=== PATIENT | female | born 1945 | race Caucasian/White ===

== ENCOUNTER 2016-08-08 11:02 | Inpatient (IN) | payer MEDICARE ==
[~2016-08-08] VITALS: Ht 152.4 cm; Wt 124.8 kg
[2016-08-08] MEDS ORDERED: NORCO, ANEXSIA 5/325MG TABLET (HYDROcodone/ACETAMINOPHEN) As Ordered ONE (12:46)
[2016-08-08] MEDS ORDERED: predniSONE 20 MG TAB As Ordered ONE ×2 (12:46→12:53)
[2016-08-08 12:48] LABS: BASO % 0.4 % (0.0-1.0); EOS # 0.1 K/mm3 (0.0-0.50); EOS % 0.9 % (0.0-3.0); LARGE UNSTAINED CELL # 0.1 K/mm3 (0.0-0.4); LARGE UNSTAINED CELL % 1.2 % (0.0-4.0); LYMPH # 1.4 K/mm3 (1.5-4.5); LYMPH % 12.3 % (24.0-44.0); MEAN CORPUSCULAR HEMOGLOBIN 28.9 pg (27.0-33.0); MEAN CORPUSCULAR HGB CONC 32.1 g/dl (32.0-36.5); MEAN CORPUSCULAR VOLUME 90.1 fl (80.0-96.0); MONO # 0.5 K/mm3 (0.0-0.8); NEUTROPHILS # 9.2 K/mm3 (1.8-7.7); NEUTROPHILS % 81.2 % (36.0-66.0); PLATELET COUNT, AUTOMATED 262 k/mm3 (150-450); RED CELL DISTRIBUTION WIDTH 13.9 % (11.5-14.5); WHITE BLOOD COUNT 11.3 K/mm3 (4.0-10.0)
[2016-08-08 12:59] LABS: CALCIUM LEVEL 9.3 MG/DL (8.8-10.2); CREATININE FOR GFR 1.26 MG/DL (0.55-1.02); GLOMERULAR FILTRATION RATE 44.3 (>39)
[2016-08-08 13:48] LABS: INR 0.95
--- NOTE | 2016-08-08 14:48 | ECGEPIP ---
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
--- NOTE | 2016-08-08 14:53 | REP ---
LUMBOSACRAL SPINE SERIES: Five views of the lumbosacral spine are performed. There is no compression fracture. There is normal lumbar lordosis. There is minimal anterior listhesis of L4 on L5 due to posterior facet arthropathy. There is moderate diffuse spurring. There is mild disc space narrowing and subchondral sclerosis at all levels. With a more moderate degree of disc space narrowing at L3-4. There is diffuse sclerosis and spurring at the posterior facet joints. The posterior elements appear intact. Diffuse vascular calcifications are present. IMPRESSION: Diffuse degenerative changes without evidence of acute fracture or dislocation. Signed by Kenan Lu MD 08/08/2016 04:10 P
--- NOTE | 2016-08-08 15:47 | REP ---
Right lower extremity venous Doppler 08/08/2016 Indication: right leg pain Comparison: None Technique : Color-flow Doppler spectral wave imaging and ferrari-scale imaging were used to evaluate the right lower extremity veins at common femoral, superficial femoral, and popliteal venous levels Findings: Due to large body habitus there is limited visualization and evaluation of the mid and distal superficial femoral veins. They were however seen to be patent with color Doppler and spectral wave Doppler imaging. The right common femoral, visualized portions of the origin of greater saphenous vein, profunda femoris, common femoral vein and proximal superficial femoral veins are patent and compressibility was identified. Also compressibility noted within the right popliteal vein Impression: No visualized deep venous thrombosis in the right lower extremity. Please note that evaluation of mid and distal superficial femoral veins somewhat limited due to large body habitus Signed by Jayshree Pardo MD 08/10/2016 10:48 P
[2016-08-08] MEDS ORDERED: ALEN70TA39 PO (16:25)
[2016-08-08] MEDS ORDERED: SITA50TAB PO (16:30)
[2016-08-08] MEDS ORDERED: PRIM50TA2 PO (16:30)
[2016-08-08] MEDS ORDERED: INDA25TAB PO (16:30)
[2016-08-08] MEDS ORDERED: CALCTAB68 PO (16:30)
[2016-08-08] MEDS ORDERED: VITMTA PO (16:30)
[2016-08-08] MEDS ORDERED: GLIM2TAB PO (16:30)
[2016-08-08] MEDS ORDERED: CINN500C9 PO (16:30)
[2016-08-08] MEDS ORDERED: ZOCO40TA PO (16:30)
[2016-08-08] MEDS ORDERED: LISI-538 PO (16:30)
[2016-08-08] MEDS ORDERED: MORPHINE 2 MG/ML 1ML SYRINGE IV PRN (17:00)
[2016-08-08] MEDS ORDERED: BISACODYL 5 MG TAB PO PRN (17:00)
[2016-08-08] MEDS ORDERED: ONDANSETRON 4MG/2ML VIAL (J2405) IV PRN (17:00)
[2016-08-08] MEDS ORDERED: DEXTROSE 50% 50 ML SYRINGE IV PRN (17:15)
[2016-08-08] MEDS ORDERED: GLUCAGON FOR INJ 1 MG VIAL (J1610) SC PRN (17:15)
[2016-08-08] MEDS ORDERED: GLUCOSE 4 GM CHEW TABLET PO PRN (17:15)
[2016-08-08] MEDS ORDERED: LORazepam 2 MG/ML VIAL (J2060) As Ordered ONE (18:23)
[2016-08-08 20:34] VITALS: BP 162/70
--- NOTE | 2016-08-08 20:35 | EDDOCDS ---
Physician Documentation [facility] Name: Nely Duvall Age: 71 yrs Sex: Female : 1945 Arrival Date: 08/08/2016 Time: 11:02 Bed 5 Private MD: Jacqueline Perla M. Disposition: 08/08 16:20 Critical Care: Critical care not applicable. evelia Disposition: 08/08/16 16:20 Hospitalization ordered by Leonela Rai for Observation. Preliminary diagnosis are Radiculopathy, lumbar region, Difficulty in walking, not elsewhere classified. - Bed requested for 4 [place]. - Status is Observation. kalina - Condition is Stable. - Problem is new. - Symptoms are unchanged. Historical: - Allergies: Bactrim (Hives); - Home Meds: 1. alendronate-vitamin D3 70-5,600 mg-unit oral tab 1 tab once wkly Sundays (Last dose: 08/07/2016) 2. indapamide 2.5 mg Oral tab 1 tab once daily (Last dose: 08/08/2016 07:30) 3. glimepiride 2 mg Oral tab 1 tab twice a day (Last dose: 08/08/2016 07:30) 4. simvastatin 40 mg Oral tab 1 tab nightly (Last dose: 08/07/2016) 5. primidone 50 mg Oral tab 3 tabs twice a day (Last dose: 08/08/2016 07:30) 6. Januvia 50 mg oral tab once daily (Last dose: 08/08/2016 07:30) 7. lisinopril 20 mg Oral tab 1 tab twice a day (Last dose: 08/08/2016 07:30) 8. Cinnamon 500 mg oral cap 2 cap twice a day (Last dose: 08/08/2016 07:30) 9. Calcium + Vitamin D 600 mg calcium- 200 unit Oral tab twice a day (Last dose: 08/08/2016 07:30) 10. senior multivitamin daily (Last dose: 08/08/2016 07:30) 11. multivitamin with minerals oral cap daily (Last dose: 08/08/2016 07:30) - PMHx: Diabetes - NIDDM: controlled; Hypertension; essential tremors; chronic kidney disease stage 3; - PSHx: none; - Social history: Smoking status: Patient states was never smoker of tobacco. No barriers to communication noted, The patient speaks fluent Tajik. - Family history: Not pertinent. - : The pt / caregiver states he / she is not on anticoagulants. Home medication list is obtained from the patient. - Exposure Risk Screening:: None identified. Vital Signs: 11:05 BP 205 / 65; Pulse 75; Resp 18; Temp 98.1(T); Pulse Ox 98% on R/A; Weight 125.65 kg / dem1 277.01 lbs (R); Height 5 ft. 0 in. (152.40 cm) (R); Pain 5/10; 14:40 BP 122 / 75; mem 16:43 BP 182 / 83; Pulse 95; Resp 18; Temp 97.6(T); Pulse Ox 99% on R/A; kr3 19:50 BP 137 / 69; Pulse 81; Resp 18 S; Pulse Ox 96% on R/A; af2 19:53 Temp 98.3; cln 11:05 Body Mass Index 54.10 (125.65 kg, 152.40 cm) dem1 MDM: 11:57 General Handling Supervisor/Pulse Ox/q 30 min VS ordered. kcs 11:57 IV Saline Lock ordered. kcs 11:57 Rhythm Strip to chart ordered. kcs 11:57 Undress patient appropriately for examination ordered. kcs 11:58 Basic Metabolic Profile Ordered. EDMS 11:58 CBC with Diff Ordered. EDMS 11:58 Cardiac Injury Profile Ordered. EDMS 11:58 Partial Thromboplastin Time Ordered. EDMS 11:58 Prothrombin Time Profile\E\INR Ordered. EDMS 11:59 ECG WITH READING ER PHYS+CARDIAG ordered. EDMS 12:41 HYDROcodone-acetaminophen 5 mg-325 mg 1 tabs PO once ordered. le 12:41 predniSONE 60 mg PO once; administer with food or milk ordered. le 12:42 US Lower Extremity R/O DVT Ordered. EDMS 12:42 Spine. Lumbosacral, Complete Ordered. EDMS 13:45 Basic Metabolic Profile Reviewed. le 13:45 CBC with Diff Reviewed. le 13:45 Cardiac Injury Profile Reviewed. le 13:45 Partial Thromboplastin Time Reviewed. le 14:55 PT Consult to assess patient's safe and independent mobility for discharge to home le ordered. 14:55 Partial Thromboplastin Time Reviewed. le 14:55 Prothrombin Time Profile\E\INR Reviewed. le 14:55 EKG-ADULT Reviewed. le 14:55 Spine. Lumbosacral, Complete Reviewed. le 15:12 PT Consult to assess patient's safe and independent mobility for discharge to home jrd complete. 15:13 PHYSICAL THERAPY EVAL ONLY ordered. EDMS 15:41 Financial registration complete. zo 15:42 [facility] Payment Agreement was scanned into [employer] and attached to record. zo 16:11 BED REQUEST+ADM ordered. EDMS 16:59 PHYSICAL THERAPY EVAL & TREAT ordered. EDMS 16:59 CONSISTENT CARBOHYDRATES ordered. EDMS 17:03 MRI Screening Tool - Place on chart, inform RN ordered. ss12 17:52 MRI Spine, L.S. without con Ordered. EDMS 17:52 Chest, 2 view PA, Lat Ordered. EDMS 17:53 Admission / Observation Status ordered. EDMS 17:54 URINALYSIS Ordered. EDMS 18:28 LORazepam 2 mg IVP once ordered. kr3 19:24 MRI Screening Tool - Place on chart, inform RN complete. ml3 19:32 CBC WITH DIFFERENTIAL Ordered. EDMS 19:32 COMPLETE COMPHRENSIVE METABOLI Ordered. EDMS 20:28 MAGNESIUM LEVEL Ordered. EDMS Administered Medications: 12:55 Drug: HYDROcodone-acetaminophen 1 tabs [hydrocodone 5 mg-acetaminophen 325 mg tablet (1 kr3 tabs)] Route: PO; 13:49 Follow up: Response: No significant change. kr3 12:55 Drug: predniSONE 60 mg [prednisone 20 mg tablet (3 tabs)] Route: PO; kr3 13:49 Follow up: Response: No Adverse Reaction kr3 18:25 Drug: LORazepam 2 mg [lorazepam 2 mg/mL injection solution (1 mL)] Route: IVP; Site: kr3 left antecubital; Signatures: Dispatcher [employer] EDMS Marla Bonilla RN Gayla Robledo RN RN kpj Newman, Jill New RN Joseph Kaur, [facility] ml3 Jessica Stauffer RN RN kr3 Modesta Bravo Lisa, ROUGH CARPENTER ROUGH CARPENTER Darrel Mata ss12 [place], LABOR DELIVERY RN LABOR DELIVERY RN jrd The chart was reviewed and I authenticate all verbal orders and agree with the evaluation and treatment provided.Corrections: (The following items were deleted from the chart) 20:28 19:32 MAGNESIUM LEVEL ordered. EDMS EDMS Attachments: 15:42 [facility] Payment Agreement zo MTDD
--- NOTE | 2016-08-08 20:35 | EDDOCDS ---
Nurse's Notes [facility] Name: Ronny Duvall Age: 71 yrs Sex: Female : 1945 Arrival Date: 08/08/2016 Time: 11:02 Bed 5 Private MD: Jacqueline Perla M. Diagnosis: Radiculopathy, lumbar region;Difficulty in walking, not elsewhere classified Presentation: 08/08 11:26 Presenting complaint: Patient states: trouble walking for the last 2 weeks even when kpj using her walker. Lives alone has a caregiver that comes in twice a week.pain rt butt cheek and pain down her right leg. 11:29 The last date and time the patient was known to be well was was at an unknown time. No [facility] acute neurological deficit is noted. Pre-hospital glucose is not applicable to this patient. Adult Sepsis Screening: The patient does not have new or worsening altered mentation. Patient's respiratory rate is less than 22. Systolic blood pressure is greater than 100. Patient has a qSOFA score of 0- Negative Sepsis Screen. Status: Patient is not a answering service telephone operator or dependent. Suicide/Homicide risk assessment- the patient denies having any suicidal and/or homicidal ideations. Transition of care: patient was not received from another setting of care. 11:29 Acuity: BHAVIN Level 3 [facility] 11:29 Method Of Arrival: Ambulance [facility] 19:51 The last date and time the patient was known to be well was on an unknown date. af2 Triage Assessment: 11:37 The onset of the patients symptoms was at an unknown time. General: Appears in no [facility] apparent distress. Pain: Location: right gluteus bridgett Pain currently is 5 out of 10 on a pain scale. Pain radiates to right leg. Neurological: Level of Consciousness is awake, alert, Oriented to person, place, time, Reports Back Pain. Respiratory: Airway is patent Respiratory effort is even, unlabored, Respiratory pattern is regular, symmetrical. Derm: Skin is pink, warm & dry. Musculoskeletal: Reports pain in right gluteus bridgett radiation to right leg Pain is 5 out of 10 on a pain scale. Historical: - Allergies: Bactrim (Hives); - Home Meds: 1. alendronate-vitamin D3 70-5,600 mg-unit oral tab 1 tab once wkly Sundays (Last dose: 08/07/2016) 2. indapamide 2.5 mg Oral tab 1 tab once daily (Last dose: 08/08/2016 07:30) 3. glimepiride 2 mg Oral tab 1 tab twice a day (Last dose: 08/08/2016 07:30) 4. simvastatin 40 mg Oral tab 1 tab nightly (Last dose: 08/07/2016) 5. primidone 50 mg Oral tab 3 tabs twice a day (Last dose: 08/08/2016 07:30) 6. Januvia 50 mg oral tab once daily (Last dose: 08/08/2016 07:30) 7. lisinopril 20 mg Oral tab 1 tab twice a day (Last dose: 08/08/2016 07:30) 8. Cinnamon 500 mg oral cap 2 cap twice a day (Last dose: 08/08/2016 07:30) 9. Calcium + Vitamin D 600 mg calcium- 200 unit Oral tab twice a day (Last dose: 08/08/2016 07:30) 10. senior multivitamin daily (Last dose: 08/08/2016 07:30) 11. multivitamin with minerals oral cap daily (Last dose: 08/08/2016 07:30) - PMHx: Diabetes - NIDDM: controlled; Hypertension; essential tremors; chronic kidney disease stage 3; - PSHx: none; - Social history: Smoking status: Patient states was never smoker of tobacco. No barriers to communication noted, The patient speaks fluent Latvian. - Family history: Not pertinent. - : The pt / caregiver states he / she is not on anticoagulants. Home medication list is obtained from the patient. - Exposure Risk Screening:: None identified. Screenin:28 Screening information is obtained from the patient. Fall risk: At risk due to kr3 immobility. home support is adequate. 18:37 Abuse/DV Screen: The patient / caregiver reports he/she is: not in a situation that kr3 causes fear, pain or injury. Nutritional screening: No deficits noted. 19:31 Assistance ADL's: unable to assess. Advance Directives: Further advance directive af2 information is declined. Assessment: 12:28 Reassessment: Patient appears in no apparent distress at this time. General: Reports kr3 unable to weight bear right leg. Pain: Location: right leg and buttocks and right gluteus bridgett Pain currently is 5 out of 10 on a pain scale. Neurological: No deficits noted. Cardiovascular: Chest pain is denied. Respiratory: Respiratory effort is even, unlabored. Derm: Skin is pink, warm & dry. 13:49 Reassessment: Patient appears in no apparent distress at this time. Pain: Location: kr3 right leg and buttocks and right gluteus bridgett Pain currently is 5 out of 10 on a pain scale. 14:40 Reassessment: Patient appears in no apparent distress at this time. General: Behavior kr3 is cooperative. Neurological: No deficits noted. 15:55 Reassessment: PT in with patient to evaluate. kr3 16:30 Reassessment: Patient appears in no apparent distress at this time. Neurological: Level kr3 of Consciousness is awake, alert. Respiratory: Respiratory effort is even, unlabored. 17:05 Reassessment: Patient appears in no apparent distress at this time. talking with kr3 hospitallist. 18:10 General: Appears in no apparent distress, comfortable, reports willing to try MRI but kr3 will need medication, hospitalist notified and med ordered. 18:35 Reassessment: Patient appears in no apparent distress at this time. Pain: Location: kr3 right knee Pain currently is 6 out of 10 on a pain scale. Quality of pain is described as aching. 19:21 General: pt off unit at this time. . af2 19:51 Reassessment: Patient appears in no apparent distress at this time. pt returned from af2 MRI at this time, tolerated procedure well. states that she feels a dull ache returning to right leg. . 20:04 General: Appears in no apparent distress, comfortable, Behavior is appropriate for age, af2 cooperative. Neurological: Level of Consciousness is awake, alert. Respiratory: Airway is patent Respiratory effort is even, unlabored. Derm: Skin is pink, warm & dry. Vital Signs: 11:05 BP 205 / 65; Pulse 75; Resp 18; Temp 98.1(T); Pulse Ox 98% on R/A; Weight 125.65 kg dem1 (R); Height 5 ft. 0 in. (152.40 cm) (R); Pain 5/10; 14:40 BP 122 / 75; mem 16:43 BP 182 / 83; Pulse 95; Resp 18; Temp 97.6(T); Pulse Ox 99% on R/A; kr3 19:50 BP 137 / 69; Pulse 81; Resp 18 S; Pulse Ox 96% on R/A; af2 19:53 Temp 98.3; cln 11:05 Body Mass Index 54.10 (125.65 kg, 152.40 cm) dem1 Vitals: 11:05 Log In Time N/A - ambulance arrival. RN notified that patient meets Red Flag criteria. dem1 11:37 Glucose Measurement N/A. [facility] ED Course: 11:04 Patient visited by Daxa Helms. dem1 11:04 Patient moved to Waiting dem1 11:05 Jacqueline Perla is Private Physician. dem1 11:08 Patient visited by Daxa Helms. dem1 11:08 Patient moved to Pre RCE dem1 11:29 Triage Initiated [facility] 11:42 Jessica Stauffer,RN is Primary Nurse. ar3 11:42 Patient moved to 5 ar3 12:10 EKG done. (by ED staff). Reviewed by Kumar Agee MD. ct3 12:11 Patient visited by Kalpana Flores PCA. ct3 12:28 [facility]. le 12:28 Basic Metabolic Profile Sent. kr3 12:28 CBC with Diff Sent. kr3 12:28 Cardiac Injury Profile Sent. kr3 12:28 Partial Thromboplastin Time Sent. kr3 12:28 Prothrombin Time Profile\E\INR Sent. kr3 12:29 The patient / caregiver is instructed regarding the plan of care and ED course. Patient kristina has correct armband on for positive identification. Placed in gown. Bed in low position. Call light in reach. Side rails up X2. hospital monitor on. Pulse ox on. NIBP on. 12:29 Inserted saline lock: 20 gauge in left antecubital area and blood collected. The frieda3 patient tolerated the procedure well. 12:35 Patient visited by Thea Gregorio FNP. le 12:35 Patient visited by Thea Gregorio FNP. le 12:55 Cleaned of incontinence. Linen changed. kr3 13:13 Patient visited by Kalpana Flores PCA. ct3 13:49 Patient visited by Jessica Stauffer RN. kr3 14:33 Patient moved to Ultrasound sm5 14:51 EKG-ADULT Returned. EDMS 14:55 Spine. Lumbosacral, Complete Returned. EDMS 14:57 Patient moved to 5 br3 15:19 Cleaned of incontinence. Linen changed. kr3 15:20 Patient visited by Jessica Stauffer RN. kr3 15:42 [facility] Payment Agreement was scanned into [employer] and attached to record. zo 15:59 Patient visited by Kalpana Flores PCA. ct3 16:02 US Lower Extremity R/O DVT Returned. EDMS 16:20 Fredi Leonela is Hospitalizing Provider. le 16:36 Spine. Lumbosacral, Complete Returned. EDMS 18:44 Patient moved to MRI kr3 18:59 Sinan Salas adult ministries director. nq 19:00 Primary Nurse role handed off by Jessica Stauffer RN kr3 19:20 Griselda Collins RN is Primary Nurse. af2 19:21 Patient visited by Griselda Collins RN. af2 19:45 Patient moved to 5 ml3 19:50 No procedures done that require assistance. af2 19:52 Patient visited by Griselda Collins RN. af2 19:53 Patient visited by Palmira Razo PCA. cln Administered Medications: 12:55 Drug: HYDROcodone-acetaminophen 1 tabs [hydrocodone 5 mg-acetaminophen 325 mg tablet (1 kr3 tabs)] Route: PO; 13:49 Follow up: Response: No significant change. kr3 12:55 Drug: predniSONE 60 mg [prednisone 20 mg tablet (3 tabs)] Route: PO; kr3 13:49 Follow up: Response: No Adverse Reaction kr3 18:25 Drug: LORazepam 2 mg [lorazepam 2 mg/mL injection solution (1 mL)] Route: IVP; Site: kr3 left antecubital; Order Results: Lab Order: Basic Metabolic Profile; SPEC'M 08/08/16 12:24 Test: GLUCOSE, FASTING; Value: 131; Range: 83-110; Abnormal: Above high normal; Units: MG/DL; Status: F Test: BLOOD UREA NITROGEN; Value: 28; Range: 7-18; Abnormal: Above high normal; Units: MG/DL; Status: F Test: CREATININE FOR GFR; Value: 1.26; Range: 0.55-1.02; Abnormal: Above high normal; Units: MG/DL; Status: F Test: GLOMERULAR FILTRATION RATE; Value: 44.3; Range: >39; Status: F Test: SODIUM LEVEL; Value: 145; Range: 136-145; Units: MEQ/L; Status: F Test: POTASSIUM SERUM; Value: 4.0; Range: 3.5-5.1; Units: MEQ/L; Status: F Test: CHLORIDE LEVEL; Value: 106; Range: 98-107; Units: MEQ/L; Status: F Test: CARBON DIOXIDE LEVEL; Value: 30; Range: 21-32; Units: MEQ/L; Status: F Test: ANION GAP; Value: 9; Range: 8-16; Units: MEQ/L; Status: F Test: CALCIUM LEVEL; Value: 9.3; Range: 8.8-10.2; Units: MG/DL; Status: F Test Note: ; Units are mL/min/1.73 m2 Chronic Kidney Disease Staging per NKF: Stage I & II GFR >=60 Normal to Mildly Decreased Stage III GFR 30-59 Moderately Decreased Stage IV GFR 15-29 Severely Decreased Stage V GFR <15 Very Little GFR Left ESRD GFR <15 on INDUSTRIAL GAS PRODUCTION OPERATOR Lab Order: CBC with Diff; SPEC'M 08/08/16 12:24 Test: WHITE BLOOD COUNT; Value: 11.3; Range: 4.0-10.0; Abnormal: Above high normal; Units: K/mm3; Status: F Test: RED BLOOD COUNT; Value: 4.38; Range: 4.00-5.40; Units: M/mm3; Status: F Test: HEMOGLOBIN; Value: 12.7; Range: 12.0-16.0; Units: g/dl; Status: F Test: HEMATOCRIT; Value: 39.4; Range: 36.0-47.0; Units: %; Status: F Test: MEAN CORPUSCULAR VOLUME; Value: 90.1; Range: 80.0-96.0; Units: fl; Status: F Test: MEAN CORPUSCULAR HEMOGLOBIN; Value: 28.9; Range: 27.0-33.0; Units: pg; Status: F Test: MEAN CORPUSCULAR HGB CONC; Value: 32.1; Range: 32.0-36.5; Units: g/dl; Status: F Test: RED CELL DISTRIBUTION WIDTH; Value: 13.9; Range: 11.5-14.5; Units: %; Status: F Test: PLATELET COUNT, AUTOMATED; Value: 262; Range: 150-450; Units: k/mm3; Status: F Test: NEUTROPHILS %; Value: 81.2; Range: 36.0-66.0; Abnormal: Above high normal; Units: %; Status: F Test: LYMPH %; Value: 12.3; Range: 24.0-44.0; Abnormal: Below low normal; Units: %; Status: F Test: MONO %; Value: 4.0; Range: 0.0-5.0; Units: %; Status: F Test: EOS %; Value: 0.9; Range: 0.0-3.0; Units: %; Status: F Test: BASO %; Value: 0.4; Range: 0.0-1.0; Units: %; Status: F Test: LARGE UNSTAINED CELL %; Value: 1.2; Range: 0.0-4.0; Units: %; Status: F Test: NEUTROPHILS #; Value: 9.2; Range: 1.8-7.7; Abnormal: Above high normal; Units: K/mm3; Status: F Test: LYMPH #; Value: 1.4; Range: 1.5-4.5; Abnormal: Below low normal; Units: K/mm3; Status: F Test: MONO #; Value: 0.5; Range: 0.0-0.8; Units: K/mm3; Status: F Test: EOS #; Value: 0.1; Range: 0.0-0.50; Units: K/mm3; Status: F Test: BASO #; Value: 0.0; Range: 0.0-0.2; Units: K/mm3; Status: F Test: LARGE UNSTAINED CELL #; Value: 0.1; Range: 0.0-0.4; Units: K/mm3; Status: F Lab Order: Cardiac Injury Profile; SPEC'M 08/08/16 12:24 Test: CPK CREATINE PHOSPHOKINASE; Value: 85; Range: 26-192; Units: U/L; Status: F Test: CK-MB VALUE MASS; Value: 1.6; Range: 0.0-3.6; Units: NG/ML; Status: F Test: MB/CK RELATIVE INDEX; Value: 1.88; Range: < OR =4; Status: F Test Note: ; DIAGNOSIS CRITERIA MMB ng/ml Relative Index (RI) NON-AMI < or = 5 N/A LU ZONE > 5 < or = 4 AMI > 5 > 4 Lab Order: Partial Thromboplastin Time; SPEC'M 08/08/16 12:24 Test: PARTIAL THROMBOPLASTIN TIME; Value: 29.7; Range: 26.6-37.1; Units: SECONDS; Status: F Lab Order: Prothrombin Time Profile\E\INR; SPEC'M 08/08/16 12:24 Test: PROTHROMBIN TIME; Value: 12.8; Range: 12.3-14.5; Units: SECONDS; Status: F Test: INR; Value: 0.95; Status: F Test Note: ; THERAPUTIC HUMAN INR VALUES INDICATIONS NORMAL RANGES PROPHYLAXIS/TREATMENT OF: VENOUS THROMBOSIS 2.0-3.0 PULMONARY EMBOLISM 2.0-3.0 PREVENTION OF SYSTEMIC EMBOLISM FROM: TISSUE HEART VALVES 2.0-3.0 ACUTE MYOCARDIAL INFARCTION 2.0-3.0 VALVULAR HEART DISEASE 2.0-3.0 ATRIAL FIBRILLATION 2.0-3.0 MECHANICAL VALVES(HIGH RISK) 2.5-3.5 RECURRENT MYOCARDIAL INFARCTION 2.5-3.5 Radiology Order: EKG-ADULT Test: EKG-ADULT REASON FOR EXAMINATION: weakness; Stationary ECG Study; [facility] - ED; ; Test Date: 2016-08-08; Pat Name: RONNY DUVALL Department:; Room: -; Gender: F 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: ct; : 1945 Requested By: Kumar Agee; Order Number: [id number] Reading MD: Alex Bonilla; Measurements; Intervals [place]; Rate: 67 P:; UT: 0 QRS: -44; QRSD: 105 T: 56; QT: 369; QTc: 392; Interpretive Statements; SINUS RHYTHM WITH 1ST DEGREE AV BLOCK; LEFT AXIS DEVIATION; LAE; NO PRIORS; Electronically Signed On 08-08-2016 14:48:15 EST by Alex Bonilla; Radiology Order: US Lower Extremity R/O DVT Test: US Lower Extremity R/O DVT REASON FOR EXAMINATION: pain; Right lower extremity venous Doppler 08/08/2016; ; Indication: right leg pain; ; Comparison: None; ; Technique : Color-flow Doppler spectral wave imaging and lu-scale imaging were; used to evaluate the right lower extremity veins at common femoral, superficial; femoral, and popliteal venous levels; ; Findings: Due to large body habitus there is limited visualization and; evaluation of the mid and distal superficial femoral veins. They were however; seen to be patent with color Doppler and spectral wave Doppler imaging.; ; The right common femoral, visualized portions of the origin of greater saphenous; vein, profunda femoris, common femoral vein and proximal superficial femoral; veins are patent and compressibility was identified. Also compressibility noted; within the right popliteal vein; ; Impression:; No visualized deep venous thrombosis in the right lower extremity. Please note; that evaluation of mid and distal superficial femoral veins somewhat limited due; to large body habitus; ; ; ; ; Unreviewed; Radiology Order: Spine. Lumbosacral, Complete Test: Spine. Lumbosacral, Complete REASON FOR EXAMINATION: likely right radicular pain; LUMBOSACRAL SPINE SERIES:; ; Five views of the lumbosacral spine are performed.; ; There is no compression fracture. There is normal lumbar lordosis. There is; minimal anterior listhesis of L4 on L5 due to posterior facet arthropathy. There; is moderate diffuse spurring. There is mild disc space narrowing and subchondral; sclerosis at all levels. With a more moderate degree of disc space narrowing at; L3-4. There is diffuse sclerosis and spurring at the posterior facet joints. The; posterior elements appear intact. Diffuse vascular calcifications are present.; ; IMPRESSION:; ; Diffuse degenerative changes without evidence of acute fracture or dislocation.; ; ; Signed by; Kenan Lu MD 08/08/2016 04:10 P; Outcome: 13:50 Ultrasound Study completed. kr3 16:20 Decision to Hospitalize by Provider. le 19:50 Discharge Assessment: Patient awake, alert and oriented x 3. No cognitive and/or af2 functional deficits noted. Patient verbalized understanding of disposition instructions. patient administered narcotics - no. The following High Risk Discharge criteria are identified: None. Admitted to Med/Surg accompanied by tech, via stretcher, with chart. Condition: stable. Property :Personal belongings accompany Pt. 20:35 Patient left the ED. kalina Signatures: Dispatcher [employer] EDGayla Le, RN RN karely Woodward, Verna More, RN RN kalina Spring, Dang 5 Ari, HaylieMorena, Actuarial Clerk Unit ml3 Jessica Stauffer,RN RN kr3 Modesta Bravo Lisa, PRIMER CHARGING TOOL SETTER PRIMER CHARGING TOOL SETTER Citlalli Magana br3 Zhou, Funmilayo, BODY BUILDER APPRENTICE BODY BUILDER APPRENTICE ar3 Flores, Kalpana, BODY BUILDER APPRENTICE BODY BUILDER APPRENTICE ct3 Scooter, Demeishia dem1 Sinan Salas Amber,RN RN af2 Marilyn So, RN RN geovani Razo, Palmira, BODY BUILDER APPRENTICE BODY BUILDER APPRENTICE cln MTDD
[2016-08-08] MEDS: SIMVASTATIN 40 MG TAB PO SCH (20:48)
[2016-08-08] MEDS: LISINOPRIL 20 MG TAB PO SCH (20:48)
--- NOTE | 2016-08-08 20:50 | REPUSA ---
MRI of the lumbar spine without contrast Clinical statement: Pain. Trouble walking. Technique: Multiecho multiplanar MRI images of the lumbar spine were obtained without administration of contrast. No comparison is available. Findings: The lumbar vertebral bodies are in satisfactory position and alignment. No fractures or dis locations are demonstrated. Normal heterogeneous bone marrow signal is noted. No osseous tumors are s een. There is severe degenerative disc disease at L3/L4 with the loss of disc height. The interverteb ral disc heights are otherwise well maintained and demonstrate normal signal. The filum terminale and conus medullaris appear unremarkable. The spinal cord demonstrates normal signal and contour. The espinosa rrounding soft tissues are within normal limits. At L1/L2, there is a central disc protrusion measuring 0.6 x 1.1 cm causing moderate mass effect on t he anterior thecal sac. There is no evidence of central canal stenosis. There is mild bilateral neura l foraminal narrowing. At L2/L3, there is a right paracentral/foraminal disc protrusion causing moderately severe narrowing of the right neural foramen. The left neural foramen is patent. There is no evidence of central canal stenosis. At L3/L4, there is a moderate disc osteophyte complex and disc bulge. There is no evidence of disc he rniation or central canal stenosis. There is moderate narrowing of the right neural foramen. At L4/L5, there is a moderate disc osteophyte complex and disc bulge. There is no evidence of disc he rniation or central canal stenosis. There is moderate narrowing of the right neural foramen. At L5/S1, there is a mild disc osteophyte complex and disc bulge with very small left paracentral dis c protrusion. There is no evidence of central canal stenosis or neural foraminal narrowing. Impression: 1. Central disc protrusion at L1/L2 without evidence of central canal stenosis. 2. Right paracentral/foraminal disc protrusion at L2/L3 causing moderately severe narrowing of the ri ght neural foramen. No evidence of central canal stenosis. 3. Degenerative disc disease with disc osteophyte complexes at L3/L4, L4/L5, and L5/S1 with varying d egrees of neural foraminal narrowing. No evidence of central canal stenosis.
[2016-08-08] MEDS ORDERED: CALCIUM/VITAMIN D 500 MG TAB PO SCH ×2 (21:00→21:31)
[2016-08-08] MEDS: HumaLOG INSULIN (NovoLOG) PER UNIT SC SCH (21:25)
[2016-08-08] MEDS: CALCIUM/VITAMIN D 500 MG TAB PO SCH (21:37)
[2016-08-08] MEDS: PRIMIDONE 50 MG TAB PO SCH (21:37)
[2016-08-08] MEDS: HEPARIN SOD (PORCINE) 5000 UNITS/ML VIAL SC SCH (21:37)
[2016-08-08] MEDS: PERCOCET 5MG/325MG TAB PO PRN (21:42)
--- NOTE | 2016-08-08 21:54 | HPE ---
DATE OF ADMISSION: 08/08/2016 PRIMARY CARE PROVIDER: NANCY Barriga CHIEF COMPLAINT: Lower back pain with radiculopathy, right more than left. Patient expressed that she has been having back pain and it is a chronic issue, however for the past 2-3 weeks it became worse. Patient expressed that she has home health who come and help her three times a week, helping her with daily activities, including shower. Patient expressed that Monday when she was in the shower, when she wanted to stand up, she could not do that due to having severe knee pain and back pain, right knee pain more than left knee pain, and severe lower back pain. Patient has life support and she pressed the button. When the emergency medical practice manager (program support clerk) arrived, they helped her to stand and helped her go to her bed. However, patient did not want to come to the hospital. This morning, patient noticed that the pain is excruciating to the point that patient could not tolerate it. Patient expressed the pain is about 4-5 over 10, however if she walks the pain is excruciating and she cannot tolerate it. Patient alerted the EMT. In the emergency room, patient was evaluated by physical therapy who expressed that patient can only walk for two feet and cannot tolerate walking more than that. ALLERGIES: BACTRIM causes hives. PAST MEDICAL HISTORY: 1. Hypertension. 2. Hypercholesterolemia. 3. Diabetes mellitus. 4. Osteopenia. DEXA was done on 02/03/2016. Since patient has history of osteoporosis is on Fosamax. 5. Pneumovax 23 in 2010 per patient. 6. Flu vaccine 05/05/2016. 7. Essential hypertension. PAST SURGICAL HISTORY: 1. Dilatation and curettage (D and C). 2. EGD and colonoscopy by Dr. Florentino. Adenomas and polyps. One year followup was recommended by Dr. Florentino. Patient has not followed through with this since 2014. FAMILY HISTORY: Patient's father to carcinoma. Patient's mother due to multiple myeloma. Patient has one sister who has multiple issues, including hypertension, high cholesterol, cervical cancer, rectal cancer. SOCIAL HISTORY: Patient lives alone. Patient has home health visiting her three times a week. Patient denies illicit drug use. Patient denies history of smoking or alcohol. HOME MEDICATIONS: - alendronate sodium 70 mg by mouth weekly on Sundays - calcium 600 plus D 600-400 mg one tablet by mouth twice a day - cinnamon 1000 mg by mouth twice a day - glimepiride 2 mg by mouth twice a day - indapamide 2.5 mg by mouth daily - lisinopril 20 mg by mouth twice a day - multivitamin one tablet by mouth daily - primidone 150 mg by mouth twice a day - Zocor 40 mg by mouth every evening - Januvia 50 mg by mouth daily REVIEW OF SYSTEMS: GENERAL: Patient denies fever, chills, night sweats, weight loss, weight gain. HEENT: Patient denies headache, lightheadedness, or dizziness. Patient denies problem with chewing food or sinusitis. NECK: Patient denies lumps, bumps, or decreased range of motion of her neck. CHEST: Patient denies chest pain, palpitations, racing or skipping heart beat. ABDOMEN: Patient denies abdominal pain, nausea, vomiting, diarrhea, constipation, melena, hematochezia, or hemoptysis. LUNGS: Patient denies shortness of breath, wheezing, or coughing. NEUROLOGIC: Patient denies history of transient ischemic attack (TIA), seizure, or seizure-type activity. PHYSICAL EXAMINATION: VITAL SIGNS: Blood pressure 205/65, pulse 75, respiratory rate 18, temperature 98.1, pulse oximetry 98% on room air. Weight 125.65 kg, height 152.40 cm, body mass index (BMI) 54.10. GENERAL APPEARANCE: Patient was lying in bed, in no acute distress. Patient was awake, alert, and oriented to time, place, and person. HEENT: Normocephalic, atraumatic. Pupils are equal. Oral mucosa is moist. NECK: Soft, supple. No lymphadenopathy or thyromegaly. HEART: Regular rate and rhythm. Normal S1, S2. ABDOMEN: Soft, obese. Positive bowel sounds in all quadrants. No tenderness with palpitation. EXTREMITIES: No lower extremity edema. +2 pulses in both lower extremities. NEUROLOGIC: Cranial nerves II-XII was intact. No focal deficiencies. LABORATORY DATA: White blood cells 11.3, red blood cells 4.38, hemoglobin 12.7, hematocrit 39.4, MCV 90.1, MCH 28.9, MCHC 32.1, RDW 13.9, platelet count 262, neutrophil percentage 81.2, lymphocyte percentage 12.3, monocyte percentage 4, eosinophil percentage 0.9, basophil percentage 0.4, leukocyte percentage 1.2. PT 12.8, INR 0.95, APTT 29.7. Sodium 145, potassium 4, chloride 106, carbon dioxide 30, anion gap 9, BUN 28, creatinine 1.26, glomerular filtration rate 44.3, fasting glucose 131, calcium 9.3, total creatine kinase 95, CK-MB 1.6, CK-MB relative index 1.88. IMAGING STUDIES: Ultrasound of the lower veins was negative for deep venous thrombosis (DVT) in the right lower extremity. Lumbar spine shows diffuse degenerative changes without evidence of acute fracture or dislocation. Lumbar spine MRI result is pending at this time. ASSESSMENT AND PLAN: 1. Back pain. We have ordered an MRI of the lumbar spine. Result is pending at this time. However, lumbar spine xray shows degenerative changes and no fracture or dislocation was noticed. It is possible that patient has been experiencing some degree of stenosis. MRI is pending at this time. Will continue managing patient's pain. Patient was admitted due to patient not felt safe to be at home as well as failed physical therapy eval. 2. Hypertension. At time of admission, patient had hypertension. At this time , patient's blood pressure is stable. Will continue patient on home dosage of indapamide 2.5 mg by mouth daily, lisinopril 25 mg by mouth twice a day, primidone 150 mg by mouth twice a day. 3. Hypercholesterolemia. We will continue patient on Zocor 40 mg by mouth every evening. 4. Diabetes. At home, patient is on Januvia 50 mg by mouth daily as well as glimepiride 2 mg by mouth twice a day. However, we have stopped these two medications and we have started patient on sliding scale and consistent carbohydrate diet. 5. Osteopenia. At home, patient is on alendronate sodium 70 mg by mouth weekly on Monday. However, at this time we will continue patient on Os-Niranjan D 1 gram by mouth twice a day. 6. Deep venous thrombosis (DVT) prophylaxis. We will continue patient on heparin 5000 units every 8 hours before food. My preceptor for this patient encounter was Dr. Leonela Rai. The preceptor was physically present in the building during the encounter and was fully available. As needed, all aspects of the patient interview, examination, medical decision making process, and medical care plan development were reviewed and approved by the preceptor. The preceptor is aware and concurs with the plan as stated in the body of this note and will attest to such by his cosignature. I have both independently examined this patient as well as reviewed the note. I have discussed in detail with the resident the findings and plan of treatment as documented in the residents note. I will continue to follow the patient and offer further guidance to the patients care as necessary during this hospital stay. Leonela VÁSQUEZ
[2016-08-08 22:00] VITALS: BP 162/70
[2016-08-09] MEDS: ACETAMINOPHEN TAB 650MG DOSE (2X325MG) PO PRN (05:07)
[2016-08-09] MEDS: HEPARIN SOD (PORCINE) 5000 UNITS/ML VIAL SC SCH ×3 (05:07→21:41)
[2016-08-09 06:00] VITALS: BP 162/72
[2016-08-09 06:57] LABS: BASO # 0.1 K/mm3 (0.0-0.2); BASO % 0.8 % (0.0-1.0); EOS # 0.1 K/mm3 (0.0-0.50); EOS % 1.1 % (0.0-3.0); LARGE UNSTAINED CELL # 0.2 K/mm3 (0.0-0.4); LARGE UNSTAINED CELL % 1.2 % (0.0-4.0); LYMPH # 2.2 K/mm3 (1.5-4.5); LYMPH % 15.2 % (24.0-44.0); MEAN CORPUSCULAR HEMOGLOBIN 29.2 pg (27.0-33.0); MEAN CORPUSCULAR HGB CONC 32.4 g/dl (32.0-36.5); MONO # 0.7 K/mm3 (0.0-0.8); MONO % 5.6 % (0.0-5.0); NEUTROPHILS % 76.2 % (36.0-66.0); PLATELET COUNT, AUTOMATED 263 k/mm3 (150-450); RED CELL DISTRIBUTION WIDTH 14.7 % (11.5-14.5); WHITE BLOOD COUNT 13.1 K/mm3 (4.0-10.0)
[2016-08-09] MEDS: HumaLOG INSULIN (NovoLOG) PER UNIT SC SCH ×4 (07:30→21:05)
[2016-08-09 07:32] LABS: ALBUMIN/GLOBULIN RATIO 1.03 (1.00-1.93); BILIRUBIN,TOTAL 0.3 MG/DL (0.2-1.0); CALCIUM LEVEL 9.6 MG/DL (8.8-10.2); CREATININE FOR GFR 1.22 MG/DL (0.55-1.02); MAGNESIUM LEVEL 1.7 MG/DL (1.8-2.4); TOTAL PROTEIN 5.9 GM/DL (6.4-8.2)
[2016-08-09] MEDS: PRIMIDONE 50 MG TAB PO SCH ×2 (08:51→20:45)
--- NOTE | 2016-08-09 08:51 | REP ---
Chest x-ray: Two views. History: Question pneumonia. Comparison chest x-ray September 29, 2011. Findings: The right hemidiaphragm remains somewhat elevated. Heart size is borderline unchanged. Pulmonary vasculature is not increased. The aorta is tortuous as before. No infiltrate is seen. No pleural effusion noted. Impression: No evidence of infiltrate or pleural effusion. Borderline heart size. Signed by Robert Mathew MD 08/09/2016 09:11 A
[2016-08-09] MEDS: LISINOPRIL 20 MG TAB PO SCH ×2 (08:52→20:45)
[2016-08-09] MEDS: MULTIVITAMINS/MINERALS THERAP 1 TAB PO SCH (08:52)
[2016-08-09] MEDS: CALCIUM/VITAMIN D 500 MG TAB PO SCH ×2 (08:52→20:45)
[2016-08-09] MEDS: INDAPAMIDE 1.25MG TABLET PO SCH (08:52)
[2016-08-09 14:00] VITALS: BP 173/81
--- NOTE | 2016-08-09 15:03 | REP ---
PELVIS AND RIGHT HIP: AP view of the pelvis and AP and frogleg views of the right hip are performed. Comparison made with a prior lumbosacral spine series 09/29/2011. There is no evidence of acute fracture. There is severe degenerative change at each hip joint. Bilaterally there is severe joint space narrowing, subchondral sclerosis and large acetabular spurs superolaterally. There is spurring of the femoral heads bilaterally. Heterogeneous sclerotic changes in the femoral heads are present with tiny cystic changes. I cannot exclude avascular necrosis of the femoral heads. Smooth linear lucency vertically in the right superolateral acetabulum may represent an old nondisplaced fracture. Erosive changes and deepening of the acetabular fossa is noted bilaterally. IMPRESSION: Severe degenerative joint disease as discussed in detail above. No acute fracture or dislocation. Possible old vertical nondisplaced fracture at the superolateral right acetabulum above the femoral head. I cannot exclude avascular necrosis of the femoral heads. Signed by Kenan Lu MD 08/09/2016 04:16 P
[2016-08-09] MEDS: MAGNESIUM OXIDE 400 MG TAB (MAG-OX) PO SCH ×2 (15:43→20:45)
[2016-08-09] MEDS: PERCOCET 5MG/325MG TAB PO PRN (17:45)
[2016-08-09] MEDS: SIMVASTATIN 40 MG TAB PO SCH (20:45)
[2016-08-09 22:00] VITALS: BP 176/76
[2016-08-09] MEDS: BISOPROLOL FUMARATE 5 MG TAB PO SCH (22:25)
[2016-08-10 02:00] VITALS: BP 164/72
[2016-08-10] MEDS: ACETAMINOPHEN TAB 650MG DOSE (2X325MG) PO PRN (05:09)
[2016-08-10] MEDS: HEPARIN SOD (PORCINE) 5000 UNITS/ML VIAL SC SCH ×3 (05:09→22:07)
[2016-08-10 06:00] VITALS: BP 170/74
[2016-08-10 07:05] LABS: BASO # 0.1 K/mm3 (0.0-0.2); BASO % 0.8 % (0.0-1.0); EOS # 0.1 K/mm3 (0.0-0.50); EOS % 1.4 % (0.0-3.0); LARGE UNSTAINED CELL # 0.1 K/mm3 (0.0-0.4); LYMPH # 1.5 K/mm3 (1.5-4.5); LYMPH % 13.3 % (24.0-44.0); MEAN CORPUSCULAR HEMOGLOBIN 28.7 pg (27.0-33.0); MEAN CORPUSCULAR VOLUME 92.4 fl (80.0-96.0); MONO # 0.6 K/mm3 (0.0-0.8); MONO % 5.4 % (0.0-5.0); NEUTROPHILS # 7.9 K/mm3 (1.8-7.7); PLATELET COUNT, AUTOMATED 263 k/mm3 (150-450); RED CELL DISTRIBUTION WIDTH 14.3 % (11.5-14.5); WHITE BLOOD COUNT 10.2 K/mm3 (4.0-10.0)
[2016-08-10 07:36] LABS: ALBUMIN 2.7 GM/DL (3.2-5.2); ALBUMIN/GLOBULIN RATIO 0.77 (1.00-1.93); BILIRUBIN,TOTAL 0.6 MG/DL (0.2-1.0); CALCIUM LEVEL 9.1 MG/DL (8.8-10.2); CREATININE FOR GFR 1.25 MG/DL (0.55-1.02); GLOMERULAR FILTRATION RATE 44.7 (>39); MAGNESIUM LEVEL 1.6 MG/DL (1.8-2.4); POTASSIUM SERUM 3.8 MEQ/L (3.5-5.1); TOTAL PROTEIN 6.2 GM/DL (6.4-8.2)
[2016-08-10] MEDS: INDAPAMIDE 1.25MG TABLET PO SCH (08:20)
[2016-08-10] MEDS: LISINOPRIL 20 MG TAB PO SCH ×2 (08:20→22:06)
[2016-08-10] MEDS: HumaLOG INSULIN (NovoLOG) PER UNIT SC SCH ×5 (08:21→21:00)
[2016-08-10] MEDS: PRIMIDONE 50 MG TAB PO SCH ×2 (08:21→22:03)
[2016-08-10] MEDS: CALCIUM/VITAMIN D 500 MG TAB PO SCH ×2 (08:21→22:03)
[2016-08-10] MEDS: MULTIVITAMINS/MINERALS THERAP 1 TAB PO SCH (08:21)
[2016-08-10] MEDS: MAGNESIUM OXIDE 400 MG TAB (MAG-OX) PO SCH ×2 (08:21→22:03)
[2016-08-10] MEDS: PERCOCET 5MG/325MG TAB PO PRN ×3 (10:45→22:07)
--- NOTE | 2016-08-10 12:20 | IPNPDOC ---
Assessment/Plan Date Seen The patient was seen on 08/10/16. Problems Problems: (1) Elevated liver enzymes Status: Acute Problem Text: No clear etiology for AST/ALT elevation. T.Bili and Alk phos normal. no n/v, abd pain, tenderness RUQ. Suspect med related - possibly from Tylenol. D/C Tylenol. Use Percocet alone. (2) DDD (degenerative disc disease), lumbar Status: Chronic Response to Treatment: Worse Problem Text: Pain clinic saw patient in consultation - Recommend Percocet PRN. Unable to perform any injections due to leukocytosis at this time ( However there does not appear to be any clear infection present clinically) She refused PT today due to pain PFS consulted to help with disposition planning. She is not safe to go home to her current living situation at this time however. Consider Orthopedic referral to address severe arthritic pain in her hips. Get x-ray of right knee as well since pain seems localized there today. continue Percocet for now. Avoid NSAIDs due to CKD3 in Diabetic patient. Add Cymbalta for radicular pain control (3) Bilateral hip joint arthritis Status: Chronic Response to Treatment: Worse Problem Text: see above (4) Inability to ambulate due to multiple joints Status: Acute Discussed With: Pt and Family Services Problem Text: see above (5) Leg pain, bilateral Status: Acute (6) Morbid obesity Status: Acute (7) Type 2 diabetes mellitus Status: Chronic Response to Treatment: Stable (8) HTN (hypertension) Status: Chronic Response to Treatment: Stable (9) Hypomagnesemia Status: Acute Problem Text: getting oral mag. Had a loose BM today so may not tolerate the oral mag Give Mag run Plan / VTE VTE Prophylaxis Ordered?: Yes (SQ heparin) Plan Plan Text Patient seen. Agree with findings and plan as outlined by Ms Carlos; will request US of liver. Subjective Review of Systems CC/HPI The patient is a 71-year-old female admitted with a reason for visit of Leg Pain , Bilateral. Events since last encounter Patient now reports the pain is in her right knee. She did not participate with PT today due to pain. No other complaints Constitutional: Denies: Chills, Fever Pulmonary: Denies: Cough, Dyspnea Cardiovascular: Denies: Chest Pain, Palpitations Gastrointestinal: Denies: Abdominal Pain, Constipation, Diarrhea, Nausea, Vomiting Objective Physical Examination General Exam: Positive: Alert, No Acute Distress Chest Exam: Positive: Clear to auscultation, Normal air movement Heart Exam: Positive: Rate Normal, Regular Rhythm, Negative: Murmurs Abdomen Exam: Positive: Normal bowel sounds, Soft, Negative: Tenderness Extremity Exam: Negative: Edema Vital Signs/I&O Vital Signs Date Time Temp Pulse Resp B/P Pulse Ox O2 Delivery O2 Flow Rate FiO2 08/10/16 11:22 18 08/10/16 06:00 97.1 60 170/74 97 Room Air I&O- Last 24 Hours up to 6 AM 08/10/16 06:00 Intake Total 960 ml Output Total 1450 ml Balance -490 ml Laboratory Data Labs 24H Laboratory Tests 2 08/09/16 16:57: Bedside Glucose (Misc Panel) 123H 08/09/16 20:55: Bedside Glucose (Misc Panel) 229H 08/10/16 05:56: Blood Urea Nitrogen 27H, Creatinine 1.25H, Sodium Level 144, Potassium Level 3.8 , Chloride Level 105, Carbon Dioxide Level 30, Calcium Level 9.1, Aspartate Amino Transf (AST/SGOT) 293H, Alanine Aminotransferase (ALT/SGPT) 237H, Alkaline Phosphatase 117, Total Bilirubin 0.6#, Total Protein 6.2L, Albumin 2.7L , Albumin/Globulin Ratio 0.77L, Anion Gap 9, White Blood Count 10.2H, Red Blood Count 4.21, Hemoglobin 12.1, Hematocrit 38.9, Mean Corpuscular Volume 92.4, Mean Corpuscular Hemoglobin 28.7, Mean Corpuscular Hemoglobin Concent 31.0L, Red Cell Distribution Width 14.3, Platelet Count 263, Neutrophils (%) (Auto) 78.0H, Lymphocytes (%) (Auto) 13.3L, Monocytes (%) (Auto) 5.4H, Eosinophils (%) (Auto) 1.4, Basophils (%) (Auto) 0.8, Neutrophils # (Auto) 7.9H, Lymphocytes # ( Auto) 1.5, Monocytes # (Auto) 0.6, Eosinophils # (Auto) 0.1, Basophils # (Auto) 0.1, Glomerular Filtration Rate 44.7, Large Unclassified Cells # 0.1, Large Unclassified Cells % 1.0, Magnesium Level 1.6L 08/10/16 11:34: Bedside Glucose (Misc Panel) 193H CBC/BMP Laboratory Tests 08/10/16 05:56 Calcium Level 9.1, Aspartate Amino Transf (AST/SGOT) 293 H, Alanine Aminotransferase (ALT/SGPT) 237 H, Alkaline Phosphatase 117, Total Bilirubin 0.6 #, Total Protein 6.2 L, Albumin 2.7 L, Red Blood Count 4.21, Mean Corpuscular Volume 92.4, Mean Corpuscular Hemoglobin 28.7, Mean Corpuscular Hemoglobin Concent 31.0 L, Red Cell Distribution Width 14.3, Neutrophils (%) ( Auto) 78.0 H, Lymphocytes (%) (Auto) 13.3 L, Monocytes (%) (Auto) 5.4 H, Eosinophils (%) (Auto) 1.4, Basophils (%) (Auto) 0.8, Neutrophils # (Auto) 7.9 H , Lymphocytes # (Auto) 1.5, Monocytes # (Auto) 0.6, Eosinophils # (Auto) 0.1, Basophils # (Auto) 0.1 KATHERINE CARLOS PA-C Aug 10, 2016 12:19 Brijesh Baeza MD Aug 10, 2016 16:01
[2016-08-10] MEDS ORDERED: MAG SULF 1GM/100ML (MAG RUN) 1 GM in APPROPRIATE DILUENT 1 EA IV ONE (12:30)
--- NOTE | 2016-08-10 13:16 | REP ---
RIGHT KNEE SERIES: Four views of the right knee are performed. I see no acute fracture or dislocation. There is mild diffuse joint space narrowing with subchondral sclerosis and spurring. There may be a small joint effusion. IMPRESSION: Mild degenerative changes. Possible small joint effusion. No evidence of acute fracture or dislocation. Signed by Kenan Lu MD 08/10/2016 02:07 P
[2016-08-10] MEDS: DULoxetine 20 MG CAP (CYMBALTA) PO SCH (13:45)
[2016-08-10 14:00] VITALS: BP 124/82
--- NOTE | 2016-08-10 15:34 | IPN ---
DATE: 08/09/2016 SUBJECTIVE: The patient complains of right leg pain and subjective weakness. No sensory changes are noted, however. No numbness, tingling are detected or noted by the patient, and she denies any recent injuries. She has had a history of lumbago, she says, offered to her by her neurology moving consultant, Thea Brito, whom she sees at Dr. Vega's office. She was in a shower and developed some leg discomfort, sense of weakness that made it impossible for her to rise from her shower bench and called for assistance and was transported here, subsequently. She has had no trouble with bladder or bowel difficulty. No recent falls or injuries. PHYSICAL EXAMINATION: She is alert, pleasant, cooperative. HEART: Regular rhythm with a 1-2/6 systolic murmur noted at the left base. LUNGS: Clear to auscultation and percussion. ABDOMEN: Obese. No mass, guarding, rebound or tenderness. Examination shows pulses are equal. There is no pedal edema. She has normal plantar and dorsiflexion at the ankles with normal strength. No sensory deficits on light touch testing. She is able to lift the straight leg on the left off the exam bed, but the right she cannot get the muscle to react, a little bit of decrease in pressure on the bed but no actual elevation, complaining of a sense of weakness and discomfort with movement. On manipulation of the right leg, we note that she has pain with hip rotation, external or internal rotation. She has pain with hip flexion and pain with abduction. Examination of the x-rays of her back shows significant osteophyte formation, some disc space diseases is suggested. MRI shows disc protrusion at multiple levels, at L1-2, L2-3. Disc bulging at all other levels. There is moderate narrowing of the right neural foramen at L4-5 and L2-3. There is neural foraminal narrowing at L5-S1 associated with disc osteophyte complexes at L3-4, L4-5 and L5-S1. No central canal stenosis. ASSESSMENT: Patient with evidence of osteoarthritic change on pelvic x-ray, we can also see some arthritic change, although her right hip x-ray was not done. Suspect osteoarthritis causing at least part of the pain she is experiencing in her right leg. She has lumbar disc disease with multiple levels of nerve compression of the neural foramen, which may also be contributing to her dysfunction and discomfort, although there is no objective evidence of neurologic impairment. Morbid obesity, hypertension, diabetes mellitus. PLAN: We will obtain x-ray of her right hip. We will continue her current medication regimen consisting of: - insulin sliding scale - Lozol 2.5. - Fosamax 70 - lisinopril 20 mg daily - Mysoline 150 by mouth twice a day - simvastatin - ondansetron for nausea - Dulcolax as needed for constipation - IV morphine for severe pain - oral oxycodone for less intense pain Physical therapy has seen her and will continue treatment. Hopefully, we can get her ambulating and able to discharge by tomorrow. If not, then she will need to remain in the hospital as acute, and we may need to consider orthopedic consultation. X-ray of her right hip will be done since at least on the AP projection as viewed on the lumbosacral x-ray, it looks like there is significant osteoarthritis involving both hips. We will x-ray her right hip today to see what this image reveals. I think her prognosis for getting her ambulatory within another day is not very likely. She has fairly strong contraindications for use of nonsteroidal antiinflammatory drugs, specifically creatinine elevation at 1.22 today and the presence of a history of diabetes. Consider steroids, but again her diabetes limits the ability to use this agent safely. It looks like her blood sugar is in reasonable control with two blood sugars of 131 and 106, measured last night at 205 and this morning before lunch 170. She does appear to have overall reasonably good control and might be able to tolerate low-dose prednisone to facilitate pain improvement, but even this agent would be troublesome considering her diabetes. She is on deep vein thrombosis (DVT) prophylaxis with subcutaneous heparin.
[2016-08-10] MEDS ORDERED: BISOPROLOL FUMARATE 5 MG TAB PO SCH (21:00)
--- NOTE | 2016-08-10 21:16 | CR ---
DATE OF CONSULTATION: 08/09/2016 CONSULTATION FOR: Dr. Rai CHIEF COMPLAINT: Low back pain, right leg pain, right knee pain. HISTORY OF PRESENT ILLNESS: Nely Duvall is a 71-year-old female who has been dealing with chronic back pain for some time. She does follow with [facility] for this, and has been told that she has "lumbago". Nely reports that she uses a wheelchair and a walker to get around at home but over the last several days has been having increasing problems with ability to stand and walk, has noted particularly things such as getting up and down from the toilet as being very painful with pain starting in the low back radiating down the right leg particularly along the lateral aspect and occasionally shooting as far as the foot. She is also noting significant pain in the right knee noting that her leg does not seem to want to hold her up. She was brought to the emergency room on 08/08/2016 when she was having increased difficulty with going about activities of daily living. She does have a home health aide who comes to her home daily. She was brought to the emergency room by ambulance after her [employer] button was pushed. She reports that she has only used her Percocet pain medication once since being in the hospital and states that as long as she is lying still, pain is fairly manageable. Notes that if she tries to sit, to stand or walk, the pain becomes excruciating. She did go for testing today which did cause an increase in pain, and she was unable to participate with physical therapy following that event. Rates her pain level at this time as a 3-4 over 10, resting quietly in the bed. ALLERGIES: BACTRIM. PAST MEDICAL HISTORY: Diabetes mellitus. Hypercholesterolemia. Hypertension. Obesity. Essential tremor. FAMILY HISTORY: Noncontributory. SOCIAL HISTORY: The patient does live alone but does have home health services three times per week. She does not use alcohol, illicit substances and she does not smoke. CURRENT MEDICATIONS: - Fosamax 70 mg daily - Lozol 2.5 mg daily - Theragran-M vitamins - magnesium oxide 400 mg twice a day - insulin on a sliding scale - heparin 5000 units every 8 hours for deep vein thrombosis (DVT) prevention - lisinopril 20 mg twice a day - primidone 150 mg for essential tremor - Zocor 40 mg daily - Os-Niranjan with vitamin D 500 mg twice a day - Tylenol 650 mg as needed which she has been using with fairly good pain control as long as she is not moving - Percocet 5/325 one every 4 hours as needed for more severe pain and one dose has been taken since admission - morphine 2 mg IV every 2 hours as needed severe pain has not been utilized at this time - Dulcolax as needed - Zofran as needed for nausea REVIEW OF SYSTEMS: Denies cough, fever, chills, sore throat or swollen glands. Denies chest pain. Denies history of cardiac issues including heart murmur or irregular heartbeat. Denies loss of bowel or bladder control. Denies abdominal pain. The patient reports she does not notice any tremor and has had no difficulty with holding onto objects or with coordination. She does note pain and history of arthritis in her knees with the right being worse than the left. Denies significant anxiety or depression. PHYSICAL EXAMINATION: Alert, attentive, talkative. Vital signs: Temperature 98.8, pulse 73, respirations 20, blood pressure 173/81, O2 saturation 98% on room air. Skin: Warm, dry, no rashes. No visible lesions. Heart rate is irregular. No murmurs, clicks or rubs. Respiratory: Decreased at the bases. No wheezes, rales or rhonchi. Abdomen is protuberant. Bowel sounds active in all quadrants. No masses, no tenderness. Musculoskeletal: Tenderness is noted at the right hip and at the right low back with pelvic compression on the right, none with compression on the left. Straight leg raise positive on the right at 30 degrees, negative on the left. She is able to flex and extend at the ankles, although right is somewhat weaker than left. Point tenderness with palpation over the lumbar spinous processes and particularly at the right sacroiliac joint. Tenderness with palpation over the right patella with some edema over the patella as well as the area is warm to touch compared to the left. Neurologic: Facial tremor is noted. No dysarthria. High-frequency rest tremor is noted in the upper extremities. Deep tendon reflexes (DTRs) are trace bilaterally at the knee and ankle. Plantar response is flexor bilaterally. No clonus. No specific sensory deficit is elicited with light touch over the bilateral lower extremities. Vascular: Multiple distended varicose veins are noted in the lower extremities. DIAGNOSTIC IMAGING: MRI of the lumbar spine was completed on 08/08/2016. This did demonstrate central disc protrusion at L1-2 without evidence of central canal stenosis. There is a right paracentral and foraminal disc protrusion at L2-3 causing moderately severe narrowing of the right neural foramen. No evidence of central canal stenosis. There is degenerative disc disease with disc osteophyte complexes noted at L3-4, L4-5 and L5-S1 with varying degrees of neural foraminal narrowing. No other evidence of central canal stenosis is noted. X-ray of the hip and pelvis was completed on the 08/09/2016. This did note severe degenerative joint disease. No evidence of acute fracture or dislocation. There is possible old vertical nondisplaced fracture at the superolateral right acetabulum above the femoral head . Dr. Lu reports that he cannot exclude avascular necrosis of the femoral heads. LABORATORY: The patient has a consistently elevated white count as documented in [facility] with white count on admission at 13.1, hemoglobin 12.2, hematocrit 37.7, platelets are 263, RDW elevated at 14.7, neutrophils elevated at 76.2, lymphocytes low at 15.2, monocytes elevated at 5.6. Sodium 146, potassium 4.0, chloride 104, carbon dioxide 31, BUN 27.1, creatinine 1.22, GFR 46.0, magnesium was low at 1.7. Urinalysis was done on admission. This demonstrated no evidence of leukocyte esterase. ASSESSMENT: 1. Acute on chronic low back pain. 2. Right sacroiliitis. 3. Lumbar disc displacement without myelopathy. 4. Degenerative joint disease particularly affecting the hips and by history the right knee. 5. Multiple health problems including diabetes mellitus, renal insufficiency, leukocytosis of uncertain etiology, hypertension, irregular heartbeat which I do not find documented previously in the notes, osteoporosis. RECOMMENDATION AND PLAN: At this time, due to the elevation in white count, would be very hesitant to move forward with any type of interventional treatment. She has seen Dr. Morel in the past for this issue, and they were unable to determine a cause. She also had difficulty with getting out of her wheelchair even as far back as 2011. At this time, would hold any interventional treatment due to the elevation in white count. May be helpful to have her seen by orthopedics in regards to the significant degeneration of the hips, and I did discuss with the patient that she should ask for her pain medication and use it when she needs it. If she can tolerate physical therapy, this may be helpful. Certainly for the radicular-type pain, could try some low-dose gabapentin at 100 mg three times per day. Thank you, Dr. Rai, for allowing us to participate in the care of your patient Nely Duvall. Should you have any questions, will be glad to discuss this with you at any time. Carbon Copy To: NANCY Barriga
--- NOTE | 2016-08-10 21:36 | EDDOCDS ---
Nurse's Notes [facility] Name: Ronny Duvall Age: 71 yrs Sex: Female : 1945 Arrival Date: 08/08/2016 Time: 11:02 Bed 5 Private MD: Jacqueline Perla M. Diagnosis: Radiculopathy, lumbar region;Difficulty in walking, not elsewhere classified Presentation: 08/08 11:26 Presenting complaint: Patient states: trouble walking for the last 2 weeks even when kpj using her walker. Lives alone has a caregiver that comes in twice a week.pain rt butt cheek and pain down her right leg. 11:29 The last date and time the patient was known to be well was was at an unknown time. No [facility] acute neurological deficit is noted. Pre-hospital glucose is not applicable to this patient. Adult Sepsis Screening: The patient does not have new or worsening altered mentation. Patient's respiratory rate is less than 22. Systolic blood pressure is greater than 100. Patient has a qSOFA score of 0- Negative Sepsis Screen. Status: Patient is not a enterprise services manager or dependent. Suicide/Homicide risk assessment- the patient denies having any suicidal and/or homicidal ideations. Transition of care: patient was not received from another setting of care. 11:29 Acuity: BHAVIN Level 3 [facility] 11:29 Method Of Arrival: Ambulance [facility] 19:51 The last date and time the patient was known to be well was on an unknown date. af2 Triage Assessment: 11:37 The onset of the patients symptoms was at an unknown time. General: Appears in no [facility] apparent distress. Pain: Location: right gluteus bridgett Pain currently is 5 out of 10 on a pain scale. Pain radiates to right leg. Neurological: Level of Consciousness is awake, alert, Oriented to person, place, time, Reports Back Pain. Respiratory: Airway is patent Respiratory effort is even, unlabored, Respiratory pattern is regular, symmetrical. Derm: Skin is pink, warm & dry. Musculoskeletal: Reports pain in right gluteus bridgett radiation to right leg Pain is 5 out of 10 on a pain scale. Historical: - Allergies: Bactrim (Hives); - Home Meds: 1. alendronate-vitamin D3 70-5,600 mg-unit oral tab 1 tab once wkly Sundays (Last dose: 08/07/2016) 2. indapamide 2.5 mg Oral tab 1 tab once daily (Last dose: 08/08/2016 07:30) 3. glimepiride 2 mg Oral tab 1 tab twice a day (Last dose: 08/08/2016 07:30) 4. simvastatin 40 mg Oral tab 1 tab nightly (Last dose: 08/07/2016) 5. primidone 50 mg Oral tab 3 tabs twice a day (Last dose: 08/08/2016 07:30) 6. Januvia 50 mg oral tab once daily (Last dose: 08/08/2016 07:30) 7. lisinopril 20 mg Oral tab 1 tab twice a day (Last dose: 08/08/2016 07:30) 8. Cinnamon 500 mg oral cap 2 cap twice a day (Last dose: 08/08/2016 07:30) 9. Calcium + Vitamin D 600 mg calcium- 200 unit Oral tab twice a day (Last dose: 08/08/2016 07:30) 10. senior multivitamin daily (Last dose: 08/08/2016 07:30) 11. multivitamin with minerals oral cap daily (Last dose: 08/08/2016 07:30) - PMHx: Diabetes - NIDDM: controlled; Hypertension; essential tremors; chronic kidney disease stage 3; - PSHx: none; - Social history: Smoking status: Patient states was never smoker of tobacco. No barriers to communication noted, The patient speaks fluent Belizean. - Family history: Not pertinent. - : The pt / caregiver states he / she is not on anticoagulants. Home medication list is obtained from the patient. - Exposure Risk Screening:: None identified. Screenin:28 Screening information is obtained from the patient. Fall risk: At risk due to kr3 immobility. home support is adequate. 18:37 Abuse/DV Screen: The patient / caregiver reports he/she is: not in a situation that kr3 causes fear, pain or injury. Nutritional screening: No deficits noted. 19:31 Assistance ADL's: unable to assess. Advance Directives: Further advance directive af2 information is declined. Assessment: 12:28 Reassessment: Patient appears in no apparent distress at this time. General: Reports kr3 unable to weight bear right leg. Pain: Location: right leg and buttocks and right gluteus bridgett Pain currently is 5 out of 10 on a pain scale. Neurological: No deficits noted. Cardiovascular: Chest pain is denied. Respiratory: Respiratory effort is even, unlabored. Derm: Skin is pink, warm & dry. 13:49 Reassessment: Patient appears in no apparent distress at this time. Pain: Location: kr3 right leg and buttocks and right gluteus bridgett Pain currently is 5 out of 10 on a pain scale. 14:40 Reassessment: Patient appears in no apparent distress at this time. General: Behavior kr3 is cooperative. Neurological: No deficits noted. 15:55 Reassessment: PT in with patient to evaluate. kr3 16:30 Reassessment: Patient appears in no apparent distress at this time. Neurological: Level kr3 of Consciousness is awake, alert. Respiratory: Respiratory effort is even, unlabored. 17:05 Reassessment: Patient appears in no apparent distress at this time. talking with kr3 hospitallist. 18:10 General: Appears in no apparent distress, comfortable, reports willing to try MRI but kr3 will need medication, hospitalist notified and med ordered. 18:35 Reassessment: Patient appears in no apparent distress at this time. Pain: Location: kr3 right knee Pain currently is 6 out of 10 on a pain scale. Quality of pain is described as aching. 19:21 General: pt off unit at this time. . af2 19:51 Reassessment: Patient appears in no apparent distress at this time. pt returned from af2 MRI at this time, tolerated procedure well. states that she feels a dull ache returning to right leg. . 20:04 General: Appears in no apparent distress, comfortable, Behavior is appropriate for age, af2 cooperative. Neurological: Level of Consciousness is awake, alert. Respiratory: Airway is patent Respiratory effort is even, unlabored. Derm: Skin is pink, warm & dry. Vital Signs: 11:05 BP 205 / 65; Pulse 75; Resp 18; Temp 98.1(T); Pulse Ox 98% on R/A; Weight 125.65 kg dem1 (R); Height 5 ft. 0 in. (152.40 cm) (R); Pain 5/10; 14:40 BP 122 / 75; mem 16:43 BP 182 / 83; Pulse 95; Resp 18; Temp 97.6(T); Pulse Ox 99% on R/A; kr3 19:50 BP 137 / 69; Pulse 81; Resp 18 S; Pulse Ox 96% on R/A; af2 19:53 Temp 98.3; cln 11:05 Body Mass Index 54.10 (125.65 kg, 152.40 cm) dem1 Vitals: 11:05 Log In Time N/A - ambulance arrival. RN notified that patient meets Red Flag criteria. dem1 11:37 Glucose Measurement N/A. [facility] ED Course: 11:04 Patient visited by Daxa Helms. dem1 11:04 Patient moved to Waiting dem1 11:05 Jacqueline Perla is Private Physician. dem1 11:08 Patient visited by Daxa Helms. dem1 11:08 Patient moved to Pre RCE dem1 11:29 Triage Initiated [facility] 11:42 Jessica Stauffer,RN is Primary Nurse. ar3 11:42 Patient moved to 5 ar3 12:10 EKG done. (by ED staff). Reviewed by Kumar Agee MD. ct3 12:11 Patient visited by Kalpana Flores PCA. ct3 12:28 [facility] le 12:28 Basic Metabolic Profile Sent. kr3 12:28 CBC with Diff Sent. kr3 12:28 Cardiac Injury Profile Sent. kr3 12:28 Partial Thromboplastin Time Sent. kr3 12:28 Prothrombin Time Profile\E\INR Sent. kr3 12:29 The patient / caregiver is instructed regarding the plan of care and ED course. Patient kristina has correct armband on for positive identification. Placed in gown. Bed in low position. Call light in reach. Side rails up X2. tile burner on. Pulse ox on. NIBP on. 12:29 Inserted saline lock: 20 gauge in left antecubital area and blood collected. The frieda3 patient tolerated the procedure well. 12:35 Patient visited by Thea Gregorio FNP. le 12:35 Patient visited by Thea Gregorio FNP. le 12:55 Cleaned of incontinence. Linen changed. kr3 13:13 Patient visited by Kalpana Flores PCA. ct3 13:49 Patient visited by Jessica Stauffer RN. kr3 14:33 Patient moved to Ultrasound sm5 14:51 EKG-ADULT Returned. EDMS 14:55 Spine. Lumbosacral, Complete Returned. EDMS 14:57 Patient moved to 5 br3 15:19 Cleaned of incontinence. Linen changed. kr3 15:20 Patient visited by Jessica Stauffer RN. kr3 15:42 [facility] Payment Agreement was scanned into ascentify and attached to record. zo 15:59 Patient visited by Kalpana Flores PCA. ct3 16:02 US Lower Extremity R/O DVT Returned. EDMS 16:20 Fredi Leonela is Hospitalizing Provider. le 16:36 Spine. Lumbosacral, Complete Returned. EDMS 18:44 Patient moved to MRI kr3 18:59 Sinan Salas direct support specialist. nq 19:00 Primary Nurse role handed off by Jessica Stauffer RN kr3 19:20 Griselda Collins RN is Primary Nurse. af2 19:21 Patient visited by Griselda Collins RN. af2 19:45 Patient moved to 5 ml3 19:50 No procedures done that require assistance. af2 19:52 Patient visited by Griselda Collins RN. af2 19:53 Patient visited by Palmira Razo PCA. cln 12 06:17 T-Sheet-- Draft Copy was scanned into ascentify and attached to record. lja 10:30 Radiology Report was scanned into ascentify and attached to record. gb Administered Medications: 08/08 12:55 Drug: HYDROcodone-acetaminophen 1 tabs [hydrocodone 5 mg-acetaminophen 325 mg tablet (1 kr3 tabs)] Route: PO; 13:49 Follow up: Response: No significant change. kr3 12:55 Drug: predniSONE 60 mg [prednisone 20 mg tablet (3 tabs)] Route: PO; kr3 13:49 Follow up: Response: No Adverse Reaction kr3 18:25 Drug: LORazepam 2 mg [lorazepam 2 mg/mL injection solution (1 mL)] Route: IVP; Site: kr3 left antecubital; Order Results: Lab Order: Basic Metabolic Profile; SPEC'M 08/08/16 12:24 Test: GLUCOSE, FASTING; Value: 131; Range: 83-110; Abnormal: Above high normal; Units: MG/DL; Status: F Test: BLOOD UREA NITROGEN; Value: 28; Range: 7-18; Abnormal: Above high normal; Units: MG/DL; Status: F Test: CREATININE FOR GFR; Value: 1.26; Range: 0.55-1.02; Abnormal: Above high normal; Units: MG/DL; Status: F Test: GLOMERULAR FILTRATION RATE; Value: 44.3; Range: >39; Status: F Test: SODIUM LEVEL; Value: 145; Range: 136-145; Units: MEQ/L; Status: F Test: POTASSIUM SERUM; Value: 4.0; Range: 3.5-5.1; Units: MEQ/L; Status: F Test: CHLORIDE LEVEL; Value: 106; Range: 98-107; Units: MEQ/L; Status: F Test: CARBON DIOXIDE LEVEL; Value: 30; Range: 21-32; Units: MEQ/L; Status: F Test: ANION GAP; Value: 9; Range: 8-16; Units: MEQ/L; Status: F Test: CALCIUM LEVEL; Value: 9.3; Range: 8.8-10.2; Units: MG/DL; Status: F Test Note: ; Units are mL/min/1.73 m2 Chronic Kidney Disease Staging per NKF: Stage I & II GFR >=60 Normal to Mildly Decreased Stage III GFR 30-59 Moderately Decreased Stage IV GFR 15-29 Severely Decreased Stage V GFR <15 Very Little GFR Left ESRD GFR <15 on PANTOGRAPH OPERATOR Lab Order: CBC with Diff; SPEC'M 08/08/16 12:24 Test: WHITE BLOOD COUNT; Value: 11.3; Range: 4.0-10.0; Abnormal: Above high normal; Units: K/mm3; Status: F Test: RED BLOOD COUNT; Value: 4.38; Range: 4.00-5.40; Units: M/mm3; Status: F Test: HEMOGLOBIN; Value: 12.7; Range: 12.0-16.0; Units: g/dl; Status: F Test: HEMATOCRIT; Value: 39.4; Range: 36.0-47.0; Units: %; Status: F Test: MEAN CORPUSCULAR VOLUME; Value: 90.1; Range: 80.0-96.0; Units: fl; Status: F Test: MEAN CORPUSCULAR HEMOGLOBIN; Value: 28.9; Range: 27.0-33.0; Units: pg; Status: F Test: MEAN CORPUSCULAR HGB CONC; Value: 32.1; Range: 32.0-36.5; Units: g/dl; Status: F Test: RED CELL DISTRIBUTION WIDTH; Value: 13.9; Range: 11.5-14.5; Units: %; Status: F Test: PLATELET COUNT, AUTOMATED; Value: 262; Range: 150-450; Units: k/mm3; Status: F Test: NEUTROPHILS %; Value: 81.2; Range: 36.0-66.0; Abnormal: Above high normal; Units: %; Status: F Test: LYMPH %; Value: 12.3; Range: 24.0-44.0; Abnormal: Below low normal; Units: %; Status: F Test: MONO %; Value: 4.0; Range: 0.0-5.0; Units: %; Status: F Test: EOS %; Value: 0.9; Range: 0.0-3.0; Units: %; Status: F Test: BASO %; Value: 0.4; Range: 0.0-1.0; Units: %; Status: F Test: LARGE UNSTAINED CELL %; Value: 1.2; Range: 0.0-4.0; Units: %; Status: F Test: NEUTROPHILS #; Value: 9.2; Range: 1.8-7.7; Abnormal: Above high normal; Units: K/mm3; Status: F Test: LYMPH #; Value: 1.4; Range: 1.5-4.5; Abnormal: Below low normal; Units: K/mm3; Status: F Test: MONO #; Value: 0.5; Range: 0.0-0.8; Units: K/mm3; Status: F Test: EOS #; Value: 0.1; Range: 0.0-0.50; Units: K/mm3; Status: F Test: BASO #; Value: 0.0; Range: 0.0-0.2; Units: K/mm3; Status: F Test: LARGE UNSTAINED CELL #; Value: 0.1; Range: 0.0-0.4; Units: K/mm3; Status: F Lab Order: Cardiac Injury Profile; SPEC'M 12/19/16 12:24 Test: CPK CREATINE PHOSPHOKINASE; Value: 85; Range: 26-192; Units: U/L; Status: F Test: CK-MB VALUE MASS; Value: 1.6; Range: 0.0-3.6; Units: NG/ML; Status: F Test: MB/CK RELATIVE INDEX; Value: 1.88; Range: < OR =4; Status: F Test Note: ; DIAGNOSIS CRITERIA MMB ng/ml Relative Index (RI) NON-AMI < or = 5 N/A LU ZONE > 5 < or = 4 AMI > 5 > 4 Lab Order: Partial Thromboplastin Time; [facility] 08/08/16 12:24 Test: PARTIAL THROMBOPLASTIN TIME; Value: 29.7; Range: 26.6-37.1; Units: SECONDS; Status: F Lab Order: Prothrombin Time Profile\E\INR; [facility] 08/08/16 12:24 Test: PROTHROMBIN TIME; Value: 12.8; Range: 12.3-14.5; Units: SECONDS; Status: F Test: INR; Value: 0.95; Status: F Test Note: ; THERAPUTIC HUMAN INR VALUES INDICATIONS NORMAL RANGES PROPHYLAXIS/TREATMENT OF: VENOUS THROMBOSIS 2.0-3.0 PULMONARY EMBOLISM 2.0-3.0 PREVENTION OF SYSTEMIC EMBOLISM FROM: TISSUE HEART VALVES 2.0-3.0 ACUTE MYOCARDIAL INFARCTION 2.0-3.0 VALVULAR HEART DISEASE 2.0-3.0 ATRIAL FIBRILLATION 2.0-3.0 MECHANICAL VALVES(HIGH RISK) 2.5-3.5 RECURRENT MYOCARDIAL INFARCTION 2.5-3.5 Radiology Order: EKG-ADULT Test: EKG-ADULT REASON FOR EXAMINATION: weakness; Stationary ECG Study; [facility] - ED; ; Test Date: 2016-08-08; Pat Name: RONNY DUVALL Department:; Room: -; 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; : 1945 Requested By: Kumar Agee; Order Number: [id number] Reading MD: Alex Bonilla; Measurements; Intervals [place]; Rate: 67 P:; CO: 0 QRS: -44; QRSD: 105 T: 56; QT: 369; QTc: 392; Interpretive Statements; SINUS RHYTHM WITH 1ST DEGREE AV BLOCK; LEFT AXIS DEVIATION; LAE; NO PRIORS; Electronically Signed On 08-08-2016 14:48:15 EST by Alex Bonilla; Radiology Order: US Lower Extremity R/O DVT Test: US Lower Extremity R/O DVT REASON FOR EXAMINATION: pain; Right lower extremity venous Doppler 08/08/2016; ; Indication: right leg pain; ; Comparison: None; ; Technique : Color-flow Doppler spectral wave imaging and lu-scale imaging were; used to evaluate the right lower extremity veins at common femoral, superficial; femoral, and popliteal venous levels; ; Findings: Due to large body habitus there is limited visualization and; evaluation of the mid and distal superficial femoral veins. They were however; seen to be patent with color Doppler and spectral wave Doppler imaging.; ; The right common femoral, visualized portions of the origin of greater saphenous; vein, profunda femoris, common femoral vein and proximal superficial femoral; veins are patent and compressibility was identified. Also compressibility noted; within the right popliteal vein; ; Impression:; No visualized deep venous thrombosis in the right lower extremity. Please note; that evaluation of mid and distal superficial femoral veins somewhat limited due; to large body habitus; ; ; ; ; Unreviewed; Radiology Order: Spine. Lumbosacral, Complete Test: Spine. Lumbosacral, Complete REASON FOR EXAMINATION: likely right radicular pain; LUMBOSACRAL SPINE SERIES:; ; Five views of the lumbosacral spine are performed.; ; There is no compression fracture. There is normal lumbar lordosis. There is; minimal anterior listhesis of L4 on L5 due to posterior facet arthropathy. There; is moderate diffuse spurring. There is mild disc space narrowing and subchondral; sclerosis at all levels. With a more moderate degree of disc space narrowing at; L3-4. There is diffuse sclerosis and spurring at the posterior facet joints. The; posterior elements appear intact. Diffuse vascular calcifications are present.; ; IMPRESSION:; ; Diffuse degenerative changes without evidence of acute fracture or dislocation.; ; ; Signed by; Kenan Lu MD 08/08/2016 04:10 P; Outcome: 13:50 Ultrasound Study completed. kr3 16:20 Decision to Hospitalize by Provider. le 19:50 Discharge Assessment: Patient awake, alert and oriented x 3. No cognitive and/or af2 functional deficits noted. Patient verbalized understanding of disposition instructions. patient administered narcotics - no. The following High Risk Discharge criteria are identified: None. Admitted to Med/Surg accompanied by tech, via stretcher, with chart. Condition: stable. Property :Personal belongings accompany Pt. 20:35 Patient left the ED. kalina Signatures: Dispatcher [employer] EDMO Gayla Clark RN RN kpj Newman, Verna More, RN SIMRAN Resendiz, Yari, Reg Reg gb Clementine, Dang sm5 Ari, Joseph, [employer] Unit ml3 Jessica Stauffer,RN RN kr3 Modesta Bravo Lisa, LICENSED LIFE AND HEALTH AGENT LICENSED LIFE AND HEALTH AGENT Citlalli Magana br3 Funmilayo Epperson, POWER STATION OPERATOR POWER STATION OPERATOR ar3 Flores, Kalpana, POWER STATION OPERATOR POWER STATION OPERATOR ct3 Scooter, Demlizshia dem1 Sinan Salas AmberRN SIMRAN af2 Marilyn So RN RN mem Arel, Thea Razo, Palmira, POWER STATION OPERATOR POWER STATION OPERATOR cln Chart Complete MTDD
--- NOTE | 2016-08-10 21:36 | EDDOCDS ---
Physician Documentation [facility] Name: Nely Duvall Age: 71 yrs Sex: Female : 1945 Arrival Date: 08/08/2016 Time: 11:02 Bed 5 Private MD: Jacqueline Perla M. Disposition: 08/08 16:20 Critical Care: Critical care not applicable. evelia Disposition: 08/08/16 16:20 Hospitalization ordered by Leonela Rai for Observation. Preliminary diagnosis are Radiculopathy, lumbar region, Difficulty in walking, not elsewhere classified. - Bed requested for 4 [place]. - Status is Observation. kalina - Condition is Stable. - Problem is new. - Symptoms are unchanged. Historical: - Allergies: Bactrim (Hives); - Home Meds: 1. alendronate-vitamin D3 70-5,600 mg-unit oral tab 1 tab once wkly Sundays (Last dose: 08/07/2016) 2. indapamide 2.5 mg Oral tab 1 tab once daily (Last dose: 08/08/2016 07:30) 3. glimepiride 2 mg Oral tab 1 tab twice a day (Last dose: 08/08/2016 07:30) 4. simvastatin 40 mg Oral tab 1 tab nightly (Last dose: 08/07/2016) 5. primidone 50 mg Oral tab 3 tabs twice a day (Last dose: 08/08/2016 07:30) 6. Januvia 50 mg oral tab once daily (Last dose: 08/08/2016 07:30) 7. lisinopril 20 mg Oral tab 1 tab twice a day (Last dose: 08/08/2016 07:30) 8. Cinnamon 500 mg oral cap 2 cap twice a day (Last dose: 08/08/2016 07:30) 9. Calcium + Vitamin D 600 mg calcium- 200 unit Oral tab twice a day (Last dose: 08/08/2016 07:30) 10. senior multivitamin daily (Last dose: 08/08/2016 07:30) 11. multivitamin with minerals oral cap daily (Last dose: 08/08/2016 07:30) - PMHx: Diabetes - NIDDM: controlled; Hypertension; essential tremors; chronic kidney disease stage 3; - PSHx: none; - Social history: Smoking status: Patient states was never smoker of tobacco. No barriers to communication noted, The patient speaks fluent Georgian. - Family history: Not pertinent. - : The pt / caregiver states he / she is not on anticoagulants. Home medication list is obtained from the patient. - Exposure Risk Screening:: None identified. Vital Signs: 11:05 BP 205 / 65; Pulse 75; Resp 18; Temp 98.1(T); Pulse Ox 98% on R/A; Weight 125.65 kg / dem1 277.01 lbs (R); Height 5 ft. 0 in. (152.40 cm) (R); Pain 5/10; 14:40 BP 122 / 75; mem 16:43 BP 182 / 83; Pulse 95; Resp 18; Temp 97.6(T); Pulse Ox 99% on R/A; kr3 19:50 BP 137 / 69; Pulse 81; Resp 18 S; Pulse Ox 96% on R/A; af2 19:53 Temp 98.3; cln 11:05 Body Mass Index 54.10 (125.65 kg, 152.40 cm) dem1 MDM: 11:57 Forepart Reducer/Pulse Ox/q 30 min VS ordered. kcs 11:57 IV Saline Lock ordered. kcs 11:57 Rhythm Strip to chart ordered. kcs 11:57 Undress patient appropriately for examination ordered. kcs 11:58 Basic Metabolic Profile Ordered. EDMS 11:58 CBC with Diff Ordered. EDMS 11:58 Cardiac Injury Profile Ordered. EDMS 11:58 Partial Thromboplastin Time Ordered. EDMS 11:58 Prothrombin Time Profile\E\INR Ordered. EDMS 11:59 ECG WITH READING ER PHYS+CARDIAG ordered. EDMS 12:41 HYDROcodone-acetaminophen 5 mg-325 mg 1 tabs PO once ordered. le 12:41 predniSONE 60 mg PO once; administer with food or milk ordered. le 12:42 US Lower Extremity R/O DVT Ordered. EDMS 12:42 Spine. Lumbosacral, Complete Ordered. EDMS 13:45 Basic Metabolic Profile Reviewed. le 13:45 CBC with Diff Reviewed. le 13:45 Cardiac Injury Profile Reviewed. le 13:45 Partial Thromboplastin Time Reviewed. le 14:55 PT Consult to assess patient's safe and independent mobility for discharge to home le ordered. 14:55 Partial Thromboplastin Time Reviewed. le 14:55 Prothrombin Time Profile\E\INR Reviewed. le 14:55 EKG-ADULT Reviewed. le 14:55 Spine. Lumbosacral, Complete Reviewed. le 15:12 PT Consult to assess patient's safe and independent mobility for discharge to home jrd complete. 15:13 PHYSICAL THERAPY EVAL ONLY ordered. EDMS 15:41 Financial registration complete. zo 15:42 [facility] Payment Agreement was scanned into Upstream and attached to record. zo 16:11 BED REQUEST+ADM ordered. EDMS 16:59 PHYSICAL THERAPY EVAL & TREAT ordered. EDMS 16:59 CONSISTENT CARBOHYDRATES ordered. EDMS 17:03 MRI Screening Tool - Place on chart, inform RN ordered. ss12 17:52 MRI Spine, L.S. without con Ordered. EDMS 17:52 Chest, 2 view PA, Lat Ordered. EDMS 17:53 Admission / Observation Status ordered. EDMS 17:54 URINALYSIS Ordered. EDMS 18:28 LORazepam 2 mg IVP once ordered. kr3 19:24 MRI Screening Tool - Place on chart, inform RN complete. ml3 19:32 CBC WITH DIFFERENTIAL Ordered. EDMS 19:32 COMPLETE COMPHRENSIVE METABOLI Ordered. EDMS 20:28 MAGNESIUM LEVEL Ordered. EDMS 12 06:17 T-Sheet-- Draft Copy was scanned into Upstream and attached to record. lja 10:30 Radiology Report was scanned into Upstream and attached to record. gb Administered Medications: 08/08 12:55 Drug: HYDROcodone-acetaminophen 1 tabs [hydrocodone 5 mg-acetaminophen 325 mg tablet (1 kr3 tabs)] Route: PO; 13:49 Follow up: Response: No significant change. kr3 12:55 Drug: predniSONE 60 mg [prednisone 20 mg tablet (3 tabs)] Route: PO; kr3 13:49 Follow up: Response: No Adverse Reaction kr3 18:25 Drug: LORazepam 2 mg [lorazepam 2 mg/mL injection solution (1 mL)] Route: IVP; Site: kr3 left antecubital; Signatures: Dispatcher [employer] EDMS Marla Bonilla, RN Gayla Robledo RN RN kpj Newman, Jill New, RN RN jan Barnhardt, Gloria, Reg Reg Joseph Foreman, Zinc Plating Machine Operator Unit ml3 Jessica Stauffer RN RN kr3 Modesta Bravo Lisa, KETTLE ROOM HELPER KETTLE ROOM HELPER Darrel Mata ss12 [place], JAME TRANSFILL TECHNICIAN jrd ArelThea The chart was reviewed and I authenticate all verbal orders and agree with the evaluation and treatment provided.Corrections: (The following items were deleted from the chart) 20:28 19:32 MAGNESIUM LEVEL ordered. EDMS EDMS Attachments: 15:42 [place] Payment Agreement 08/09 06:17 T-Sheet-- Draft Copy diya Chart Complete MTDD
--- NOTE | 2016-08-10 21:36 | EDDOCDS ---
Physician Documentation [facility] Name: Nely Duvall Age: 71 yrs Sex: Female : 1945 Arrival Date: 08/08/2016 Time: 11:02 Bed 5 Private MD: Jacqueline Perla M. Disposition: 08/08 16:20 Critical Care: Critical care not applicable. evelia Disposition: 08/08/16 16:20 Hospitalization ordered by Leonela Rai for Observation. Preliminary diagnosis are Radiculopathy, lumbar region, Difficulty in walking, not elsewhere classified. - Bed requested for 4 [place]. - Status is Observation. kalina - Condition is Stable. - Problem is new. - Symptoms are unchanged. Historical: - Allergies: Bactrim (Hives); - Home Meds: 1. alendronate-vitamin D3 70-5,600 mg-unit oral tab 1 tab once wkly Sundays (Last dose: 08/07/2016) 2. indapamide 2.5 mg Oral tab 1 tab once daily (Last dose: 08/08/2016 07:30) 3. glimepiride 2 mg Oral tab 1 tab twice a day (Last dose: 08/08/2016 07:30) 4. simvastatin 40 mg Oral tab 1 tab nightly (Last dose: 08/07/2016) 5. primidone 50 mg Oral tab 3 tabs twice a day (Last dose: 08/08/2016 07:30) 6. Januvia 50 mg oral tab once daily (Last dose: 08/08/2016 07:30) 7. lisinopril 20 mg Oral tab 1 tab twice a day (Last dose: 08/08/2016 07:30) 8. Cinnamon 500 mg oral cap 2 cap twice a day (Last dose: 08/08/2016 07:30) 9. Calcium + Vitamin D 600 mg calcium- 200 unit Oral tab twice a day (Last dose: 08/08/2016 07:30) 10. senior multivitamin daily (Last dose: 08/08/2016 07:30) 11. multivitamin with minerals oral cap daily (Last dose: 08/08/2016 07:30) - PMHx: Diabetes - NIDDM: controlled; Hypertension; essential tremors; chronic kidney disease stage 3; - PSHx: none; - Social history: Smoking status: Patient states was never smoker of tobacco. No barriers to communication noted, The patient speaks fluent Swedish. - Family history: Not pertinent. - : The pt / caregiver states he / she is not on anticoagulants. Home medication list is obtained from the patient. - Exposure Risk Screening:: None identified. Vital Signs: 11:05 BP 205 / 65; Pulse 75; Resp 18; Temp 98.1(T); Pulse Ox 98% on R/A; Weight 125.65 kg / dem1 277.01 lbs (R); Height 5 ft. 0 in. (152.40 cm) (R); Pain 5/10; 14:40 BP 122 / 75; mem 16:43 BP 182 / 83; Pulse 95; Resp 18; Temp 97.6(T); Pulse Ox 99% on R/A; kr3 19:50 BP 137 / 69; Pulse 81; Resp 18 S; Pulse Ox 96% on R/A; af2 19:53 Temp 98.3; cln 11:05 Body Mass Index 54.10 (125.65 kg, 152.40 cm) dem1 MDM: 11:57 Supply Coordinator/Pulse Ox/q 30 min VS ordered. kcs 11:57 IV Saline Lock ordered. kcs 11:57 Rhythm Strip to chart ordered. kcs 11:57 Undress patient appropriately for examination ordered. kcs 11:58 Basic Metabolic Profile Ordered. EDMS 11:58 CBC with Diff Ordered. EDMS 11:58 Cardiac Injury Profile Ordered. EDMS 11:58 Partial Thromboplastin Time Ordered. EDMS 11:58 Prothrombin Time Profile\E\INR Ordered. EDMS 11:59 ECG WITH READING ER PHYS+CARDIAG ordered. EDMS 12:41 HYDROcodone-acetaminophen 5 mg-325 mg 1 tabs PO once ordered. le 12:41 predniSONE 60 mg PO once; administer with food or milk ordered. le 12:42 US Lower Extremity R/O DVT Ordered. EDMS 12:42 Spine. Lumbosacral, Complete Ordered. EDMS 13:45 Basic Metabolic Profile Reviewed. le 13:45 CBC with Diff Reviewed. le 13:45 Cardiac Injury Profile Reviewed. le 13:45 Partial Thromboplastin Time Reviewed. le 14:55 PT Consult to assess patient's safe and independent mobility for discharge to home le ordered. 14:55 Partial Thromboplastin Time Reviewed. le 14:55 Prothrombin Time Profile\E\INR Reviewed. le 14:55 EKG-ADULT Reviewed. le 14:55 Spine. Lumbosacral, Complete Reviewed. le 15:12 PT Consult to assess patient's safe and independent mobility for discharge to home jrd complete. 15:13 PHYSICAL THERAPY EVAL ONLY ordered. EDMS 15:41 Financial registration complete. zo 15:42 [facility] Payment Agreement was scanned into Triangulate and attached to record. zo 16:11 BED REQUEST+ADM ordered. EDMS 16:59 PHYSICAL THERAPY EVAL & TREAT ordered. EDMS 16:59 CONSISTENT CARBOHYDRATES ordered. EDMS 17:03 MRI Screening Tool - Place on chart, inform RN ordered. ss12 17:52 MRI Spine, L.S. without con Ordered. EDMS 17:52 Chest, 2 view PA, Lat Ordered. EDMS 17:53 Admission / Observation Status ordered. EDMS 17:54 URINALYSIS Ordered. EDMS 18:28 LORazepam 2 mg IVP once ordered. kr3 19:24 MRI Screening Tool - Place on chart, inform RN complete. ml3 19:32 CBC WITH DIFFERENTIAL Ordered. EDMS 19:32 COMPLETE COMPHRENSIVE METABOLI Ordered. EDMS 20:28 MAGNESIUM LEVEL Ordered. EDMS 12 06:17 T-Sheet-- Draft Copy was scanned into Triangulate and attached to record. lja 10:30 Radiology Report was scanned into Triangulate and attached to record. gb Administered Medications: 08/08 12:55 Drug: HYDROcodone-acetaminophen 1 tabs [hydrocodone 5 mg-acetaminophen 325 mg tablet (1 kr3 tabs)] Route: PO; 13:49 Follow up: Response: No significant change. kr3 12:55 Drug: predniSONE 60 mg [prednisone 20 mg tablet (3 tabs)] Route: PO; kr3 13:49 Follow up: Response: No Adverse Reaction kr3 18:25 Drug: LORazepam 2 mg [lorazepam 2 mg/mL injection solution (1 mL)] Route: IVP; Site: kr3 left antecubital; Signatures: Dispatcher MedHost EDMS Marla Bonilla, RN Gayla Robledo RN RN kpj Newman, Jill New, RN RN jan Barnhardt, Gloria, Reg Reg Joseph Foreman, Dependency Case Manager Unit ml3 Jessica Stauffer RN RN kr3 Modesta Bravo Lisa, SOLID PLASTERER SOLID PLASTERER Darrel Mata ss12 [place], JAME RHEUMATOLOGIST jrd ArelThea The chart was reviewed and I authenticate all verbal orders and agree with the evaluation and treatment provided.Corrections: (The following items were deleted from the chart) 20:28 19:32 MAGNESIUM LEVEL ordered. EDMS EDMS Attachments: 15:42 [facility] Payment Agreement 08/09 06:17 T-Sheet-- Draft Copy diya Chart Complete MTDD
[2016-08-10 22:00] VITALS: BP 174/76
[2016-08-10] MEDS: SIMVASTATIN 40 MG TAB PO SCH (22:02)
[2016-08-10] MEDS: BISOPROLOL FUMARATE 5 MG TAB PO SCH (22:06)
[2016-08-10] MEDS: NYSTATIN 100,000 UNITS/GM TOPICAL PWD 15 GM TOP SCH (23:40)
[2016-08-11] MEDS: HEPARIN SOD (PORCINE) 5000 UNITS/ML VIAL SC SCH ×3 (05:36→21:43)
[2016-08-11 06:00] VITALS: BP 183/79
[2016-08-11 06:38] LABS: BASO % 0.4 % (0.0-1.0); EOS # 0.3 K/mm3 (0.0-0.50); EOS % 2.1 % (0.0-3.0); LARGE UNSTAINED CELL # 0.1 K/mm3 (0.0-0.4); LYMPH % 8.3 % (24.0-44.0); MEAN CORPUSCULAR HEMOGLOBIN 29.2 pg (27.0-33.0); MEAN CORPUSCULAR HGB CONC 32.1 g/dl (32.0-36.5); MEAN CORPUSCULAR VOLUME 90.8 fl (80.0-96.0); MONO # 0.5 K/mm3 (0.0-0.8); MONO % 4.2 % (0.0-5.0); NEUTROPHILS # 10.5 K/mm3 (1.8-7.7); NEUTROPHILS % 83.9 % (36.0-66.0); PLATELET COUNT, AUTOMATED 258 k/mm3 (150-450); RED CELL DISTRIBUTION WIDTH 13.7 % (11.5-14.5); WHITE BLOOD COUNT 12.5 K/mm3 (4.0-10.0)
[2016-08-11 07:02] LABS: ALBUMIN 2.9 GM/DL (3.2-5.2); ALBUMIN/GLOBULIN RATIO 0.83 (1.00-1.93); BILIRUBIN,TOTAL 0.4 MG/DL (0.2-1.0); CALCIUM LEVEL 9.4 MG/DL (8.8-10.2); CREATININE FOR GFR 1.21 MG/DL (0.55-1.02); GLOMERULAR FILTRATION RATE 46.4 (>39); POTASSIUM SERUM 3.9 MEQ/L (3.5-5.1); TOTAL PROTEIN 6.4 GM/DL (6.4-8.2)
[2016-08-11] MEDS: PRIMIDONE 50 MG TAB PO SCH ×2 (08:15→21:43)
[2016-08-11] MEDS: LISINOPRIL 20 MG TAB PO SCH ×2 (08:16→21:42)
[2016-08-11] MEDS: DULoxetine 20 MG CAP (CYMBALTA) PO SCH (08:16)
[2016-08-11] MEDS: MULTIVITAMINS/MINERALS THERAP 1 TAB PO SCH (08:16)
[2016-08-11] MEDS: INDAPAMIDE 1.25MG TABLET PO SCH (08:16)
[2016-08-11] MEDS: MAGNESIUM OXIDE 400 MG TAB (MAG-OX) PO SCH ×2 (08:16→21:42)
[2016-08-11] MEDS: CALCIUM/VITAMIN D 500 MG TAB PO SCH ×2 (08:16→21:43)
[2016-08-11] MEDS: HumaLOG INSULIN (NovoLOG) PER UNIT SC SCH ×5 (08:17→21:57)
[2016-08-11] MEDS: NYSTATIN 100,000 UNITS/GM TOPICAL PWD 15 GM TOP SCH ×2 (08:17→21:43)
[2016-08-11] MEDS: PERCOCET 5MG/325MG TAB PO PRN ×2 (08:29→21:48)
--- NOTE | 2016-08-11 10:21 | REP ---
RIGHT UPPER QUADRANT SONOGRAPHY: History: Elevated transaminases. Comparison CT abdomen and pelvis is from February 08, 2012. Sonographic findings: Exam quality was inhibited to some degree by bowel gas and patient body habitus. The gallbladder is enlarged measuring 11.2 cm in length. There are shadowing calculi near the neck of the gallbladder. Gallbladder wall is not visibly thickened. No pericholecystic fluid is seen. Common bile duct is at the upper range of normal measuring 0.66 cm. No focal hepatic lesion is seen. There is no evidence of ascites or right renal abnormality. The right kidney measures 9.3 x 4.8 x 5.1 cm. Pancreas is largely obscured by abdominal gas. Impression: Distended gallbladder containing stones near its neck. No other abnormality. Signed by Robert Mathew MD 08/11/2016 01:23 P
--- NOTE | 2016-08-11 12:09 | IPNPDOC ---
Assessment/Plan Date Seen The patient was seen on 08/11/16. Problems Problems: (1) Elevated liver enzymes Status: Acute Problem Text: No clear etiology for AST/ALT elevation. T.Bili and Alk phos normal. no n/v, abd pain, tenderness RUQ. Suspect med related - possibly from Tylenol. D/C Tylenol. Use Percocet alone. US showed Gallbladder distension and stones. No GB wall thickening or symptoms but has leukocytosis. May want to strart antibiotics for acute cholecystitis (2) DDD (degenerative disc disease), lumbar Status: Chronic Response to Treatment: Worse Problem Text: Pain clinic saw patient in consultation - Recommend Percocet PRN. Unable to perform any injections due to leukocytosis at this time ( However there does not appear to be any clear infection present clinically) She refused PT today due to pain PFS consulted to help with disposition planning. She is not safe to go home to her current living situation at this time however. Consider Orthopedic referral to address severe arthritic pain in her hips. Get x-ray of right knee as well since pain seems localized there today. continue Percocet for now. Avoid NSAIDs due to CKD3 in Diabetic patient. Add Cymbalta for radicular pain control 08/11 - Pain clinic consult note read and appreciated. Start low dose gabapentin for radicular symptoms. Consider orthopaedic consult for her severe OA hips. (3) Bilateral hip joint arthritis Status: Chronic Response to Treatment: Worse Problem Text: see above (4) Inability to ambulate due to multiple joints Status: Acute Discussed With: Pt and Family Services Problem Text: see above (5) Leg pain, bilateral Status: Acute (6) Morbid obesity Status: Acute (7) Type 2 diabetes mellitus Status: Chronic Response to Treatment: Stable (8) HTN (hypertension) Status: Chronic Response to Treatment: Stable (9) Hypomagnesemia Status: Acute Problem Text: getting oral mag. Had a loose BM today so may not tolerate the oral mag Give Mag run Plan / VTE VTE Prophylaxis Ordered?: Yes Disposition SNF on 08/13 if stable Subjective Review of Systems CC/HPI The patient is a 71-year-old female admitted with a reason for visit of Leg Pain , Bilateral. Events since last encounter She is up in a chair today. Feels well. Pain still present with walking, but did participate with PT to some extent. Denies abd pain, n/v. Constitutional: Denies: Chills, Fever Pulmonary: Denies: Cough, Dyspnea Cardiovascular: Denies: Chest Pain, Orthopnea, Palpitations Gastrointestinal: Denies: Abdominal Pain, Diarrhea, Nausea, Vomiting Objective Physical Examination General Exam: Positive: Alert, No Acute Distress Chest Exam: Positive: Clear to auscultation, Normal air movement Heart Exam: Positive: Rate Normal, Regular Rhythm, Negative: Murmurs Abdomen Exam: Positive: Normal bowel sounds, Soft, Negative: Tenderness Extremity Exam: Negative: Edema Vital Signs/I&O Vital Signs Date Time Temp Pulse Resp B/P Pulse Ox O2 Delivery O2 Flow Rate FiO2 08/11/16 09:10 18 08/11/16 09:00 Room Air 08/11/16 08:16 166/79 08/11/16 06:00 98.1 58 92 I&O- Last 24 Hours up to 6 AM 08/11/16 05:59 Intake Total 1000 ml Output Total 1250 ml Balance -250 ml Laboratory Data Labs 24H Laboratory Tests 2 08/10/16 16:24: Bedside Glucose (Misc Panel) 271H 08/10/16 20:55: Bedside Glucose (Misc Panel) 163H 08/11/16 05:57: Blood Urea Nitrogen 28H, Creatinine 1.21H, Sodium Level 142, Potassium Level 3.9 , Chloride Level 104, Carbon Dioxide Level 29, Calcium Level 9.4, Aspartate Amino Transf (AST/SGOT) 212H, Alanine Aminotransferase (ALT/SGPT) 369H, Alkaline Phosphatase 134H, Total Bilirubin 0.4, Total Protein 6.4, Albumin 2.9L , Albumin/Globulin Ratio 0.83L, Anion Gap 9, White Blood Count 12.5H, Red Blood Count 4.13, Hemoglobin 12.1, Hematocrit 37.5, Mean Corpuscular Volume 90.8, Mean Corpuscular Hemoglobin 29.2, Mean Corpuscular Hemoglobin Concent 32.1, Red Cell Distribution Width 13.7, Platelet Count 258, Neutrophils (%) (Auto) 83.9H, Lymphocytes (%) (Auto) 8.3L, Monocytes (%) (Auto) 4.2, Eosinophils (%) (Auto) 2.1, Basophils (%) (Auto) 0.4, Neutrophils # (Auto) 10.5H, Lymphocytes # (Auto) 1.0L, Monocytes # (Auto) 0.5, Eosinophils # (Auto) 0.3, Basophils # (Auto) 0.0, Glomerular Filtration Rate 46.4, Large Unclassified Cells # 0.1, Large Unclassified Cells % 1.0, Magnesium Level 2.0 CBC/BMP Laboratory Tests 08/11/16 05:57 Calcium Level 9.4, Aspartate Amino Transf (AST/SGOT) 212 H, Alanine Aminotransferase (ALT/SGPT) 369 H, Alkaline Phosphatase 134 H, Total Bilirubin 0.4, Total Protein 6.4, Albumin 2.9 L, Red Blood Count 4.13, Mean Corpuscular Volume 90.8, Mean Corpuscular Hemoglobin 29.2, Mean Corpuscular Hemoglobin Concent 32.1, Red Cell Distribution Width 13.7, Neutrophils (%) (Auto) 83.9 H, Lymphocytes (%) (Auto) 8.3 L, Monocytes (%) (Auto) 4.2, Eosinophils (%) (Auto) 2.1, Basophils (%) (Auto) 0.4, Neutrophils # (Auto) 10.5 H, Lymphocytes # (Auto ) 1.0 L, Monocytes # (Auto) 0.5, Eosinophils # (Auto) 0.3, Basophils # (Auto) 0.0 KATHERINE CARLOS PA-C Aug 11, 2016 12:08
[2016-08-11 14:00] VITALS: BP 148/70
--- NOTE | 2016-08-11 14:12 | ECGEPIP ---
Stationary ECG Study [facility] Test Date: 2016-08-11 Pat Name: RONNY CORMIER Department: Room: [place] [address] Gender: F Business Continuity Manager: VASHTI : 1945 Requested By: [place] Swain Order Number: [id number] Reading MD: Ana Jones Measurements Intervals Arnold Rate: 52 P: -43 MI: 171 QRS: -46 QRSD: 102 T: 32 QT: 416 QTc: 387 Interpretive Statements SINUS BRADYCARDIA 1ST DEGREE BLOCK WITH OCCASIONAL SUPRAVENTRICULAR PREMATURE COMPLEXES LEFT ANTERIOR FASCICULAR BLOCK SEPTAL MYOCARDIAL INFARCTION, PROBABLY OLD RATE SLOWER ECTOPY NEW SLOWER R WAVE PROGRESSION C/W 08/08/16 Electronically Signed On 08-11-2016 14:12:32 EST by Ana Jones
[2016-08-11] MEDS ORDERED: TRIAMCINOLONE ACETONIDE SUSP 40 MG/ML VIAL (J3301) As Ordered ONE (14:29)
[2016-08-11] MEDS ORDERED: CONRAY-43 43% 50ML VIAL (Q9960) As Ordered ONE (14:29)
[2016-08-11] MEDS ORDERED: LIDOCAINE 1% MDV 20ML VIAL As Ordered ONE (14:29)
--- NOTE | 2016-08-11 17:35 | REP ---
RIGHT HIP ARTHROCENTESIS WITH MEDICATION INJECTION: The patient is referred for right hip arthrocentesis with medication injection. Informed consent was obtained. Under sterile conditions and after satisfactory administration of local anesthesia, using fluoroscopic guidance, a 22-gauge spinal needle was placed into the right hip joint. Confirmation of correct needle tip placement within the joint is made with injection of a tiny amount of radiographic contrast which flowed freely away from the tip of the needle. Then, a mixture of 1 mL Kenalog 40 mg and 5 mL 1% lidocaine is injected. The needle was removed and hemostasis was obtained with no immediate complication. 30 seconds fluoroscopy time was utilized for this procedure. Signed by Kenan Lu MD 08/12/2016 04:12 P
[2016-08-11] MEDS: SIMVASTATIN 40 MG TAB PO SCH (21:42)
[2016-08-11] MEDS: BISOPROLOL FUMARATE 5 MG TAB PO SCH (21:47)
[2016-08-11 22:00] VITALS: BP 150/65
--- NOTE | 2016-08-11 22:06 | CR ---
DATE OF CONSULTATION: 08/11/2016 CHIEF COMPLAINT: Bilateral hip pain, right knee pain, right hip worse than left. This is a 71-year-old woman who has a several-month history, roughly 6-month history, of worsening bilateral hip pain and right knee pain. She has had progressive difficulty getting around. She has also had severe low back pain and has been seen by the pain service for this. She denies any other injury. She is comfortable as long as she is in bed. ALLERGIES: Include BACTRIM. PAST MEDICAL HISTORY: Includes: 1. Hypertension. 2. Hypercholesterolemia. 3. Diabetes. 4. Osteopenia. 5. Pneumovax. 6. Flu vaccine. 7. Central hypertension. PAST SURGICAL HISTORY: 1. Dilatation and curettage (DAC). 2. Esophagogastroduodenoscopy (EGD) with colonoscopy. FAMILY HISTORY. The patient's father with carcinoma. The patient mother had multiple myeloma. Sister has multiple medical issues. SOCIAL HISTORY: She lives alone. Denies any alcohol or smoking. MEDICATIONS: On admission include alendronate, calcium, cinnamon, glimepiride, indapamide, lisinopril, multivitamin, primidone, Zocor, Januvia REVIEW OF SYSTEMS: She denies any chest pain or shortness of breath, abdominal pain. Denies any palpitations. Denies any nausea or vomiting. Lungs: Denies any shortness of breath. She is being worked up for some liver and gallbladder issues as well. PHYSICAL EXAMINATION: She is an alert, oriented, morbidly obese woman. HEENT: Extraocular muscles intact. Pharynx is benign. She has a regular rate and rhythm to her pulse. Abdomen is soft but obese. Her extremities demonstrate significant irritability with range of motion of both her hips, right worse than left, and it is mostly experienced in her knee. Her right knee is not particularly swollen or significantly tender. Her lab work was reviewed. She has a mildly elevated white count of around 12. She has coagulation studies that are essentially normal, chemistries that show some renal compromise. X-rays are reviewed, and she has some arthritis of her right knee. An AP pelvis and right hip x-ray demonstrates severe arthritis of both hips, right being worse than left. She has severe acetabular dysplasia with very shallow acetabulum, as evidence of very longstanding hip abnormalities, and she does relate that when she was a child she had some sort of hip injury, playground, and wondered if that could be related. IMPRESSION: A 71-year-old woman with morbid obesity with a body mass index (BMI) of 53 who has bilateral severe osteoarthritis of her hips with severe acetabular dysplasia. This is a very complicated situation. She also has some underlying current medical issues being evaluated. My recommendation is that we consider an intra-articular injection of her right hip under fluoroscopic guidance to see if we can get her hip and knee pain settled down. My guess is this may help some. She is likely at some point to need a hip replacement; however, I think this is out of her capabilities given her severe dysplasia and her significant morbid obesity, which would make the hip replacement a very complicated undertaking. I think physical therapy as ordered is appropriate. Will follow along for now. Thank you for the consult.
[2016-08-12] MEDS: HEPARIN SOD (PORCINE) 5000 UNITS/ML VIAL SC SCH ×3 (05:50→21:43)
[2016-08-12 06:00] VITALS: BP 170/68
[2016-08-12 06:20] LABS: BASO % 0.1 % (0.0-1.0); EOS % 0.2 % (0.0-3.0); LARGE UNSTAINED CELL # 0.1 K/mm3 (0.0-0.4); LARGE UNSTAINED CELL % 0.4 % (0.0-4.0); LYMPH # 0.7 K/mm3 (1.5-4.5); LYMPH % 5.6 % (24.0-44.0); MEAN CORPUSCULAR HEMOGLOBIN 28.8 pg (27.0-33.0); MEAN CORPUSCULAR VOLUME 89.9 fl (80.0-96.0); MONO # 0.3 K/mm3 (0.0-0.8); MONO % 2.1 % (0.0-5.0); NEUTROPHILS # 11.5 K/mm3 (1.8-7.7); NEUTROPHILS % 91.5 % (36.0-66.0); PLATELET COUNT, AUTOMATED 232 k/mm3 (150-450); RED CELL DISTRIBUTION WIDTH 13.6 % (11.5-14.5); WHITE BLOOD COUNT 12.6 K/mm3 (4.0-10.0)
[2016-08-12 06:38] LABS: ALBUMIN 2.7 GM/DL (3.2-5.2); ALBUMIN/GLOBULIN RATIO 0.71 (1.00-1.93); BILIRUBIN,TOTAL 0.3 MG/DL (0.2-1.0); CALCIUM LEVEL 9.3 MG/DL (8.8-10.2); CREATININE FOR GFR 1.24 MG/DL (0.55-1.02); GLOMERULAR FILTRATION RATE 45.1 (>39); POTASSIUM SERUM 4.2 MEQ/L (3.5-5.1); TOTAL PROTEIN 6.5 GM/DL (6.4-8.2)
[2016-08-12] MEDS: PRIMIDONE 50 MG TAB PO SCH ×2 (08:02→20:41)
[2016-08-12] MEDS: HumaLOG INSULIN (NovoLOG) PER UNIT SC SCH ×4 (08:02→21:39)
[2016-08-12] MEDS: CALCIUM/VITAMIN D 500 MG TAB PO SCH ×2 (08:03→20:41)
[2016-08-12] MEDS: INDAPAMIDE 1.25MG TABLET PO SCH (08:03)
[2016-08-12] MEDS: MULTIVITAMINS/MINERALS THERAP 1 TAB PO SCH (08:03)
[2016-08-12] MEDS: MAGNESIUM OXIDE 400 MG TAB (MAG-OX) PO SCH ×2 (08:03→20:44)
[2016-08-12] MEDS: DULoxetine 20 MG CAP (CYMBALTA) PO SCH (08:03)
[2016-08-12] MEDS: LISINOPRIL 20 MG TAB PO SCH ×2 (08:03→20:43)
[2016-08-12] MEDS: NYSTATIN 100,000 UNITS/GM TOPICAL PWD 15 GM TOP SCH ×2 (08:04→20:45)
[2016-08-12] MEDS: PERCOCET 5MG/325MG TAB PO PRN ×2 (08:10→20:45)
[2016-08-12] MEDS: SIMVASTATIN 40 MG TAB PO SCH (20:41)
[2016-08-12] MEDS: BISOPROLOL FUMARATE 5 MG TAB PO SCH (21:00)
[2016-08-12] MEDS: amLODIPine 5 MG TAB PO SCH (21:43)
[2016-08-13] MEDS: HEPARIN SOD (PORCINE) 5000 UNITS/ML VIAL SC SCH ×3 (05:37→22:43)
[2016-08-13 06:00] VITALS: BP 170/72
[2016-08-13] MEDS: HumaLOG INSULIN (NovoLOG) PER UNIT SC SCH ×4 (08:09→20:43)
[2016-08-13] MEDS: CALCIUM/VITAMIN D 500 MG TAB PO SCH ×2 (08:09→20:44)
[2016-08-13] MEDS: DULoxetine 20 MG CAP (CYMBALTA) PO SCH (08:09)
[2016-08-13] MEDS: MULTIVITAMINS/MINERALS THERAP 1 TAB PO SCH (08:09)
[2016-08-13] MEDS: MAGNESIUM OXIDE 400 MG TAB (MAG-OX) PO SCH ×2 (08:10→20:45)
[2016-08-13] MEDS: LISINOPRIL 20 MG TAB PO SCH ×2 (08:11→20:44)
[2016-08-13] MEDS: INDAPAMIDE 1.25MG TABLET PO SCH (08:11)
[2016-08-13] MEDS: PRIMIDONE 50 MG TAB PO SCH ×2 (08:11→20:43)
[2016-08-13] MEDS: NYSTATIN 100,000 UNITS/GM TOPICAL PWD 15 GM TOP SCH ×2 (08:11→20:46)
[2016-08-13] MEDS: PERCOCET 5MG/325MG TAB PO PRN ×2 (14:26→20:44)
[2016-08-13] MEDS: BISOPROLOL FUMARATE 5 MG TAB PO SCH (20:45)
[2016-08-13] MEDS: amLODIPine 5 MG TAB PO SCH (20:45)
[2016-08-13] MEDS: SIMVASTATIN 40 MG TAB PO SCH (20:45)
[2016-08-14] MEDS: ALENDRONATE 70 MG TABLET (FOSAMAX) PO SCH (05:58)
[2016-08-14] MEDS: HEPARIN SOD (PORCINE) 5000 UNITS/ML VIAL SC SCH ×3 (05:59→21:09)
[2016-08-14] MEDS: PERCOCET 5MG/325MG TAB PO PRN ×3 (05:59→23:26)
[2016-08-14 06:00] VITALS: BP 139/64
[2016-08-14] MEDS: INDAPAMIDE 1.25MG TABLET PO SCH (07:41)
[2016-08-14] MEDS: DULoxetine 20 MG CAP (CYMBALTA) PO SCH (07:41)
[2016-08-14] MEDS: HumaLOG INSULIN (NovoLOG) PER UNIT SC SCH ×4 (07:41→20:29)
[2016-08-14] MEDS: PRIMIDONE 50 MG TAB PO SCH ×2 (07:41→21:06)
[2016-08-14] MEDS: MAGNESIUM OXIDE 400 MG TAB (MAG-OX) PO SCH ×2 (07:42→21:07)
[2016-08-14] MEDS: LISINOPRIL 20 MG TAB PO SCH ×2 (07:42→21:08)
[2016-08-14] MEDS: MULTIVITAMINS/MINERALS THERAP 1 TAB PO SCH (07:42)
[2016-08-14] MEDS: CALCIUM/VITAMIN D 500 MG TAB PO SCH ×2 (07:42→21:07)
[2016-08-14] MEDS: NYSTATIN 100,000 UNITS/GM TOPICAL PWD 15 GM TOP SCH ×2 (07:43→21:09)
[2016-08-14] MEDS: GLIMEPIRIDE 2 MG TAB PO SCH (12:19)
[2016-08-14 14:00] VITALS: BP 140/62
[2016-08-14] MEDS: SIMVASTATIN 40 MG TAB PO SCH (21:07)
[2016-08-14] MEDS: amLODIPine 5 MG TAB PO SCH (21:08)
[2016-08-14] MEDS: BISOPROLOL FUMARATE 5 MG TAB PO SCH (21:09)
[2016-08-14 22:00] VITALS: BP 160/78
[2016-08-15] VITALS (7 sets, daily range): BP systolic 164–218; BP diastolic 70–97
[2016-08-15] MEDS: HEPARIN SOD (PORCINE) 5000 UNITS/ML VIAL SC SCH ×3 (05:49→21:00)
[2016-08-15] MEDS: LISINOPRIL 20 MG TAB PO SCH ×2 (07:06→19:15)
[2016-08-15] MEDS: INDAPAMIDE 1.25MG TABLET PO SCH (07:06)
[2016-08-15] MEDS: MULTIVITAMINS/MINERALS THERAP 1 TAB PO SCH (08:53)
[2016-08-15] MEDS: PRIMIDONE 50 MG TAB PO SCH ×2 (08:53→20:59)
[2016-08-15] MEDS: DULoxetine 20 MG CAP (CYMBALTA) PO SCH (08:53)
[2016-08-15] MEDS: GLIMEPIRIDE 2 MG TAB PO SCH (08:54)
[2016-08-15] MEDS: CALCIUM/VITAMIN D 500 MG TAB PO SCH ×2 (08:54→21:00)
[2016-08-15] MEDS: MAGNESIUM OXIDE 400 MG TAB (MAG-OX) PO SCH ×2 (08:54→21:00)
[2016-08-15] MEDS: HumaLOG INSULIN (NovoLOG) PER UNIT SC SCH ×4 (08:55→21:02)
[2016-08-15] MEDS: NYSTATIN 100,000 UNITS/GM TOPICAL PWD 15 GM TOP SCH ×2 (08:55→21:00)
[2016-08-15] MEDS: BISOPROLOL FUMARATE 5 MG TAB PO SCH (21:00)
[2016-08-15] MEDS: SIMVASTATIN 40 MG TAB PO SCH (21:00)
[2016-08-15] MEDS: PERCOCET 5MG/325MG TAB PO PRN (21:06)
[2016-08-16] MEDS: HEPARIN SOD (PORCINE) 5000 UNITS/ML VIAL SC SCH ×3 (05:23→21:30)
[2016-08-16 06:00] VITALS: BP 183/83
[2016-08-16] MEDS: MAGNESIUM OXIDE 400 MG TAB (MAG-OX) PO SCH ×2 (08:08→21:30)
[2016-08-16] MEDS: INDAPAMIDE 1.25MG TABLET PO SCH (08:08)
[2016-08-16] MEDS: DULoxetine 20 MG CAP (CYMBALTA) PO SCH (08:08)
[2016-08-16] MEDS: PRIMIDONE 50 MG TAB PO SCH ×2 (08:09→21:31)
[2016-08-16] MEDS: CALCIUM/VITAMIN D 500 MG TAB PO SCH ×2 (08:09→21:31)
[2016-08-16] MEDS: LISINOPRIL 20 MG TAB PO SCH ×2 (08:09→21:29)
[2016-08-16] MEDS: GLIMEPIRIDE 2 MG TAB PO SCH (08:10)
[2016-08-16] MEDS: HumaLOG INSULIN (NovoLOG) PER UNIT SC SCH ×4 (08:10→21:30)
[2016-08-16] MEDS: MULTIVITAMINS/MINERALS THERAP 1 TAB PO SCH (08:10)
[2016-08-16] MEDS: NYSTATIN 100,000 UNITS/GM TOPICAL PWD 15 GM TOP SCH ×2 (08:13→21:30)
[2016-08-16] MEDS: SPIRONOLACTONE 25 MG TAB PO SCH (10:15)
--- NOTE | 2016-08-16 15:47 | EDDOCDS ---
Physician Documentation [facility] Name: Nely Duvall Age: 71 yrs Sex: Female : 1945 Arrival Date: 08/08/2016 Time: 11:02 Bed 5 Private MD: Jacqueline Perla M. Disposition: 08/08 16:20 Critical Care: Critical care not applicable. evelia Disposition: 08/08/16 16:20 Hospitalization ordered by Leonela Rai for Observation. Preliminary diagnosis are Radiculopathy, lumbar region, Difficulty in walking, not elsewhere classified. - Bed requested for 4 [place]. - Status is Observation. kalina - Condition is Stable. - Problem is new. - Symptoms are unchanged. Historical: - Allergies: Bactrim (Hives); - Home Meds: 1. alendronate-vitamin D3 70-5,600 mg-unit oral tab 1 tab once wkly Sundays (Last dose: 08/07/2016) 2. indapamide 2.5 mg Oral tab 1 tab once daily (Last dose: 08/08/2016 07:30) 3. glimepiride 2 mg Oral tab 1 tab twice a day (Last dose: 08/08/2016 07:30) 4. simvastatin 40 mg Oral tab 1 tab nightly (Last dose: 08/07/2016) 5. primidone 50 mg Oral tab 3 tabs twice a day (Last dose: 08/08/2016 07:30) 6. Januvia 50 mg oral tab once daily (Last dose: 08/08/2016 07:30) 7. lisinopril 20 mg Oral tab 1 tab twice a day (Last dose: 08/08/2016 07:30) 8. Cinnamon 500 mg oral cap 2 cap twice a day (Last dose: 08/08/2016 07:30) 9. Calcium + Vitamin D 600 mg calcium- 200 unit Oral tab twice a day (Last dose: 08/08/2016 07:30) 10. senior multivitamin daily (Last dose: 08/08/2016 07:30) 11. multivitamin with minerals oral cap daily (Last dose: 08/08/2016 07:30) - PMHx: Diabetes - NIDDM: controlled; Hypertension; essential tremors; chronic kidney disease stage 3; - PSHx: none; - Social history: Smoking status: Patient states was never smoker of tobacco. No barriers to communication noted, The patient speaks fluent Turkmen. - Family history: Not pertinent. - : The pt / caregiver states he / she is not on anticoagulants. Home medication list is obtained from the patient. - Exposure Risk Screening:: None identified. Vital Signs: 11:05 BP 205 / 65; Pulse 75; Resp 18; Temp 98.1(T); Pulse Ox 98% on R/A; Weight 125.65 kg / dem1 277.01 lbs (R); Height 5 ft. 0 in. (152.40 cm) (R); Pain 5/10; 14:40 BP 122 / 75; mem 16:43 BP 182 / 83; Pulse 95; Resp 18; Temp 97.6(T); Pulse Ox 99% on R/A; kr3 19:50 BP 137 / 69; Pulse 81; Resp 18 S; Pulse Ox 96% on R/A; af2 19:53 Temp 98.3; cln 11:05 Body Mass Index 54.10 (125.65 kg, 152.40 cm) dem1 MDM: 11:57 Data Processing Systems Project Planner/Pulse Ox/q 30 min VS ordered. kcs 11:57 IV Saline Lock ordered. kcs 11:57 Rhythm Strip to chart ordered. kcs 11:57 Undress patient appropriately for examination ordered. kcs 11:58 Basic Metabolic Profile Ordered. EDMS 11:58 CBC with Diff Ordered. EDMS 11:58 Cardiac Injury Profile Ordered. EDMS 11:58 Partial Thromboplastin Time Ordered. EDMS 11:58 Prothrombin Time Profile\E\INR Ordered. EDMS 11:59 ECG WITH READING ER PHYS+CARDIAG ordered. EDMS 12:41 HYDROcodone-acetaminophen 5 mg-325 mg 1 tabs PO once ordered. le 12:41 predniSONE 60 mg PO once; administer with food or milk ordered. le 12:42 US Lower Extremity R/O DVT Ordered. EDMS 12:42 Spine. Lumbosacral, Complete Ordered. EDMS 13:45 Basic Metabolic Profile Reviewed. le 13:45 CBC with Diff Reviewed. le 13:45 Cardiac Injury Profile Reviewed. le 13:45 Partial Thromboplastin Time Reviewed. le 14:55 PT Consult to assess patient's safe and independent mobility for discharge to home le ordered. 14:55 Partial Thromboplastin Time Reviewed. le 14:55 Prothrombin Time Profile\E\INR Reviewed. le 14:55 EKG-ADULT Reviewed. le 14:55 Spine. Lumbosacral, Complete Reviewed. le 15:12 PT Consult to assess patient's safe and independent mobility for discharge to home jrd complete. 15:13 PHYSICAL THERAPY EVAL ONLY ordered. EDMS 15:41 Financial registration complete. zo 15:42 [facility] Payment Agreement was scanned into Symbolic IO and attached to record. zo 16:11 BED REQUEST+ADM ordered. EDMS 16:59 PHYSICAL THERAPY EVAL & TREAT ordered. EDMS 16:59 CONSISTENT CARBOHYDRATES ordered. EDMS 17:03 MRI Screening Tool - Place on chart, inform RN ordered. ss12 17:52 MRI Spine, L.S. without con Ordered. EDMS 17:52 Chest, 2 view PA, Lat Ordered. EDMS 17:53 Admission / Observation Status ordered. EDMS 17:54 URINALYSIS Ordered. EDMS 18:28 LORazepam 2 mg IVP once ordered. kr3 19:24 MRI Screening Tool - Place on chart, inform RN complete. ml3 19:32 CBC WITH DIFFERENTIAL Ordered. EDMS 19:32 COMPLETE COMPHRENSIVE METABOLI Ordered. EDMS 20:28 MAGNESIUM LEVEL Ordered. EDMS 12 06:17 T-Sheet-- Draft Copy was scanned into Symbolic IO and attached to record. lja 10:30 Radiology Report was scanned into S[employer] IO and attached to record. gb Administered Medications: 08/08 12:55 Drug: HYDROcodone-acetaminophen 1 tabs [hydrocodone 5 mg-acetaminophen 325 mg tablet (1 kr3 tabs)] Route: PO; 13:49 Follow up: Response: No significant change. kr3 12:55 Drug: predniSONE 60 mg [prednisone 20 mg tablet (3 tabs)] Route: PO; kr3 13:49 Follow up: Response: No Adverse Reaction kr3 18:25 Drug: LORazepam 2 mg [lorazepam 2 mg/mL injection solution (1 mL)] Route: IVP; Site: kr3 left antecubital; Signatures: Dispatcher MedHost EDMS Marla Bonilla, RN Gayla Robledo RN RN kpj Newman, Jill New, RN RN jan Barnhardt, Gloria, Reg Reg Joseph Foreman, Metal Finish Inspector Unit ml3 Jessica Stauffer RN RN kr3 Modesta Bravo Lisa, PREFITTER DOORS PREFITTER DOORS Darrel Mata ss12 [place], JAME CORRECTIONS NURSE jrd ArelThea The chart was reviewed and I authenticate all verbal orders and agree with the evaluation and treatment provided.Corrections: (The following items were deleted from the chart) 20:28 19:32 MAGNESIUM LEVEL ordered. EDMS EDMS Attachments: 15:42 [facility] Payment Agreement 08/09 06:17 T-Sheet-- Draft Copy diya Chart Complete MTDD
--- NOTE | 2016-08-16 15:47 | EDDOCDS ---
Physician Documentation [facility] Name: Nely Duvall Age: 71 yrs Sex: Female : 1945 Arrival Date: 08/08/2016 Time: 11:02 Bed 5 Private MD: Jacqueline Perla M. Disposition: 08/08 16:20 Critical Care: Critical care not applicable. evelia Disposition: 08/08/16 16:20 Hospitalization ordered by Leonela Rai for Observation. Preliminary diagnosis are Radiculopathy, lumbar region, Difficulty in walking, not elsewhere classified. - Bed requested for 4 [place]. - Status is Observation. kalina - Condition is Stable. - Problem is new. - Symptoms are unchanged. Historical: - Allergies: Bactrim (Hives); - Home Meds: 1. alendronate-vitamin D3 70-5,600 mg-unit oral tab 1 tab once wkly Sundays (Last dose: 08/07/2016) 2. indapamide 2.5 mg Oral tab 1 tab once daily (Last dose: 08/08/2016 07:30) 3. glimepiride 2 mg Oral tab 1 tab twice a day (Last dose: 08/08/2016 07:30) 4. simvastatin 40 mg Oral tab 1 tab nightly (Last dose: 08/07/2016) 5. primidone 50 mg Oral tab 3 tabs twice a day (Last dose: 08/08/2016 07:30) 6. Januvia 50 mg oral tab once daily (Last dose: 08/08/2016 07:30) 7. lisinopril 20 mg Oral tab 1 tab twice a day (Last dose: 08/08/2016 07:30) 8. Cinnamon 500 mg oral cap 2 cap twice a day (Last dose: 08/08/2016 07:30) 9. Calcium + Vitamin D 600 mg calcium- 200 unit Oral tab twice a day (Last dose: 08/08/2016 07:30) 10. senior multivitamin daily (Last dose: 08/08/2016 07:30) 11. multivitamin with minerals oral cap daily (Last dose: 08/08/2016 07:30) - PMHx: Diabetes - NIDDM: controlled; Hypertension; essential tremors; chronic kidney disease stage 3; - PSHx: none; - Social history: Smoking status: Patient states was never smoker of tobacco. No barriers to communication noted, The patient speaks fluent Czech. - Family history: Not pertinent. - : The pt / caregiver states he / she is not on anticoagulants. Home medication list is obtained from the patient. - Exposure Risk Screening:: None identified. Vital Signs: 11:05 BP 205 / 65; Pulse 75; Resp 18; Temp 98.1(T); Pulse Ox 98% on R/A; Weight 125.65 kg / dem1 277.01 lbs (R); Height 5 ft. 0 in. (152.40 cm) (R); Pain 5/10; 14:40 BP 122 / 75; mem 16:43 BP 182 / 83; Pulse 95; Resp 18; Temp 97.6(T); Pulse Ox 99% on R/A; kr3 19:50 BP 137 / 69; Pulse 81; Resp 18 S; Pulse Ox 96% on R/A; af2 19:53 Temp 98.3; cln 11:05 Body Mass Index 54.10 (125.65 kg, 152.40 cm) dem1 MDM: 11:57 Laborer General/Pulse Ox/q 30 min VS ordered. kcs 11:57 IV Saline Lock ordered. kcs 11:57 Rhythm Strip to chart ordered. kcs 11:57 Undress patient appropriately for examination ordered. kcs 11:58 Basic Metabolic Profile Ordered. EDMS 11:58 CBC with Diff Ordered. EDMS 11:58 Cardiac Injury Profile Ordered. EDMS 11:58 Partial Thromboplastin Time Ordered. EDMS 11:58 Prothrombin Time Profile\E\INR Ordered. EDMS 11:59 ECG WITH READING ER PHYS+CARDIAG ordered. EDMS 12:41 HYDROcodone-acetaminophen 5 mg-325 mg 1 tabs PO once ordered. le 12:41 predniSONE 60 mg PO once; administer with food or milk ordered. le 12:42 US Lower Extremity R/O DVT Ordered. EDMS 12:42 Spine. Lumbosacral, Complete Ordered. EDMS 13:45 Basic Metabolic Profile Reviewed. le 13:45 CBC with Diff Reviewed. le 13:45 Cardiac Injury Profile Reviewed. le 13:45 Partial Thromboplastin Time Reviewed. le 14:55 PT Consult to assess patient's safe and independent mobility for discharge to home le ordered. 14:55 Partial Thromboplastin Time Reviewed. le 14:55 Prothrombin Time Profile\E\INR Reviewed. le 14:55 EKG-ADULT Reviewed. le 14:55 Spine. Lumbosacral, Complete Reviewed. le 15:12 PT Consult to assess patient's safe and independent mobility for discharge to home jrd complete. 15:13 PHYSICAL THERAPY EVAL ONLY ordered. EDMS 15:41 Financial registration complete. zo 15:42 [facility] Payment Agreement was scanned into [employer] and attached to record. zo 16:11 BED REQUEST+ADM ordered. EDMS 16:59 PHYSICAL THERAPY EVAL & TREAT ordered. EDMS 16:59 CONSISTENT CARBOHYDRATES ordered. EDMS 17:03 MRI Screening Tool - Place on chart, inform RN ordered. ss12 17:52 MRI Spine, L.S. without con Ordered. EDMS 17:52 Chest, 2 view PA, Lat Ordered. EDMS 17:53 Admission / Observation Status ordered. EDMS 17:54 URINALYSIS Ordered. EDMS 18:28 LORazepam 2 mg IVP once ordered. kr3 19:24 MRI Screening Tool - Place on chart, inform RN complete. ml3 19:32 CBC WITH DIFFERENTIAL Ordered. EDMS 19:32 COMPLETE COMPHRENSIVE METABOLI Ordered. EDMS 20:28 MAGNESIUM LEVEL Ordered. EDMS 12 06:17 T-Sheet-- Draft Copy was scanned into [employer] and attached to record. lja 10:30 Radiology Report was scanned into [employer] and attached to record. gb Administered Medications: 08/08 12:55 Drug: HYDROcodone-acetaminophen 1 tabs [hydrocodone 5 mg-acetaminophen 325 mg tablet (1 kr3 tabs)] Route: PO; 13:49 Follow up: Response: No significant change. kr3 12:55 Drug: predniSONE 60 mg [prednisone 20 mg tablet (3 tabs)] Route: PO; kr3 13:49 Follow up: Response: No Adverse Reaction kr3 18:25 Drug: LORazepam 2 mg [lorazepam 2 mg/mL injection solution (1 mL)] Route: IVP; Site: kr3 left antecubital; Signatures: Dispatcher [employer] EDMS Marla Bonilla, RN Gayla Robledo RN RN kpj Newman, Jill New, RN RN jan Barnhardt, Gloria, Reg Reg Joseph Foreman, Cardiac Surgeon Unit ml3 Jessica Stauffer RN RN kr3 Modesta Bravo Lisa, MATE FISHING VESSEL MATE FISHING VESSEL Darrel Mata ss12 [place], JAME TUG CAPTAIN jrd ArelThea The chart was reviewed and I authenticate all verbal orders and agree with the evaluation and treatment provided.Corrections: (The following items were deleted from the chart) 20:28 19:32 MAGNESIUM LEVEL ordered. EDMS EDMS Attachments: 15:42 [facility] [place] Agreement 08/09 06:17 T-Sheet-- Draft Copy diya Chart Complete MTDD
--- NOTE | 2016-08-16 15:47 | EDDOCDS ---
Nurse's Notes [facility] Name: Ronny Duvall Age: 71 yrs Sex: Female : 1945 Arrival Date: 08/08/2016 Time: 11:02 Bed 5 Private MD: Jacqueline Perla M. Diagnosis: Radiculopathy, lumbar region;Difficulty in walking, not elsewhere classified Presentation: 08/08 11:26 Presenting complaint: Patient states: trouble walking for the last 2 weeks even when kpj using her walker. Lives alone has a caregiver that comes in twice a week.pain rt butt cheek and pain down her right leg. 11:29 The last date and time the patient was known to be well was was at an unknown time. No [facility] acute neurological deficit is noted. Pre-hospital glucose is not applicable to this patient. Adult Sepsis Screening: The patient does not have new or worsening altered mentation. Patient's respiratory rate is less than 22. Systolic blood pressure is greater than 100. Patient has a qSOFA score of 0- Negative Sepsis Screen. Status: Patient is not a media services specialist or dependent. Suicide/Homicide risk assessment- the patient denies having any suicidal and/or homicidal ideations. Transition of care: patient was not received from another setting of care. 11:29 Acuity: BHAVIN Level 3 [facility] 11:29 Method Of Arrival: Ambulance [facility] 19:51 The last date and time the patient was known to be well was on an unknown date. af2 Triage Assessment: 11:37 The onset of the patients symptoms was at an unknown time. General: Appears in no [facility] apparent distress. Pain: Location: right gluteus bridgett Pain currently is 5 out of 10 on a pain scale. Pain radiates to right leg. Neurological: Level of Consciousness is awake, alert, Oriented to person, place, time, Reports Back Pain. Respiratory: Airway is patent Respiratory effort is even, unlabored, Respiratory pattern is regular, symmetrical. Derm: Skin is pink, warm & dry. Musculoskeletal: Reports pain in right gluteus bridgett radiation to right leg Pain is 5 out of 10 on a pain scale. Historical: - Allergies: Bactrim (Hives); - Home Meds: 1. alendronate-vitamin D3 70-5,600 mg-unit oral tab 1 tab once wkly Sundays (Last dose: 08/07/2016) 2. indapamide 2.5 mg Oral tab 1 tab once daily (Last dose: 08/08/2016 07:30) 3. glimepiride 2 mg Oral tab 1 tab twice a day (Last dose: 08/08/2016 07:30) 4. simvastatin 40 mg Oral tab 1 tab nightly (Last dose: 08/07/2016) 5. primidone 50 mg Oral tab 3 tabs twice a day (Last dose: 08/08/2016 07:30) 6. Januvia 50 mg oral tab once daily (Last dose: 08/08/2016 07:30) 7. lisinopril 20 mg Oral tab 1 tab twice a day (Last dose: 08/08/2016 07:30) 8. Cinnamon 500 mg oral cap 2 cap twice a day (Last dose: 08/08/2016 07:30) 9. Calcium + Vitamin D 600 mg calcium- 200 unit Oral tab twice a day (Last dose: 08/08/2016 07:30) 10. senior multivitamin daily (Last dose: 08/08/2016 07:30) 11. multivitamin with minerals oral cap daily (Last dose: 08/08/2016 07:30) - PMHx: Diabetes - NIDDM: controlled; Hypertension; essential tremors; chronic kidney disease stage 3; - PSHx: none; - Social history: Smoking status: Patient states was never smoker of tobacco. No barriers to communication noted, The patient speaks fluent Ivorian. - Family history: Not pertinent. - : The pt / caregiver states he / she is not on anticoagulants. Home medication list is obtained from the patient. - Exposure Risk Screening:: None identified. Screenin:28 Screening information is obtained from the patient. Fall risk: At risk due to kr3 immobility. home support is adequate. 18:37 Abuse/DV Screen: The patient / caregiver reports he/she is: not in a situation that kr3 causes fear, pain or injury. Nutritional screening: No deficits noted. 19:31 Assistance ADL's: unable to assess. Advance Directives: Further advance directive af2 information is declined. Assessment: 12:28 Reassessment: Patient appears in no apparent distress at this time. General: Reports kr3 unable to weight bear right leg. Pain: Location: right leg and buttocks and right gluteus bridgett Pain currently is 5 out of 10 on a pain scale. Neurological: No deficits noted. Cardiovascular: Chest pain is denied. Respiratory: Respiratory effort is even, unlabored. Derm: Skin is pink, warm & dry. 13:49 Reassessment: Patient appears in no apparent distress at this time. Pain: Location: kr3 right leg and buttocks and right gluteus bridgett Pain currently is 5 out of 10 on a pain scale. 14:40 Reassessment: Patient appears in no apparent distress at this time. General: Behavior kr3 is cooperative. Neurological: No deficits noted. 15:55 Reassessment: PT in with patient to evaluate. kr3 16:30 Reassessment: Patient appears in no apparent distress at this time. Neurological: Level kr3 of Consciousness is awake, alert. Respiratory: Respiratory effort is even, unlabored. 17:05 Reassessment: Patient appears in no apparent distress at this time. talking with kr3 hospitallist. 18:10 General: Appears in no apparent distress, comfortable, reports willing to try MRI but kr3 will need medication, hospitalist notified and med ordered. 18:35 Reassessment: Patient appears in no apparent distress at this time. Pain: Location: kr3 right knee Pain currently is 6 out of 10 on a pain scale. Quality of pain is described as aching. 19:21 General: pt off unit at this time. . af2 19:51 Reassessment: Patient appears in no apparent distress at this time. pt returned from af2 MRI at this time, tolerated procedure well. states that she feels a dull ache returning to right leg. . 20:04 General: Appears in no apparent distress, comfortable, Behavior is appropriate for age, af2 cooperative. Neurological: Level of Consciousness is awake, alert. Respiratory: Airway is patent Respiratory effort is even, unlabored. Derm: Skin is pink, warm & dry. Vital Signs: 11:05 BP 205 / 65; Pulse 75; Resp 18; Temp 98.1(T); Pulse Ox 98% on R/A; Weight 125.65 kg dem1 (R); Height 5 ft. 0 in. (152.40 cm) (R); Pain 5/10; 14:40 BP 122 / 75; mem 16:43 BP 182 / 83; Pulse 95; Resp 18; Temp 97.6(T); Pulse Ox 99% on R/A; kr3 19:50 BP 137 / 69; Pulse 81; Resp 18 S; Pulse Ox 96% on R/A; af2 19:53 Temp 98.3; cln 11:05 Body Mass Index 54.10 (125.65 kg, 152.40 cm) dem1 Vitals: 11:05 Log In Time N/A - ambulance arrival. RN notified that patient meets Red Flag criteria. dem1 11:37 Glucose Measurement N/A. [facility] ED Course: 11:04 Patient visited by Daxa Helms. dem1 11:04 Patient moved to Waiting dem1 11:05 Jacqueline Perla is Private Physician. dem1 11:08 Patient visited by Daxa Helms. dem1 11:08 Patient moved to Pre RCE dem1 11:29 Triage Initiated [facility] 11:42 Jessica Stauffer,RN is Primary Nurse. ar3 11:42 Patient moved to 5 ar3 12:10 EKG done. (by ED staff). Reviewed by Kumar Agee MD. ct3 12:11 Patient visited by Kalpana Flores PCA. ct3 12:28 [facility] Gregorio FNP [facility]. le 12:28 Basic Metabolic Profile Sent. kr3 12:28 CBC with Diff Sent. kr3 12:28 Cardiac Injury Profile Sent. kr3 12:28 Partial Thromboplastin Time Sent. kr3 12:28 Prothrombin Time Profile\E\INR Sent. kr3 12:29 The patient / caregiver is instructed regarding the plan of care and ED course. Patient kristina has correct armband on for positive identification. Placed in gown. Bed in low position. Call light in reach. Side rails up X2. laboratory monitor on. Pulse ox on. NIBP on. 12:29 Inserted saline lock: 20 gauge in left antecubital area and blood collected. The frieda3 patient tolerated the procedure well. 12:35 Patient visited by Thea Gregorio FNP. le 12:35 Patient visited by Thea Gregorio FNP. le 12:55 Cleaned of incontinence. Linen changed. kr3 13:13 Patient visited by Kalpana Flores PCA. ct3 13:49 Patient visited by Jessica Stauffer RN. kr3 14:33 Patient moved to Ultrasound sm5 14:51 EKG-ADULT Returned. EDMS 14:55 Spine. Lumbosacral, Complete Returned. EDMS 14:57 Patient moved to 5 br3 15:19 Cleaned of incontinence. Linen changed. kr3 15:20 Patient visited by Jessica Stauffer RN. kr3 15:42 [facility] [place] Agreement was scanned into [employer] and attached to record. zo 15:59 Patient visited by Kalpana Flores PCA. ct3 16:02 US Lower Extremity R/O DVT Returned. EDMS 16:20 Fredi Leonela is Hospitalizing Provider. le 16:36 Spine. Lumbosacral, Complete Returned. EDMS 18:44 Patient moved to MRI kr3 18:59 Sinan Salas cardiopulmonary supervisor. nq 19:00 Primary Nurse role handed off by Jessica Stauffer RN kr3 19:20 Griselda Collins RN is Primary Nurse. af2 19:21 Patient visited by Griselda Collins RN. af2 19:45 Patient moved to 5 ml3 19:50 No procedures done that require assistance. af2 19:52 Patient visited by Griselda Collins RN. af2 19:53 Patient visited by Palmira Razo PCA. cln 12 06:17 T-Sheet-- Draft Copy was scanned into [employer] and attached to record. lja 10:30 Radiology Report was scanned into [employer] and attached to record. gb Administered Medications: 08/08 12:55 Drug: HYDROcodone-acetaminophen 1 tabs [hydrocodone 5 mg-acetaminophen 325 mg tablet (1 kr3 tabs)] Route: PO; 13:49 Follow up: Response: No significant change. kr3 12:55 Drug: predniSONE 60 mg [prednisone 20 mg tablet (3 tabs)] Route: PO; kr3 13:49 Follow up: Response: No Adverse Reaction kr3 18:25 Drug: LORazepam 2 mg [lorazepam 2 mg/mL injection solution (1 mL)] Route: IVP; Site: kr3 left antecubital; Order Results: Lab Order: Basic Metabolic Profile; SPEC'M 08/08/16 12:24 Test: GLUCOSE, FASTING; Value: 131; Range: 83-110; Abnormal: Above high normal; Units: MG/DL; Status: F Test: BLOOD UREA NITROGEN; Value: 28; Range: 7-18; Abnormal: Above high normal; Units: MG/DL; Status: F Test: CREATININE FOR GFR; Value: 1.26; Range: 0.55-1.02; Abnormal: Above high normal; Units: MG/DL; Status: F Test: GLOMERULAR FILTRATION RATE; Value: 44.3; Range: >39; Status: F Test: SODIUM LEVEL; Value: 145; Range: 136-145; Units: MEQ/L; Status: F Test: POTASSIUM SERUM; Value: 4.0; Range: 3.5-5.1; Units: MEQ/L; Status: F Test: CHLORIDE LEVEL; Value: 106; Range: 98-107; Units: MEQ/L; Status: F Test: CARBON DIOXIDE LEVEL; Value: 30; Range: 21-32; Units: MEQ/L; Status: F Test: ANION GAP; Value: 9; Range: 8-16; Units: MEQ/L; Status: F Test: CALCIUM LEVEL; Value: 9.3; Range: 8.8-10.2; Units: MG/DL; Status: F Test Note: ; Units are mL/min/1.73 m2 Chronic Kidney Disease Staging per NKF: Stage I & II GFR >=60 Normal to Mildly Decreased Stage III GFR 30-59 Moderately Decreased Stage IV GFR 15-29 Severely Decreased Stage V GFR <15 Very Little GFR Left ESRD GFR <15 on KITCHEN OPERATOR Lab Order: CBC with Diff; SPEC'M 08/08/16 12:24 Test: WHITE BLOOD COUNT; Value: 11.3; Range: 4.0-10.0; Abnormal: Above high normal; Units: K/mm3; Status: F Test: RED BLOOD COUNT; Value: 4.38; Range: 4.00-5.40; Units: M/mm3; Status: F Test: HEMOGLOBIN; Value: 12.7; Range: 12.0-16.0; Units: g/dl; Status: F Test: HEMATOCRIT; Value: 39.4; Range: 36.0-47.0; Units: %; Status: F Test: MEAN CORPUSCULAR VOLUME; Value: 90.1; Range: 80.0-96.0; Units: fl; Status: F Test: MEAN CORPUSCULAR HEMOGLOBIN; Value: 28.9; Range: 27.0-33.0; Units: pg; Status: F Test: MEAN CORPUSCULAR HGB CONC; Value: 32.1; Range: 32.0-36.5; Units: g/dl; Status: F Test: RED CELL DISTRIBUTION WIDTH; Value: 13.9; Range: 11.5-14.5; Units: %; Status: F Test: PLATELET COUNT, AUTOMATED; Value: 262; Range: 150-450; Units: k/mm3; Status: F Test: NEUTROPHILS %; Value: 81.2; Range: 36.0-66.0; Abnormal: Above high normal; Units: %; Status: F Test: LYMPH %; Value: 12.3; Range: 24.0-44.0; Abnormal: Below low normal; Units: %; Status: F Test: MONO %; Value: 4.0; Range: 0.0-5.0; Units: %; Status: F Test: EOS %; Value: 0.9; Range: 0.0-3.0; Units: %; Status: F Test: BASO %; Value: 0.4; Range: 0.0-1.0; Units: %; Status: F Test: LARGE UNSTAINED CELL %; Value: 1.2; Range: 0.0-4.0; Units: %; Status: F Test: NEUTROPHILS #; Value: 9.2; Range: 1.8-7.7; Abnormal: Above high normal; Units: K/mm3; Status: F Test: LYMPH #; Value: 1.4; Range: 1.5-4.5; Abnormal: Below low normal; Units: K/mm3; Status: F Test: MONO #; Value: 0.5; Range: 0.0-0.8; Units: K/mm3; Status: F Test: EOS #; Value: 0.1; Range: 0.0-0.50; Units: K/mm3; Status: F Test: BASO #; Value: 0.0; Range: 0.0-0.2; Units: K/mm3; Status: F Test: LARGE UNSTAINED CELL #; Value: 0.1; Range: 0.0-0.4; Units: K/mm3; Status: F Lab Order: Cardiac Injury Profile; SPEC'M 12/19/16 12:24 Test: CPK CREATINE PHOSPHOKINASE; Value: 85; Range: 26-192; Units: U/L; Status: F Test: CK-MB VALUE MASS; Value: 1.6; Range: 0.0-3.6; Units: NG/ML; Status: F Test: MB/CK RELATIVE INDEX; Value: 1.88; Range: < OR =4; Status: F Test Note: ; DIAGNOSIS CRITERIA MMB ng/ml Relative Index (RI) NON-AMI < or = 5 N/A LU ZONE > 5 < or = 4 AMI > 5 > 4 Lab Order: Partial Thromboplastin Time; [facility] 08/08/16 12:24 Test: PARTIAL THROMBOPLASTIN TIME; Value: 29.7; Range: 26.6-37.1; Units: SECONDS; Status: F Lab Order: Prothrombin Time Profile\E\INR; [facility] 08/08/16 12:24 Test: PROTHROMBIN TIME; Value: 12.8; Range: 12.3-14.5; Units: SECONDS; Status: F Test: INR; Value: 0.95; Status: F Test Note: ; THERAPUTIC HUMAN INR VALUES INDICATIONS NORMAL RANGES PROPHYLAXIS/TREATMENT OF: VENOUS THROMBOSIS 2.0-3.0 PULMONARY EMBOLISM 2.0-3.0 PREVENTION OF SYSTEMIC EMBOLISM FROM: TISSUE HEART VALVES 2.0-3.0 ACUTE MYOCARDIAL INFARCTION 2.0-3.0 VALVULAR HEART DISEASE 2.0-3.0 ATRIAL FIBRILLATION 2.0-3.0 MECHANICAL VALVES(HIGH RISK) 2.5-3.5 RECURRENT MYOCARDIAL INFARCTION 2.5-3.5 Radiology Order: EKG-ADULT Test: EKG-ADULT REASON FOR EXAMINATION: weakness; Stationary ECG Study; [facility] - ED; ; Test Date: 2016-08-08; Pat Name: RONNY DUVALL Department:; Room: -; Gender: F Clay Thrower: ct; : 1945 Requested By: Kumar Agee; Order Number: [id number] Reading MD: Alex Bonilla; Measurements; Intervals [place]; Rate: 67 P:; AK: 0 QRS: -44; QRSD: 105 T: 56; QT: 369; QTc: 392; Interpretive Statements; SINUS RHYTHM WITH 1ST DEGREE AV BLOCK; LEFT AXIS DEVIATION; LAE; NO PRIORS; Electronically Signed On 08-08-2016 14:48:15 EST by Alex Bonilla; Radiology Order: US Lower Extremity R/O DVT Test: US Lower Extremity R/O DVT REASON FOR EXAMINATION: pain; Right lower extremity venous Doppler 08/08/2016; ; Indication: right leg pain; ; Comparison: None; ; Technique : Color-flow Doppler spectral wave imaging and lu-scale imaging were; used to evaluate the right lower extremity veins at common femoral, superficial; femoral, and popliteal venous levels; ; Findings: Due to large body habitus there is limited visualization and; evaluation of the mid and distal superficial femoral veins. They were however; seen to be patent with color Doppler and spectral wave Doppler imaging.; ; The right common femoral, visualized portions of the origin of greater saphenous; vein, profunda femoris, common femoral vein and proximal superficial femoral; veins are patent and compressibility was identified. Also compressibility noted; within the right popliteal vein; ; Impression:; No visualized deep venous thrombosis in the right lower extremity. Please note; that evaluation of mid and distal superficial femoral veins somewhat limited due; to large body habitus; ; ; ; ; Unreviewed; Radiology Order: Spine. Lumbosacral, Complete Test: Spine. Lumbosacral, Complete REASON FOR EXAMINATION: likely right radicular pain; LUMBOSACRAL SPINE SERIES:; ; Five views of the lumbosacral spine are performed.; ; There is no compression fracture. There is normal lumbar lordosis. There is; minimal anterior listhesis of L4 on L5 due to posterior facet arthropathy. There; is moderate diffuse spurring. There is mild disc space narrowing and subchondral; sclerosis at all levels. With a more moderate degree of disc space narrowing at; L3-4. There is diffuse sclerosis and spurring at the posterior facet joints. The; posterior elements appear intact. Diffuse vascular calcifications are present.; ; IMPRESSION:; ; Diffuse degenerative changes without evidence of acute fracture or dislocation.; ; ; Signed by; Kenan Lu MD 08/08/2016 04:10 P; Outcome: 13:50 Ultrasound Study completed. kr3 16:20 Decision to Hospitalize by Provider. le 19:50 Discharge Assessment: Patient awake, alert and oriented x 3. No cognitive and/or af2 functional deficits noted. Patient verbalized understanding of disposition instructions. patient administered narcotics - no. The following High Risk Discharge criteria are identified: None. Admitted to Med/Surg accompanied by tech, via stretcher, with chart. Condition: stable. Property :Personal belongings accompany Pt. 20:35 Patient left the ED. kalina Signatures: Dispatcher [employer] EDKS Gayla Clark RN RN kpj Newman, Verna More, RN SIMRAN Resendiz, Yari, Reg Reg gb Clementine, Dang sm5 Ari, Joseph, [place] Truck Driver Unit ml3 Jessica Stauffer,RN RN kr3 Modesta Bravo Lisa, HOME OFFICE CLAIMS EXAMINER HOME OFFICE CLAIMS EXAMINER Citlalli Magana br3 Funmilayo Epperson, LAUNDRY ROOM ATTENDANT LAUNDRY ROOM ATTENDANT ar3 Flores, Kalpana, LAUNDRY ROOM ATTENDANT LAUNDRY ROOM ATTENDANT ct3 Scooter, Demlizshia dem1 Sinan Salas AmberRN SIMRAN af2 Marilyn So RN RN mem Arel, Thea Razo, Palmira, LAUNDRY ROOM ATTENDANT LAUNDRY ROOM ATTENDANT cln Chart Complete MTDD
[2016-08-16] MEDS: SIMVASTATIN 40 MG TAB PO SCH (21:30)
[2016-08-16] MEDS: BISOPROLOL FUMARATE 5 MG TAB PO SCH (21:31)
[2016-08-16] MEDS: PERCOCET 5MG/325MG TAB PO PRN (21:32)
[2016-08-16 22:00] VITALS: BP 170/82
[2016-08-17] MEDS: HEPARIN SOD (PORCINE) 5000 UNITS/ML VIAL SC SCH ×3 (05:07→21:58)
[2016-08-17 06:00] VITALS: BP 178/82
--- NOTE | 2016-08-17 07:19 | DSES ---
DATE OF ADMISSION: 08/10/2016 DATE OF DISCHARGE TO SNF: 08/12/2016 PRIMARY CARE PROVIDER: NANCY Barriga ATTENDING: Dr. Brijesh Baeza HISTORY: This is a 71-year-old female patient who presented to [facility] with low back pain with radiculopathy of the right more than the left. She has had chronic low back pain although in the last 2-3 weeks has become progressively worse. She had a home health aide who had been helping her approximately three times a week noting that it was becoming more and more difficult for her to stand up on her own. As a result, the patient pressed her lifeline and was transferred to the hospital by EMS. Upon evaluation, the patient was found to have severe osteoarthritis with acetabular dysplasia bilaterally. She was seen by the orthopedic group who recommended an intraarticular injection of the right hip under fluoroscopy. This was performed by Dr. Mendoza. At this point, the patient has not seen any significant improvement. She has also been seen by the pain clinic to help with pain management with oral pain medication. During her hospitalization, she was also found to have elevated liver enzymes. There has been on clear etiology, although she does have a gallbladder that is distended and has stones. She has no right upper quadrant tenderness. Her transaminases have been trending downward. She has remained afebrile during her hospitalization as well. She did undergo MRI of the lumbar spine which was without any acute changes, although significant diffuse arthritic changes with disc protrusion. She is currently being followed by physical therapy who has recommended that the patient be admitted to a rehabilitation facility for additional rehabilitation prior to her discharge home. The patient is aware of this and expresses understanding. Patient and family services has been involved in her care at this point. DISCHARGE DIAGNOSES: Degenerative disc disease of the lumbar spine. Bilateral hip arthritis. Elevated liver enzymes. Inability to ambulate due to pain. Morbid obesity. Type 2 diabetes. Hypertension. Hypomagnesemia. Gallstones. Discharge medications and plan will be dictated at the time of discharge from the hospital.
[2016-08-17] MEDS: DULoxetine 20 MG CAP (CYMBALTA) PO SCH (07:55)
[2016-08-17] MEDS: INDAPAMIDE 1.25MG TABLET PO SCH (07:55)
[2016-08-17] MEDS: HumaLOG INSULIN (NovoLOG) PER UNIT SC SCH ×4 (07:55→21:00)
[2016-08-17] MEDS: PRIMIDONE 50 MG TAB PO SCH ×2 (07:56→21:57)
[2016-08-17] MEDS: MULTIVITAMINS/MINERALS THERAP 1 TAB PO SCH (07:56)
[2016-08-17] MEDS: MAGNESIUM OXIDE 400 MG TAB (MAG-OX) PO SCH ×2 (07:56→21:57)
[2016-08-17] MEDS: LISINOPRIL 20 MG TAB PO SCH ×2 (07:56→21:57)
[2016-08-17] MEDS: SPIRONOLACTONE 25 MG TAB PO SCH (07:56)
[2016-08-17] MEDS: CALCIUM/VITAMIN D 500 MG TAB PO SCH ×2 (07:56→21:57)
[2016-08-17] MEDS: GLIMEPIRIDE 2 MG TAB PO SCH (07:57)
[2016-08-17] MEDS: NYSTATIN 100,000 UNITS/GM TOPICAL PWD 15 GM TOP SCH ×2 (07:57→21:58)
[2016-08-17] MEDS: amLODIPine 10 MG TAB PO SCH (07:57)
--- NOTE | 2016-08-17 09:27 | IPNPDOC ---
Assessment/Plan Date Seen The patient was seen on 08/17/16. Problems Problems: (1) Elevated liver enzymes Status: Acute Problem Text: No clear etiology for AST/ALT elevation. US showed Gallbladder distension and stones. No GB wall thickening or symptoms of acute cholecystitis. T.Bili and Alk phos normal. no n/v, abd pain, tenderness RUQ. Suspect med related - possibly from Tylenol. D/C Tylenol and percocet and switch to oxy IR 5 mg Q4H PRN for pain management. - repeat AM CMP (2) DDD (degenerative disc disease), lumbar Status: Chronic Response to Treatment: Worse Problem Text: Pain clinic saw patient in consultation - Recommend Percocet PRN. Unable to perform any injections due to leukocytosis at this time ( However there does not appear to be any clear infection present clinically) She refused PT today due to pain PFS consulted to help with disposition planning. She is not safe to go home to her current living situation at this time however. Consider Orthopedic referral to address severe arthritic pain in her hips. Get x-ray of right knee as well since pain seems localized there today. continue Percocet for now. Avoid NSAIDs due to CKD3 in Diabetic patient. Add Cymbalta for radicular pain control 08/11 - Pain clinic consult note read and appreciated. Start low dose gabapentin for radicular symptoms. Consider orthopaedic consult for her severe OA hips. (3) Bilateral hip joint arthritis Status: Chronic Response to Treatment: Worse Problem Text: see above (4) Inability to ambulate due to multiple joints Status: Acute Discussed With: Pt and Family Services Problem Text: see above (5) Leg pain, bilateral Status: Acute (6) Morbid obesity Status: Acute (7) Type 2 diabetes mellitus Status: Chronic Response to Treatment: Stable (8) HTN (hypertension) Status: Chronic Response to Treatment: Stable Problem Text: suboptimal BP. Amlodipine dosing increased to 10 mg. Asymptomatic with elevated BP. Will monitor. (9) Hypomagnesemia Status: Acute Problem Text: getting oral mag. Had a loose BM today so may not tolerate the oral mag Give Mag run Plan / VTE VTE Prophylaxis Ordered?: Yes Plan Plan Text Attending attestation: I saw and evaluated the patient, and agree with the plan of care as discussed and documented above. Lv Salguero MD Subjective Review of Systems CC/HPI The patient is a 71-year-old female admitted with a reason for visit of Leg Pain , Bilateral. Events since last encounter Patient has no major concerns today. Hip improved somewhat after injection. Constitutional: Denies: Chills, Fever ENT: Denies: Head Aches Skin: Denies: Rash Pulmonary: Denies: Dyspnea Cardiovascular: Denies: Chest Pain Gastrointestinal: Denies: Nausea, Vomiting Genitourinary: Denies: Dysuria, Frequency Psych: Reports: Mood Normal Objective Physical Examination General Exam: Positive: Alert, No Acute Distress Chest Exam: Positive: Clear to auscultation, Normal air movement Heart Exam: Positive: Rate Normal, Regular Rhythm, Negative: Murmurs Abdomen Exam: Positive: Normal bowel sounds, Soft, Negative: Tenderness Extremity Exam: Negative: Edema Vital Signs/I&O Vital Signs Date Time Temp Pulse Resp B/P Pulse Ox O2 Delivery O2 Flow Rate FiO2 08/17/16 09:22 Room Air 08/17/16 07:57 64 08/17/16 07:56 184/72 08/17/16 06:00 97.5 18 96 I&O- Last 24 Hours up to 6 AM 08/17/16 06:00 Intake Total 1140 ml Output Total 1800 ml Balance -660 ml Laboratory Data Labs 24H Laboratory Tests 2 08/16/16 11:57: Bedside Glucose (Misc Panel) 200H 08/16/16 16:56: Bedside Glucose (Misc Panel) 226H 08/16/16 20:35: Bedside Glucose (Misc Panel) 280H 08/17/16 05:31: Bedside Glucose (Misc Panel) 137H Shannon Cobos Aug 17, 2016 09:27 LV SALGUERO MD Aug 17, 2016 15:53
[2016-08-17] MEDS: SIMVASTATIN 40 MG TAB PO SCH (21:57)
[2016-08-17] MEDS: BISOPROLOL FUMARATE 5 MG TAB PO SCH (21:57)
[2016-08-17] MEDS: oxyCODONE 5MG TAB PO PRN (22:00)
[2016-08-18 06:00] VITALS: BP 168/78
[2016-08-18] MEDS: HEPARIN SOD (PORCINE) 5000 UNITS/ML VIAL SC SCH ×3 (06:11→21:31)
[2016-08-18 06:18] LABS: ALBUMIN 2.6 GM/DL (3.2-5.2); ALBUMIN/GLOBULIN RATIO 0.7 (1.00-1.93); BILIRUBIN,TOTAL 0.2 MG/DL (0.2-1.0); CREATININE FOR GFR 1.23 MG/DL (0.55-1.02); GLOMERULAR FILTRATION RATE 45.6 (>39); POTASSIUM SERUM 4.4 MEQ/L (3.5-5.1); TOTAL PROTEIN 6.3 GM/DL (6.4-8.2)
[2016-08-18] MEDS: HumaLOG INSULIN (NovoLOG) PER UNIT SC SCH ×4 (08:12→20:55)
[2016-08-18] MEDS: PRIMIDONE 50 MG TAB PO SCH ×2 (08:13→21:32)
[2016-08-18] MEDS: NYSTATIN 100,000 UNITS/GM TOPICAL PWD 15 GM TOP SCH ×2 (08:13→21:31)
[2016-08-18] MEDS: MAGNESIUM OXIDE 400 MG TAB (MAG-OX) PO SCH ×2 (08:14→21:32)
[2016-08-18] MEDS: LISINOPRIL 20 MG TAB PO SCH ×2 (08:14→21:32)
[2016-08-18] MEDS: MULTIVITAMINS/MINERALS THERAP 1 TAB PO SCH (08:14)
[2016-08-18] MEDS: INDAPAMIDE 1.25MG TABLET PO SCH (08:14)
[2016-08-18] MEDS: amLODIPine 10 MG TAB PO SCH (08:14)
[2016-08-18] MEDS: SPIRONOLACTONE 25 MG TAB PO SCH (08:15)
[2016-08-18] MEDS: GLIMEPIRIDE 2 MG TAB PO SCH (08:15)
[2016-08-18] MEDS: DULoxetine 20 MG CAP (CYMBALTA) PO SCH (08:15)
[2016-08-18] MEDS: CALCIUM/VITAMIN D 500 MG TAB PO SCH ×2 (08:15→21:32)
[2016-08-18] MEDS: BISOPROLOL FUMARATE 5 MG TAB PO SCH (20:55)
[2016-08-18] MEDS: oxyCODONE 5MG TAB PO PRN (21:31)
[2016-08-18] MEDS: SIMVASTATIN 40 MG TAB PO SCH (21:32)
[2016-08-18 22:00] VITALS: BP 156/78
[2016-08-19] MEDS: HEPARIN SOD (PORCINE) 5000 UNITS/ML VIAL SC SCH ×3 (05:34→21:00)
[2016-08-19 06:00] VITALS: BP 178/68
[2016-08-19] MEDS: HumaLOG INSULIN (NovoLOG) PER UNIT SC SCH ×4 (07:30→20:58)
[2016-08-19 09:49] VITALS: BP 170/90
[2016-08-19] MEDS: LISINOPRIL 20 MG TAB PO SCH ×2 (09:56→20:57)
[2016-08-19] MEDS: SPIRONOLACTONE 25 MG TAB PO SCH (09:57)
[2016-08-19] MEDS: DULoxetine 20 MG CAP (CYMBALTA) PO SCH (09:57)
[2016-08-19] MEDS: MULTIVITAMINS/MINERALS THERAP 1 TAB PO SCH (09:57)
[2016-08-19] MEDS: MAGNESIUM OXIDE 400 MG TAB (MAG-OX) PO SCH ×2 (09:57→20:57)
[2016-08-19] MEDS: GLIMEPIRIDE 2 MG TAB PO SCH (09:57)
[2016-08-19] MEDS: INDAPAMIDE 1.25MG TABLET PO SCH (09:58)
[2016-08-19] MEDS: amLODIPine 10 MG TAB PO SCH (09:58)
[2016-08-19] MEDS: PRIMIDONE 50 MG TAB PO SCH ×2 (09:58→20:56)
[2016-08-19] MEDS: CALCIUM/VITAMIN D 500 MG TAB PO SCH ×2 (09:58→20:57)
[2016-08-19] MEDS: NYSTATIN 100,000 UNITS/GM TOPICAL PWD 15 GM TOP SCH ×2 (09:58→20:58)
[2016-08-19 11:00] VITALS: BP 180/64
[2016-08-19 12:39] VITALS: BP 180/64
[2016-08-19 14:54] VITALS: BP 168/54
[2016-08-19] MEDS: oxyCODONE 5MG TAB PO PRN (20:56)
[2016-08-19] MEDS: SIMVASTATIN 40 MG TAB PO SCH (20:57)
[2016-08-19] MEDS: BISOPROLOL FUMARATE 5 MG TAB PO SCH (20:58)
[2016-08-20] MEDS: HEPARIN SOD (PORCINE) 5000 UNITS/ML VIAL SC SCH ×3 (05:30→20:40)
[2016-08-20 06:00] VITALS: BP 177/77
[2016-08-20] MEDS: oxyCODONE 5MG TAB PO PRN ×2 (06:42→20:48)
[2016-08-20] MEDS: LISINOPRIL 20 MG TAB PO SCH ×2 (08:24→20:46)
[2016-08-20] MEDS: amLODIPine 10 MG TAB PO SCH (08:24)
[2016-08-20] MEDS: MAGNESIUM OXIDE 400 MG TAB (MAG-OX) PO SCH ×2 (08:25→20:39)
[2016-08-20] MEDS: PRIMIDONE 50 MG TAB PO SCH ×2 (08:25→20:40)
[2016-08-20] MEDS: INDAPAMIDE 1.25MG TABLET PO SCH (08:25)
[2016-08-20] MEDS: CALCIUM/VITAMIN D 500 MG TAB PO SCH ×2 (08:25→20:40)
[2016-08-20] MEDS: DULoxetine 20 MG CAP (CYMBALTA) PO SCH (08:25)
[2016-08-20] MEDS: SPIRONOLACTONE 25 MG TAB PO SCH (08:25)
[2016-08-20] MEDS: MULTIVITAMINS/MINERALS THERAP 1 TAB PO SCH (08:25)
[2016-08-20] MEDS: HumaLOG INSULIN (NovoLOG) PER UNIT SC SCH ×4 (08:27→20:41)
[2016-08-20] MEDS: GLIMEPIRIDE 2 MG TAB PO SCH (08:27)
[2016-08-20] MEDS: NYSTATIN 100,000 UNITS/GM TOPICAL PWD 15 GM TOP SCH ×2 (08:28→20:44)
[2016-08-20] MEDS: SIMVASTATIN 40 MG TAB PO SCH (20:40)
[2016-08-20] MEDS: BISOPROLOL FUMARATE 5 MG TAB PO SCH (20:46)
[2016-08-21] MEDS: ALENDRONATE 70 MG TABLET (FOSAMAX) PO SCH (05:55)
[2016-08-21] MEDS: HEPARIN SOD (PORCINE) 5000 UNITS/ML VIAL SC SCH ×3 (05:55→21:46)
[2016-08-21 06:00] VITALS: BP 177/93
[2016-08-21] MEDS: HumaLOG INSULIN (NovoLOG) PER UNIT SC SCH ×4 (08:34→21:00)
[2016-08-21] MEDS: CALCIUM/VITAMIN D 500 MG TAB PO SCH ×2 (08:34→21:47)
[2016-08-21] MEDS: DULoxetine 20 MG CAP (CYMBALTA) PO SCH (08:35)
[2016-08-21] MEDS: PRIMIDONE 50 MG TAB PO SCH ×2 (08:35→21:46)
[2016-08-21] MEDS: SPIRONOLACTONE 25 MG TAB PO SCH (08:35)
[2016-08-21] MEDS: GLIMEPIRIDE 2 MG TAB PO SCH (08:35)
[2016-08-21] MEDS: MAGNESIUM OXIDE 400 MG TAB (MAG-OX) PO SCH ×2 (08:35→21:47)
[2016-08-21] MEDS: MULTIVITAMINS/MINERALS THERAP 1 TAB PO SCH (08:35)
[2016-08-21] MEDS: amLODIPine 10 MG TAB PO SCH (08:38)
[2016-08-21] MEDS: LISINOPRIL 20 MG TAB PO SCH ×2 (08:38→21:47)
[2016-08-21] MEDS: NYSTATIN 100,000 UNITS/GM TOPICAL PWD 15 GM TOP SCH ×2 (08:39→21:48)
[2016-08-21] MEDS: INDAPAMIDE 1.25MG TABLET PO SCH (08:39)
[2016-08-21 14:00] VITALS: BP 150/70
[2016-08-21] MEDS: BISOPROLOL FUMARATE 5 MG TAB PO SCH (21:00)
[2016-08-21 21:34] VITALS: BP 174/76
[2016-08-21] MEDS: SIMVASTATIN 40 MG TAB PO SCH (21:47)
[2016-08-21] MEDS: oxyCODONE 5MG TAB PO PRN (21:51)
[2016-08-22] MEDS: HEPARIN SOD (PORCINE) 5000 UNITS/ML VIAL SC SCH ×3 (05:28→21:37)
[2016-08-22 06:02] VITALS: BP 150/64
[2016-08-22] MEDS: HumaLOG INSULIN (NovoLOG) PER UNIT SC SCH ×4 (08:07→21:00)
[2016-08-22] MEDS: MULTIVITAMINS/MINERALS THERAP 1 TAB PO SCH (08:08)
[2016-08-22] MEDS: MAGNESIUM OXIDE 400 MG TAB (MAG-OX) PO SCH ×2 (08:08→21:38)
[2016-08-22] MEDS: INDAPAMIDE 1.25MG TABLET PO SCH (08:08)
[2016-08-22] MEDS: DULoxetine 20 MG CAP (CYMBALTA) PO SCH (08:08)
[2016-08-22] MEDS: SPIRONOLACTONE 25 MG TAB PO SCH (08:08)
[2016-08-22] MEDS: CALCIUM/VITAMIN D 500 MG TAB PO SCH ×2 (08:08→21:37)
[2016-08-22] MEDS: GLIMEPIRIDE 2 MG TAB PO SCH (08:09)
[2016-08-22] MEDS: PRIMIDONE 50 MG TAB PO SCH ×2 (08:09→21:38)
[2016-08-22] MEDS: amLODIPine 10 MG TAB PO SCH (08:09)
[2016-08-22] MEDS: LISINOPRIL 20 MG TAB PO SCH ×2 (08:09→21:38)
[2016-08-22] MEDS: NYSTATIN 100,000 UNITS/GM TOPICAL PWD 15 GM TOP SCH ×2 (08:10→21:37)
[2016-08-22 14:34] LABS: MEAN CORPUSCULAR HGB CONC 31.8 g/dl (32.0-36.5); MEAN CORPUSCULAR VOLUME 91.2 fl (80.0-96.0); RED CELL DISTRIBUTION WIDTH 14.4 % (11.5-14.5); WHITE BLOOD COUNT 11.9 K/mm3 (4.0-10.0)
[2016-08-22] MEDS: BISOPROLOL FUMARATE 5 MG TAB PO SCH (21:00)
[2016-08-22] MEDS: SIMVASTATIN 40 MG TAB PO SCH (21:38)
[2016-08-22] MEDS: oxyCODONE 5MG TAB PO PRN (21:46)
[2016-08-23] MEDS: HEPARIN SOD (PORCINE) 5000 UNITS/ML VIAL SC SCH ×3 (05:26→21:16)
[2016-08-23 06:00] VITALS: BP 166/84
--- NOTE | 2016-08-23 09:15 | IPNPDOC ---
Assessment/Plan Date Seen The patient was seen on 08/23/16. Problems Problems: (1) DDD (degenerative disc disease), lumbar Status: Chronic Response to Treatment: Worse Problem Text: Pain clinic saw patient in consultation - Recommend Percocet PRN. Unable to perform any injections due to leukocytosis at this time ( However there does not appear to be any clear infection present clinically) - OxyIR when necessary for pain management, as she previously developed transaminitis from excessive Tylenol -Plan for discharge to [facility] when able (2) Bilateral hip joint arthritis Status: Chronic Response to Treatment: Worse Problem Text: see above (3) Inability to ambulate due to multiple joints Status: Acute Discussed With: Pt and Family Services Problem Text: see above (4) Leg pain, bilateral Status: Acute (5) Morbid obesity Status: Chronic (6) Type 2 diabetes mellitus Status: Chronic Response to Treatment: Stable (7) HTN (hypertension) Status: Chronic Response to Treatment: Stable Problem Text: suboptimal BP. Amlodipine dosing increased to 10 mg. Asymptomatic with elevated BP. Will monitor. (8) Hypomagnesemia Status: Resolved Problem Text: getting oral mag. Had a loose BM today so may not tolerate the oral mag Give Mag run (9) Elevated liver enzymes Status: Resolved Problem Text: Resolved with discontinuation of when necessary Tylenol and Percocet. Plan / VTE VTE Prophylaxis Ordered?: Yes Disposition To [facility] when approved by Medicaid Subjective Review of Systems CC/HPI The patient is a 71-year-old female admitted with a reason for visit of Leg Pain , Bilateral. Events since last encounter Patient has no complaints today. She is eager to get discharged to [facility], however patient family services states that she is not yet been approved through Medicaid. Patient is eating and drinking well. She has no difficulties with voiding or stooling. Constitutional: Denies: Chills, Fever, Malaise Skin: Denies: Rash Pulmonary: Denies: Cough, Dyspnea Cardiovascular: Denies: Chest Pain, Palpitations Gastrointestinal: Denies: Abdominal Pain, Constipation, Diarrhea, Nausea, Vomiting Genitourinary: Denies: Dysuria, Frequency Hematologic: Denies: Bruising Other systems 10 point review systems is otherwise negative Objective Physical Examination General Exam: Positive: Alert, No Acute Distress, Other (morbidly obese) Chest Exam: Positive: Clear to auscultation, Normal air movement Heart Exam: Positive: Rate Normal, Regular Rhythm, Negative: Murmurs Abdomen Exam: Positive: Normal bowel sounds, Other (orbitally obese), Soft, Negative: Tenderness Extremity Exam: Negative: Edema Psych Exam: Positive: Oriented x 3 Vital Signs/I&O Vital Signs Date Time Temp Pulse Resp B/P Pulse Ox O2 Delivery O2 Flow Rate FiO2 08/23/16 06:00 96.7 61 18 166/84 92 Room Air I&O- Last 24 Hours up to 6 AM 08/23/16 06:00 Intake Total 1420 ml Output Total 450 ml Balance 970 ml Laboratory Data Labs 24H Laboratory Tests 2 08/22/16 11:25: Bedside Glucose (Misc Panel) 246H 08/22/16 16:41: Bedside Glucose (Misc Panel) 223H 08/22/16 20:51: Bedside Glucose (Misc Panel) 180H 08/23/16 06:37: Bedside Glucose (Misc Panel) 131H CBC/BMP Laboratory Tests 08/22/16 14:29 Red Blood Count 4.28, Mean Corpuscular Volume 91.2, Mean Corpuscular Hemoglobin 29.0, Mean Corpuscular Hemoglobin Concent 31.8 L, Red Cell Distribution Width 14.4 FSBS Laboratory Tests Test 08/22/16 11:25 08/22/16 16:41 08/22/16 20:51 08/23/16 06:37 Range/Units Bedside Glucose (Misc Panel) 246 223 180 131 83-110 MG/DL ELVIS SALGUERO MD Aug 23, 2016 09:15
[2016-08-23] MEDS: PRIMIDONE 50 MG TAB PO SCH ×2 (09:18→22:10)
[2016-08-23] MEDS: INDAPAMIDE 1.25MG TABLET PO SCH (09:18)
[2016-08-23] MEDS: LISINOPRIL 20 MG TAB PO SCH ×2 (09:19→21:16)
[2016-08-23] MEDS: HumaLOG INSULIN (NovoLOG) PER UNIT SC SCH ×4 (09:19→21:00)
[2016-08-23] MEDS: amLODIPine 10 MG TAB PO SCH (09:19)
[2016-08-23] MEDS: CALCIUM/VITAMIN D 500 MG TAB PO SCH ×2 (09:20→21:16)
[2016-08-23] MEDS: GLIMEPIRIDE 2 MG TAB PO SCH (09:20)
[2016-08-23] MEDS: NYSTATIN 100,000 UNITS/GM TOPICAL PWD 15 GM TOP SCH ×2 (09:20→21:18)
[2016-08-23] MEDS: MULTIVITAMINS/MINERALS THERAP 1 TAB PO SCH (09:20)
[2016-08-23] MEDS: DULoxetine 20 MG CAP (CYMBALTA) PO SCH (09:20)
[2016-08-23] MEDS: MAGNESIUM OXIDE 400 MG TAB (MAG-OX) PO SCH ×2 (09:20→21:15)
[2016-08-23] MEDS: SPIRONOLACTONE 25 MG TAB PO SCH (09:20)
[2016-08-23] MEDS: BISOPROLOL FUMARATE 5 MG TAB PO SCH (21:16)
[2016-08-23] MEDS: SIMVASTATIN 40 MG TAB PO SCH (21:16)
[2016-08-23] MEDS: oxyCODONE 5MG TAB PO PRN (21:17)
[2016-08-23 22:00] VITALS: BP 154/68
[2016-08-24] MEDS: HEPARIN SOD (PORCINE) 5000 UNITS/ML VIAL SC SCH ×3 (05:48→21:10)
[2016-08-24 06:00] VITALS: BP 156/72
[2016-08-24] MEDS: MAGNESIUM OXIDE 400 MG TAB (MAG-OX) PO SCH ×2 (08:32→21:13)
[2016-08-24] MEDS: MULTIVITAMINS/MINERALS THERAP 1 TAB PO SCH (08:32)
[2016-08-24] MEDS: DULoxetine 20 MG CAP (CYMBALTA) PO SCH (08:32)
[2016-08-24] MEDS: CALCIUM/VITAMIN D 500 MG TAB PO SCH ×2 (08:32→21:13)
[2016-08-24] MEDS: amLODIPine 10 MG TAB PO SCH (08:33)
[2016-08-24] MEDS: INDAPAMIDE 1.25MG TABLET PO SCH (08:33)
[2016-08-24] MEDS: GLIMEPIRIDE 2 MG TAB PO SCH (08:34)
[2016-08-24] MEDS: HumaLOG INSULIN (NovoLOG) PER UNIT SC SCH ×4 (08:34→21:10)
[2016-08-24] MEDS: SPIRONOLACTONE 50 MG TAB PO SCH (08:34)
[2016-08-24] MEDS: PRIMIDONE 50 MG TAB PO SCH ×2 (08:35→21:11)
[2016-08-24] MEDS: LISINOPRIL 20 MG TAB PO SCH ×2 (08:35→21:13)
[2016-08-24] MEDS: NYSTATIN 100,000 UNITS/GM TOPICAL PWD 15 GM TOP SCH ×2 (08:36→21:11)
[2016-08-24] MEDS ORDERED: SPIRONOLACTONE 50 MG TAB NG SCH (09:00)
[2016-08-24] MEDS: BISOPROLOL FUMARATE 5 MG TAB PO SCH (21:00)
[2016-08-24] MEDS: SIMVASTATIN 40 MG TAB PO SCH (21:13)
[2016-08-24 22:00] VITALS: BP 142/72
[2016-08-25] MEDS: oxyCODONE 5MG TAB PO PRN (01:47)
[2016-08-25] MEDS: HEPARIN SOD (PORCINE) 5000 UNITS/ML VIAL SC SCH ×3 (05:39→20:58)
[2016-08-25 06:00] VITALS: BP 142/60
[2016-08-25] MEDS: GLIMEPIRIDE 2 MG TAB PO SCH (07:03)
[2016-08-25] MEDS: HumaLOG INSULIN (NovoLOG) PER UNIT SC SCH ×4 (07:04→20:43)
[2016-08-25] MEDS: INDAPAMIDE 1.25MG TABLET PO SCH (08:08)
[2016-08-25] MEDS: PRIMIDONE 50 MG TAB PO SCH ×2 (08:08→20:57)
[2016-08-25] MEDS: LISINOPRIL 20 MG TAB PO SCH ×2 (08:09→20:57)
[2016-08-25] MEDS: amLODIPine 10 MG TAB PO SCH (08:09)
[2016-08-25] MEDS: MULTIVITAMINS/MINERALS THERAP 1 TAB PO SCH (08:09)
[2016-08-25] MEDS: SPIRONOLACTONE 50 MG TAB PO SCH (08:09)
[2016-08-25] MEDS: DULoxetine 20 MG CAP (CYMBALTA) PO SCH (08:09)
[2016-08-25] MEDS: CALCIUM/VITAMIN D 500 MG TAB PO SCH ×2 (08:09→20:57)
[2016-08-25] MEDS: MAGNESIUM OXIDE 400 MG TAB (MAG-OX) PO SCH ×2 (08:09→20:57)
[2016-08-25] MEDS: NYSTATIN 100,000 UNITS/GM TOPICAL PWD 15 GM TOP SCH ×2 (08:10→20:57)
[2016-08-25 19:04] VITALS: BP 160/70
[2016-08-25] MEDS: BISOPROLOL FUMARATE 5 MG TAB PO SCH (20:51)
[2016-08-25] MEDS: SIMVASTATIN 40 MG TAB PO SCH (20:57)
[2016-08-26] MEDS: HEPARIN SOD (PORCINE) 5000 UNITS/ML VIAL SC SCH ×3 (06:31→19:50)
[2016-08-26] MEDS: HumaLOG INSULIN (NovoLOG) PER UNIT SC SCH ×4 (07:59→19:49)
[2016-08-26 08:00] VITALS: BP 159/71
[2016-08-26] MEDS: GLIMEPIRIDE 2 MG TAB PO SCH (08:00)
[2016-08-26] MEDS: DULoxetine 20 MG CAP (CYMBALTA) PO SCH (09:24)
[2016-08-26] MEDS: PRIMIDONE 50 MG TAB PO SCH ×2 (09:24→19:48)
[2016-08-26] MEDS: INDAPAMIDE 1.25MG TABLET PO SCH (09:24)
[2016-08-26] MEDS: amLODIPine 10 MG TAB PO SCH (09:25)
[2016-08-26] MEDS: MULTIVITAMINS/MINERALS THERAP 1 TAB PO SCH (09:25)
[2016-08-26] MEDS: CALCIUM/VITAMIN D 500 MG TAB PO SCH ×2 (09:25→19:48)
[2016-08-26] MEDS: SPIRONOLACTONE 50 MG TAB PO SCH (09:25)
[2016-08-26] MEDS: NYSTATIN 100,000 UNITS/GM TOPICAL PWD 15 GM TOP SCH ×2 (09:25→19:49)
[2016-08-26] MEDS: MAGNESIUM OXIDE 400 MG TAB (MAG-OX) PO SCH ×2 (09:25→19:48)
[2016-08-26] MEDS: LISINOPRIL 20 MG TAB PO SCH ×2 (09:25→19:48)
[2016-08-26] MEDS: BISOPROLOL FUMARATE 5 MG TAB PO SCH (19:48)
[2016-08-26] MEDS: SIMVASTATIN 40 MG TAB PO SCH (19:48)
[2016-08-26] MEDS: oxyCODONE 5MG TAB PO PRN (22:13)
[2016-08-27] MEDS: HEPARIN SOD (PORCINE) 5000 UNITS/ML VIAL SC SCH ×3 (06:14→19:37)
[2016-08-27] MEDS: HumaLOG INSULIN (NovoLOG) PER UNIT SC SCH ×4 (07:38→19:37)
[2016-08-27] MEDS: GLIMEPIRIDE 2 MG TAB PO SCH (07:38)
[2016-08-27] MEDS: oxyCODONE 5MG TAB PO PRN ×2 (07:39→19:35)
[2016-08-27 08:00] VITALS: BP 160/80
[2016-08-27] MEDS: LISINOPRIL 20 MG TAB PO SCH ×2 (09:14→19:34)
[2016-08-27] MEDS: DULoxetine 20 MG CAP (CYMBALTA) PO SCH (09:15)
[2016-08-27] MEDS: MULTIVITAMINS/MINERALS THERAP 1 TAB PO SCH (09:15)
[2016-08-27] MEDS: MAGNESIUM OXIDE 400 MG TAB (MAG-OX) PO SCH ×2 (09:15→19:34)
[2016-08-27] MEDS: PRIMIDONE 50 MG TAB PO SCH ×2 (09:15→19:34)
[2016-08-27] MEDS: amLODIPine 10 MG TAB PO SCH (09:15)
[2016-08-27] MEDS: CALCIUM/VITAMIN D 500 MG TAB PO SCH ×2 (09:15→19:34)
[2016-08-27] MEDS: SPIRONOLACTONE 50 MG TAB PO SCH (09:15)
[2016-08-27] MEDS: INDAPAMIDE 1.25MG TABLET PO SCH (09:16)
[2016-08-27] MEDS: NYSTATIN 100,000 UNITS/GM TOPICAL PWD 15 GM TOP SCH ×2 (09:16→19:37)
[2016-08-27] MEDS: SIMVASTATIN 40 MG TAB PO SCH (19:34)
[2016-08-27] MEDS: BISOPROLOL FUMARATE 5 MG TAB PO SCH (19:35)
[2016-08-28] MEDS: ALENDRONATE 70 MG TABLET (FOSAMAX) PO SCH (06:26)
[2016-08-28] MEDS: HEPARIN SOD (PORCINE) 5000 UNITS/ML VIAL SC SCH ×3 (06:27→20:08)
[2016-08-28 08:00] VITALS: BP 170/90
[2016-08-28] MEDS: HumaLOG INSULIN (NovoLOG) PER UNIT SC SCH ×4 (08:00→20:07)
[2016-08-28] MEDS: GLIMEPIRIDE 2 MG TAB PO SCH (08:00)
[2016-08-28] MEDS: SPIRONOLACTONE 50 MG TAB PO SCH (08:21)
[2016-08-28] MEDS: PRIMIDONE 50 MG TAB PO SCH ×2 (08:21→20:06)
[2016-08-28] MEDS: INDAPAMIDE 1.25MG TABLET PO SCH (08:21)
[2016-08-28] MEDS: MAGNESIUM OXIDE 400 MG TAB (MAG-OX) PO SCH ×2 (08:21→20:06)
[2016-08-28] MEDS: DULoxetine 20 MG CAP (CYMBALTA) PO SCH (08:21)
[2016-08-28] MEDS: LISINOPRIL 20 MG TAB PO SCH ×2 (08:22→20:06)
[2016-08-28] MEDS: amLODIPine 10 MG TAB PO SCH (08:22)
[2016-08-28] MEDS: CALCIUM/VITAMIN D 500 MG TAB PO SCH ×2 (08:22→20:06)
[2016-08-28] MEDS: NYSTATIN 100,000 UNITS/GM TOPICAL PWD 15 GM TOP SCH ×2 (08:23→20:07)
[2016-08-28] MEDS: MULTIVITAMINS/MINERALS THERAP 1 TAB PO SCH (08:23)
[2016-08-28] MEDS: SIMVASTATIN 40 MG TAB PO SCH (20:06)
[2016-08-28] MEDS: BISOPROLOL FUMARATE 5 MG TAB PO SCH (20:06)
[2016-08-28] MEDS: oxyCODONE 5MG TAB PO PRN (20:09)
[2016-08-29] MEDS: HEPARIN SOD (PORCINE) 5000 UNITS/ML VIAL SC SCH ×3 (05:49→20:58)
[2016-08-29] MEDS: GLIMEPIRIDE 2 MG TAB PO SCH (07:44)
[2016-08-29] MEDS: HumaLOG INSULIN (NovoLOG) PER UNIT SC SCH ×4 (07:45→20:57)
[2016-08-29 08:00] VITALS: BP 148/74
[2016-08-29] MEDS: INDAPAMIDE 1.25MG TABLET PO SCH (08:30)
[2016-08-29] MEDS: DULoxetine 20 MG CAP (CYMBALTA) PO SCH (08:30)
[2016-08-29] MEDS: PRIMIDONE 50 MG TAB PO SCH ×2 (08:31→20:53)
[2016-08-29] MEDS: SPIRONOLACTONE 50 MG TAB PO SCH (08:31)
[2016-08-29] MEDS: LISINOPRIL 20 MG TAB PO SCH ×2 (08:31→20:54)
[2016-08-29] MEDS: MULTIVITAMINS/MINERALS THERAP 1 TAB PO SCH (08:31)
[2016-08-29] MEDS: MAGNESIUM OXIDE 400 MG TAB (MAG-OX) PO SCH ×2 (08:31→20:53)
[2016-08-29] MEDS: CALCIUM/VITAMIN D 500 MG TAB PO SCH ×2 (08:31→20:54)
[2016-08-29] MEDS: amLODIPine 10 MG TAB PO SCH (08:31)
[2016-08-29] MEDS: oxyCODONE 5MG TAB PO PRN ×2 (08:32→20:56)
[2016-08-29] MEDS: NYSTATIN 100,000 UNITS/GM TOPICAL PWD 15 GM TOP SCH ×2 (08:32→20:58)
[2016-08-29] MEDS: SIMVASTATIN 40 MG TAB PO SCH (20:55)
[2016-08-29] MEDS: BISOPROLOL FUMARATE 5 MG TAB PO SCH (20:55)
[2016-08-30] MEDS: HEPARIN SOD (PORCINE) 5000 UNITS/ML VIAL SC SCH (06:15)
[2016-08-30 07:00] VITALS: BP 172/87
[2016-08-30] MEDS: GLIMEPIRIDE 2 MG TAB PO SCH (07:36)
[2016-08-30] MEDS: HumaLOG INSULIN (NovoLOG) PER UNIT SC SCH ×2 (07:37→12:19)
[2016-08-30] MEDS: CALCIUM/VITAMIN D 500 MG TAB PO SCH (08:15)
[2016-08-30] MEDS: MULTIVITAMINS/MINERALS THERAP 1 TAB PO SCH (08:15)
[2016-08-30] MEDS: MAGNESIUM OXIDE 400 MG TAB (MAG-OX) PO SCH (08:15)
[2016-08-30] MEDS: DULoxetine 20 MG CAP (CYMBALTA) PO SCH (08:16)
[2016-08-30] MEDS: oxyCODONE 5MG TAB PO PRN (08:16)
[2016-08-30] MEDS: SPIRONOLACTONE 50 MG TAB PO SCH (08:16)
[2016-08-30] MEDS: amLODIPine 10 MG TAB PO SCH (08:16)
[2016-08-30 08:17] VITALS: BP 172/87
[2016-08-30] MEDS: LISINOPRIL 20 MG TAB PO SCH (08:17)
[2016-08-30] MEDS: INDAPAMIDE 1.25MG TABLET PO SCH (08:17)
[2016-08-30] MEDS: PRIMIDONE 50 MG TAB PO SCH (08:17)
[2016-08-30] MEDS: NYSTATIN 100,000 UNITS/GM TOPICAL PWD 15 GM TOP SCH (08:17)
[2016-08-30] MEDS ORDERED: MAG400TA PO (11:25)
[2016-08-30] MEDS ORDERED: CYMB1CAP4 PO (11:25)
[2016-08-30] MEDS ORDERED: BISA5TAB7 PO (11:25)
[2016-08-30] MEDS ORDERED: ALDA50TA2 PO (11:25)
[2016-08-30] MEDS ORDERED: NYST10PW TOP (11:25)
[2016-08-30] MEDS ORDERED: BISO5TAB5 PO (11:25)
[2016-08-30] MEDS ORDERED: AMLO10TA2 PO (11:25)
[2016-08-30] MEDS ORDERED: GLIM2TA PO (11:25)
--- NOTE | 2016-08-30 12:20 | DSES ---
DATE OF ADMISSION: 08/10/2016 DATE OF DISCHARGE: 08/30/2016 ADDENDUM: This is an addendum to shelter facility (SNF) summary that was dictated on 08/12/2016. She has had an uneventful course since the date of that dictation. On the date of her discharge, she feels well. Her pain is fairly well controlled. She is ambulating with physical therapy. Her blood pressure is 172/87, pulse 56, respirations 18, temperature 97.2, oxygen saturation 96% on room air. Generally, she is bright, alert, in no apparent stress. Cardiac: Regular rate and rhythm. Lungs clear auscultation bilaterally. Abdomen soft, nontender. Extremities: There is trace edema bilaterally. DISPOSITION: She is stable for transfer to [facility]. Diet is no added salt, consistent carbohydrate. Activity as tolerated with walker. Medications: - amlodipine 10 mg daily - bisacodyl 5 mg daily as needed for constipation - bisoprolol 5 mg at bedtime - Cymbalta 20 mg daily - Amaril 2 mg daily - magnesium 400 mg twice a day - nystatin powder twice a day - spironolactone 50 mg daily - alendronate 70 mg weekly - calcium plus D one tablet twice a day - cinnamon 1000 mg twice a day - indapamide 2.5 mg daily - lisinopril 20 mg twice a day - multivitamin daily - primidone 150 mg twice a day - simvastatin 40 mg at bedtime Discharge diagnoses are unchanged from those dictated in the SNF summary. She has not had a chem panel since temperature right panel and since 08/18/2016 and probably should have a recheck of her renal function and potassium some time soon since she is on diuretics, including spironolactone.
== END 2016-08-30 13:40 | DRG 552 ==
LOC: M ED 11:02 → M ED INP 17:41 → M MSPAV 20:34 → OBSVTOIN 08-10 15:12 → M MS5PR 08-25 18:20
PROVIDERS: ADMIT Hospitalist; ATTEND Family Medicine
DX: M51.36 Other intervertebral disc degeneration, lumbar region (principal); Z68.43 Body mass index [BMI] 50.0-59.9, adult; E66.01 Morbid (severe) obesity due to excess calories; M46.1 Sacroiliitis, not elsewhere classified; M81.0 Age-related osteoporosis without current pathological fracture; I12.9 Hypertensive chronic kidney disease with stage 1 through stage 4 chronic kidney disease, or unspecified chronic kidney disease; E11.9 Type 2 diabetes mellitus without complications; E78.00 Pure hypercholesterolemia, unspecified; M85.80 Other specified disorders of bone density and structure, unspecified site; R94.5 Abnormal results of liver function studies; M16.0 Bilateral primary osteoarthritis of hip; N18.3 Chronic kidney disease, stage 3 (moderate); E83.42 Hypomagnesemia; Z79.84 Long term (current) use of oral hypoglycemic drugs; Z80.9 Family history of malignant neoplasm, unspecified; Z88.1 Allergy status to other antibiotic agents; Z82.49 Family history of ischemic heart disease and other diseases of the circulatory system

== ENCOUNTER → 2016-09-01 | Outpatient (REF) ==
[~2016-09-01] MED LIST: ALDA50TA2 PO; ALEN70TA39 PO; AMLO10TA2 PO; BISA5TAB7 PO; BISO5TAB5 PO; CALCTAB68 PO; CINN500C9 PO; CYMB1CAP4 PO; GLIM2TA PO; GLIM2TAB PO; INDA25TAB PO; LISI-538 PO; MAG400TA PO; NYST10PW TOP; PRIM50TA2 PO; SITA50TAB PO; VITMTA PO; ZOCO40TA PO
[2016-09-01 09:37] LABS: CALCIUM LEVEL 9.6 MG/DL (8.8-10.2); CREATININE FOR GFR 1.71 MG/DL (0.55-1.02); GLOMERULAR FILTRATION RATE 31.2 (>39); MAGNESIUM LEVEL 2.2 MG/DL (1.8-2.4); POTASSIUM SERUM 4.8 MEQ/L (3.5-5.1)
[2016-09-03 00:07] LABS: PHENOBARBITAL (PRIMIDONE) 14 ug/mL (15-40)
== END ==
LOC: SKLAB2 07:30
PROVIDERS: ATTEND Internal Medicine
DX: I10 Essential (primary) hypertension (principal)

== ENCOUNTER → 2016-09-05 | Outpatient (REF) ==
[~2016-09-05] MED LIST changes: -PRIM50TA2 PO; +PRIM50TA6 PO
[2016-09-05 08:18] LABS: CALCIUM LEVEL 9.6 MG/DL (8.8-10.2); CREATININE FOR GFR 1.81 MG/DL (0.55-1.02); GLOMERULAR FILTRATION RATE 29.2 (>39); POTASSIUM SERUM 4.8 MEQ/L (3.5-5.1)
== END ==
LOC: SKLAB2 07:00
PROVIDERS: ATTEND Internal Medicine
DX: R60.0 Localized edema (principal)

== ENCOUNTER → 2016-09-12 | Outpatient (REF) ==
[2016-09-12 10:05] LABS: ALBUMIN 2.7 GM/DL (3.2-5.2); ALBUMIN/GLOBULIN RATIO 0.9 (1.00-1.93); BILIRUBIN,TOTAL 0.4 MG/DL (0.2-1.0); CALCIUM LEVEL 8.9 MG/DL (8.8-10.2); CREATININE FOR GFR 1.36 MG/DL (0.55-1.02); GLOMERULAR FILTRATION RATE 40.6 (>39); POTASSIUM SERUM 4.4 MEQ/L (3.5-5.1); TOTAL PROTEIN 5.7 GM/DL (6.4-8.2)
== END ==
LOC: SKLAB2 07:30
PROVIDERS: ATTEND Internal Medicine
DX: N18.9 Chronic kidney disease, unspecified (principal)

== ENCOUNTER → 2016-09-15 | Outpatient (REF) ==
[2016-09-20 00:06] LABS: PHENOBARBITAL (PRIMIDONE) 14 ug/mL (15-40)
== END ==
LOC: SKLAB2 07:30
PROVIDERS: ATTEND Internal Medicine
DX: R25.1 Tremor, unspecified (principal)

== ENCOUNTER → 2016-09-23 | Outpatient (REF) ==
--- NOTE | 2016-09-23 10:43 | ECGEPIP ---
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
== END ==
LOC: SKLAB2 07:55
PROVIDERS: ATTEND Internal Medicine
DX: Z00.00 Encounter for general adult medical examination without abnormal findings (principal)

== ENCOUNTER → 2016-10-03 | Outpatient (REF) ==
[2016-10-03 08:18] LABS: CREATININE FOR GFR 1.31 MG/DL (0.55-1.02); GLOMERULAR FILTRATION RATE 42.4 (>39); POTASSIUM SERUM 4.3 MEQ/L (3.5-5.1)
[2016-10-04 14:13] LABS: PHENOBARBITAL (PRIMIDONE) 13 ug/mL (15-40)
== END ==
LOC: SKLAB2 07:00
PROVIDERS: ATTEND Internal Medicine
DX: I10 Essential (primary) hypertension (principal)

== ENCOUNTER → 2016-10-03 | Outpatient (REF) ==
[2016-10-03 12:48] LABS: BASO % 0.4 % (0.0-1.0); EOS # 0.4 K/mm3 (0.0-0.50); EOS % 3.6 % (0.0-3.0); LARGE UNSTAINED CELL # 0.2 K/mm3 (0.0-0.4); LARGE UNSTAINED CELL % 1.5 % (0.0-4.0); LYMPH # 1.6 K/mm3 (1.5-4.5); LYMPH % 11.8 % (24.0-44.0); MEAN CORPUSCULAR HEMOGLOBIN 29.2 pg (27.0-33.0); MEAN CORPUSCULAR HGB CONC 31.8 g/dl (32.0-36.5); MONO # 0.8 K/mm3 (0.0-0.8); MONO % 6.7 % (0.0-5.0); NEUTROPHILS # 9.4 K/mm3 (1.8-7.7); NEUTROPHILS % 76.1 % (36.0-66.0); PLATELET COUNT, AUTOMATED 346 k/mm3 (150-450); RED CELL DISTRIBUTION WIDTH 14.3 % (11.5-14.5); WHITE BLOOD COUNT 12.4 K/mm3 (4.0-10.0)
== END ==
LOC: SKLAB2 12:09
PROVIDERS: ATTEND Internal Medicine
DX: R60.0 Localized edema (principal)

== ENCOUNTER → 2016-10-31 | Outpatient (REF) ==
[2016-10-31 08:54] LABS: CALCIUM LEVEL 9.1 MG/DL (8.8-10.2); CREATININE FOR GFR 1.26 MG/DL (0.55-1.02); GLOMERULAR FILTRATION RATE 44.3 (>39); MAGNESIUM LEVEL 2.1 MG/DL (1.8-2.4); POTASSIUM SERUM 4.6 MEQ/L (3.5-5.1)
[2016-11-03 00:09] LABS: PHENOBARBITAL (PRIMIDONE) 11 ug/mL (15-40)
== END ==
LOC: SKLAB2 07:30
PROVIDERS: ATTEND Internal Medicine
DX: I10 Essential (primary) hypertension (principal); E11.9 Type 2 diabetes mellitus without complications

== ENCOUNTER → 2016-11-09 | Outpatient (CLI) | payer MEDICARE ==
[~2016-11-09] MED LIST changes: +CONRAY-43 43% 50ML VIAL (Q9960) As Ordered ONE; +LIDOCAINE 1% MDV 20ML VIAL As Ordered ONE; +TRIAMCINOLONE ACETONIDE SUSP 40 MG/ML VIAL (J3301) As Ordered ONE
--- NOTE | 2016-11-09 16:14 | REP ---
RIGHT HIP INJECTION: The procedure was performed under the direct supervision of Dr. Lu. The benefits and risks including but not limited to pain, infection, bleeding, and anaphylaxis were explained to the patient and informed consent was obtained. The right femoral neck was localized using fluoroscopic guidance. The skin was prepped and draped in a sterile fashion. 1% Lidocaine was used as a local anesthetic. Using fluoroscopic guidance a 22-gauge spinal needle was inserted and advanced to the femoral neck. 0.5 mL of Conray-43 was injected to verify placement. 6 mL of a solution containing 5 mL of 1% Lidocaine and 1 mL of Kenalog 40 mg was injected. The needle was then removed. The patient tolerated the procedure well and there were no immediate complications. 5 second of fluoroscopic time was utilized for this procedure. Reviewed by JOANNA Ugalde 11/09/2016 04:18 PEdited and Signed by Kenan Lu MD 11/10/2016 12:25 P
== END ==
LOC: M RADPRO 10:14
PROVIDERS: ATTEND Orthopaedic Surgery
DX: M16.11 Unilateral primary osteoarthritis, right hip (principal); Z88.8 Allergy status to other drugs, medicaments and biological substances
CPT/HCPCS: 20610; 77002; J3301; Q9960

== ENCOUNTER → 2016-11-28 | Outpatient (REF) | payer MEDICARE ==
[~2016-11-28] MED LIST changes: -CONRAY-43 43% 50ML VIAL (Q9960) As Ordered ONE; -LIDOCAINE 1% MDV 20ML VIAL As Ordered ONE; -TRIAMCINOLONE ACETONIDE SUSP 40 MG/ML VIAL (J3301) As Ordered ONE
[2016-11-28 09:42] LABS: CREATININE FOR GFR 1.34 MG/DL (0.55-1.02); GLOMERULAR FILTRATION RATE 41.3 (>39); POTASSIUM SERUM 4.1 MEQ/L (3.5-5.1)
[2016-11-30 00:07] LABS: PHENOBARBITAL (PRIMIDONE) 9 ug/mL (15-40)
== END ==
LOC: SKLAB2 07:00
PROVIDERS: ATTEND Internal Medicine
DX: I10 Essential (primary) hypertension (principal)

== ENCOUNTER → 2016-12-01 | Outpatient (REF) | payer MEDICARE, OTHER | LOC: SKLAB2 08:22 | PROVIDERS: ATTEND Internal Medicine | DX: I10 Essential (primary) hypertension (principal) ==

== ENCOUNTER → 2016-12-07 | Outpatient (REF) | payer MEDICARE, OTHER ==
--- NOTE | 2016-12-07 19:51 | ECGEPIP ---
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
== END ==
LOC: SKLAB2 10:46
PROVIDERS: ATTEND Internal Medicine
DX: R07.89 Other chest pain (principal)

== ENCOUNTER → 2016-12-26 | Outpatient (REF) | payer MEDICARE, OTHER ==
[2016-12-26 08:56] LABS: CALCIUM LEVEL 8.9 MG/DL (8.8-10.2); CREATININE FOR GFR 1.35 MG/DL (0.55-1.02); GLOMERULAR FILTRATION RATE 40.9 (>39); MAGNESIUM LEVEL 2.1 MG/DL (1.8-2.4); POTASSIUM SERUM 4.1 MEQ/L (3.5-5.1)
[2016-12-29 00:06] LABS: PHENOBARBITAL (PRIMIDONE) 10 ug/mL (15-40)
== END ==
LOC: SKLAB2 07:00
PROVIDERS: ATTEND Internal Medicine
DX: I10 Essential (primary) hypertension (principal); E11.9 Type 2 diabetes mellitus without complications

== ENCOUNTER → 2017-01-09 | Outpatient (REF) | payer MEDICARE ==
[2017-01-12 00:08] LABS: PHENOBARBITAL (PRIMIDONE) 12 ug/mL (15-40)
== END ==
LOC: SKLAB2 08:55
PROVIDERS: ATTEND Internal Medicine
DX: Z51.81 Encounter for therapeutic drug level monitoring (principal); Z79.899 Other long term (current) drug therapy

== ENCOUNTER → 2017-01-19 | Outpatient (REF) | payer MEDICARE ==
[2017-01-19 08:49] LABS: CALCIUM LEVEL 9.2 MG/DL (8.8-10.2); CREATININE FOR GFR 1.27 MG/DL (0.55-1.02); GLOMERULAR FILTRATION RATE 43.9 (>39); POTASSIUM SERUM 4.1 MEQ/L (3.5-5.1)
== END ==
LOC: SKLAB2 07:12
PROVIDERS: ATTEND Internal Medicine
DX: I50.9 Heart failure, unspecified (principal)

== ENCOUNTER → 2017-01-23 | Outpatient (REF) | payer MEDICARE ==
[2017-01-23 08:20] LABS: CALCIUM LEVEL 8.5 MG/DL (8.8-10.2); CREATININE FOR GFR 1.66 MG/DL (0.55-1.02); GLOMERULAR FILTRATION RATE 32.2 (>39); POTASSIUM SERUM 3.9 MEQ/L (3.5-5.1)
== END ==
LOC: SKLAB2 07:00
PROVIDERS: ATTEND Internal Medicine
DX: I10 Essential (primary) hypertension (principal)

== ENCOUNTER → 2017-01-30 | Outpatient (REF) | payer MEDICARE ==
[2017-01-30 09:10] LABS: CREATININE FOR GFR 1.54 MG/DL (0.55-1.02); GLOMERULAR FILTRATION RATE 35.2 (>39); POTASSIUM SERUM 4.1 MEQ/L (3.5-5.1)
[2017-02-02 00:08] LABS: PHENOBARBITAL (PRIMIDONE) 16 ug/mL (15-40)
== END ==
LOC: SKLAB2 07:00
PROVIDERS: ATTEND Internal Medicine
DX: I10 Essential (primary) hypertension (principal)

== ENCOUNTER → 2017-02-10 | Outpatient (CLI) | payer MEDICARE, OTHER ==
[~2017-02-10] MED LIST changes: +CONRAY-43 43% 50ML VIAL (Q9960) As Ordered ONE; +LIDOCAINE 1% MDV 20ML VIAL As Ordered ONE; +methylPREDNISolone SUSP 40 MG/ML (DEPO-medrol) VIAL (J1030) As Ordered ONE
--- NOTE | 2017-02-14 16:20 | REP ---
RIGHT HIP ARTHROGRAM FOR PAIN INJECTION: The procedure was performed by JOANNA Combs under the direct supervision of Dr. Lu. The benefits and risks included by not limited to pain, infection, bleeding, and anaphylaxis were explained to the patient and informed consent was obtained. The right femoral neck was localized using fluoroscopic guidance. The skin was prepped and draped in a sterile fashion. 1% Xylocaine was used as a local anesthetic. Using fluoroscopic guidance a 22-gauge spinal needle was inserted and advanced to the femoral neck. 0.5 mL of Conray 60 was injected to verify placement. 5 mL of a solution containing 3 mL of 1% Xylocaine and 2 mL of Depo-Medrol were injected into the joint space. The needle was then removed. The patient tolerated the procedure well and there was no immediate complications. The fluoroscopy time was 21 seconds. The dose was 320.4.
== END ==
LOC: M RADPRO 09:49
PROVIDERS: ATTEND Physician Assistant
DX: M16.11 Unilateral primary osteoarthritis, right hip (principal)
CPT/HCPCS: 20611; 77002; J1030; Q9960

== ENCOUNTER → 2017-03-06 | Outpatient (REF) | payer MEDICARE ==
[~2017-03-06] MED LIST changes: -CONRAY-43 43% 50ML VIAL (Q9960) As Ordered ONE; -LIDOCAINE 1% MDV 20ML VIAL As Ordered ONE; -methylPREDNISolone SUSP 40 MG/ML (DEPO-medrol) VIAL (J1030) As Ordered ONE
[2017-03-06 09:15] LABS: CALCIUM LEVEL 9.3 MG/DL (8.8-10.2); CREATININE FOR GFR 1.62 MG/DL (0.55-1.02); GLOMERULAR FILTRATION RATE 33.2 (>39); MAGNESIUM LEVEL 2.1 MG/DL (1.8-2.4); POTASSIUM SERUM 4.2 MEQ/L (3.5-5.1)
[2017-03-08 00:08] LABS: PHENOBARBITAL (PRIMIDONE) 18 ug/mL (15-40)
== END ==
LOC: SKLAB3 12:48
PROVIDERS: ATTEND Internal Medicine
DX: I50.9 Heart failure, unspecified (principal); E11.9 Type 2 diabetes mellitus without complications; R25.1 Tremor, unspecified

== ENCOUNTER → 2017-03-23 | Outpatient (REF) | payer MEDICARE | LOC: SKLAB3 11:30 | PROVIDERS: ATTEND Internal Medicine | DX: Z53.9 Procedure and treatment not carried out, unspecified reason (principal) ==

== ENCOUNTER → 2017-03-24 | Outpatient (REF) | payer MEDICARE ==
[2017-03-24 11:32] LABS: MEAN CORPUSCULAR HEMOGLOBIN 28.8 pg (27.0-33.0); MEAN CORPUSCULAR HGB CONC 32.8 g/dl (32.0-36.5); MEAN CORPUSCULAR VOLUME 88.1 fl (80.0-96.0); RED CELL DISTRIBUTION WIDTH 15.3 % (11.5-14.5); WHITE BLOOD COUNT 9.4 K/mm3 (4.0-10.0)
[2017-03-24 11:52] LABS: CALCIUM LEVEL 8.9 MG/DL (8.8-10.2); PHOSPHORUS LEVEL 3.2 MG/DL (2.5-4.9); THYROXINE (T4) 7.2 UG/DL (4.5-12.0)
== END ==
LOC: SKLAB3 10:22
PROVIDERS: ATTEND Internal Medicine
DX: E03.9 Hypothyroidism, unspecified (principal); E83.42 Hypomagnesemia

== ENCOUNTER → 2017-03-27 | Outpatient (REF) | payer MEDICARE | LOC: SKLAB3 07:00 | PROVIDERS: ATTEND Internal Medicine | DX: E78.5 Hyperlipidemia, unspecified (principal) ==

== ENCOUNTER → 2017-03-30 | Outpatient (REF) | payer MEDICARE | LOC: SKLAB3 10:43 | PROVIDERS: ATTEND Internal Medicine | DX: E11.21 Type 2 diabetes mellitus with diabetic nephropathy (principal) ==

== ENCOUNTER → 2017-05-09 | Outpatient (CLI) | payer MEDICARE ==
[~2017-05-09] MED LIST changes: +CONRAY-43 43% 50ML VIAL (Q9960) As Ordered ONE; +LIDOCAINE 1% MDV 20ML VIAL As Ordered ONE; +methylPREDNISolone SUSP 40 MG/ML (DEPO-medrol) VIAL (J1030) As Ordered ONE
--- NOTE | 2017-05-10 09:52 | REP ---
Right hip injection The procedure was performed under the direct supervision of Dr. Lu. The benefits and risks including but not limited to pain infection and bleeding and anaphylaxis were explained to the patient and informed consent was obtained. The right femoral neck was localized using fluoroscopic guidance. The skin was prepped and draped in a sterile fashion. 1% lidocaine was used as a local anesthetic. Using fluoroscopic guidance a 22-gauge spinal needle was inserted and advanced to the femoral neck. 1 ml of Conray 43 was injected to verify placement. 5 ml of a solution containing 3 ml of 1% Xylocaine and 2 ml of Depo Medrol 40 mg was injected. The needle was then removed. The patient tolerated the procedure well and there were no immediate complications. 6 seconds of fluoro time was utilized for this procedure. Reviewed by JOANNA Ugalde 05/09/2017 05:07 PSigned by Kenan Lu MD 05/10/2017 09:43 A
== END ==
LOC: M RADPRO 10:56
PROVIDERS: ATTEND Physician Assistant
DX: M16.0 Bilateral primary osteoarthritis of hip (principal); M17.2 Bilateral post-traumatic osteoarthritis of knee; Z88.2 Allergy status to sulfonamides
CPT/HCPCS: 20610; 77002; J1030; Q9960

== ENCOUNTER → 2017-05-18 | Outpatient (REF) | payer MEDICARE ==
[~2017-05-18] MED LIST changes: -CONRAY-43 43% 50ML VIAL (Q9960) As Ordered ONE; -LIDOCAINE 1% MDV 20ML VIAL As Ordered ONE; -methylPREDNISolone SUSP 40 MG/ML (DEPO-medrol) VIAL (J1030) As Ordered ONE
[2017-05-20 00:07] LABS: PHENOBARBITAL (PRIMIDONE) 19 ug/mL (15-40)
== END ==
LOC: SKLAB3 09:27
PROVIDERS: ATTEND Family Medicine
DX: R25.1 Tremor, unspecified (principal)

== ENCOUNTER → 2017-06-05 | Outpatient (REF) | payer MEDICARE ==
[2017-06-05 08:22] LABS: MEAN CORPUSCULAR HEMOGLOBIN 29.2 pg (27.0-33.0); MEAN CORPUSCULAR HGB CONC 31.7 g/dl (32.0-36.5); RED CELL DISTRIBUTION WIDTH 14.4 % (11.5-14.5); WHITE BLOOD COUNT 10.4 10^3/uL (4.0-10.0)
[2017-06-05 08:47] LABS: CALCIUM LEVEL 9.2 MG/DL (8.8-10.2); CREATININE FOR GFR 1.75 MG/DL (0.55-1.02); GLOMERULAR FILTRATION RATE 30.2 (>39); MAGNESIUM LEVEL 2.1 MG/DL (1.8-2.4)
== END ==
LOC: SKLAB3 07:00
PROVIDERS: ATTEND Internal Medicine
DX: E11.9 Type 2 diabetes mellitus without complications (principal); I50.9 Heart failure, unspecified; R25.1 Tremor, unspecified

== ENCOUNTER → 2017-06-09 | Outpatient (REF) | payer MEDICARE ==
--- NOTE | 2017-06-09 20:11 | ECGEPIP ---
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
== END ==
LOC: SKLAB3 11:06
PROVIDERS: ATTEND Internal Medicine
DX: R00.8 Other abnormalities of heart beat (principal)

== ENCOUNTER → 2017-07-03 | Outpatient (REF) | payer MEDICARE ==
[2017-07-03 09:31] LABS: MEAN CORPUSCULAR HEMOGLOBIN 29.3 pg (27.0-33.0); MEAN CORPUSCULAR HGB CONC 31.6 g/dl (32.0-36.5); MEAN CORPUSCULAR VOLUME 92.7 fl (80.0-96.0); PLATELET COUNT, AUTOMATED 293 10^3/uL (150-450); RED CELL DISTRIBUTION WIDTH 13.6 % (11.5-14.5)
[2017-07-03 10:10] LABS: ALBUMIN 2.7 GM/DL (3.2-5.2); CALCIUM LEVEL 8.9 MG/DL (8.8-10.2); CREATININE FOR GFR 1.62 MG/DL (0.55-1.02); GLOMERULAR FILTRATION RATE 33.1 (>39); PHOSPHORUS LEVEL 3.3 MG/DL (2.5-4.9); POTASSIUM SERUM 3.7 MEQ/L (3.5-5.1); URIC ACID 8.4 MG/DL (2.6-6.0)
== END ==
LOC: SKLAB3 12:40
PROVIDERS: ATTEND Internal Medicine
DX: N18.3 Chronic kidney disease, stage 3 (moderate) (principal); D63.1 Anemia in chronic kidney disease; N25.81 Secondary hyperparathyroidism of renal origin

== ENCOUNTER → 2017-08-02 | Outpatient (REF) | payer MEDICARE ==
[2017-08-02 07:44] LABS: BASO # 0.1 10^3/uL (0.0-0.2); BASO % 0.7 % (0.0-1.0); EOS # 0.4 10^3/uL (0.0-0.50); IMMATURE GRANULOCYTE % 0.4 % (0-0); LYMPH # 1.9 10^3/uL (1.5-4.5); LYMPH % 21.3 % (24.0-44.0); MEAN CORPUSCULAR HEMOGLOBIN 29.7 pg (27.0-33.0); MEAN CORPUSCULAR HGB CONC 31.9 g/dl (32.0-36.5); MEAN CORPUSCULAR VOLUME 93.1 fl (80.0-96.0); MONO # 0.8 10^3/uL (0.0-0.8); MONO % 8.7 % (0.0-5.0); NEUTROPHILS # 5.8 10^3/uL (1.8-7.7); NEUTROPHILS % 64.9 % (36.0-66.0); PLATELET COUNT, AUTOMATED 272 10^3/uL (150-450); RED CELL DISTRIBUTION WIDTH 13.8 % (11.5-14.5)
[2017-08-02 08:17] LABS: ALBUMIN 2.8 GM/DL (3.2-5.2); CALCIUM LEVEL 8.7 MG/DL (8.8-10.2); CREATININE FOR GFR 1.81 MG/DL (0.55-1.02); GLOMERULAR FILTRATION RATE 29.1 (>39); MAGNESIUM LEVEL 2.3 MG/DL (1.8-2.4); PERCENT SATURATION 17.4 % (13.2-45.0); PHOSPHORUS LEVEL 4.1 MG/DL (2.5-4.9); POTASSIUM SERUM 3.8 MEQ/L (3.5-5.1)
[2017-08-02 11:15] LABS: FOLATE 12.1 NG/ML (>5.4)
== END ==
LOC: SKLAB3 07:00
PROVIDERS: ATTEND Internal Medicine
DX: N18.9 Chronic kidney disease, unspecified (principal)

== ENCOUNTER → 2017-09-04 | Outpatient (REF) | payer MEDICARE ==
[2017-09-04 11:32] LABS: ESTIMATED AVERAGE GLUCOSE 163 MG/DL (60-110); HEMOGLOBIN A1c 7.3 %
== END ==
LOC: SKLAB7 07:00
DX: E11.9 Type 2 diabetes mellitus without complications (principal)
CPT/HCPCS: 83036

== ENCOUNTER → 2017-10-19 | Outpatient (REF) | payer MEDICARE ==
[2017-10-24 00:06] LABS: PHENOBARBITAL (PRIMIDONE) 23 ug/mL (15-40); PRIMIDONE, SERUM 10.3 ug/mL (5.0-12.0)
== END ==
LOC: SKLAB3 12:04
DX: R25.1 Tremor, unspecified (principal)
CPT/HCPCS: 80188

== ENCOUNTER → 2017-10-30 | Outpatient (REF) | payer MEDICARE ==
[2017-10-30 08:17] LABS: HEMATOCRIT 38.6 % (36.0-47.0); HEMOGLOBIN 12.1 g/dl (12.0-16.0); MEAN CORPUSCULAR HEMOGLOBIN 29.2 pg (27.0-33.0); MEAN CORPUSCULAR HGB CONC 31.3 g/dl (32.0-36.5); PLATELET COUNT, AUTOMATED 260 10^3/uL (150-450); RED BLOOD COUNT 4.15 10^6/uL (4.00-5.40); RED CELL DISTRIBUTION WIDTH 15.2 % (11.5-14.5); WHITE BLOOD COUNT 9.9 10^3/uL (4.0-10.0)
[2017-10-30 09:02] LABS: ANION GAP 8 MEQ/L (8-16); BLOOD UREA NITROGEN 42 MG/DL (7-18); CALCIUM LEVEL 8.7 MG/DL (8.8-10.2); CARBON DIOXIDE LEVEL 32 MEQ/L (21-32); CHLORIDE LEVEL 103 MEQ/L (98-107); CREATININE FOR GFR 1.58 MG/DL (0.55-1.30); GLUCOSE, FASTING 119 MG/DL (70-100); IRON (FE) 52 UG/DL (50-170); MAGNESIUM LEVEL 2.2 MG/DL (1.8-2.4); PERCENT SATURATION 24.1 % (13.2-45.0); PHOSPHORUS LEVEL 3.6 MG/DL (2.5-4.9); POTASSIUM SERUM 4.3 MEQ/L (3.5-5.1); SODIUM LEVEL 143 MEQ/L (136-145); TOTAL IRON BINDING CAPACITY 216 UG/DL (250-450); URIC ACID 9.4 MG/DL (2.6-6.0)
[2017-10-30 12:36] LABS: PTH INTACT 214.3 PG/ML (18.5-88.0); TOTAL 25(OH) VITAMIN D 29.2 NG/ML (30.0-100.0)
[2017-10-30 12:38] LABS: VITAMIN B12 LEVEL 618 PG/ML (247-911)
[2017-10-30 16:26] LABS: APPEARANCE, URINE CLEAR (CLEAR); BACTERIA, URINE AUTO 1+ (NEGATIVE); BILIRUBIN, URINE AUTO NEGATIVE (NEGATIVE); BLOOD, URINE BLOOD NEGATIVE (NEGATIVE); COLOR, URINE YELLOW (YELLOW); GLUCOSE, URINE (UA) AUTO NEGATIVE (NEGATIVE); KETONE, URINE AUTO NEGATIVE (NEGATIVE); LEUKOCYTE ESTERASE, URINE AUTO NEGATIVE (NEGATIVE); NITRITE, URINE AUTO NEGATIVE (NEGATIVE); PROTEIN, URINE AUTO NEGATIVE (NEGATIVE); RBC, URINE AUTO 2 /HPF (0-3); SPECIFIC GRAVITY URINE AUTO 1.009 (1.002-1.035); SQUAMOUS EPITHELIAL CELL UR AU 1 /HPF (0-6); UROBILINOGEN, URINE AUTO 0.2 mg/dL (0.0-2.0); WBC, URINE AUTO 2 /HPF (0-3)
== END ==
LOC: SKLAB3 13:01
DX: N18.3 Chronic kidney disease, stage 3 (moderate) (principal); N25.81 Secondary hyperparathyroidism of renal origin; D63.1 Anemia in chronic kidney disease
CPT/HCPCS: 83550

== ENCOUNTER → 2017-12-07 | Outpatient (REF) | payer MEDICARE | LOC: SKLAB3 12:04 | DX: M25.572 Pain in left ankle and joints of left foot (principal); M25.472 Effusion, left ankle; W19.XXXA Unspecified fall, initial encounter | CPT/HCPCS: 73610 ==

== ENCOUNTER 2017-12-08 14:23 | Outpatient (REF) | payer MEDICARE ==
[2017-12-11 11:45] LABS: ESTIMATED AVERAGE GLUCOSE 177 MG/DL (60-110); HEMOGLOBIN A1c 7.8 %
== END 2017-12-11 ==
LOC: SKLAB3 14:23
DX: E11.9 Type 2 diabetes mellitus without complications (principal)
CPT/HCPCS: 83036

== ENCOUNTER → 2017-12-08 | Outpatient (REF) | payer MEDICARE | LOC: SKLAB3 12:55 | DX: M54.5 Low back pain (principal); M51.36 Other intervertebral disc degeneration, lumbar region; M47.816 Spondylosis without myelopathy or radiculopathy, lumbar region; M16.0 Bilateral primary osteoarthritis of hip | CPT/HCPCS: 72110 ==

== ENCOUNTER 2017-12-14 07:00 | Outpatient (REF) | payer MEDICARE ==
[2017-12-15 08:14] LABS: BASO # 0.1 10^3/uL (0.0-0.2); BASO % 0.4 % (0.0-1.0); EOS # 0.4 10^3/uL (0.0-0.50); HEMATOCRIT 34.6 % (36.0-47.0); HEMOGLOBIN 11.1 g/dl (12.0-15.5); IMMATURE GRANULOCYTE % 2.6 % (0-3.0); LYMPH # 0.9 10^3/uL (1.5-4.5); LYMPH % 6.2 % (24.0-44.0); MEAN CORPUSCULAR HEMOGLOBIN 30.2 pg (27.0-33.0); MEAN CORPUSCULAR HGB CONC 32.1 g/dl (32.0-36.5); MONO # 0.9 10^3/uL (0.0-0.8); MONO % 6.4 % (0.0-5.0); NEUTROPHILS # 11.3 10^3/uL (1.8-7.7); NEUTROPHILS % 81.4 % (36.0-66.0); PLATELET COUNT, AUTOMATED 430 10^3/uL (150-450); RED BLOOD COUNT 3.68 10^6/uL (4.00-5.40); RED CELL DISTRIBUTION WIDTH 15.2 % (11.5-14.5); WHITE BLOOD COUNT 13.8 10^3/uL (4.0-10.0)
[2017-12-15 08:54] LABS: ALBUMIN 2.2 GM/DL (3.2-5.2); ALBUMIN/GLOBULIN RATIO 0.56 (1.00-1.93); ALKALINE PHOSPHATASE 138 U/L (45-117); ALT/SGPT 29 U/L (12-78); ANION GAP 6 MEQ/L (8-16); AST/SGOT 19 U/L (7-37); BILIRUBIN,TOTAL 0.3 MG/DL (0.2-1.0); BLOOD UREA NITROGEN 43 MG/DL (7-18); CALCIUM LEVEL 8.6 MG/DL (8.8-10.2); CARBON DIOXIDE LEVEL 30 MEQ/L (21-32); CHLORIDE LEVEL 102 MEQ/L (98-107); CREATININE FOR GFR 1.42 MG/DL (0.55-1.30); GLOMERULAR FILTRATION RATE 38.5 (>39); GLUCOSE, FASTING 192 MG/DL (70-100); SODIUM LEVEL 138 MEQ/L (136-145); TOTAL PROTEIN 6.1 GM/DL (6.4-8.2)
[2017-12-15 08:55] LABS: POTASSIUM SERUM 5.3 MEQ/L (3.5-5.1)
== END 2017-12-15 ==
LOC: SKLAB3 07:00
DX: R41.82 Altered mental status, unspecified (principal)
CPT/HCPCS: 84443

== ENCOUNTER → 2017-12-16 | Outpatient (REF) | payer MEDICARE ==
[2017-12-16 07:40] LABS: BASO # 0.1 10^3/uL (0.0-0.2); BASO % 0.5 % (0.0-1.0); EOS # 0.4 10^3/uL (0.0-0.50); EOS % 3.4 % (0.0-3.0); HEMATOCRIT 35.6 % (36.0-47.0); HEMOGLOBIN 11.2 g/dl (12.0-15.5); IMMATURE GRANULOCYTE % 3.9 % (0-3.0); LYMPH # 1.1 10^3/uL (1.5-4.5); LYMPH % 8.6 % (24.0-44.0); MEAN CORPUSCULAR HEMOGLOBIN 30.1 pg (27.0-33.0); MEAN CORPUSCULAR HGB CONC 31.5 g/dl (32.0-36.5); MEAN CORPUSCULAR VOLUME 95.7 fl (80.0-96.0); MONO # 0.8 10^3/uL (0.0-0.8); NEUTROPHILS # 10.1 10^3/uL (1.8-7.7); NEUTROPHILS % 77.6 % (36.0-66.0); PLATELET COUNT, AUTOMATED 427 10^3/uL (150-450); RED BLOOD COUNT 3.72 10^6/uL (4.00-5.40); RED CELL DISTRIBUTION WIDTH 15.2 % (11.5-14.5)
[2017-12-16 08:12] LABS: ALBUMIN 2.1 GM/DL (3.2-5.2); ALBUMIN/GLOBULIN RATIO 0.54 (1.00-1.93); ALKALINE PHOSPHATASE 138 U/L (45-117); ALT/SGPT 37 U/L (12-78); ANION GAP 5 MEQ/L (8-16); AST/SGOT 25 U/L (7-37); BILIRUBIN,TOTAL 0.2 MG/DL (0.2-1.0); BLOOD UREA NITROGEN 42 MG/DL (7-18); CALCIUM LEVEL 8.5 MG/DL (8.8-10.2); CARBON DIOXIDE LEVEL 32 MEQ/L (21-32); CHLORIDE LEVEL 104 MEQ/L (98-107); CREATININE FOR GFR 1.47 MG/DL (0.55-1.30); GLUCOSE, FASTING 153 MG/DL (70-100); POTASSIUM SERUM 4.7 MEQ/L (3.5-5.1); SODIUM LEVEL 141 MEQ/L (136-145)
== END ==
LOC: SKLAB3 07:00
DX: E21.1 Secondary hyperparathyroidism, not elsewhere classified (principal); Z79.899 Other long term (current) drug therapy
CPT/HCPCS: 84443

== ENCOUNTER → 2018-01-18 | Outpatient (REF) | payer MEDICARE ==
[2018-01-23 00:06] LABS: PHENOBARBITAL (PRIMIDONE) 15 ug/mL (15-40); PRIMIDONE, SERUM 5.6 ug/mL (5.0-12.0)
== END ==
LOC: SKLAB3 06:42
DX: R56.9 Unspecified convulsions (principal)
CPT/HCPCS: 80188

== ENCOUNTER → 2018-02-07 | Outpatient (REF) | payer MEDICARE ==
[2018-02-07 09:42] LABS: ANION GAP 9 MEQ/L (8-16); BLOOD UREA NITROGEN 50 MG/DL (7-18); CALCIUM LEVEL 8.7 MG/DL (8.8-10.2); CARBON DIOXIDE LEVEL 34 MEQ/L (21-32); CHLORIDE LEVEL 99 MEQ/L (98-107); CREATININE FOR GFR 1.81 MG/DL (0.55-1.30); GLOMERULAR FILTRATION RATE 29.1 (>39); GLUCOSE, FASTING 137 MG/DL (70-100); POTASSIUM SERUM 3.9 MEQ/L (3.5-5.1); SODIUM LEVEL 142 MEQ/L (136-145)
== END ==
LOC: SKLAB3 07:00
DX: R60.9 Edema, unspecified (principal)
CPT/HCPCS: 80048

== ENCOUNTER → 2018-02-12 | Outpatient (REF) | payer MEDICARE ==
[2018-02-12 09:02] LABS: ANION GAP 9 MEQ/L (8-16); BLOOD UREA NITROGEN 38 MG/DL (7-18); CALCIUM LEVEL 8.6 MG/DL (8.8-10.2); CARBON DIOXIDE LEVEL 31 MEQ/L (21-32); CHLORIDE LEVEL 103 MEQ/L (98-107); CREATININE FOR GFR 1.48 MG/DL (0.55-1.30); GLOMERULAR FILTRATION RATE 36.7 (>39); GLUCOSE, FASTING 131 MG/DL (70-100); POTASSIUM SERUM 4.3 MEQ/L (3.5-5.1); SODIUM LEVEL 143 MEQ/L (136-145)
== END ==
LOC: SKLAB3 13:01
DX: E11.9 Type 2 diabetes mellitus without complications (principal)
CPT/HCPCS: 36415

== ENCOUNTER → 2018-02-20 | Outpatient (REF) | payer MEDICARE | LOC: SKLAB3 11:03 | DX: S81.802A Unspecified open wound, left lower leg, initial encounter (principal) | CPT/HCPCS: 87077; 87186 ==

== ENCOUNTER → 2018-02-20 | Outpatient (REF) | payer MEDICARE ==
[2018-02-20 08:04] LABS: ANION GAP 8 MEQ/L (8-16); BLOOD UREA NITROGEN 42 MG/DL (7-18); CALCIUM LEVEL 8.7 MG/DL (8.8-10.2); CARBON DIOXIDE LEVEL 33 MEQ/L (21-32); CHLORIDE LEVEL 102 MEQ/L (98-107); CREATININE FOR GFR 1.48 MG/DL (0.55-1.30); GLOMERULAR FILTRATION RATE 36.7 (>39); GLUCOSE, FASTING 131 MG/DL (70-100); POTASSIUM SERUM 3.8 MEQ/L (3.5-5.1); SODIUM LEVEL 143 MEQ/L (136-145)
== END ==
LOC: SKLAB3 08:00
DX: E83.42 Hypomagnesemia (principal)
CPT/HCPCS: 36415

== ENCOUNTER → 2018-03-01 | Outpatient (REF) | payer MEDICARE ==
[2018-03-01 09:30] LABS: BASO # 0.1 10^3/uL (0.0-0.2); BASO % 0.8 % (0.0-1.0); EOS # 0.3 10^3/uL (0.0-0.50); EOS % 2.6 % (0.0-3.0); HEMATOCRIT 37.1 % (36.0-47.0); HEMOGLOBIN 11.7 g/dl (12.0-15.5); IMMATURE GRANULOCYTE % 0.5 % (0-3.0); LYMPH # 1.6 10^3/uL (1.5-4.5); LYMPH % 13.5 % (24.0-44.0); MEAN CORPUSCULAR HEMOGLOBIN 29.3 pg (27.0-33.0); MEAN CORPUSCULAR HGB CONC 31.5 g/dl (32.0-36.5); MEAN CORPUSCULAR VOLUME 92.8 fl (80.0-96.0); MONO # 0.7 10^3/uL (0.0-0.8); MONO % 6.3 % (0.0-5.0); NEUTROPHILS % 76.3 % (36.0-66.0); PLATELET COUNT, AUTOMATED 325 10^3/uL (150-450); RED CELL DISTRIBUTION WIDTH 15.3 % (11.5-14.5); WHITE BLOOD COUNT 11.8 10^3/uL (4.0-10.0)
[2018-03-01 09:55] LABS: ANION GAP 9 MEQ/L (8-16); BLOOD UREA NITROGEN 39 MG/DL (7-18); CALCIUM LEVEL 8.9 MG/DL (8.8-10.2); CARBON DIOXIDE LEVEL 30 MEQ/L (21-32); CHLORIDE LEVEL 104 MEQ/L (98-107); CREATININE FOR GFR 1.69 MG/DL (0.55-1.30); GLOMERULAR FILTRATION RATE 31.5 (>39); GLUCOSE, FASTING 146 MG/DL (70-100); PHOSPHORUS LEVEL 3.6 MG/DL (2.5-4.9); POTASSIUM SERUM 4.2 MEQ/L (3.5-5.1); SODIUM LEVEL 143 MEQ/L (136-145); URIC ACID 6.9 MG/DL (2.6-6.0)
[2018-03-01 11:19] LABS: ESTIMATED AVERAGE GLUCOSE 192 MG/DL (60-110); HEMOGLOBIN A1c 8.3 %
[2018-03-07 00:12] LABS: PHENOBARBITAL (PRIMIDONE) 26 ug/mL (15-40); PRIMIDONE, SERUM 13.4 ug/mL (5.0-12.0)
== END ==
LOC: SKLAB3 08:00
DX: N18.3 Chronic kidney disease, stage 3 (moderate) (principal); N25.81 Secondary hyperparathyroidism of renal origin; D64.9 Anemia, unspecified; Z79.899 Other long term (current) drug therapy
CPT/HCPCS: 83735

== ENCOUNTER → 2018-03-02 | Outpatient (REF) | payer MEDICARE ==
[2018-03-02 11:38] LABS: CREATININE, URINE 28.3 MG/DL; MALB URINE SIEMENS 49.5 MG/L; MAU/CREAT RATIO 174.9 MCG/MG (0.0-30.0)
[2018-03-08 11:08] LABS: APPEARANCE, URINE CLEAR (CLEAR); BILIRUBIN, URINE AUTO NEGATIVE (NEGATIVE); BLOOD, URINE BLOOD NEGATIVE (NEGATIVE); COLOR, URINE YELLOW (YELLOW); GLUCOSE, URINE (UA) AUTO NEGATIVE (NEGATIVE); KETONE, URINE AUTO NEGATIVE (NEGATIVE); LEUKOCYTE ESTERASE, URINE AUTO NEGATIVE (NEGATIVE); NITRITE, URINE AUTO NEGATIVE (NEGATIVE); PROTEIN, URINE AUTO NEGATIVE (NEGATIVE); SPECIFIC GRAVITY URINE AUTO 1.008 (1.002-1.035); UROBILINOGEN, URINE AUTO 0.2 mg/dL (0.0-2.0)
[2018-03-08 11:09] LABS: BACTERIA, URINE AUTO 1+ (NEGATIVE); MICROSCOPIC INDICATED? NO (NO); MUCUS, URINE SMALL (NEGATIVE); RBC, URINE AUTO 3 /HPF (0-3); SQUAMOUS EPITHELIAL CELL UR AU 1 /HPF (0-6); WBC, URINE AUTO 3 /HPF (0-3)
== END ==
LOC: SKLAB3 10:53
DX: N18.3 Chronic kidney disease, stage 3 (moderate) (principal); N25.81 Secondary hyperparathyroidism of renal origin; D64.9 Anemia, unspecified
CPT/HCPCS: 82043

== ENCOUNTER → 2018-05-15 | Outpatient (REF) | payer MEDICARE | LOC: SKLAB3 13:54 | DX: N18.9 Chronic kidney disease, unspecified (principal); R60.0 Localized edema | CPT/HCPCS: 87077; 87186 ==

== ENCOUNTER → 2018-05-25 | Outpatient (REF) | payer MEDICARE ==
[2018-05-29 00:06] LABS: PHENOBARBITAL (PRIMIDONE) 27 ug/mL (15-40); PRIMIDONE, SERUM 11.1 ug/mL (5.0-12.0)
== END ==
LOC: SKLAB3 07:17
DX: R25.1 Tremor, unspecified (principal)
CPT/HCPCS: 80188

== ENCOUNTER → 2018-05-29 | Outpatient (CLI) | payer MEDICARE ==
[~2018-05-29] MED LIST changes: -ALDA50TA2 PO; -ALEN70TA39 PO; -AMLO10TA2 PO; -BISA5TAB7 PO; -BISO5TAB5 PO; -CALCTAB68 PO; -CINN500C9 PO; +CONRAY-43 43% 50ML VIAL (Q9960) As Ordered; -CYMB1CAP4 PO; -GLIM2TA PO; -GLIM2TAB PO; -INDA25TAB PO; +LIDOCAINE 1% MDV 20ML VIAL As Ordered; -LISI-538 PO; -MAG400TA PO; -NYST10PW TOP; -PRIM50TA6 PO; -SITA50TAB PO; -VITMTA PO; -ZOCO40TA PO; +methylPREDNISolone SUSP 40 MG/ML (DEPO-medrol) VIAL (J1030) As Ordered
== END ==
LOC: M RADPRO 10:44
DX: M16.11 Unilateral primary osteoarthritis, right hip (principal); Z79.899 Other long term (current) drug therapy; Z88.8 Allergy status to other drugs, medicaments and biological substances
CPT/HCPCS: 20610

== ENCOUNTER → 2018-06-04 | Outpatient (REF) | payer MEDICARE ==
[2018-06-04 09:13] LABS: BASO % 0.4 % (0.0-1.0); EOS # 0.3 10^3/uL (0.0-0.50); HEMATOCRIT 40.6 % (36.0-47.0); HEMOGLOBIN 12.6 g/dl (12.0-15.5); IMMATURE GRANULOCYTE % 0.5 % (0-3.0); LYMPH # 1.6 10^3/uL (1.5-4.5); MEAN CORPUSCULAR HEMOGLOBIN 29.8 pg (27.0-33.0); MONO # 0.7 10^3/uL (0.0-0.8); MONO % 7.6 % (0.0-5.0); NEUTROPHILS # 6.5 10^3/uL (1.8-7.7); NEUTROPHILS % 71.5 % (36.0-66.0); PLATELET COUNT, AUTOMATED 267 10^3/uL (150-450); RED BLOOD COUNT 4.23 10^6/uL (4.00-5.40); RED CELL DISTRIBUTION WIDTH 14.6 % (11.5-14.5); WHITE BLOOD COUNT 9.1 10^3/uL (4.0-10.0)
[2018-06-04 09:34] LABS: ALBUMIN 2.7 GM/DL (3.2-5.2); ANION GAP 6 MEQ/L (8-16); BLOOD UREA NITROGEN 45 MG/DL (7-18); CALCIUM LEVEL 9.3 MG/DL (8.8-10.2); CARBON DIOXIDE LEVEL 34 MEQ/L (21-32); CHLORIDE LEVEL 101 MEQ/L (98-107); CREATININE FOR GFR 1.45 MG/DL (0.55-1.30); FERRITIN 109 NG/ML (8-252); GLOMERULAR FILTRATION RATE 37.5 (>39); GLUCOSE, FASTING 86 MG/DL (70-100); IRON (FE) 64 UG/DL (50-170); MAGNESIUM LEVEL 2.3 MG/DL (1.8-2.4); PERCENT SATURATION 31.8 % (13.2-45.0); PHOSPHORUS LEVEL 3.5 MG/DL (2.5-4.9); POTASSIUM SERUM 4.6 MEQ/L (3.5-5.1); SODIUM LEVEL 141 MEQ/L (136-145); TOTAL IRON BINDING CAPACITY 201 UG/DL (250-450); URIC ACID 6.7 MG/DL (2.6-6.0)
[2018-06-04 09:40] LABS: ESTIMATED AVERAGE GLUCOSE 166 MG/DL (60-110); HEMOGLOBIN A1c 7.4 %
[2018-06-04 09:43] LABS: TOTAL 25(OH) VITAMIN D 25.4 NG/ML (30.0-100.0)
[2018-06-04 09:47] LABS: PTH INTACT 124.1 PG/ML (18.5-88.0)
[2018-06-07 00:08] LABS: PHENOBARBITAL (PRIMIDONE) 29 ug/mL (15-40); PRIMIDONE, SERUM 9.7 ug/mL (5.0-12.0)
== END ==
LOC: SKLAB3 10:03
DX: N18.9 Chronic kidney disease, unspecified (principal); I12.9 Hypertensive chronic kidney disease with stage 1 through stage 4 chronic kidney disease, or unspecified chronic kidney disease; D64.9 Anemia, unspecified; E55.9 Vitamin D deficiency, unspecified; G25.0 Essential tremor; Z79.899 Other long term (current) drug therapy
CPT/HCPCS: 83550

== ENCOUNTER → 2018-06-05 | Outpatient (CLI) | payer MEDICARE, MEDICAID | LOC: M RADPRO 10:56 | DX: M16.0 Bilateral primary osteoarthritis of hip (principal); Z79.899 Other long term (current) drug therapy; Z88.8 Allergy status to other drugs, medicaments and biological substances | CPT/HCPCS: 20610 ==

== ENCOUNTER → 2018-06-06 | Outpatient (REF) | payer MEDICARE | LOC: SKLAB3 07:03 | DX: N18.9 Chronic kidney disease, unspecified (principal) ==

== ENCOUNTER → 2018-08-22 | Outpatient (REF) | payer MEDICARE ==
[~2018-08-22] MED LIST changes: +ALDA50TA2 PO; +ALEN70TA57 PO; +AMLO10TA4 PO; +BISA5TAB7 PO; +BISO5TAB5 PO; +CALCTAB68 PO; +CINN500C9 PO; -CONRAY-43 43% 50ML VIAL (Q9960) As Ordered; +CYMB1CAP4 PO; +GLIM2TA PO; +GLIM2TAB PO; +INDA25TAB PO; -LIDOCAINE 1% MDV 20ML VIAL As Ordered; +LISI-538 PO; +MAG400TA PO; +NYST10PW TOP; +PRIM50TA6 PO; +SITA50TAB PO; +VITMTA PO; +ZOCO40TA PO; -methylPREDNISolone SUSP 40 MG/ML (DEPO-medrol) VIAL (J1030) As Ordered
== END ==
LOC: SKLAB3 13:41
PROVIDERS: ATTEND Family Medicine
DX: Z22.322 Carrier or suspected carrier of Methicillin resistant Staphylococcus aureus (principal)

== ENCOUNTER → 2018-08-25 | Outpatient (REF) | payer MEDICARE ==
[~2018-08-25] MED LIST changes: -AMLO10TA4 PO; +AMLO10TA5 PO
[2018-08-25 22:27] LABS: BASO # 0.1 10^3/uL (0.0-0.2); BASO % 0.3 % (0.0-1.0); EOS % 0.1 % (0.0-3.0); HEMATOCRIT 37.8 % (36.0-47.0); HEMOGLOBIN 12.1 g/dl (12.0-15.5); LYMPH % 4.7 % (24.0-44.0); MEAN CORPUSCULAR HEMOGLOBIN 30.9 pg (27.0-33.0); MEAN CORPUSCULAR VOLUME 96.4 fl (80.0-96.0); MONO # 1.1 10^3/uL (0.0-0.8); MONO % 5.5 % (0.0-5.0); NEUTROPHILS # 18.1 10^3/uL (1.8-7.7); NEUTROPHILS % 88.6 % (36.0-66.0); PLATELET COUNT, AUTOMATED 243 10^3/uL (150-450); RED BLOOD COUNT 3.92 10^6/uL (4.00-5.40); WHITE BLOOD COUNT 20.5 10^3/uL (4.0-10.0)
[2018-08-25 22:35] LABS: CALCIUM LEVEL 8.7 MG/DL (8.8-10.2); CREATININE FOR GFR 1.82 MG/DL (0.55-1.30); GLOMERULAR FILTRATION RATE 28.8 (>39); POTASSIUM SERUM 4.2 MEQ/L (3.5-5.1)
[2018-08-25 23:26] LABS: AMORPHOUS SEDIMENT SMALL (NEGATIVE); APPEARANCE, URINE HAZY (CLEAR); BACTERIA, URINE AUTO NEGATIVE (NEGATIVE); BILIRUBIN, URINE AUTO NEGATIVE (NEGATIVE); BLOOD, URINE BLOOD NEGATIVE (NEGATIVE); COLOR, URINE YELLOW (YELLOW); GLUCOSE, URINE (UA) AUTO NEGATIVE (NEGATIVE); KETONE, URINE AUTO NEGATIVE (NEGATIVE); LEUKOCYTE ESTERASE, URINE AUTO NEGATIVE (NEGATIVE); MUCUS, URINE SMALL (NEGATIVE); NITRITE, URINE AUTO NEGATIVE (NEGATIVE); PROTEIN, URINE AUTO NEGATIVE (NEGATIVE); RBC, URINE AUTO 2 /HPF (0-3); SPECIFIC GRAVITY URINE AUTO 1.011 (1.002-1.035); SQUAMOUS EPITHELIAL CELL UR AU 0 /HPF (0-6); UROBILINOGEN, URINE AUTO 0.2 mg/dL (0.0-2.0); WBC, URINE AUTO 3 /HPF (0-3)
--- NOTE | 2018-08-25 23:49 | REPVR ---
EXAM: XR Chest, 1 View EXAM DATE/TIME: 08/25/2018 10:43 PM CLINICAL HISTORY: 73 years old, female; Signs and symptoms; Other: Flu swab TECHNIQUE: XR of the chest, 1 view. COMPARISON: CR Chest, 2 view PA, Lat 08/08/2016 8:50 PM FINDINGS: Lungs: Medial right base density and left retrocardiac density may represent pneumonia in the proper clinical setting. Pleural space: Unremarkable. No pleural effusion. No pneumothorax. Heart/Mediastinum: Heart is enlarged. Vasculature: Atherosclerosis. Bones/joints: Demineralization of the bones. IMPRESSION: Medial right base density and left retrocardiac density may represent pneumonia in the proper clinical setting. Electronically signed by: Gini Washington On 08/25/2018 23:49:04 PM
[2018-08-25 23:50] LABS: INFLUENZA A AMPLIFICATION NEGATIVE (NEGATIVE); INFLUENZA B AMPLIFICATION NEGATIVE (NEGATIVE)
== END ==
LOC: SKLAB3 22:19
PROVIDERS: ATTEND Family Medicine
DX: J02.9 Acute pharyngitis, unspecified (principal); Z79.899 Other long term (current) drug therapy

== ENCOUNTER → 2018-08-27 | Outpatient (REF) | payer MEDICARE ==
[~2018-08-27] MED LIST changes: +AMLO10TA4 PO; -AMLO10TA5 PO
[2018-08-27 07:32] LABS: HEMOGLOBIN 11.4 g/dl (12.0-15.5); MEAN CORPUSCULAR HGB CONC 31.7 g/dl (32.0-36.5); MEAN CORPUSCULAR VOLUME 97.8 fl (80.0-96.0); PLATELET COUNT, AUTOMATED 216 10^3/uL (150-450); RED BLOOD COUNT 3.68 10^6/uL (4.00-5.40); WHITE BLOOD COUNT 9.3 10^3/uL (4.0-10.0)
== END ==
LOC: SKLAB3 06:57
PROVIDERS: ATTEND Family Medicine
DX: J18.9 Pneumonia, unspecified organism (principal)

== ENCOUNTER → 2018-08-29 | Outpatient (REF) | payer MEDICARE ==
[~2018-08-29] MED LIST changes: -AMLO10TA4 PO; +AMLO10TA5 PO
== END ==
LOC: SKLAB3 14:16
PROVIDERS: ATTEND Family Medicine
DX: Z22.322 Carrier or suspected carrier of Methicillin resistant Staphylococcus aureus (principal)

== ENCOUNTER → 2018-09-05 | Outpatient (REF) | payer MEDICARE | LOC: SKLAB7 10:08 | PROVIDERS: ATTEND Family Medicine | DX: Z22.322 Carrier or suspected carrier of Methicillin resistant Staphylococcus aureus (principal) ==

== ENCOUNTER → 2018-09-10 | Outpatient (REF) | payer MEDICARE ==
[2018-09-10 07:47] LABS: BASO # 0.1 10^3/uL (0.0-0.2); BASO % 0.5 % (0.0-1.0); EOS # 0.3 10^3/uL (0.0-0.50); EOS % 2.5 % (0.0-3.0); HEMATOCRIT 38.2 % (36.0-47.0); HEMOGLOBIN 12.2 g/dl (12.0-15.5); LYMPH # 2.2 10^3/uL (1.5-4.5); LYMPH % 16.7 % (24.0-44.0); MEAN CORPUSCULAR HEMOGLOBIN 30.9 pg (27.0-33.0); MEAN CORPUSCULAR HGB CONC 31.9 g/dl (32.0-36.5); MEAN CORPUSCULAR VOLUME 96.7 fl (80.0-96.0); MONO # 0.8 10^3/uL (0.0-0.8); MONO % 6.1 % (0.0-5.0); NEUTROPHILS # 9.4 10^3/uL (1.8-7.7); NEUTROPHILS % 73.2 % (36.0-66.0); PLATELET COUNT, AUTOMATED 304 10^3/uL (150-450); RED BLOOD COUNT 3.95 10^6/uL (4.00-5.40); WHITE BLOOD COUNT 12.8 10^3/uL (4.0-10.0)
[2018-09-10 08:02] LABS: HEMOGLOBIN A1c 7.5 %
[2018-09-10 08:10] LABS: ALBUMIN 2.4 GM/DL (3.2-5.2); CALCIUM LEVEL 8.8 MG/DL (8.8-10.2); CREATININE FOR GFR 1.57 MG/DL (0.55-1.30); GLOMERULAR FILTRATION RATE 34.2 (>39); MAGNESIUM LEVEL 1.9 MG/DL (1.8-2.4); PERCENT SATURATION 29.6 % (13.2-45.0); POTASSIUM SERUM 4.8 MEQ/L (3.5-5.1); URIC ACID 7.2 MG/DL (2.6-6.0)
[2018-09-10 10:41] LABS: PTH INTACT 125.7 PG/ML (18.5-88.0); TOTAL 25(OH) VITAMIN D 32.2 NG/ML (30.0-100.0)
== END ==
LOC: SKLAB3 13:33
PROVIDERS: ATTEND Family Medicine
DX: N18.3 Chronic kidney disease, stage 3 (moderate) (principal); E79.0 Hyperuricemia without signs of inflammatory arthritis and tophaceous disease; N25.81 Secondary hyperparathyroidism of renal origin; Z79.899 Other long term (current) drug therapy

== ENCOUNTER → 2018-09-12 | Outpatient (REF) | payer MEDICARE | LOC: SKLAB3 10:48 | PROVIDERS: ATTEND Family Medicine | DX: Z86.14 Personal history of Methicillin resistant Staphylococcus aureus infection (principal) ==

== ENCOUNTER → 2018-10-23 | Outpatient (REF) | payer MEDICARE ==
--- NOTE | 2018-10-23 23:28 | REPVR ---
EXAM: XR Chest, 1 View EXAM DATE/TIME: 10/23/2018 10:59 PM CLINICAL HISTORY: 73 years old, female; Signs and symptoms; Fever; Additional info: Xray TECHNIQUE: XR of the chest, 1 view. COMPARISON: CR Chest, 1 view 08/25/2018 10:26 PM FINDINGS: Lungs: Unremarkable. No consolidation. Suboptimal inspiratory effort. Pleural space: Unremarkable. No pleural effusion. No pneumothorax. Heart/Mediastinum: Uncoiled thoracic aorta. Otherwise unremarkable. No cardiomegaly. Bones/joints: Unremarkable. IMPRESSION: No acute findings. Electronically signed by: Roger Garcia On 10/23/2018 23:28:39 PM
[2018-10-23 23:31] LABS: INFLUENZA A AMPLIFICATION NEGATIVE (NEGATIVE); INFLUENZA B AMPLIFICATION NEGATIVE (NEGATIVE)
== END ==
LOC: SKLAB3 22:30
PROVIDERS: ATTEND Family Medicine
DX: R50.9 Fever, unspecified (principal)

== ENCOUNTER → 2018-10-24 | Outpatient (REF) | payer MEDICARE ==
[2018-10-24 12:38] LABS: AMORPHOUS SEDIMENT SMALL (NEGATIVE); APPEARANCE, URINE CLOUDY (CLEAR); BACTERIA, URINE AUTO NEGATIVE (NEGATIVE); BILIRUBIN, URINE AUTO NEGATIVE (NEGATIVE); BLOOD, URINE BLOOD NEGATIVE (NEGATIVE); COLOR, URINE YELLOW (YELLOW); GLUCOSE, URINE (UA) AUTO NEGATIVE (NEGATIVE); KETONE, URINE AUTO NEGATIVE (NEGATIVE); LEUKOCYTE ESTERASE, URINE AUTO NEGATIVE (NEGATIVE); NITRITE, URINE AUTO NEGATIVE (NEGATIVE); PROTEIN, URINE AUTO NEGATIVE (NEGATIVE); RBC, URINE AUTO 6 /HPF (0-3); SPECIFIC GRAVITY URINE AUTO 1.018 (1.002-1.035); SQUAMOUS EPITHELIAL CELL UR AU 0 /HPF (0-6); UROBILINOGEN, URINE AUTO 0.2 mg/dL (0.0-2.0); WBC, URINE AUTO 2 /HPF (0-3)
[2018-10-24 17:32] LABS: BASO # 0.1 10^3/uL (0.0-0.2); BASO % 0.3 % (0.0-1.0); EOS # 0.4 10^3/uL (0.0-0.50); EOS % 2.4 % (0.0-3.0); HEMOGLOBIN 11.4 g/dl (12.0-15.5); LYMPH # 1.4 10^3/uL (1.5-4.5); LYMPH % 7.9 % (24.0-44.0); MEAN CORPUSCULAR HEMOGLOBIN 31.3 pg (27.0-33.0); MEAN CORPUSCULAR HGB CONC 31.7 g/dl (32.0-36.5); MEAN CORPUSCULAR VOLUME 98.9 fl (80.0-96.0); MONO # 1.5 10^3/uL (0.0-0.8); MONO % 8.6 % (0.0-5.0); NEUTROPHILS # 13.8 10^3/uL (1.8-7.7); PLATELET COUNT, AUTOMATED 311 10^3/uL (150-450); RED BLOOD COUNT 3.64 10^6/uL (4.00-5.40); WHITE BLOOD COUNT 17.2 10^3/uL (4.0-10.0)
[2018-10-24 17:46] LABS: CALCIUM LEVEL 8.5 MG/DL (8.8-10.2); CREATININE FOR GFR 1.89 MG/DL (0.55-1.30); GLOMERULAR FILTRATION RATE 27.6 (>39); POTASSIUM SERUM 4.3 MEQ/L (3.5-5.1)
== END ==
LOC: SKLAB3 12:00
PROVIDERS: ATTEND Family Medicine
DX: R50.9 Fever, unspecified (principal); R41.82 Altered mental status, unspecified

== ENCOUNTER → 2018-10-30 | Outpatient (REF) | payer MEDICARE ==
[2018-10-30 07:58] LABS: HEMATOCRIT 36.4 % (36.0-47.0); HEMOGLOBIN 11.5 g/dl (12.0-15.5); MEAN CORPUSCULAR HEMOGLOBIN 30.7 pg (27.0-33.0); MEAN CORPUSCULAR HGB CONC 31.6 g/dl (32.0-36.5); MEAN CORPUSCULAR VOLUME 97.1 fl (80.0-96.0); PLATELET COUNT, AUTOMATED 382 10^3/uL (150-450); RED BLOOD COUNT 3.75 10^6/uL (4.00-5.40); WHITE BLOOD COUNT 13.1 10^3/uL (4.0-10.0)
== END ==
LOC: SKLAB3 07:00
PROVIDERS: ATTEND Family Medicine
DX: L89.312 Pressure ulcer of right buttock, stage 2 (principal); L89.153 Pressure ulcer of sacral region, stage 3; L89.323 Pressure ulcer of left buttock, stage 3

== ENCOUNTER → 2018-12-03 | Outpatient (REF) | payer MEDICARE ==
[~2018-12-03] MED LIST changes: -ALEN70TA57 PO; +ALEN70TA74 PO; -GLIM2TA PO; +GLIM2TAB29 PO; +NYST-15 TOP; -NYST10PW TOP
[2018-12-03 08:33] LABS: CALCIUM LEVEL 9.4 MG/DL (8.8-10.2); MAGNESIUM LEVEL 1.9 MG/DL (1.8-2.4); PERCENT SATURATION 27.4 % (13.2-45.0); PHOSPHORUS LEVEL 3.4 MG/DL (2.5-4.9)
[2018-12-03 10:07] LABS: PTH INTACT 102.7 PG/ML (18.5-88.0); TOTAL 25(OH) VITAMIN D 36.3 NG/ML (30.0-100.0)
[2018-12-03 10:10] LABS: HEMOGLOBIN A1c 7.8 %
== END ==
LOC: SKLAB3 07:00
PROVIDERS: ATTEND Family Medicine
DX: N18.9 Chronic kidney disease, unspecified (principal); E11.9 Type 2 diabetes mellitus without complications; D64.9 Anemia, unspecified; E83.42 Hypomagnesemia; Z79.899 Other long term (current) drug therapy

== ENCOUNTER → 2019-01-07 | Outpatient (REF) | payer MEDICARE ==
[2019-01-07 08:11] LABS: BASO # 0.1 10^3/uL (0.0-0.2); BASO % 0.7 % (0.0-1.0); EOS # 0.3 10^3/uL (0.0-0.50); EOS % 2.9 % (0.0-3.0); LYMPH # 1.9 10^3/uL (1.5-4.5); LYMPH % 19.2 % (24.0-44.0); MEAN CORPUSCULAR HEMOGLOBIN 31.1 pg (27.0-33.0); MEAN CORPUSCULAR HGB CONC 30.8 g/dl (32.0-36.5); MONO # 0.6 10^3/uL (0.0-0.8); MONO % 6.4 % (0.0-5.0); NEUTROPHILS # 6.9 10^3/uL (1.8-7.7); NEUTROPHILS % 69.9 % (36.0-66.0); PLATELET COUNT, AUTOMATED 298 10^3/uL (150-450); RED BLOOD COUNT 3.86 10^6/uL (4.00-5.40); WHITE BLOOD COUNT 9.9 10^3/uL (4.0-10.0)
[2019-01-07 08:39] LABS: ALBUMIN 2.7 GM/DL (3.2-5.2); CALCIUM LEVEL 9.3 MG/DL (8.8-10.2); CREATININE FOR GFR 1.41 MG/DL (0.55-1.30); GLOMERULAR FILTRATION RATE 38.7 (>39); MAGNESIUM LEVEL 1.9 MG/DL (1.8-2.4); PHOSPHORUS LEVEL 3.7 MG/DL (2.5-4.9); POTASSIUM SERUM 4.5 MEQ/L (3.5-5.1); URIC ACID 6.5 MG/DL (2.6-6.0)
[2019-01-07 10:11] LABS: PTH INTACT 105.4 PG/ML (18.5-88.0)
== END ==
LOC: SKLAB3 07:00
PROVIDERS: ATTEND Family Medicine
DX: N18.9 Chronic kidney disease, unspecified (principal)

== ENCOUNTER → 2019-02-04 | Outpatient (REF) | payer MEDICARE ==
[2019-02-04 14:51] LABS: APPEARANCE, URINE CLEAR (CLEAR); BACTERIA, URINE AUTO 1+ (NEGATIVE); BILIRUBIN, URINE AUTO NEGATIVE (NEGATIVE); BLOOD, URINE BLOOD NEGATIVE (NEGATIVE); COLOR, URINE YELLOW (YELLOW); GLUCOSE, URINE (UA) AUTO NEGATIVE (NEGATIVE); KETONE, URINE AUTO NEGATIVE (NEGATIVE); LEUKOCYTE ESTERASE, URINE AUTO NEGATIVE (NEGATIVE); MUCUS, URINE SMALL (NEGATIVE); NITRITE, URINE AUTO NEGATIVE (NEGATIVE); PROTEIN, URINE AUTO NEGATIVE (NEGATIVE); RBC, URINE AUTO 2 /HPF (0-3); SPECIFIC GRAVITY URINE AUTO 1.012 (1.002-1.035); SQUAMOUS EPITHELIAL CELL UR AU 7 /HPF (0-6); UROBILINOGEN, URINE AUTO 0.2 mg/dL (0.0-2.0); WBC, URINE AUTO 0 /HPF (0-3)
== END ==
LOC: SKLAB3 13:11
PROVIDERS: ATTEND Family Medicine
DX: R41.82 Altered mental status, unspecified (principal)

== ENCOUNTER → 2019-02-18 | Outpatient (REF) | payer MEDICARE ==
[2019-02-18 08:51] LABS: RHEUMATOID FACTOR QUANT < 10.0 IU/ML (<15.0)
[2019-02-18 09:57] LABS: VITAMIN B12 LEVEL 542 PG/ML (247-911)
[2019-02-18 09:58] LABS: FOLATE 3.6 NG/ML (>5.4)
[2019-02-20 10:58] LABS: ANTINUCLEAR ANTIBODIES DIRECT Negative (Negative)
== END ==
LOC: SKLAB3 08:41
PROVIDERS: ATTEND Family Medicine
DX: G25.0 Essential tremor (principal)

== ENCOUNTER → 2019-02-27 | Outpatient (REF) | payer MEDICARE ==
[2019-02-27 07:57] LABS: HEMOGLOBIN A1c 7.8 %
[2019-02-27 08:00] LABS: PERCENT SATURATION 15.8 % (13.2-45.0); PHOSPHORUS LEVEL 4.3 MG/DL (2.5-4.9)
[2019-02-27 08:06] LABS: TOTAL 25(OH) VITAMIN D 31.3 NG/ML (30.0-100.0)
[2019-02-27 08:07] LABS: PTH INTACT 151.9 PG/ML (18.5-88.0)
== END ==
LOC: SKLAB3 07:00
PROVIDERS: ATTEND Family Medicine
DX: G20 Parkinson's disease (principal); G25.0 Essential tremor; E03.9 Hypothyroidism, unspecified; E11.40 Type 2 diabetes mellitus with diabetic neuropathy, unspecified; I50.9 Heart failure, unspecified; E78.5 Hyperlipidemia, unspecified; E83.42 Hypomagnesemia

== ENCOUNTER → 2019-03-18 | Outpatient (REF) | payer MEDICARE ==
[2019-03-18 22:30] LABS: APPEARANCE, URINE CLOUDY (CLEAR); BACTERIA, URINE AUTO 2+ (NEGATIVE); BILIRUBIN, URINE AUTO NEGATIVE (NEGATIVE); BLOOD, URINE BLOOD 1+ (NEGATIVE); COLOR, URINE YELLOW (YELLOW); GLUCOSE, URINE (UA) AUTO NEGATIVE (NEGATIVE); KETONE, URINE AUTO NEGATIVE (NEGATIVE); LEUKOCYTE ESTERASE, URINE AUTO 3+ (NEGATIVE); MUCUS, URINE SMALL (NEGATIVE); NITRITE, URINE AUTO NEGATIVE (NEGATIVE); PROTEIN, URINE AUTO NEGATIVE (NEGATIVE); RBC, URINE AUTO 5 /HPF (0-3); SPECIFIC GRAVITY URINE AUTO 1.012 (1.002-1.035); SQUAMOUS EPITHELIAL CELL UR AU 0 /HPF (0-6); UROBILINOGEN, URINE AUTO 0.2 mg/dL (0.0-2.0); WBC, URINE AUTO TNTC /HPF (0-3)
== END ==
LOC: SKLAB3 14:57
PROVIDERS: ATTEND Family Medicine
DX: R41.82 Altered mental status, unspecified (principal)

== ENCOUNTER → 2019-03-24 | Outpatient (CLI) | payer MEDICARE ==
--- NOTE | 2019-04-01 18:20 | SLEEP ---
DATE OF PROCEDURE: 03/24/2019 REFERRING PHYSICIAN: Dr. Vega INTERPRETATION: Overnight polysomnography performed for evaluation of suspected obstructive sleep apnea syndrome. A total of 7 hours and 53 minutes of data was reviewed with total sleep time 204.5 minutes with reduced sleep efficiency. No REM sleep was recorded. EEG remained normal throughout the study. EKG revealed atrial fibrillation with mean heart rate 80 beats per minute. Moderately severe snoring was observed. Respiratory disturbance index was 54.3 per hour. The mean oxygen saturation during this study was 92% with minimum oxygen saturation 80% during respiratory events. Respiratory effort related arousal index was 31.7 per hour. Periodic limb movements of sleep index was 49.3 per hour. CONCLUSIONS: 1. Severe obstructive sleep apnea syndrome. 2. Atrial fibrillation. 3. Periodic limb movements of sleep. RECOMMENDATIONS: Overnight polysomnography for titration of positive airway pressure is recommended. The patient' should exercise caution while operating motor vehicles and heavy machinery. Avoid alcohol and sedatives.
== END ==
LOC: M SLEEP 20:00
PROVIDERS: ATTEND Psychiatry & Neurology Neurology
DX: G47.33 Obstructive sleep apnea (adult) (pediatric) (principal); I48.91 Unspecified atrial fibrillation

== ENCOUNTER → 2019-04-02 | Outpatient (REF) | payer MEDICARE | LOC: SKLAB3 13:02 | PROVIDERS: ATTEND Family Medicine | DX: Z86.14 Personal history of Methicillin resistant Staphylococcus aureus infection (principal) ==

== ENCOUNTER → 2019-04-09 | Outpatient (REF) | payer MEDICARE | LOC: SKLAB3 10:27 | PROVIDERS: ATTEND Family Medicine | DX: Z86.14 Personal history of Methicillin resistant Staphylococcus aureus infection (principal) ==

== ENCOUNTER → 2019-04-15 | Outpatient (REF) | payer MEDICARE ==
[~2019-04-15] MED LIST changes: -BISO5TAB5 PO; +BISO5TAB9 PO
[2019-04-15 08:33] LABS: CALCIUM LEVEL 9.4 MG/DL (8.8-10.2); CHOLESTEROL RISK RATIO 4.245 (<5); CREATININE FOR GFR 1.43 MG/DL (0.55-1.30); GLOMERULAR FILTRATION RATE 38.1 (>39); MAGNESIUM LEVEL 2.4 MG/DL (1.8-2.4); POTASSIUM SERUM 4.5 MEQ/L (3.5-5.1); THYROID STIMULATING HORMONE 3.94 uIU/ML (0.358-3.740); THYROXINE (T4) 9.3 UG/DL (4.5-12.0)
== END ==
LOC: SKLAB3 07:00
PROVIDERS: ATTEND Family Medicine
DX: N18.9 Chronic kidney disease, unspecified (principal); E03.9 Hypothyroidism, unspecified; E78.2 Mixed hyperlipidemia; E83.42 Hypomagnesemia

== ENCOUNTER → 2019-04-23 | Outpatient (REF) | payer MEDICARE ==
[~2019-04-23] MED LIST changes: +BISO5TAB5 PO; -BISO5TAB9 PO
== END ==
LOC: SKLAB3 10:34
PROVIDERS: ATTEND Family Medicine
DX: Z86.14 Personal history of Methicillin resistant Staphylococcus aureus infection (principal)

== ENCOUNTER → 2019-05-22 | Outpatient (CLI) | payer MEDICARE ==
[~2019-05-22] MED LIST changes: -BISO5TAB5 PO; +BISO5TAB9 PO
--- NOTE | 2019-05-27 09:37 | SLEEP ---
DATE OF POLYSOMNOGRAPHY: 05/22/2019 REFERRING PHYSICIAN: Dr Price Vega INTERPRETATION: Overnight polysomnography was performed for titration of positive airway pressure for obstructive sleep apnea syndrome. A total 7 hours and 34 minutes of data was reviewed with normal sleep onset latency and excellent sleep efficiency. Before the study patient was fit with a Respironics [place]ita large size full-face mask and CPAP trial was initiated at 4 cm of water pressure and titrated to 9 cm of water pressure, which was successful in treating the patient's sleep apnea. Snoring resolved. There were no respiratory events, respiratory effort related arousals or periodic limb movements of sleep during this study. The oxygen saturation remained 90% or above throughout the study. EEG remained normal throughout. EKG revealed mean heart rate 78 beats per minute with periodic speeding and slowing of heart rate. CONCLUSION: 1. Obstructive sleep apnea syndrome. 2. Successful trial of CPAP 9 cm of water pressure with suggested mask. RECOMMENDATIONS: Nightly use of CPAP 9 cm of water pressure with suggested mask.
== END ==
LOC: M SLEEP 20:00
PROVIDERS: ATTEND Psychiatry & Neurology Neurology
DX: G47.33 Obstructive sleep apnea (adult) (pediatric) (principal)

== ENCOUNTER → 2019-05-24 | Outpatient (CLI) | payer MEDICARE ==
--- NOTE | 2019-05-24 15:05 | REP ---
MRI brain without contrast: History: Tremors, weakness, confusion. No comparison brain imaging. Technique: Axial and sagittal imaging planes are utilized for T1 and T2-weighted scans. Sequences include spin-echo, fast spin echo, FLAIR, and diffusion weighted sequences. MRI findings: No bony calvarial lesion is seen. Craniocervical junction and upper cervical cord are normal in appearance. No intraorbital abnormality is seen. There is no MR evidence of significant paranasal sinus disease. There is moderate generalized volume loss with concordant ventricular enlargement. There are fairly extensive periventricular white matter hyperintensities consistent with small vessel atherosclerotic change. There is no evidence of restricted diffusion to suggest acute ischemia. No mass or hemorrhage is seen. No extra-axial fluid collection or midline shift is observed. Impression: Generalized volume loss and microvascular atherosclerotic changes. No acute intracranial abnormality. Electronically Signed by Robert Mathew MD 05/24/2019 04:00 P
== END ==
LOC: M RAD 09:23
PROVIDERS: ATTEND Physician Assistant Medical
DX: G47.51 Confusional arousals (principal); G25.0 Essential tremor; R53.1 Weakness

== ENCOUNTER → 2019-06-17 | Outpatient (REF) | payer MEDICARE, MEDICAID ==
[~2019-06-17] MED LIST changes: -GLIM2TAB PO; +GLIM2TAB2 PO
[2019-06-17 07:55] LABS: HEMATOCRIT 38.9 % (36.0-47.0); MEAN CORPUSCULAR HEMOGLOBIN 31.1 pg (27.0-33.0); MEAN CORPUSCULAR HGB CONC 30.8 g/dl (32.0-36.5); MEAN CORPUSCULAR VOLUME 100.8 fl (80.0-96.0); PLATELET COUNT, AUTOMATED 282 10^3/uL (150-450); RED BLOOD COUNT 3.86 10^6/uL (4.00-5.40); WHITE BLOOD COUNT 9.4 10^3/uL (4.0-10.0)
[2019-06-17 08:28] LABS: CALCIUM LEVEL 9.1 MG/DL (8.8-10.2); PERCENT SATURATION 26.6 % (13.2-45.0); PHOSPHORUS LEVEL 3.7 MG/DL (2.5-4.9)
[2019-06-17 09:29] LABS: HEMOGLOBIN A1c 7.6 %
[2019-06-17 10:24] LABS: TOTAL 25(OH) VITAMIN D 36.8 NG/ML (30.0-100.0)
== END ==
LOC: SKLAB3 07:00
PROVIDERS: ATTEND Family Medicine
DX: N18.9 Chronic kidney disease, unspecified (principal); D63.1 Anemia in chronic kidney disease; E55.9 Vitamin D deficiency, unspecified; E11.9 Type 2 diabetes mellitus without complications; Z79.899 Other long term (current) drug therapy

== ENCOUNTER → 2019-08-09 | Outpatient (REF) | payer MEDICARE, MEDICAID ==
[2019-08-09 13:14] LABS: BASO # 0.1 10^3/uL (0.0-0.2); BASO % 0.6 % (0.0-1.0); EOS # 0.2 10^3/uL (0.0-0.5); HEMATOCRIT 37.1 % (36.0-47.0); HEMOGLOBIN 11.4 g/dl (12.0-15.5); LYMPH # 1.6 10^3/uL (1.5-5.0); MEAN CORPUSCULAR HEMOGLOBIN 30.9 pg (27.0-33.0); MEAN CORPUSCULAR HGB CONC 30.7 g/dl (32.0-36.5); MEAN CORPUSCULAR VOLUME 100.5 fl (80.0-96.0); MONO # 0.8 10^3/uL (0.0-0.8); MONO % 7.1 % (0.0-5.0); NEUTROPHILS % 74.6 % (36.0-66.0); PLATELET COUNT, AUTOMATED 294 10^3/uL (150-450); RED BLOOD COUNT 3.69 10^6/uL (4.00-5.40); WHITE BLOOD COUNT 10.8 10^3/uL (4.0-10.0)
[2019-08-09 13:45] LABS: ALBUMIN 2.9 GM/DL (3.2-5.2); CALCIUM LEVEL 8.9 MG/DL (8.8-10.2); CREATININE FOR GFR 1.58 MG/DL (0.55-1.30); GLOMERULAR FILTRATION RATE 33.9 (>39); MAGNESIUM LEVEL 1.9 MG/DL (1.8-2.4); PHOSPHORUS LEVEL 3.9 MG/DL (2.5-4.9); POTASSIUM SERUM 4.4 MEQ/L (3.5-5.1); URIC ACID 6.1 MG/DL (2.6-6.0)
[2019-08-09 13:59] LABS: PTH INTACT 224.5 PG/ML (18.5-88.0)
== END ==
LOC: SKLAB3 10:19
PROVIDERS: ATTEND Family Medicine
DX: N18.3 Chronic kidney disease, stage 3 (moderate) (principal); N25.81 Secondary hyperparathyroidism of renal origin; E79.0 Hyperuricemia without signs of inflammatory arthritis and tophaceous disease

== ENCOUNTER → 2019-09-09 | Outpatient (REF) | payer MEDICARE, MEDICAID ==
[~2019-09-09] MED LIST changes: +BISO5TAB14 PO; -BISO5TAB9 PO; -GLIM2TAB2 PO; +GLIM2TAB4 PO
[2019-09-09 08:55] LABS: PERCENT SATURATION 15.8 % (13.2-45.0)
[2019-09-09 10:52] LABS: TOTAL 25(OH) VITAMIN D 28.6 NG/ML (30.0-100.0)
== END ==
LOC: SKLAB3 11:49
PROVIDERS: ATTEND Family Medicine
DX: N18.9 Chronic kidney disease, unspecified (principal); E11.9 Type 2 diabetes mellitus without complications; E55.9 Vitamin D deficiency, unspecified; G25.2 Other specified forms of tremor; Z79.899 Other long term (current) drug therapy

== ENCOUNTER → 2019-11-04 | Outpatient (REF) | payer MEDICARE, MEDICAID ==
[2019-11-04 09:22] LABS: CALCIUM LEVEL 9.2 MG/DL (8.8-10.2); CREATININE FOR GFR 1.43 MG/DL (0.55-1.30); MAGNESIUM LEVEL 2.1 MG/DL (1.8-2.4); PHOSPHORUS LEVEL 3.7 MG/DL (2.5-4.9); POTASSIUM SERUM 4.6 MEQ/L (3.5-5.1)
[2019-11-04 09:34] LABS: PTH INTACT 189.8 PG/ML (18.5-88.0)
== END ==
LOC: SKLAB3 09:07
PROVIDERS: ATTEND Family Medicine
DX: E83.42 Hypomagnesemia (principal); I10 Essential (primary) hypertension

== ENCOUNTER → 2019-12-10 | Outpatient (REF) | payer MEDICARE, MEDICAID ==
[2019-12-10 11:07] LABS: HEMATOCRIT 39.3 % (36.0-47.0); HEMOGLOBIN 12.2 g/dl (12.0-15.5); MEAN CORPUSCULAR HEMOGLOBIN 29.7 pg (27.0-33.0); MEAN CORPUSCULAR VOLUME 95.6 fl (80.0-96.0); PLATELET COUNT, AUTOMATED 261 10^3/uL (150-450); RED BLOOD COUNT 4.11 10^6/uL (4.00-5.40); WHITE BLOOD COUNT 8.3 10^3/uL (4.0-10.0)
[2019-12-10 11:39] LABS: HEMOGLOBIN A1c 7.4 %
[2019-12-10 12:00] LABS: CALCIUM LEVEL 9.1 MG/DL (8.8-10.2); PERCENT SATURATION 21.3 % (13.2-45.0)
[2019-12-10 12:01] LABS: TOTAL 25(OH) VITAMIN D 24.2 NG/ML (30.0-100.0)
== END ==
LOC: SKLAB3 14:59
PROVIDERS: ATTEND Family Medicine
DX: N18.9 Chronic kidney disease, unspecified (principal); G25.0 Essential tremor; Z79.899 Other long term (current) drug therapy; E11.9 Type 2 diabetes mellitus without complications

== ENCOUNTER → 2019-12-11 | Outpatient (REF) | payer MEDICARE, MEDICAID | LOC: M SFHCWAGY 16:46 | PROVIDERS: ATTEND Nurse Practitioner Women's Health | DX: Z12.4 Encounter for screening for malignant neoplasm of cervix (principal); N95.0 Postmenopausal bleeding | CPT/HCPCS: 87624; G0123; G0463 ==

== ENCOUNTER → 2019-12-20 | Outpatient (CLI) | payer MEDICARE, MEDICAID ==
--- NOTE | 2019-12-20 14:59 | REP ---
PELVIC ULTRASOUND: Real-time sonographic evaluation of pelvis performed. Study is limited due to patient body habitus. Urinary bladder contains a Alberto catheter and measures 6.2 x 3.4 cm. Transabdominal pelvic ultrasound is performed. Uterus measures 8.5 x 3.1 x 4.5 cm. Endometrial thickness is 12 mm which is thickened, possibly indicating endometrial hyperplasia or neoplasm. The ovaries could not be visualized. No gross adnexal mass or free fluid is seen. IMPRESSION: Limited exam due to patient body habitus. There does appear to be endometrial thickening up to 12 mm. This suggests endometrial hyperplasia or neoplasm. No gross adnexal mass or free fluid.
== END ==
LOC: M WHC 13:16
PROVIDERS: ATTEND Nurse Practitioner Women's Health
DX: N95.0 Postmenopausal bleeding (principal); R93.5 Abnormal findings on diagnostic imaging of other abdominal regions, including retroperitoneum

== ENCOUNTER → 2019-12-31 | Outpatient (REF) | LOC: SKLAB3 09:41 | PROVIDERS: ATTEND Internal Medicine | DX: Z03.818 Encounter for observation for suspected exposure to other biological agents ruled out (principal) ==

== ENCOUNTER → 2020-02-04 | Outpatient (REF) | payer MEDICARE, MEDICAID ==
[2020-02-04 08:58] LABS: BASO # 0.1 10^3/uL (0.0-0.2); BASO % 0.5 % (0.0-1.0); EOS # 0.2 10^3/uL (0.0-0.5); HEMOGLOBIN 12.2 g/dl (12.0-15.5); LYMPH # 1.5 10^3/uL (1.5-5.0); LYMPH % 15.3 % (24.0-44.0); MEAN CORPUSCULAR HEMOGLOBIN 29.8 pg (27.0-33.0); MEAN CORPUSCULAR HGB CONC 31.3 g/dl (32.0-36.5); MEAN CORPUSCULAR VOLUME 95.4 fl (80.0-96.0); MONO # 0.6 10^3/uL (0.0-0.8); NEUTROPHILS # 7.5 10^3/uL (1.5-8.5); NEUTROPHILS % 75.5 % (36.0-66.0); PLATELET COUNT, AUTOMATED 267 10^3/uL (150-450); RED BLOOD COUNT 4.09 10^6/uL (4.00-5.40)
[2020-02-04 09:26] LABS: ALBUMIN 2.8 GM/DL (3.2-5.2); BILIRUBIN,TOTAL 0.3 MG/DL (0.2-1.0); CALCIUM LEVEL 9.1 MG/DL (8.8-10.2); CREATININE FOR GFR 1.59 MG/DL (0.55-1.30); GLOMERULAR FILTRATION RATE 33.6 (>39); PHOSPHORUS LEVEL 3.7 MG/DL (2.5-4.9); POTASSIUM SERUM 4.5 MEQ/L (3.5-5.1); TOTAL PROTEIN 6.3 GM/DL (6.4-8.2)
[2020-02-04 09:44] LABS: PTH INTACT 193.1 PG/ML (18.5-88.0)
--- NOTE | 2020-02-04 15:41 | REP ---
REASON FOR EXAM: Preoperative evaluation. COMPARISON: Multiple, the latest 10/23/2018, a portable exam. There is elevation of the diaphragmatic surfaces of the lungs, status quo. There is cardiomegaly accentuated by technique, status quo. There are no new abnormal opacities. The lateral view is of little diagnostic value due to marked lung field hypoexpansion. I cannot completely rule out the possibility of a posterior lower lung field opacity. Consider further evaluation with chest CT. Electronically Signed by Rodolfo Figueroa DO 02/04/2020 05:03 P
--- NOTE | 2020-02-04 17:33 | ECGEPIP ---
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
== END ==
LOC: SKLAB3 08:18
PROVIDERS: ATTEND Family Medicine
DX: N18.9 Chronic kidney disease, unspecified (principal); I12.9 Hypertensive chronic kidney disease with stage 1 through stage 4 chronic kidney disease, or unspecified chronic kidney disease; E83.42 Hypomagnesemia

== ENCOUNTER → 2020-02-11 | Outpatient (REF) ==
[~2020-02-11] MED LIST changes: +ACET500T15 PO; +ALLO10TA PO; +ELIQ5TAB PO; +JANU100T PO; +NEUR300C PO; +OXYB5TAB10 PO; +PRAV40TA2 PO; +PRIM250T8 PO; +REQU1TAB14 PO; +ROCA0.25 PO; +SENO8.6T10 PO; +SPIR-10 PO; +VITA1CAP25 PO; +demadex PO
== END ==
LOC: SKLAB3 02-10 11:44
PROVIDERS: ATTEND Family Medicine
DX: Z03.818 Encounter for observation for suspected exposure to other biological agents ruled out (principal)

== ENCOUNTER 2020-02-14 14:54 | Day surgery (SDC) | payer MEDICARE, MEDICAID ==
[~2020-02-14] VITALS: Ht 152.4 cm; Wt 130.4 kg
[~2020-02-14 14:54] MED LIST changes: -AMLO10TA5 PO; +AMLO1TAB25 PO; +KETOROLAC 30 MG/ML 1ML VIAL IV SCH; +LR 1,000 ML IV ONE
--- NOTE | 2020-02-14 17:16 | ROOPDOC ---
[facility] Report Of Operation Report of Operation DATE OF PROCEDURE: 02/14/20 PREOPERATIVE DIAGNOSES: 1. Thickened endometrium . POSTOPERATIVE DIAGNOSES: 1. Endometrial polyp. PROCEDURE PERFORMED: Hysteroscopy, dilation and curettage with MyoSure. SURGEON: Nydia Sung MD CARROT TIER: None. ANESTHESIA: General via laryngeal mask airway ESTIMATED BLOOD LOSS: 5ml IV FLUIDS: 600 mL of lactated Ringer's solution. URINE OUTPUT: Not obtained. PREOPERATIVE ANTIBIOTICS: None. OPERATIVE FINDINGS: Patient with an approximately 1 cm posterior endometrial polyp. Bilateral ostia was visualized. Otherwise, normal appearing endometrial cavity. DESCRIPTION OF PROCEDURE: After informed consent was obtained written consent was reviewed, the patient brought to operating room where she was placed under general anesthesia. She was then placed in lithotomy position and was prepped and draped in normal sterile fashion. Time-out in the operating room was then performed identifying the patient, procedure be performed as well as drug allergies. [place] speculum was placed revealing the cervix. Anterior lip of the cervix grasped with a single-tooth tenaculum. The uterus then sounded to 9 cm. The cervix then sequentially dilated using Hanks dilators. Hysteroscope was then advanced through the cervical os and endometrial cavity was observed with the above-noted findings. MyoSure device was then placed in the hysteroscope and endometrial polyp was morcellated. Hysteroscope was then removed as well as the MyoSure. Sharp curette was then advanced through the cervical os to the level of the fundus and the uterus curetted in a 360 degree fashion. Tissue was obtained and this was sent to pathology for evaluation. The single-tooth tenaculum was then removed. Tenaculum sites were noted be hemostatic. The speculum was then removed. The patient was then taken out of lithotomy position, was awakened from general anesthesia and taken recovery in stable condition. NYDIA SUNG MD. Feb 14, 2020 17:16
[2020-02-14] MEDS ORDERED: LIDOCAINE 2% 100MG/5ML SDV (FOR ANES.) As Ordered ONE (17:22)
[2020-02-14] MEDS ORDERED: ONDANSETRON 4MG/2ML VIAL As Ordered ONE (17:22)
[2020-02-14] MEDS ORDERED: dexameTHASONE 4 MG/ML 1ML VIAL (J1100 PER 1MG) As Ordered ONE (17:22)
[2020-02-14] MEDS ORDERED: propofoL 200 MG/20 ML VIAL As Ordered ONE (17:22)
[2020-02-14] MEDS ORDERED: fentaNYL 100 MCG/2 ML INJECTION (J3010) As Ordered ONE (17:22)
[2020-02-14] MEDS ORDERED: ACETAMINOPHEN 1000MG 100ML IV BTL (OFIRMEV) (J0131 PER 10MG) As Ordered ONE (18:55)
[2020-02-14] MEDS ORDERED: KETOROLAC 60MG 2ML VIAL As Ordered ONE (18:55)
[2020-02-14] MEDS ORDERED: PHENYLephrine HCL 500 MCG/5 ML (100MCG/ML) SYRINGE (J2370) As Ordered ONE (19:17)
[2020-02-14] MEDS ORDERED: oxyCODONE 5MG TAB PO PRN (20:00)
[2020-02-14] MEDS ORDERED: fentaNYL 100 MCG/2 ML INJECTION (J3010) IV PRN (20:00)
[2020-02-14] MEDS ORDERED: ONDANSETRON 4MG/2ML VIAL IV PRN (20:00)
[2020-02-14 21:00] VITALS: BP 140/81
== END 2020-02-14 21:00 | disposition home or self-care (01) ==
LOC: M SDC 14:54
PROVIDERS: ATTEND Obstetrics & Gynecology
DX: N84.0 Polyp of corpus uteri (principal); N85.01 Benign endometrial hyperplasia; I10 Essential (primary) hypertension; E11.9 Type 2 diabetes mellitus without complications; I48.91 Unspecified atrial fibrillation; Z79.01 Long term (current) use of anticoagulants; G47.30 Sleep apnea, unspecified; E78.5 Hyperlipidemia, unspecified; Z79.899 Other long term (current) drug therapy; Z88.2 Allergy status to sulfonamides
CPT/HCPCS: 36415; 58558; 86850; 86900; 86901; 88305; J0131; J1100; J1885; J2370; J2405; J3010

== ENCOUNTER → 2020-03-10 | Outpatient (REF) | payer MEDICARE, MEDICAID ==
[~2020-03-10] MED LIST changes: -KETOROLAC 30 MG/ML 1ML VIAL IV SCH; -LR 1,000 ML IV ONE
[2020-03-10 08:29] LABS: BASO % 0.4 % (0.0-1.0); EOS # 0.3 10^3/uL (0.0-0.5); HEMATOCRIT 34.9 % (36.0-47.0); HEMOGLOBIN 10.9 g/dl (12.0-15.5); LYMPH # 1.7 10^3/uL (1.5-5.0); LYMPH % 16.8 % (24.0-44.0); MEAN CORPUSCULAR HEMOGLOBIN 29.9 pg (27.0-33.0); MEAN CORPUSCULAR HGB CONC 31.2 g/dl (32.0-36.5); MEAN CORPUSCULAR VOLUME 95.6 fl (80.0-96.0); MONO # 0.7 10^3/uL (0.0-0.8); MONO % 6.5 % (0.0-5.0); NEUTROPHILS # 7.3 10^3/uL (1.5-8.5); NEUTROPHILS % 72.8 % (36.0-66.0); PLATELET COUNT, AUTOMATED 221 10^3/uL (150-450); RED BLOOD COUNT 3.65 10^6/uL (4.00-5.40)
[2020-03-10 08:55] LABS: ALBUMIN 2.6 GM/DL (3.2-5.2); CALCIUM LEVEL 8.8 MG/DL (8.8-10.2); CREATININE FOR GFR 1.97 MG/DL (0.55-1.30); GLOMERULAR FILTRATION RATE 26.2 (>39); PERCENT SATURATION 19.7 % (13.2-45.0); POTASSIUM SERUM 4.1 MEQ/L (3.5-5.1); URIC ACID 7.5 MG/DL (2.6-6.0)
[2020-03-10 10:30] LABS: TOTAL 25(OH) VITAMIN D 27.2 NG/ML (30.0-100.0)
== END ==
LOC: SKLAB3 07:00
DX: N18.9 Chronic kidney disease, unspecified (principal); Z79.899 Other long term (current) drug therapy; E11.9 Type 2 diabetes mellitus without complications

== ENCOUNTER → 2020-03-25 | Outpatient (REF) | payer MEDICARE, MEDICAID ==
[2020-06-12 12:55] LABS: MALB URINE SIEMENS 16.4 MG/L
== END ==
LOC: SKLAB3 12:38
DX: Z79.899 Other long term (current) drug therapy (principal)

== ENCOUNTER → 2020-04-14 | Outpatient (REF) | payer MEDICARE, MEDICAID ==
[2020-04-14 13:15] LABS: CHOLESTEROL RISK RATIO 3.222 (<5)
== END ==
LOC: SKLAB4 06:54
DX: E78.5 Hyperlipidemia, unspecified (principal)

== ENCOUNTER → 2020-05-05 | Outpatient (REF) | payer MEDICARE, MEDICAID ==
[2020-05-05 08:50] LABS: CALCIUM LEVEL 9.5 MG/DL (8.8-10.2); CREATININE FOR GFR 1.55 MG/DL (0.55-1.30); GLOMERULAR FILTRATION RATE 34.6 (>39); MAGNESIUM LEVEL 2.1 MG/DL (1.8-2.4); PHOSPHORUS LEVEL 3.3 MG/DL (2.5-4.9)
[2020-05-05 13:23] LABS: PTH INTACT 246.1 PG/ML (18.5-88.0)
== END ==
LOC: SKLAB4 11:33
DX: N18.9 Chronic kidney disease, unspecified (principal); I50.9 Heart failure, unspecified

== ENCOUNTER → 2020-06-11 | Outpatient (REF) | payer MEDICARE, MEDICAID ==
[2020-06-11 08:15] LABS: APPEARANCE, URINE CLOUDY (CLEAR); BACTERIA, URINE AUTO 3+ (NEGATIVE); BILIRUBIN, URINE AUTO NEGATIVE (NEGATIVE); BLOOD, URINE BLOOD 1+ (NEGATIVE); COLOR, URINE YELLOW (YELLOW); GLUCOSE, URINE (UA) AUTO NEGATIVE (NEGATIVE); KETONE, URINE AUTO NEGATIVE (NEGATIVE); LEUKOCYTE ESTERASE, URINE AUTO 3+ (NEGATIVE); MUCUS, URINE SMALL (NEGATIVE); NITRITE, URINE AUTO POSITIVE (NEGATIVE); PROTEIN, URINE AUTO 1+ mg/dL (NEGATIVE); RBC, URINE AUTO 5 /HPF (0-3); SPECIFIC GRAVITY URINE AUTO 1.006 (1.002-1.035); SQUAMOUS EPITHELIAL CELL UR AU 2 /HPF (0-6); UROBILINOGEN, URINE AUTO 0.2 mg/dL (0.0-2.0); WBC, URINE AUTO 134 /HPF (0-3)
[2020-06-11 09:24] LABS: BASO # 0.1 10^3/uL (0.0-0.2); BASO % 0.7 % (0.0-1.0); EOS # 0.2 10^3/uL (0.0-0.5); HEMATOCRIT 41.3 % (36.0-47.0); HEMOGLOBIN 12.6 g/dl (12.0-15.5); LYMPH # 1.5 10^3/uL (1.5-5.0); LYMPH % 18.2 % (24.0-44.0); MEAN CORPUSCULAR HEMOGLOBIN 28.7 pg (27.0-33.0); MEAN CORPUSCULAR HGB CONC 30.5 g/dl (32.0-36.5); MEAN CORPUSCULAR VOLUME 94.1 fl (80.0-96.0); MONO # 0.7 10^3/uL (0.0-0.8); MONO % 8.1 % (0.0-5.0); NEUTROPHILS # 5.6 10^3/uL (1.5-8.5); NEUTROPHILS % 69.3 % (36.0-66.0); PLATELET COUNT, AUTOMATED 279 10^3/uL (150-450); RED BLOOD COUNT 4.39 10^6/uL (4.00-5.40); WHITE BLOOD COUNT 8.1 10^3/uL (4.0-10.0)
[2020-06-11 09:48] LABS: ALBUMIN 2.9 GM/DL (3.2-5.2); CALCIUM LEVEL 8.7 MG/DL (8.8-10.2); CREATININE FOR GFR 1.72 MG/DL (0.55-1.30); GLOMERULAR FILTRATION RATE 30.6 (>39); PERCENT SATURATION 24.5 % (13.2-45.0); PHOSPHORUS LEVEL 3.4 MG/DL (2.5-4.9); URIC ACID 10.2 MG/DL (2.6-6.0)
[2020-06-11 09:54] LABS: TOTAL 25(OH) VITAMIN D 30.4 NG/ML (30.0-100.0)
[2020-06-11 10:22] LABS: HEMOGLOBIN A1c 7.3 %
== END ==
LOC: SKLAB4 13:43
DX: I50.9 Heart failure, unspecified (principal); N18.9 Chronic kidney disease, unspecified; Z79.899 Other long term (current) drug therapy

== ENCOUNTER → 2020-07-02 | Outpatient (REF) | payer MEDICAID, MEDICARE | LOC: SKLAB4 11:02 | DX: Z20.828 Contact with and (suspected) exposure to other viral communicable diseases (principal) ==

== ENCOUNTER → 2020-07-08 | Outpatient (REF) | payer MEDICARE, MEDICAID ==
[~2020-07-08] MED LIST changes: -ALEN70TA74 PO; +ALEN70TA82 PO; +LIPI20TA PO; -LISI-538 PO; +LISI20TA33 PO; -MAG400TA PO; +MAGN400T35 PO; +TRUL10IN SC; +megace PO
== END ==
LOC: SKLAB4 07-07 10:31 → EDSTATUS 08-05 08:51
PROVIDERS: ATTEND Internal Medicine
DX: Z20.828 Contact with and (suspected) exposure to other viral communicable diseases (principal)

== ENCOUNTER → 2020-07-14 | Outpatient (REF) | payer MEDICARE, MEDICAID ==
--- NOTE | 2020-07-14 09:24 | REP ---
INDICATION: PREOP SURGERY COMPARISON: 02/04/2020 TECHNIQUE: AP and cross-table lateral. FINDINGS: The mediastinum and cardiac silhouette are normal/stable. The lung genao essentially normal in the frontal projection. Lateral view is nondiagnostic due to technique. No definite effusion. No pneumothorax. Skeletal structures are intact/stable. IMPRESSION: Stable examination. No obvious acute cardiopulmonary process appreciated. Lateral view is nondiagnostic and the posteroinferior lung genao are incompletely evaluated. <Electronically signed by Alen Glover > 07/14/20 [id number]
--- NOTE | 2020-07-15 19:23 | ECGEPIP ---
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
== END ==
LOC: SKLAB4 06:54
DX: I48.91 Unspecified atrial fibrillation (principal); I44.4 Left anterior fascicular block; Z01.818 Encounter for other preprocedural examination

== ENCOUNTER → 2020-07-15 | Outpatient (REF) | payer MEDICARE, MEDICAID | LOC: SKLAB4 08:00 | PROVIDERS: ATTEND Internal Medicine | DX: Z20.828 Contact with and (suspected) exposure to other viral communicable diseases (principal) ==

== ENCOUNTER → 2020-07-15 | Outpatient (REF) | payer MEDICARE, MEDICAID ==
[~2020-07-15] MED LIST changes: +ALEN70TA74 PO; -ALEN70TA82 PO; +LISI-538 PO; -LISI20TA33 PO; +MAG400TA PO; -MAGN400T35 PO
== END ==
LOC: SKLAB4 08:00
PROVIDERS: ATTEND Internal Medicine
DX: Z20.828 Contact with and (suspected) exposure to other viral communicable diseases (principal)

== ENCOUNTER → 2020-07-22 | Outpatient (REF) | payer MEDICARE, MEDICAID | LOC: SKLAB4 12:35 | DX: Z53.9 Procedure and treatment not carried out, unspecified reason (principal) ==

== ENCOUNTER → 2020-07-22 | Outpatient (REF) | payer MEDICARE, MEDICAID ==
[~2020-07-22] MED LIST changes: -ALEN70TA74 PO; +ALEN70TA82 PO; -LISI-538 PO; +LISI20TA33 PO; -MAG400TA PO; +MAGN400T35 PO
[2020-07-22 16:41] LABS: INFLUENZA A AMPLIFICATION NEGATIVE (NEGATIVE); INFLUENZA B AMPLIFICATION NEGATIVE (NEGATIVE)
== END ==
LOC: SKLAB4 08:00
PROVIDERS: ATTEND Internal Medicine
DX: Z20.828 Contact with and (suspected) exposure to other viral communicable diseases (principal)
CPT/HCPCS: 87502; U0003

== ENCOUNTER 2020-07-27 07:46 | Day surgery (SDC) | payer MEDICARE, MEDICAID ==
[~2020-07-27] VITALS: Ht 157.5 cm; Wt 133.8 kg
[~2020-07-27 07:46] MED LIST changes: +LR 1,000 ML IV ONE
[2020-07-27 08:28] LABS: HEMATOCRIT 42.2 % (36.0-47.0); HEMOGLOBIN 12.8 g/dl (12.0-15.5); MEAN CORPUSCULAR HEMOGLOBIN 28.5 pg (27.0-33.0); MEAN CORPUSCULAR HGB CONC 30.3 g/dl (32.0-36.5); PLATELET COUNT, AUTOMATED 261 10^3/uL (150-450); RED BLOOD COUNT 4.49 10^6/uL (4.00-5.40); WHITE BLOOD COUNT 8.8 10^3/uL (4.0-10.0)
[2020-07-27] MEDS ORDERED: ROCURONIUM BROMIDE 50 MG/5 ML VIAL As Ordered ONE (08:45)
[2020-07-27] MEDS ORDERED: LIDOCAINE 2% 100MG/5ML SDV (FOR ANES.) As Ordered ONE (08:45)
[2020-07-27] MEDS ORDERED: propofoL 200 MG/20 ML VIAL As Ordered ONE (08:45)
[2020-07-27] MEDS ORDERED: MIDAZOLAM INJ 2MG/2ML VIAL (J2250 PER 1MG) As Ordered ONE (08:45)
[2020-07-27] MEDS ORDERED: fentaNYL 100 MCG/2 ML INJECTION (J3010) As Ordered ONE (08:45)
[2020-07-27] MEDS ORDERED: LEVONORGESTREL 52MG (MIRENA) IUD As Ordered ONE (09:47)
[2020-07-27] MEDS ORDERED: ACETAMINOPHEN 1000MG 100ML IV BTL (OFIRMEV) (J0131 PER 10MG) As Ordered ONE (10:27)
[2020-07-27] MEDS ORDERED: ONDANSETRON 4MG/2ML VIAL As Ordered ONE (10:27)
[2020-07-27] MEDS ORDERED: PHENYLephrine 500MCG 5ML (100MCG/ML) SYRINGE As Ordered ONE (10:34)
[2020-07-27] MEDS ORDERED: PERCOCET 5MG/325MG TAB PO ONE (11:45)
[2020-07-27 14:35] VITALS: BP 148/85
--- NOTE | 2020-07-27 15:10 | ROOPDOC ---
[facility] Report Of Operation Report of Operation DATE OF PROCEDURE: 07/27/20 PREOPERATIVE DIAGNOSES: Complex endometrial hyperplasia with atypia POSTOPERATIVE DIAGNOSES: Complex endometrial hyperplasia with atypia PROCEDURE PERFORMED: Hysteroscopy, dilation and curettage. Placement of 2 Mirena as IUDs SURGEON: Nydia Sung MD FIELD TAX AUDITOR: None. ANESTHESIA: General via laryngeal mask airway ESTIMATED BLOOD LOSS: 50ml IV FLUIDS: 400 mL of lactated Ringer's solution. URINE OUTPUT: 300ml PREOPERATIVE ANTIBIOTICS: None. OPERATIVE FINDINGS: Relatively normal-appearing endometrium Bilateral ostia was visualized. DESCRIPTION OF PROCEDURE: After informed consent was obtained written consent was reviewed, the patient brought to operating room where she was placed under general anesthesia. She was then placed in lithotomy position and was prepped and draped in normal sterile fashion. Time-out in the operating room was then performed identifying the patient, procedure be performed as well as drug allergies. Townsend speculum was placed revealing the cervix. Anterior lip of the cervix grasped with a single-tooth tenaculum. The uterus then sounded to 9 cm. The cervix then sequentially dilated using Hanks dilators. Hysteroscope was then advanced through the cervical os and endometrial cavity was observed with the above-noted findings. Hysteroscope was then removed Sharp curette was then advanced through the cervical os to the level of the fundus and the uterus curetted in a 360 degree fashion. Tissue was obtained and this was sent to pathology for evaluation. Next 2 Mirena IUDs were placed without difficulty The single-tooth tenaculum was then removed. Tenaculum sites were noted be hemostatic. The speculum was then removed. The patient was then taken out of lithotomy position, was awakened from general anesthesia and taken recovery in stable condition. NYDIA SUNG MD. Jul 27, 2020 15:10
== END 2020-07-27 14:46 | disposition home or self-care (01) ==
LOC: M SDC 07:46
PROVIDERS: ATTEND Obstetrics & Gynecology
DX: N84.0 Polyp of corpus uteri (principal); I10 Essential (primary) hypertension; E78.00 Pure hypercholesterolemia, unspecified; G47.30 Sleep apnea, unspecified; E11.9 Type 2 diabetes mellitus without complications; D64.9 Anemia, unspecified; N18.30 Chronic kidney disease, stage 3 unspecified; F32.9 Major depressive disorder, single episode, unspecified; Z79.01 Long term (current) use of anticoagulants; Z79.899 Other long term (current) drug therapy; Z88.2 Allergy status to sulfonamides
CPT/HCPCS: 36415; 58558; 85027; 86850; 86900; 86901; 88305; J0131; J2250; J2370; J2405; J3010; J7298

== ENCOUNTER → 2020-07-29 | Outpatient (REF) | payer MEDICARE, MEDICAID ==
[~2020-07-29] MED LIST changes: +ALEN70TA74 PO; -ALEN70TA82 PO; +LISI-538 PO; -LISI20TA33 PO; -LR 1,000 ML IV ONE; +MAG400TA PO; -MAGN400T35 PO
== END ==
LOC: SKLAB4 07:57
DX: Z20.828 Contact with and (suspected) exposure to other viral communicable diseases (principal)

== ENCOUNTER → 2020-08-05 | Outpatient (REF) | payer MEDICARE, MEDICAID | LOC: SKLAB4 08:07 | DX: Z20.828 Contact with and (suspected) exposure to other viral communicable diseases (principal) ==

== ENCOUNTER → 2020-08-11 | Outpatient (REF) | payer MEDICARE, MEDICAID ==
[2020-08-11 15:47] LABS: CREATININE FOR GFR 1.47 MG/DL (0.55-1.30); GLOMERULAR FILTRATION RATE 36.7 (>39); MAGNESIUM LEVEL 1.9 MG/DL (1.8-2.4); PHOSPHORUS LEVEL 3.3 MG/DL (2.5-4.9); POTASSIUM SERUM 3.8 MEQ/L (3.5-5.1); PTH INTACT 329.3 PG/ML (18.5-88.0)
== END ==
LOC: SKLAB4 10:46
DX: N18.9 Chronic kidney disease, unspecified (principal)

== ENCOUNTER → 2020-08-12 | Outpatient (REF) | payer MEDICARE, MEDICAID | LOC: SKLAB4 06:17 | DX: Z20.828 Contact with and (suspected) exposure to other viral communicable diseases (principal) ==

== ENCOUNTER → 2020-08-19 | Outpatient (REF) | payer MEDICARE, MEDICAID | LOC: SKLAB4 05:58 | DX: Z20.828 Contact with and (suspected) exposure to other viral communicable diseases (principal) ==

== ENCOUNTER → 2020-08-26 | Outpatient (REF) | payer MEDICARE, MEDICAID | LOC: SKLAB4 06:33 | DX: Z11.52 Encounter for screening for COVID-19 (principal) ==

== ENCOUNTER → 2020-09-02 | Outpatient (REF) | payer MEDICARE, MEDICAID ==
[~2020-09-02] MED LIST changes: -ALEN70TA74 PO; +ALEN70TA82 PO
== END ==
LOC: SKLAB4 06:12
PROVIDERS: ATTEND Internal Medicine
DX: Z20.822 Contact with and (suspected) exposure to COVID-19 (principal)

== ENCOUNTER → 2020-09-08 | Outpatient (REF) | payer MEDICARE, MEDICAID ==
[~2020-09-08] MED LIST changes: -LISI-538 PO; +LISI20TA33 PO; -MAG400TA PO; +MAGN400T35 PO
[2020-09-08 10:38] LABS: CALCIUM LEVEL 9.4 MG/DL (8.8-10.2)
[2020-09-08 11:13] LABS: HEMOGLOBIN A1c 8.2 %
[2020-09-08 11:51] LABS: TOTAL 25(OH) VITAMIN D 24.4 NG/ML (30.0-100.0)
== END ==
LOC: SKLAB4 10:37
DX: G40.909 Epilepsy, unspecified, not intractable, without status epilepticus (principal); Z79.899 Other long term (current) drug therapy; E11.9 Type 2 diabetes mellitus without complications

== ENCOUNTER → 2020-09-09 | Outpatient (REF) | payer MEDICARE, MEDICAID | LOC: SKLAB4 06:44 | DX: Z20.822 Contact with and (suspected) exposure to COVID-19 (principal) ==

== ENCOUNTER → 2020-09-16 | Outpatient (REF) | payer MEDICARE, MEDICAID | LOC: SKLAB4 06:14 | PROVIDERS: ATTEND Internal Medicine | DX: Z20.822 Contact with and (suspected) exposure to COVID-19 (principal) ==

== ENCOUNTER → 2020-09-23 | Outpatient (REF) | payer MEDICARE, MEDICAID ==
[~2020-09-23] MED LIST changes: +LISI-538 PO; -LISI20TA33 PO; +MAG400TA PO; -MAGN400T35 PO
== END ==
LOC: SKLAB4 06:50
PROVIDERS: ATTEND Internal Medicine
DX: Z11.52 Encounter for screening for COVID-19 (principal)

== ENCOUNTER → 2020-09-30 | Outpatient (REF) | payer MEDICARE, MEDICAID ==
[~2020-09-30] MED LIST changes: -LISI-538 PO; +LISI20TA33 PO; -MAG400TA PO; +MAGN400T35 PO
== END ==
LOC: SKLAB4 06:38
PROVIDERS: ATTEND Internal Medicine
DX: Z20.822 Contact with and (suspected) exposure to COVID-19 (principal)

== ENCOUNTER → 2020-10-07 | Outpatient (REF) | payer MEDICARE, MEDICAID | LOC: SKLAB4 06:02 | PROVIDERS: ATTEND Internal Medicine | DX: Z20.822 Contact with and (suspected) exposure to COVID-19 (principal) ==

== ENCOUNTER → 2020-10-14 | Outpatient (REF) | payer MEDICARE, MEDICAID | LOC: SKLAB4 06:38 | PROVIDERS: ATTEND Internal Medicine | DX: Z20.822 Contact with and (suspected) exposure to COVID-19 (principal) ==

== ENCOUNTER → 2020-10-28 | Outpatient (REF) | payer MEDICARE, MEDICAID | LOC: SKLAB4 08:00 | PROVIDERS: ATTEND Internal Medicine | DX: Z11.52 Encounter for screening for COVID-19 (principal) ==

== ENCOUNTER → 2020-11-03 | Outpatient (REF) | payer MEDICARE, MEDICAID ==
[2020-11-03 08:31] LABS: CALCIUM LEVEL 9.1 MG/DL (8.8-10.2); CREATININE FOR GFR 1.48 MG/DL (0.55-1.30); GLOMERULAR FILTRATION RATE 36.4 (>39); PHOSPHORUS LEVEL 3.4 MG/DL (2.5-4.9); POTASSIUM SERUM 3.8 MEQ/L (3.5-5.1)
[2020-11-03 11:01] LABS: PTH INTACT 330.7 PG/ML (18.5-88.0)
== END ==
LOC: SKLAB4 10:09
DX: N18.9 Chronic kidney disease, unspecified (principal)

== ENCOUNTER → 2020-11-04 | Outpatient (REF) | payer MEDICARE, MEDICAID | LOC: SKLAB4 06:40 | PROVIDERS: ATTEND Internal Medicine | DX: Z20.822 Contact with and (suspected) exposure to COVID-19 (principal) ==

== ENCOUNTER → 2020-11-20 | Outpatient (REF) | payer MEDICARE, MEDICAID | LOC: SKLAB4 05:42 | PROVIDERS: ATTEND Internal Medicine | DX: Z20.822 Contact with and (suspected) exposure to COVID-19 (principal) ==

== ENCOUNTER → 2020-11-25 | Outpatient (REF) | payer MEDICARE, MEDICAID ==
[2020-11-25 11:14] LABS: CALCIUM LEVEL 9.3 MG/DL (8.8-10.2); CREATININE FOR GFR 1.52 MG/DL (0.55-1.30); GLOMERULAR FILTRATION RATE 35.3 (>39); POTASSIUM SERUM 3.4 MEQ/L (3.5-5.1)
== END ==
LOC: SKLAB4 13:12
DX: I50.9 Heart failure, unspecified (principal); E11.9 Type 2 diabetes mellitus without complications

== ENCOUNTER → 2020-11-27 | Outpatient (REF) | payer MEDICARE, MEDICAID ==
[2020-11-27 08:32] LABS: CALCIUM LEVEL 9.2 MG/DL (8.8-10.2); CREATININE FOR GFR 1.52 MG/DL (0.55-1.30); GLOMERULAR FILTRATION RATE 35.3 (>39); POTASSIUM SERUM 3.7 MEQ/L (3.5-5.1)
== END ==
LOC: SKLAB4 06:51
DX: E87.6 Hypokalemia (principal)

== ENCOUNTER → 2020-12-08 | Outpatient (REF) | payer MEDICARE, MEDICAID ==
[2020-12-08 10:12] LABS: HEMOGLOBIN A1c 7.4 %
== END ==
LOC: SKLAB4 12:42
DX: E11.9 Type 2 diabetes mellitus without complications (principal); E55.9 Vitamin D deficiency, unspecified; Z79.899 Other long term (current) drug therapy

== ENCOUNTER → 2020-12-18 | Outpatient (REF) | payer MEDICARE, MEDICAID ==
[2020-12-18 10:23] LABS: BASO # 0.1 10^3/uL (0.0-0.2); BASO % 0.7 % (0.0-1.0); EOS # 0.3 10^3/uL (0.0-0.5); EOS % 2.9 % (0.0-3.0); HEMOGLOBIN 12.1 g/dl (12.0-15.5); LYMPH # 1.4 10^3/uL (1.5-5.0); LYMPH % 15.8 % (24.0-44.0); MEAN CORPUSCULAR HEMOGLOBIN 28.1 pg (27.0-33.0); MEAN CORPUSCULAR HGB CONC 30.3 g/dl (32.0-36.5); MEAN CORPUSCULAR VOLUME 92.8 fl (80.0-96.0); MONO # 0.6 10^3/uL (0.0-0.8); MONO % 6.5 % (2.0-8.0); NEUTROPHILS # 6.4 10^3/uL (1.5-8.5); NEUTROPHILS % 73.6 % (36.0-66.0); PLATELET COUNT, AUTOMATED 260 10^3/uL (150-450); RED BLOOD COUNT 4.31 10^6/uL (4.00-5.40); WHITE BLOOD COUNT 8.7 10^3/uL (4.0-10.0)
[2020-12-18 10:49] LABS: ALBUMIN 2.8 GM/DL (3.2-5.2); CALCIUM LEVEL 9.2 MG/DL (8.8-10.2); CREATININE FOR GFR 1.55 MG/DL (0.55-1.30); GLOMERULAR FILTRATION RATE 34.5 (>39); PHOSPHORUS LEVEL 2.8 MG/DL (2.5-4.9); POTASSIUM SERUM 3.5 MEQ/L (3.5-5.1); URIC ACID 7.1 MG/DL (2.6-6.0)
[2020-12-18 10:52] LABS: APPEARANCE, URINE CLOUDY (CLEAR); BACTERIA, URINE AUTO 1+ (NEGATIVE); BILIRUBIN, URINE AUTO NEGATIVE (NEGATIVE); BLOOD, URINE BLOOD 2+ (NEGATIVE); COLOR, URINE STRAW (YELLOW); GLUCOSE, URINE (UA) AUTO NEGATIVE (NEGATIVE); KETONE, URINE AUTO NEGATIVE (NEGATIVE); LEUKOCYTE ESTERASE, URINE AUTO 3+ (NEGATIVE); MUCUS, URINE SMALL (NEGATIVE); NITRITE, URINE AUTO NEGATIVE (NEGATIVE); PROTEIN, URINE AUTO 1+ mg/dL (NEGATIVE); RBC, URINE AUTO 18 /HPF (0-3); SPECIFIC GRAVITY URINE AUTO 1.005 (1.002-1.035); SQUAMOUS EPITHELIAL CELL UR AU 1 /HPF (0-6); UROBILINOGEN, URINE AUTO 0.2 mg/dL (0.0-2.0); WBC, URINE AUTO TNTC /HPF (0-3)
[2020-12-18 11:00] LABS: PTH INTACT 218.1 PG/ML (18.5-88.0)
== END ==
LOC: SKLAB4 09:47
DX: N18.9 Chronic kidney disease, unspecified (principal)

== ENCOUNTER → 2021-01-02 | Outpatient (REF) ==
[2021-01-02 22:01] LABS: APPEARANCE, URINE CLOUDY (CLEAR); BACTERIA, URINE AUTO 1+ (NEGATIVE); BILIRUBIN, URINE AUTO NEGATIVE (NEGATIVE); BLOOD, URINE BLOOD 2+ (NEGATIVE); COLOR, URINE YELLOW (YELLOW); GLUCOSE, URINE (UA) AUTO NEGATIVE (NEGATIVE); KETONE, URINE AUTO NEGATIVE (NEGATIVE); LEUKOCYTE ESTERASE, URINE AUTO 3+ (NEGATIVE); NITRITE, URINE AUTO POSITIVE (NEGATIVE); PROTEIN, URINE AUTO 1+ mg/dL (NEGATIVE); RBC, URINE AUTO 23 /HPF (0-3); SQUAMOUS EPITHELIAL CELL UR AU 1 /HPF (0-6); UROBILINOGEN, URINE AUTO 0.2 mg/dL (0.0-2.0); WBC, URINE AUTO TNTC /HPF (0-3)
== END ==
LOC: SKLAB4 21:27
PROVIDERS: ATTEND Nurse Practitioner Acute Care
DX: R30.9 Painful micturition, unspecified (principal)

== ENCOUNTER → 2021-01-18 | Outpatient (REF) | payer MEDICARE, MEDICAID ==
[2021-01-18 07:05] LABS: BASO # 0.1 10^3/uL (0.0-0.2); BASO % 0.8 % (0.0-1.0); EOS # 0.2 10^3/uL (0.0-0.5); EOS % 3.1 % (0.0-3.0); HEMOGLOBIN 12.3 g/dl (12.0-15.5); LYMPH # 1.5 10^3/uL (1.5-5.0); LYMPH % 20.6 % (24.0-44.0); MEAN CORPUSCULAR HEMOGLOBIN 28.5 pg (27.0-33.0); MEAN CORPUSCULAR HGB CONC 30.8 g/dl (32.0-36.5); MEAN CORPUSCULAR VOLUME 92.6 fl (80.0-96.0); MONO # 0.6 10^3/uL (0.0-0.8); MONO % 8.2 % (2.0-8.0); NEUTROPHILS % 66.9 % (36.0-66.0); PLATELET COUNT, AUTOMATED 235 10^3/uL (150-450); RED BLOOD COUNT 4.32 10^6/uL (4.00-5.40); WHITE BLOOD COUNT 7.4 10^3/uL (4.0-10.0)
[2021-01-18 07:27] LABS: ALBUMIN 2.6 GM/DL (3.2-5.2); CALCIUM LEVEL 9.1 MG/DL (8.8-10.2); CREATININE FOR GFR 1.62 MG/DL (0.55-1.30); GLOMERULAR FILTRATION RATE 32.8 (>39); PHOSPHORUS LEVEL 3.6 MG/DL (2.5-4.9); POTASSIUM SERUM 3.7 MEQ/L (3.5-5.1)
[2021-01-18 13:56] LABS: APPEARANCE, URINE HAZY (CLEAR); BACTERIA, URINE AUTO 1+ (NEGATIVE); BILIRUBIN, URINE AUTO NEGATIVE (NEGATIVE); BLOOD, URINE BLOOD 1+ (NEGATIVE); COLOR, URINE YELLOW (YELLOW); GLUCOSE, URINE (UA) AUTO NEGATIVE (NEGATIVE); KETONE, URINE AUTO NEGATIVE (NEGATIVE); LEUKOCYTE ESTERASE, URINE AUTO NEGATIVE (NEGATIVE); MUCUS, URINE SMALL (NEGATIVE); NITRITE, URINE AUTO NEGATIVE (NEGATIVE); PROTEIN, URINE AUTO 1+ mg/dL (NEGATIVE); RBC, URINE AUTO 5 /HPF (0-3); SQUAMOUS EPITHELIAL CELL UR AU 2 /HPF (0-6); UROBILINOGEN, URINE AUTO 0.2 mg/dL (0.0-2.0); WBC, URINE AUTO 1 /HPF (0-3)
== END ==
LOC: SKLAB4 08:14
DX: N28.9 Disorder of kidney and ureter, unspecified (principal)

== ENCOUNTER → 2021-02-09 | Outpatient (REF) | payer MEDICARE, MEDICAID ==
[2021-02-09 11:39] LABS: CALCIUM LEVEL 9.7 MG/DL (8.8-10.2); CREATININE FOR GFR 1.72 MG/DL (0.55-1.30); GLOMERULAR FILTRATION RATE 30.6 (>39); MAGNESIUM LEVEL 1.7 MG/DL (1.8-2.4); PHOSPHORUS LEVEL 3.4 MG/DL (2.5-4.9); POTASSIUM SERUM 4.1 MEQ/L (3.5-5.1)
[2021-02-09 11:52] LABS: PTH INTACT 218.5 PG/ML (18.5-88.0)
== END ==
LOC: SKLAB4 12:24
DX: E83.42 Hypomagnesemia (principal); I10 Essential (primary) hypertension; E11.9 Type 2 diabetes mellitus without complications

== ENCOUNTER → 2021-03-09 | Outpatient (REF) | payer MEDICARE, MEDICAID ==
[2021-03-09 09:45] LABS: CALCIUM LEVEL 9.3 MG/DL (8.8-10.2); TOTAL 25(OH) VITAMIN D 27.7 NG/ML (30.0-100.0)
[2021-03-09 10:34] LABS: HEMOGLOBIN A1c 7.6 %
== END ==
LOC: SKLAB4 12:30
DX: E11.22 Type 2 diabetes mellitus with diabetic chronic kidney disease (principal); I50.9 Heart failure, unspecified; N18.9 Chronic kidney disease, unspecified; Z79.899 Other long term (current) drug therapy

== ENCOUNTER → 2021-03-23 | Outpatient (REF) | payer MEDICARE, MEDICAID ==
[~2021-03-23] MED LIST changes: +ATOR40TA75 PO; +BISA10SU27 PR; +CEFT1INJ5 IM; +EZET10TA21 PO; +LANTINJ4 SC; +LISI5TAB11 PO; +MILKSUS3 PO; +POTA10TA17 PO; +PRESCAP PO; +TRAM50TA2 PO; +TRUL0.5I SC
[2021-03-23 10:17] LABS: CHOLESTEROL RISK RATIO 3.866 (<5); THYROID STIMULATING HORMONE 2.72 uIU/ML (0.358-3.740)
== END ==
LOC: SKLAB5 07:32
DX: E03.9 Hypothyroidism, unspecified (principal); E78.5 Hyperlipidemia, unspecified

== ENCOUNTER → 2021-03-29 | Outpatient (REF) | payer MEDICARE, MEDICAID | LOC: SKLAB4 09:55 | PROVIDERS: ATTEND Neuromusculoskeletal Medicine & OMM | DX: Z11.2 Encounter for screening for other bacterial diseases (principal) ==

== ENCOUNTER → 2021-04-22 | Outpatient (REF) | payer MEDICARE, MEDICAID ==
[~2021-04-22] MED LIST changes: -ATOR40TA75 PO; -BISA10SU27 PR; -CEFT1INJ5 IM; -EZET10TA21 PO; -LANTINJ4 SC; -LISI5TAB11 PO; -MILKSUS3 PO; -POTA10TA17 PO; -PRESCAP PO; -TRAM50TA2 PO; -TRUL0.5I SC
[2021-04-22 08:20] LABS: APPEARANCE, URINE TURBID (CLEAR); BACTERIA, URINE AUTO 1+ (NEGATIVE); BILIRUBIN, URINE AUTO NEGATIVE (NEGATIVE); BLOOD, URINE BLOOD 1+ (NEGATIVE); COLOR, URINE YELLOW (YELLOW); GLUCOSE, URINE (UA) AUTO NEGATIVE (NEGATIVE); KETONE, URINE AUTO NEGATIVE (NEGATIVE); LEUKOCYTE ESTERASE, URINE AUTO 3+ (NEGATIVE); NITRITE, URINE AUTO NEGATIVE (NEGATIVE); PROTEIN, URINE AUTO 2+ mg/dL (NEGATIVE); RBC, URINE AUTO 8 /HPF (0-3); SPECIFIC GRAVITY URINE AUTO 1.009 (1.002-1.035); SQUAMOUS EPITHELIAL CELL UR AU 4 /HPF (0-6); UROBILINOGEN, URINE AUTO 0.2 mg/dL (0.0-2.0); WBC, URINE AUTO TNTC /HPF (0-3)
[2021-04-22 13:17] LABS: BASO # 0.1 10^3/uL (0.0-0.2); BASO % 0.6 % (0.0-1.0); EOS # 0.3 10^3/uL (0.0-0.5); EOS % 2.6 % (0.0-3.0); HEMATOCRIT 40.3 % (36.0-47.0); HEMOGLOBIN 12.7 g/dl (12.0-15.5); LYMPH # 1.7 10^3/uL (1.5-5.0); LYMPH % 14.4 % (24.0-44.0); MEAN CORPUSCULAR HEMOGLOBIN 30.3 pg (27.0-33.0); MEAN CORPUSCULAR HGB CONC 31.5 g/dl (32.0-36.5); MEAN CORPUSCULAR VOLUME 96.2 fl (80.0-96.0); MONO # 0.8 10^3/uL (0.0-0.8); MONO % 6.7 % (2.0-8.0); NEUTROPHILS # 8.8 10^3/uL (1.5-8.5); PLATELET COUNT, AUTOMATED 293 10^3/uL (150-450); RED BLOOD COUNT 4.19 10^6/uL (4.00-5.40); WHITE BLOOD COUNT 11.7 10^3/uL (4.0-10.0)
[2021-04-22 13:48] LABS: ALBUMIN 2.8 GM/DL (3.2-5.2); CALCIUM LEVEL 10.2 MG/DL (8.8-10.2); CREATININE FOR GFR 1.75 MG/DL (0.55-1.30); PHOSPHORUS LEVEL 2.8 MG/DL (2.5-4.9); POTASSIUM SERUM 4.2 MEQ/L (3.5-5.1); URIC ACID 7.5 MG/DL (2.6-6.0)
[2021-04-22 13:56] LABS: PTH INTACT 208.9 PG/ML (18.5-88.0)
== END ==
LOC: SKLAB4 10:13
PROVIDERS: ATTEND Neuromusculoskeletal Medicine & OMM
DX: N18.9 Chronic kidney disease, unspecified (principal); Z79.899 Other long term (current) drug therapy

== ENCOUNTER → 2021-05-11 | Outpatient (REF) | payer MEDICARE, MEDICAID ==
[2021-05-11 09:46] LABS: CALCIUM LEVEL 9.9 MG/DL (8.8-10.2); CREATININE FOR GFR 1.75 MG/DL (0.55-1.30); MAGNESIUM LEVEL 2.2 MG/DL (1.8-2.4); PHOSPHORUS LEVEL 3.5 MG/DL (2.5-4.9); POTASSIUM SERUM 4.3 MEQ/L (3.5-5.1)
[2021-05-11 09:58] LABS: PTH INTACT 195.8 PG/ML (18.5-88.0)
== END ==
LOC: SKLAB4 06:41
PROVIDERS: ATTEND Neuromusculoskeletal Medicine & OMM
DX: I50.9 Heart failure, unspecified (principal); E11.22 Type 2 diabetes mellitus with diabetic chronic kidney disease

== ENCOUNTER → 2021-06-04 | Outpatient (REF) | payer MEDICARE, MEDICAID | LOC: SKLAB4 08:38 | PROVIDERS: ATTEND Neuromusculoskeletal Medicine & OMM | DX: R25.1 Tremor, unspecified (principal) ==

== ENCOUNTER → 2021-06-05 | Outpatient (REF) | payer MEDICARE, MEDICAID | LOC: SKLAB4 07:35 | PROVIDERS: ATTEND Neuromusculoskeletal Medicine & OMM | DX: Z20.822 Contact with and (suspected) exposure to COVID-19 (principal) ==

== ENCOUNTER → 2021-06-06 | Outpatient (REF) | payer MEDICARE, MEDICAID ==
[2021-06-06 21:37] LABS: HEMATOCRIT 40.1 % (36.0-47.0); HEMOGLOBIN 12.6 g/dl (12.0-15.5); MEAN CORPUSCULAR HEMOGLOBIN 31.1 pg (27.0-33.0); MEAN CORPUSCULAR HGB CONC 31.4 g/dl (32.0-36.5); PLATELET COUNT, AUTOMATED 221 10^3/uL (150-450); RED BLOOD COUNT 4.05 10^6/uL (4.00-5.40); WHITE BLOOD COUNT 6.2 10^3/uL (4.0-10.0)
[2021-06-06 22:05] LABS: ALBUMIN 2.7 GM/DL (3.2-5.2); BILIRUBIN,TOTAL 0.4 MG/DL (0.2-1.0); C REACTIVE PROTEIN QUANTITATIV 7.65 MG/DL (0.00-0.30); CALCIUM LEVEL 9.2 MG/DL (8.8-10.2); CREATININE FOR GFR 1.73 MG/DL (0.55-1.30); GLOMERULAR FILTRATION RATE 30.3 (>39); POTASSIUM SERUM 3.8 MEQ/L (3.5-5.1); TOTAL PROTEIN 7.7 GM/DL (6.4-8.2)
== END ==
LOC: SKLAB2 08:39
PROVIDERS: ATTEND Neuromusculoskeletal Medicine & OMM
DX: U07.1 COVID-19 (principal); Z79.899 Other long term (current) drug therapy

== ENCOUNTER → 2021-06-07 | Outpatient (REF) | payer MEDICARE, MEDICAID ==
[~2021-06-07] MED LIST changes: +ACETAMINOPHEN TAB 650MG DOSE (2X325MG) PO ONE; +ALBUTEROL 90 MCG/ACT 8GM HFA INHALER INH PRN; +ALBUTEROL SULFATE 2.5 MG/0.5 ML INH NEB SOLN INH PRN; +BAMLANIVIMAB 700 MG, ETESEVIMAB 1,400 MG in NS 250 ML IV ONE; +EPINEPHrine INJ 1 MG/ML 1ML AMP IM PRN; +NS 1,000 ML IV SCH; +diphenhydrAMINE 50MG/ML VIAL (J1200) IV ONE; +diphenhydrAMINE 50MG/ML VIAL (J1200) IV PRN; +methylPREDNISolone 125MG 2ML VIAL IV ONE; +methylPREDNISolone 125MG 2ML VIAL IV PRN
== END ==
LOC: SKLAB2 07:40
PROVIDERS: ATTEND Neuromusculoskeletal Medicine & OMM
DX: U07.1 COVID-19 (principal)
CPT/HCPCS: J1200; J2930; M0245

== ENCOUNTER → 2021-06-08 | Outpatient (REF) | payer MEDICARE, MEDICAID ==
[~2021-06-08] MED LIST changes: -ACETAMINOPHEN TAB 650MG DOSE (2X325MG) PO ONE; -ALBUTEROL 90 MCG/ACT 8GM HFA INHALER INH PRN; -ALBUTEROL SULFATE 2.5 MG/0.5 ML INH NEB SOLN INH PRN; -BAMLANIVIMAB 700 MG, ETESEVIMAB 1,400 MG in NS 250 ML IV ONE; -EPINEPHrine INJ 1 MG/ML 1ML AMP IM PRN; -NS 1,000 ML IV SCH; -diphenhydrAMINE 50MG/ML VIAL (J1200) IV ONE; -diphenhydrAMINE 50MG/ML VIAL (J1200) IV PRN; -methylPREDNISolone 125MG 2ML VIAL IV ONE; -methylPREDNISolone 125MG 2ML VIAL IV PRN
--- NOTE | 2021-06-08 15:51 | REP ---
INDICATION: COVID 19 /WHEEZING. COMPARISON: 07/14/2020. TECHNIQUE: Single portable AP view of the chest was performed. FINDINGS: Elevation of the right hemidiaphragm is unchanged. The lungs appear unchanged with no evidence for acute infiltrate. There is left ventricular prominence unchanged. The mediastinal silhouette is unchanged. IMPRESSION: No acute pulmonary disease. <Electronically signed by Kenan Lu > 06/08/21 [id number]
== END ==
LOC: SKLAB2 15:20
PROVIDERS: ATTEND Neuromusculoskeletal Medicine & OMM
DX: U07.1 COVID-19 (principal); R06.2 Wheezing

== ENCOUNTER → 2021-06-08 | Outpatient (REF) | payer MEDICARE, MEDICAID ==
[2021-06-08 10:02] LABS: HEMATOCRIT 38.2 % (36.0-47.0); HEMOGLOBIN 11.9 g/dl (12.0-15.5); MEAN CORPUSCULAR HEMOGLOBIN 30.5 pg (27.0-33.0); MEAN CORPUSCULAR HGB CONC 31.2 g/dl (32.0-36.5); MEAN CORPUSCULAR VOLUME 97.9 fl (80.0-96.0); PLATELET COUNT, AUTOMATED 208 10^3/uL (150-450); WHITE BLOOD COUNT 6.1 10^3/uL (4.0-10.0)
[2021-06-08 10:21] LABS: CALCIUM LEVEL 8.9 MG/DL (8.8-10.2)
[2021-06-08 10:26] LABS: CALCIUM LEVEL 9.1 MG/DL (8.8-10.2); CREATININE FOR GFR 1.67 MG/DL (0.55-1.30); GLOMERULAR FILTRATION RATE 31.6 (>39); POTASSIUM SERUM 3.8 MEQ/L (3.5-5.1)
[2021-06-08 10:37] LABS: TOTAL 25(OH) VITAMIN D 35.5 NG/ML (30.0-100.0)
[2021-06-08 12:13] LABS: HEMOGLOBIN A1c 7.2 %
== END ==
LOC: SKLAB2 08:57
PROVIDERS: ATTEND Neuromusculoskeletal Medicine & OMM
DX: U07.1 COVID-19 (principal); E11.9 Type 2 diabetes mellitus without complications; E55.9 Vitamin D deficiency, unspecified; G40.909 Epilepsy, unspecified, not intractable, without status epilepticus; Z79.899 Other long term (current) drug therapy

== ENCOUNTER → 2021-06-10 | Outpatient (REF) | payer MEDICARE, MEDICAID ==
[2021-06-10 11:52] LABS: HEMATOCRIT 40.2 % (36.0-47.0); HEMOGLOBIN 12.6 g/dl (12.0-15.5); MEAN CORPUSCULAR HEMOGLOBIN 30.7 pg (27.0-33.0); MEAN CORPUSCULAR HGB CONC 31.3 g/dl (32.0-36.5); PLATELET COUNT, AUTOMATED 232 10^3/uL (150-450); WHITE BLOOD COUNT 5.5 10^3/uL (4.0-10.0)
[2021-06-10 12:32] LABS: ALBUMIN 2.5 GM/DL (3.2-5.2); BILIRUBIN,TOTAL 0.4 MG/DL (0.2-1.0); CALCIUM LEVEL 9.4 MG/DL (8.8-10.2); CREATININE FOR GFR 1.54 MG/DL (0.55-1.30); GLOMERULAR FILTRATION RATE 34.7 (>39); POTASSIUM SERUM 3.6 MEQ/L (3.5-5.1); TOTAL PROTEIN 6.3 GM/DL (6.4-8.2)
== END ==
LOC: SKLAB2 07:00
PROVIDERS: ATTEND Neuromusculoskeletal Medicine & OMM
DX: U07.1 COVID-19 (principal); Z79.899 Other long term (current) drug therapy

== ENCOUNTER → 2021-06-14 | Outpatient (REF) | payer MEDICARE, MEDICAID | LOC: SKLAB2 09:50 | PROVIDERS: ATTEND Neuromusculoskeletal Medicine & OMM | DX: U07.1 COVID-19 (principal); Z53.8 Procedure and treatment not carried out for other reasons ==

== ENCOUNTER → 2021-06-16 | Outpatient (REF) | payer MEDICARE, MEDICAID ==
[2021-06-16 11:47] LABS: HEMATOCRIT 39.3 % (36.0-47.0); HEMOGLOBIN 12.3 g/dl (12.0-15.5); MEAN CORPUSCULAR HGB CONC 31.3 g/dl (32.0-36.5); PLATELET COUNT, AUTOMATED 289 10^3/uL (150-450); RED BLOOD COUNT 3.97 10^6/uL (4.00-5.40); WHITE BLOOD COUNT 9.6 10^3/uL (4.0-10.0)
[2021-06-16 12:16] LABS: ALBUMIN 2.6 GM/DL (3.2-5.2); BILIRUBIN,TOTAL 0.3 MG/DL (0.2-1.0); CALCIUM LEVEL 9.8 MG/DL (8.8-10.2); CREATININE FOR GFR 1.62 MG/DL (0.55-1.30); GLOMERULAR FILTRATION RATE 32.7 (>39); POTASSIUM SERUM 3.6 MEQ/L (3.5-5.1)
== END ==
LOC: SKLAB4 09:47
PROVIDERS: ATTEND Neuromusculoskeletal Medicine & OMM
DX: U07.1 COVID-19 (principal); Z79.899 Other long term (current) drug therapy

== ENCOUNTER 2021-07-16 14:46 | Inpatient (IN) | payer MEDICARE, MEDICAID ==
[2021-07-16] VITALS (14 sets, daily range): BP systolic 95–177; BP diastolic 53–97
[~2021-07-16] VITALS: Ht 165.1 cm; Wt 132.4 kg
[~2021-07-16 14:46] MED LIST changes: -ATOR40TA75 PO; -BISA10SU27 PR; -CEFT1INJ5 IM; -EZET10TA21 PO; -LANTINJ4 SC; -LISI-898 PO; -MILKSUS3 PO; -POTA10TA17 PO; -PRESCAP PO; -TRAM50TA2 PO; -TRUL0.5I SC
--- OUTSIDE RECORDS SUMMARY | 2021-07-16 15:24 | CCD | Continuity of Care Document ---
Author Author Nely BRITO P.A.-C. Organization Unknown Address [address] [place] [address] Phone [phone] Care Team Providers Care Parking Lot Attendant And Cashier Name Role Phone Marilyn Rivera AUTM [phone] David Flower MD AUTM Unavailable Kenan Florence D.O. AUTM [phone] Problems Description No Information Available Social History Type Date Description Comments Sex Unknown Allergies and adverse reactions Active Allergies Criticality Reaction | Severity Comments Date Bactrim Unable to assess criticality hives 09/01/2014 Medications Active Medications SIG Qnty Indications Ordering Provide r Date Primidone 250mg Tablets 1 po in am and 1/2 tab po q pm 45tabs G25.0 Price Vega M.D. 01/03/2017 Immunizations Description No Information Available Vital Signs Date Vital Result Comment 06/03/2021 8:21am BP Systolic 124 mmHg BP Diastolic 80 mmHg Heart Rate 64 /min Respiratory Rate 20 /min Height 60 inches 5'0" Weight 280.00 lb BMI (Body Mass Index) 54.7 kg/m2 [place] Body Weight 100 lb 12/02/2020 7:05am BP Systolic 140 mmHg BP Diastolic 80 mmHg Heart Rate 80 /min Respiratory Rate 20 /min Results Description No Information Available Procedures Date Code Description Status 06/03/2021 71068 Office/Outpatient Established Mo d MDM 30-39 Min Completed Medical Devices Description No Information Available Encounters Type Date Location Provider Dx Diagnosis Office Visit 06/03/2021 10:30a Main office - [place] Thea diaz P.A.-C. 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 Plan of Treatment Future Appointment(s):* 11/25/2021 11:30 am - Thea Brito P.A.-C. at Main office - [place] 06/03/2021 - Thea Brito P.A.-C.* G47.33 Obstructive sleep apnea (adult) (pediatric)* Comments:* Repeat her sleep study or CPAP titration due to 30 pound weight gain since her last study. Her current settings are not effective. Her current mask does not fit correctly and causes irritation of the left lower eye lid area. 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 * G25.0 Essential tremor* Comments:* Continue primidone. Level pending. * G25.2 Other specified forms of tremor* Comments:* Mild resting tremor left hand comes and goes. She does not notice it. * R20.2 Paresthesia of skin* Comments:* Controlled with gabapentin. * Follow up:* 6 months. Functional Status Description No Information Available Mental Status Description No Information Available Referrals Refer to Reason for Referral Status Appt Date Price Vega M.D. Created [facility] [address] [place] [address] [phone]
--- OUTSIDE RECORDS SUMMARY | 2021-07-16 15:24 | CCD | Continuity of Care Document ---
Author Author Nely BRITO P.A.-C. Organization Unknown Address [address] [place] [address] Phone [phone] Care Team Providers Care Exchange Operator Name Role Phone Marilyn Rivera AUTM [phone] David Flower MD AUTM Unavailable Kenan Florence D.O. AUTM [phone] Problems Description No Information Available Social History [...] Available Vital Signs Date Vital Result Comment 12/02/2020 7:05am BP Systolic 140 mmHg BP Diastolic 80 mmHg Heart Rate 80 /min Respiratory Rate 20 /min 10/04/2019 11:52am BP Systolic 118 mmHg BP Diastolic 70 mmHg Heart Rate 68 /min Respiratory Rate 16 /min Results Description No Information Available Procedures Date Code Description Status 06/03/2021 33980 Office/Outpatient Established Mo d MDM 30-39 Min Completed Medical Devices Description No Information Available Encounters Type Date Location Provider Dx Diagnosis Office Visit 06/03/2021 10:30a Main office - [place] Thea diaz P.A.-C. 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 06/03/2021 G25.2 Other specified forms of tremor Thea Brito P.A.-C. 06/03/2021 R20.2 Paresthesia of skin Thea diaz P.A.-C. Plan of Treatment Future Appointment(s):* 11/25/2021 11:30 am - Thea Brito P.A.-C. 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
--- OUTSIDE RECORDS SUMMARY | 2021-07-16 15:24 | CCD | Continuity of Care Document ---
Author Author Nely BRITO P.A.-C. Organization Unknown Address [address] [place] [address] Phone [phone] Care Team Providers Care Customer Project Manager Name Role Phone Marilyn Rivera AUTM [phone] David Flower MD AUTM Unavailable Kenan Florence D.O. AUTM [phone] Problems Description No Information Available Social History [...] Available Procedures Date Code Description Status 06/03/2021 15001 Office/Outpatient Established Mo d MDM 30-39 Min Completed Medical Devices Description No Information Available Encounters Type Date Location Provider Dx Diagnosis Office Visit 06/03/2021 10:30a Main office - [place] Thea diaz P.A.-C. G47.33 Obstructive sleep apnea [...] P.A.-C. 06/03/2021 R20.2 Paresthesia of skin Thea idaz P.A.-C. Plan of Treatment Future Appointment(s):* 11/25/2021 11:30 am - Thea Brito P.A.-C. 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
--- OUTSIDE RECORDS SUMMARY | 2021-07-16 15:24 | CCD | Continuity of Care Document ---
Author Author Nely BRITO P.A.-C. Organization Unknown Address [address] [place] [address] Phone [phone] Care Team Providers Care Board Operator Name Role Phone Marilyn Rivera AUTM [phone] David Flower MD AUTM Unavailable Kenan Florence D.O. AUTM [phone] Problems Description No Information Available Social History [...] Available Procedures Date Code Description Status 06/03/2021 04529 Office/Outpatient Established Mo d MDM 30-39 Min Completed Medical Devices Description No Information Available Encounters Type Date Location Provider Dx Diagnosis Office Visit 06/03/2021 10:30a Main office - [place] Thea diaz P.A.-C. G47.33 Obstructive sleep apnea [...] - Thea Brito P.A.-C. 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
--- OUTSIDE RECORDS SUMMARY | 2021-07-16 15:24 | CCD | Continuity of Care Document ---
Author Author Nely BRITO P.A.-C. Organization Unknown Address [address] [place] [address] Phone [phone] Care Team Providers Care Reconciliation Accountant Name Role Phone Marilyn Rivera AUTM [phone] David Flower MD AUTM Unavailable Kenan Florence D.O. AUTM [phone] Problems Description No Information Available Social History [...] Available Procedures Date Code Description Status 06/03/2021 81694 Office/Outpatient Established Mo d MDM 30-39 Min Completed Medical Devices Description No Information Available Encounters Type Date Location Provider Dx Diagnosis Office Visit 06/03/2021 10:30a Main office - [place] Thea diaz P.A.-C. G47.33 Obstructive sleep apnea [...] - Thea Brito P.A.-C. 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
--- OUTSIDE RECORDS SUMMARY | 2021-07-16 15:25 | CCD ---
Author Author [facility] Organization [facility] Address Unknown Phone Unavailable Care Team Providers Care Chief Passenger Ship Steward/Stewardess Name Role Phone Trickey, J Thea PA Unavailable Unavailable Trickey, J Thea PA Unavailable Unavailable Trickey, J Thea PA Unavailable Unavailable Trickey, J Thea PA Unavailable Unavailable Trickey, J Thea PA Unavailable Unavailable Trickey, J Thea PA Unavailable Unavailable Trickey, J Thea PA Unavailable Unavailable Trickey, J Thea PA Unavailable Unavailable Trickey, J Thea PA Unavailable Unavailable Trickey, J Thea PA Unavailable Unavailable Trickey, J Thea PA Unavailable Unavailable Trickey, J Thea PA Unavailable Unavailable Trickey, J Thea PA Unavailable Unavailable Trickey, J Thea PA Unavailable Unavailable Trickey, J Thea PA Unavailable Unavailable Trickey, J Thea PA Unavailable Unavailable Trickey, J Thea PA Unavailable Unavailable Trickey, J Thea PA Unavailable Unavailable Trickey, J Thea PA Unavailable Unavailable Trickey, J Thea PA Unavailable Unavailable Trickey, J Thea PA Unavailable Unavailable Trickey, J Thea PA Unavailable Unavailable Trickey, J Thea PA Unavailable Unavailable Trickey, J Thea PA Unavailable Unavailable Trickey, J Thea PA Unavailable Unavailable Trickey, J Thea PA Unavailable Unavailable Trickey, J Thea PA Unavailable Unavailable Trickey, J Thea PA Unavailable Unavailable Trickey, J Thea PA Unavailable Unavailable Trickey, J Thea PA Unavailable Unavailable Trickey, J Thea PA Unavailable Unavailable Trickey, J Thea PA Unavailable Unavailable Trickey, J Thea PA Unavailable Unavailable Trickey, J Thea PA Unavailable Unavailable Trickey, J Thea PA Unavailable Unavailable Trickey, J Thea PA Unavailable Unavailable Trickey, J Thea PA Unavailable Unavailable Trickey, J Thea PA Unavailable Unavailable Trickey, J Thea PA Unavailable Unavailable Trickey, J Thea PA Unavailable Unavailable Trickey, J Thea PA Unavailable Unavailable Trickey, J Thea PA Unavailable Unavailable Trickey, J Thea PA Unavailable Unavailable Trickey, J Thea PA Unavailable Unavailable Trickey, J Thea PA Unavailable Unavailable Trickey, J Thea PA Unavailable Unavailable Trickey, J Thea PA Unavailable Unavailable Trickey, J Thea PA Unavailable Unavailable Trickey, J Thea PA Unavailable Unavailable Mariano Woodsatt PA Unavailable Unavailable Peggy, M Atilioatt PA Unavailable Unavailable Peggy, M Atilioatt PA Unavailable Unavailable Peggy, M Atilioatt PA Unavailable Unavailable Peggy, M Atilioatt PA Unavailable Unavailable Peggy, M Barratt PA Unavailable Unavailable Peggy, M Atilioatt PA Unavailable Unavailable Peggy, M Atilioatt PA Unavailable Unavailable Peggy, M Atilioatt PA Unavailable Unavailable Peggy, M Atilioatt PA Unavailable Unavailable Woods, M Barratt PA Unavailable Unavailable Woods, M Barratt PA Unavailable Unavailable Woods, M Barratt PA Unavailable Unavailable Woods, M Barratt PA Unavailable Unavailable Woods, M Barratt PA Unavailable Unavailable Woods, M Barratt PA Unavailable Unavailable Woods, M Barratt PA Unavailable Unavailable Woods, M Barratt PA Unavailable Unavailable Woods, M Barratt PA Unavailable Unavailable Woods, M Barratt PA Unavailable Unavailable Woods, M Barratt PA Unavailable Unavailable Woods, M Barratt PA Unavailable Unavailable Woods, M Atilioatt PA Unavailable Unavailable Woods, M Barratt PA Unavailable Unavailable Peggy, M Barratt PA Unavailable Unavailable Woods, M Barratt PA Unavailable Unavailable Woods, M Barratt PA Unavailable Unavailable Peggy M Barratt PA Unavailable Unavailable Peggy M Atilioatt PA Unavailable Unavailable Parkinson, L Olya PA Unavailable Unavailable Parkinson, L Olya PA Unavailable Unavailable Parkinson, L Olya PA Unavailable Unavailable Parkinson, L Olya PA Unavailable Unavailable Parkinson, L Olya PA Unavailable Unavailable Parkinson, L Olya PA Unavailable Unavailable Parkinson, L Olya PA Unavailable Unavailable Parkinson, L Olya PA Unavailable Unavailable Parkinson, L Olya PA Unavailable Unavailable Parkinson, L Olya PA Unavailable Unavailable Parkinson, L Olya PA Unavailable Unavailable Parkinson, L Olya PA Unavailable Unavailable Parkinson, L Olya PA Unavailable Unavailable Parkinson, L Olya PA Unavailable Unavailable Parkinson, L Olya PA Unavailable Unavailable Parkinson, L Olya PA Unavailable Unavailable Parkinson, L Olya PA Unavailable Unavailable Parkinson, L Olya PA Unavailable Unavailable Parkinson, L Olya PA Unavailable Unavailable Parkinson, L Olya PA Unavailable Unavailable Parkinson, L Olya PA Unavailable Unavailable Parkinson, L Olya PA Unavailable Unavailable Parkinson, L Olya PA Unavailable Unavailable Parkinson, L Olya PA Unavailable Unavailable Parkinson, L Olya PA Unavailable Unavailable Parkinson, L Olya PA Unavailable Unavailable Parkinson, L Olya PA Unavailable Unavailable Parkinson, L Olya PA Unavailable Unavailable Parkinson, L Olya PA Unavailable Unavailable Parkinson, L Olya PA Unavailable Unavailable Parkinson, L Olya PA Unavailable Unavailable Parkinson, L Olya PA Unavailable Unavailable Parkinson, L Olya PA Unavailable Unavailable Parkinson, L Olya PA Unavailable Unavailable Parkinson, L Olya PA Unavailable Unavailable Parkinson, L Olya PA Unavailable Unavailable Parkinson, L Olya PA Unavailable Unavailable Parkinson, L Olya PA Unavailable Unavailable Parkinson, L Olya PA Unavailable Unavailable Fons, M Jacqueline HUMAN RESOURCE MANAGER Unavailable Unavailable Fons, M Jacqueline HUMAN RESOURCE MANAGER Unavailable Unavailable Fons, M Jacqueline HUMAN RESOURCE MANAGER Unavailable Unavailable Fons, M Jacqueline HUMAN RESOURCE MANAGER Unavailable Unavailable Fons, M Jacqueline HUMAN RESOURCE MANAGER Unavailable Unavailable Fons, M Jacqueline HUMAN RESOURCE MANAGER Unavailable Unavailable Fons, M Jacqueline HUMAN RESOURCE MANAGER Unavailable Unavailable Fons, M Jacqueline HUMAN RESOURCE MANAGER Unavailable Unavailable Fons, M Jacqueline HUMAN RESOURCE MANAGER Unavailable Unavailable Fons, M Jacqueline HUMAN RESOURCE MANAGER Unavailable Unavailable Fons, M Jacqueline HUMAN RESOURCE MANAGER Unavailable Unavailable Fons, M Jacqueline HUMAN RESOURCE MANAGER Unavailable Unavailable Fons, M Jacqueline HUMAN RESOURCE MANAGER Unavailable Unavailable Fons, M Jacqueline HUMAN RESOURCE MANAGER Unavailable Unavailable Fons, M Jacqueline HUMAN RESOURCE MANAGER Unavailable Unavailable Fons, M Jacqueline HUMAN RESOURCE MANAGER Unavailable Unavailable Fons, M Jacqueline HUMAN RESOURCE MANAGER Unavailable Unavailable Fons, M Jacqueline HUMAN RESOURCE MANAGER Unavailable Unavailable Fons, M Jacqueline HUMAN RESOURCE MANAGER Unavailable Unavailable Fons, M Jacqueline HUMAN RESOURCE MANAGER Unavailable Unavailable Fons, M Jacqueline HUMAN RESOURCE MANAGER Unavailable Unavailable Fons, M Jacqueline HUMAN RESOURCE MANAGER Unavailable Unavailable Fons, M Jacqueline HUMAN RESOURCE MANAGER Unavailable Unavailable Fons, M Jacqueline HUMAN RESOURCE MANAGER Unavailable Unavailable Fons, M Jacqueline HUMAN RESOURCE MANAGER Unavailable Unavailable Fons, M Jacqueline HUMAN RESOURCE MANAGER Unavailable Unavailable Fons, M Jacqueline HUMAN RESOURCE MANAGER Unavailable Unavailable Fons, M Jacqueline HUMAN RESOURCE MANAGER Unavailable Unavailable Fons, M Jacqueline HUMAN RESOURCE MANAGER Unavailable Unavailable Fons, M Jacqueline HUMAN RESOURCE MANAGER Unavailable Unavailable Fons, M Jacqueline HUMAN RESOURCE MANAGER Unavailable Unavailable Fons, M Jacqueline HUMAN RESOURCE MANAGER Unavailable Unavailable Fons, M Jacqueline HUMAN RESOURCE MANAGER Unavailable Unavailable Fons, M Jacqueline HUMAN RESOURCE MANAGER Unavailable Unavailable Fons, M Jacqueline HUMAN RESOURCE MANAGER Unavailable Unavailable Fons, M Jacqueline HUMAN RESOURCE MANAGER Unavailable Unavailable Fons, M Jacqueline HUMAN RESOURCE MANAGER Unavailable Unavailable Fons, M Jacqueline HUMAN RESOURCE MANAGER Unavailable Unavailable Fons, M Jacqueline HUMAN RESOURCE MANAGER Unavailable Unavailable Fons, M Jacqueline HUMAN RESOURCE MANAGER Unavailable Unavailable Fons, M Jacqueline HUMAN RESOURCE MANAGER Unavailable Unavailable Fons, M Jacqueline HUMAN RESOURCE MANAGER Unavailable Unavailable Fons, M Jacqueline HUMAN RESOURCE MANAGER Unavailable Unavailable Fons, M Jacqueline HUMAN RESOURCE MANAGER Unavailable Unavailable Fons, M Jacqueline HUMAN RESOURCE MANAGER Unavailable Unavailable Fons, M Jacqueline HUMAN RESOURCE MANAGER Unavailable Unavailable Fons, M Jacqueline HUMAN RESOURCE MANAGER Unavailable Unavailable Fons, M Jacqueline HUMAN RESOURCE MANAGER Unavailable Unavailable Fons, M Jacqueline HUMAN RESOURCE MANAGER Unavailable Unavailable Fons, M Jacqueline HUMAN RESOURCE MANAGER Unavailable Unavailable Fons, M Jacqueline HUMAN RESOURCE MANAGER Unavailable Unavailable Fons, M Jacqueline HUMAN RESOURCE MANAGER Unavailable Unavailable Fons, M Jacqueline HUMAN RESOURCE MANAGER Unavailable Unavailable Roderick Resendiz Jr, MD Unavailable Unavailable Roderick Resendiz Jr, MD Unavailable Unavailable Roderick Resendiz Jr, MD Unavailable Unavailable Roderick Resendiz Jr, MD Unavailable Unavailable Roderick Resendiz Jr, MD Unavailable Unavailable Roderick Resendiz Jr, MD Unavailable Unavailable Roderick Resendiz Jr, MD Unavailable Unavailable Roderick Resendiz Jr, MD Unavailable Unavailable Roderick Resendiz Jr, MD Unavailable Unavailable Roderick Resendiz Jr, MD Unavailable Unavailable Roderick Resendiz Jr, MD Unavailable Unavailable Roderick Resendiz Jr, MD Unavailable Unavailable Roderick Resendiz Jr, MD Unavailable Unavailable Roderick Resendiz Jr, MD Unavailable Unavailable Roderick Resendiz Jr, MD Unavailable Unavailable Roderick Resendiz Jr, MD Unavailable Unavailable Roderick Resendiz Jr, MD Unavailable Unavailable Roderick Resendiz Jr, MD Unavailable Unavailable Winthrop JrRoderick MD Unavailable Unavailable Astrid JrRoderick MD Unavailable Unavailable Astrid JrRoderick MD Unavailable Unavailable Astrid JrRoderick MD Unavailable Unavailable Winthrop JrRoderick MD Unavailable Unavailable Astrid JrRoderick MD Unavailable Unavailable Winthrop JrRoderick MD Unavailable Unavailable Winthrop JrRoderick MD Unavailable Unavailable Astrid JrRoderick MD Unavailable Unavailable Winthrop JrRoderick MD Unavailable Unavailable Astrid JrRoderick MD Unavailable Unavailable Astrid JrRoderick MD Unavailable Unavailable Winthrop JrRoderick MD Unavailable Unavailable Astrid JrRoderick MD Unavailable Unavailable Winthrop JrRoderick MD Unavailable Unavailable Winthrop JrRoderick MD Unavailable Unavailable Winthrop JrRoderick MD Unavailable Unavailable Winthrop JrRoderick MD Unavailable Unavailable Astrid JrRoderick MD Unavailable Unavailable Astrid JrRoderick MD Unavailable Unavailable Astrid JrRoderick MD Unavailable Unavailable Winthrop JrRoderick MD Unavailable Unavailable Winthrop JrRoderick MD Unavailable Unavailable Winthrop JrRoderick MD Unavailable Unavailable Astrdi JrRoderick MD Unavailable Unavailable Astrid JrRoderick MD Unavailable Unavailable Winthrop JrRoderick MD Unavailable Unavailable Winthrop JrRoedrick MD Unavailable Unavailable Winthrop JrRoderick MD Unavailable Unavailable Winthrop JrRoderick MD Unavailable Unavailable Winthrop JrRoderick MD Unavailable Unavailable Astrid JrRoderick MD Unavailable Unavailable Winthrop JrRoderick MD Unavailable Unavailable Winthrop JrRoderick MD Unavailable Unavailable Astrid JrRoderick MD Unavailable Unavailable Winthrop JrRoderick MD Unavailable Unavailable Astrid JrRoderick MD Unavailable Unavailable Astrid JrRoderick MD Unavailable Unavailable Winthrop JrRoderick MD Unavailable Unavailable Astrid JrRoderick MD Unavailable Unavailable Winthrop JrRoderick MD Unavailable Unavailable Winthrop JrRoderick MD Unavailable Unavailable Astrid JrRoderick MD Unavailable Unavailable Astrid JrRoderick MD Unavailable Unavailable Astrid JrRoderick MD Unavailable Unavailable Astrid JrRoderick MD Unavailable Unavailable Winthrop JrRoderick MD Unavailable Unavailable Astrid JrRoderick MD Unavailable Unavailable Astrid JrRoderick MD Unavailable Unavailable Winthrop Jr, Roderick Mahan MD Unavailable Unavailable Astrid Jr, Roderick Mahan MD Unavailable Unavailable Astrid Jr, Roderick Mahan MD Unavailable Unavailable Winthrop Jr, Roderick Mahan MD Unavailable Unavailable Winthrop Jr, Roderick Mahan MD Unavailable Unavailable Winthrop Jr, Roderick Mahan MD Unavailable Unavailable Winthrop Jr, Roderick Mahan MD Unavailable Unavailable Astrid Jr, Roderick Mahan MD Unavailable Unavailable Winthrop Jr, Roderick Mahan MD Unavailable Unavailable Astrid Jr, Roderick Mahan MD Unavailable Unavailable Winthrop Jr, Roderick Mahan MD Unavailable Unavailable Winthrop Jr, Roderick Mahan MD Unavailable Unavailable Astrid Jr, Roderick Mahan MD Unavailable Unavailable Winthrop Jr, Roderick Mahan MD Unavailable Unavailable Astrid Jr, Roderick Mahan MD Unavailable Unavailable Winthrop Jr, Roderick Mahan MD Unavailable Unavailable Re-disclosure Warning The records that you are about to access may contain information from federally-assisted alcohol or drug abuse programs. If such information is present, then the following federally mandated warning applies: This information has been disclosed to you from records protected by federal confidentiality rules (42 CFR part 2). The federal rules prohibit you from making any further disclosure of this information unless further disclosure is expressly permitted by the written consent of the person to whom it pertains or as otherwise permitted by 42 CFR part 2. A general authorization for the release of medical or other information is NOT sufficient for this purpose. The Federal rules restrict any use of the information to criminally investigate or prosecute any alcohol or drug abuse patient.The records that you are about to access may contain highly sensitive health information, the redisclosure of which is protected by Article 27-F of the [facility] Public Health law. If you continue you may have access to information: Regarding HIV / AIDS; Provided by facilities licensed or operated by the [facility] Office of Mental Health; or Provided by the [facility] Office for People With Developmental Disabilities. If such information is present, then the following [facility] mandated warning applies: This information has been disclosed to you from confidential records which are protected by state law. State law prohibits you from making any further disclosure of this information without the specific written consent of the person to whom it pertains, or as otherwise permitted by law. Any unauthorized further disclosure in violation of state law may result in a fine or usp sentence or both. A general authorization for the release of medical or other information is NOT sufficient authorization for further disc losure. Family History Family Member Name Family Member Gender Family Member Status Date o f Status Description Data Source(s) Unknown Female Problem [facility] ([facility]) Unknown Female Problem [facility] ([facility]) Encounters Encounter Providers Location Date Indications Data Source(s ) Outpatient Attender: Thea YOUNGBLOOD [facility] 06/03/2021 10:30:00 AM EDT [facility] ([facility]) Outpatient Attender: Lucio YOUNGBLOOD Physical Therapy 01:15:00 PM EDT [facility] ([facility]) Outpatient Attender: Olya [email or web address] 07/2021 12:00:00 AM EDT - 04/01/2021 11:21:23 AM EDT Health system Unknown [address] [facility] [place] [address] 01/15/2021 12:00:00 AM EDT eCW1 ([facility]) Outpatient [address] [place] [address] 01/14/2021 12:00:00 AM EDT eCW1 ([facility]) Outpatient Attender: Thea YOUNGBLOOD [facility] 12/02/2020 10:30:00 AM EDT [facility] ([facility]) Outpatient Attender: Jacqueline [email or web address] 12:00:00 AM EST - 09/30/2020 11:44:42 AM EST [facility] Outpatient Attender: Negrito Resendiz Jr [id number] 06/29/20 12:00:00 AM EST - 06/29/2020 02:52:51 PM EST Endometrial intraepithelial neoplasia (EIN) [facility] Endometrial intraepithelial neoplasia (E IN) Outpatient Attender: Negrito Resendiz Jr 06/24/2020 12:00:[address] [facility] Unknown [address] [facility] [facility] [place] [address] 06/18/2020 12:00:00 AM EDT eCW1 ([facility]) Unknown [address] [facility] [place] [address] 06/11/2020 12:00:00 AM EDT eCW1 ([facility]) Immunizations Vaccine Date Status Description Data Source(s) COVID-19 VACCINE Nicole 11/10/2020 12:00:00 AM EDT completed [facility] Vaccine Series Complete: YESThis Data wa s Submitted to [facility] [employer]. Medications Medication Brand Name Start Date Product Form Dose Route Admi nistrative Instructions Pharmacy Instructions Status Indications Reaction Description Data Source(s) 90 mcg/actuation 06/09/2021 12:00:00 AM EDT HFA aerosol inha ler 8 INHALE 2 PUFFS BY MOUTH THREE TIMES A DAY NEEDED FOR WHEEZING INHALE 2 PUFFS BY MOUTH THREE TIMES A DAY NEEDED FOR WHEEZING SOLD: 06/09/2021 [facility] ezetimibe 10 MG Oral Tablet ezetimibe (ZETIA) 10 MG ta blet ezetimibe (ZETIA) 10 MG tablet 04/01/2021 12:00:00 AM EDT 10 mg Oral act daina Hypercholesteremia Take 1 tablet (10 mg total) by mouth daily [facility] Hypercholesteremia Lisinopril 5 MG Oral Tablet lisinopril (PRINIVIL,ZESTR IL) 5 MG tablet lisinopril (PRINIVIL,ZESTRIL) 5 MG tablet 03/29/2021 12:00:00 AM EDT 5 mg Or al active Take [address] mouth [address] [facility] Potassium Chloride 10 MEQ Extended Relea se Oral Capsule potassium chloride (MICRO-K) 10 MEQ CR capsule potassium chloride (MICRO-K) 10 MEQ CR capsule 03/29/2021 12:00:00 AM EDT 20 meq Oral active Take 20 mEq by mouth daily Health system 3 ML Insulin Glargine 100 UNT/ML Pen Inj caleb [Lantus] Lantus SoloStar 100 UNIT/ML SOPN Lantus SoloStar 100 UNIT/ML SOPN 03/22/2021 12:00:00 AM EDT active [facility] 6.5 % 01/01/2021 12:00:00 AM EDT drops 15 INSTILL 4 DROPS INTO BOTH EARS TWICE DAILY FOR 3 DAYS INSTILL 4 DROPS INTO BOTH EARS TWICE DAILY FOR 3 DAYS SOLD: 01/02/2021 [facility] apixaban 5 MG Oral Tablet Apixaban (ELIQUIS) 5 MG TABS tablet Apixaban (ELIQUIS) 5 MG TABS tablet 09/30/2020 12:00:00 AM EST 5 mg Oral active Take 1 tablet (5 mg total) by mouth 2 (two) times a day Health system 0.5 ML dulaglutide 3 MG/ML Auto-Injector [Trulicity] TRULICITY 1.5 MG/0.5ML SOPN TRULICITY 1.5 MG/0.5ML SOPN 09/29/2020 12:00:00 AM EST active once a week Health system 0.5 ML dulaglutide 1.5 MG/ML Auto-Inject or [Trulicity] Trulicity 0.75 MG/0.5ML Subcutaneous Solution Pen-injector Trulicity 0.75 MG/0.5ML Subcutaneous Lesia ution Pen-injector 06/26/2020 12:00:00 AM EST 0.75 mg Subcutaneous active Inject 0.75 mg into the skin once a week [facility] Oxybutynin chloride 5 MG Oral Tablet Oxy butynin Chloride 5 MG Oral Tablet (DITROPAN) Oxybutynin Chloride 5 MG Oral Tablet (DITROPAN) 2019 12:00:00 AM EST 5 mg Oral active Take 5 mg by mout h Two Times Daily [facility] Megestrol Acetate 40 MG Oral Tablet Mege strol Acetate 40 MG Oral Tablet (MEGACE) Megestrol Acetate 40 MG Oral Tablet (MEGACE) 06/22/2020 12:00:00 AM EST 40 mg Oral active Take 40 mg by mouth [facility] apixaban 2.5 MG Oral Tablet [Eliquis] Eliquis 2.5 MG O ral Tablet Eliquis 2.5 MG Oral Tablet 06/17/2020 12:00:00 AM EDT 2.5 mg Oral active Take 2.5 mg by mouth Two Times Daily [facility] Megestrol Acetate 40 MG Oral Tablet Megestrol Acetate 40 MG 05/25/2020 12:00:00 AM EDT 1.0 {tablet} active Megestrol A cetate 40 MG [facility] Megestrol Acetate 40 MG Oral Tablet Megestrol Acetate 40 MG 05/25/2020 12:00:00 AM EDT 1.0 {tablet} suspended Megestro l Acetate 40 MG [facility] Megestrol Acetate 40 MG Oral Tablet Megestrol Acetate 40 MG 05/25/2020 12:00:00 AM EDT 1.0 {tablet} active Megestrol A cetate 40 MG [facility] Megestrol Acetate 40 MG Oral Tablet Megestrol Acetate 40 MG 05/25/2020 12:00:00 AM EDT 1.0 {tablet} suspended Megestro l Acetate 40 MG [facility]CW1 ([facility]) glimepiride 2 MG Oral Tablet glimepiride (AMARYL) 2 MG tablet glimepiride (AMARYL) 2 MG tablet 2 mg Oral aborted Take 2 mg by mouth daily 1.5 tabs daily Health system Insurance Providers Payer name Policy type / Coverage type Policy ID Covered alliance party ID Covered alliance party's relationship to garibay Policy [place] Plan Information [employer] [place] 306/806 [id number] SP [id number] MEDICARE [id number] [place] [id number] W34 MEDICARE [id number] [place] [id number] W34 MEDICARE COMPLETE [id number] SP [id number] MEDICARE COMPLETE [id number] SP [id number] [facility] [id number] SP [id number] [facility] MGD MEDICARE [id number] SP [id number] MEDICARE BLUE PPO EXCELLUS [id number] SP [id number] [place] [facility] Commercial [id number] Self [id number] [place] [facility] Commercial [id number] Self [id number] [place] [employer] ([facility]) Commercial [id number] Self [id number] MEDICARE BLUE PPO 306 [id number] SP [id number] [facility]) Commercial [id number] Self [id number] [facility]) [employer] [id number] Self [id number] [place] [employer] [facility]) [employer] [id number] Self [id number] [place] [employer] [facility]) [employer] [id number] Self [id number] [place] [employer] [facility]) [employer] [id number] Self [id number] [place] [employer] [facility]) [employer] [id number] Self [id number] [place] [facility] [employer] [id number] Self [id number] MEDICARE COMPLETE [id number] SP [id number] MEDICARE COMPLETE [id number] SP [id number] MEDICARE COMPLETE [id number] SP [id number] [facility]) [employer] [id number] Self [id number] [facility]) [employer] [id number] Self [id number] [facility]) [employer] [id number] Self [id number] [facility]) [employer] [id number] Self [id number] [facility]) Commercial [id number] Self [id number] [facility]) [employer] [id number] Self [id number] [facility]) [employer] [id number] Self [id number] [facility]) [employer] [id number] Self [id number] [facility] [id number] Self [id number] [facility]) [employer] [id number] Self [id number] [facility]) [employer] [id number] Self [id number] [facility]) [employer] [id number] Self [id number] [place] Med[place] [id number] 75200.0 Self [id number] [place] [id number] 57574.0 Self [id number] [place] [id number] 72341.0 Self [id number] [place] [id number] 13425.0 Self [id number] [place] [id number] 45879.0 Self [id number] [place] [id number] 73759.0 Self [id number] [place] [id number] 62020.0 Self [id number] [place] [id number] 12484.0 Self [id number] [place] [id number] 55336.0 Self [id number] MEDICARE COMPLETE [id number] SP [id number] [facility] MEDICARE [id number] Sonia [id number] [facility] MEDICARE [id number] MEDICAID [id number] MEDICAID [id number] Sonia [id number] [facility] MEDICARE COMPLETE G [id number] Self [id number] MEDICAID M [id number] Self [id number] MEDICARE COMPLETE-[facility] O [id number] S [id number] Medicare Blue Commercial [id number] Self [id number] Medicaid Medigap Part B [id number] 68.0 Self [id number] Medicare Blue Commercial [id number] 68.0 Self Blue Shield [facility] Advantage Commercial [id number] Self Medicaid Medigap Part B [id number] 68.0 Self [id number] BC/BS Of [facility] Commercial [id number] [facility] MCRO [id number] MEDICARE BLUE PPO 306 [id number] SP [id number] MEDICARE COMPLETE [id number] SP [id number] MEDICAID M [id number] S [id number] MEDICARE COMPLETE-UHC O [id number] S [id number] MEDICARE COMPLETE [id number] SP [id number] MEDICARE [id number] SP [id number] MEDICARE COMPLETE-UHC O [id number] S [id number] [place] [id number] SP [id number] MEDICARE COMPLETE [id number] SP [id number] [facility] COMM[facility] PLAN MCDHMO [id number] SP [id number] [facility] MCRO [id number] SP [id number] MEDICARE COMPLETE UNAVAILABLE SP UNAVAILABLE [facility] [id number] SP [id number] [facility] [id number] SP [id number] [facility] Advantage Medigap Part B [id number] Self [id number] [facility] ([facility]) [facility] [id number] Self [id number] ANSI-Medicare Part B [id number] ANSI-Medicare Part B [id number] Medicaid Medigap Part B [id number] 68.0 Self [id number] ANSI-Medicare Part B [id number] ANSI-Medicare Part B [id number] [facility] [id number] MEDICARE COMPLETE [id number] SP [id number] ANSI-Medicare Part B [id number] [facility] B [id number] S [id number] ANSI-Medicare Part B [id number] Medicare Solutions Commercial [id number] Self [id number] [place] [id number] SP [id number] Medicare Part B Medicare Primary [id number] Self [id number] Medicare Solutions Commercial [id number] Self [id number] Medicaid Medigap Part B [id number] Self [id number] MEDICARE [id number] SP [id number] A MEDICARE COMPLETE [id number] SP [id number] MEDICAID [id number] SP [id number] MEDICARE COMPLETE [id number] SP [id number] [employer] [id number] SP [id number] SELF PAY UNAVAILABLE SP UNAVAILA [facility]LE [facility] PLUS [id number] SP [id number] SECURE [employer] [id number] SP [id number] [facility] [id number] S [id number] [facility] [id number] [place] [id number] Problems, Conditions, and Diagnoses Code Display Name Description Problem Type Effective Dates Data Source(s) E11.9 Type 2 diabetes mellitus without complic ations Type 2 diabetes mellitus without complic Diagnosis 04/01/2021 10:22:17 AM EDT Health system 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) Diagnosis 06/26/2020 07:34:05 PM [facility] N18.30 CKD (chronic kidney disease) stage 3, GF R 30-59 ml/min CKD (chronic kidney disease) stage 3, GFR 30-59 ml/min [id number] 04/01/2021 12:00:0 0 AM EDT Health system N30.20 Chronic cystitis Chronic cystitis Problem 02/05/2021 12 :00:00 AM EDT [facility] G47.33 NATACHA on CPAP NATACHA on CPAP [id number] 09/30/2020 12:00:00 AM EST Health system N85.02 Atypical endometrial hyperplasia Endometrial hyp erplasia with atypia Problem 06/17/2020 12:00:00 AM EDT eCW1 ([facility]) N85.01 Benign endometrial hyperplasia Endometri al hyperplasia without atypia, complex Problem 05/25/2020 12:00:00 AM EDT eCW1 ([facility]) Surgeries/Procedures Procedure Description Date Indications Data Source(s) OFFICE OUTPATIENT VISIT 25 MINUTES 06/03/2021 12:00:00 AM EDT [facility] ([facility]) ARTHROCENTESIS ASPIR&/INJECTION MAJOR JT/BURSA 021 12:00:00 AM EDT [facility] ([facility]) OFFICE OUTPATIENT VISIT 25 MINUTES 04/02/2021 12:00:00 AM EDT [facility] ([facility]) ECG ROUTINE ECG W/LEAST 12 LDS W/I&R <td>POCT AMB EKG</td><td>Routine</td><td>04/01/2021 11:00 AM EDT</td><td> Atrial fibrillation</td><td> </td> 04/01/2021 11:00:00 AM EDT Atrial fibrillation Health system Atrial fibrillation THYROID STIMULATING HORMONE TSH <td>TSH</td><td>Routine</td><td>03/23/2021</td><td></td><td> </td> 03/23/2021 12:00:00 AM EDT Health system LIPID PANEL <td>LIPID PANEL</td><td>Rout ine</td><td>03/23/2021</td><td></td><td> </td> 03/23/2021 12:00:00 AM EDT Health system BASIC METABOLIC PANEL CALCIUM TOTAL <td>BASIC METABOLI C PANEL</td><td>Routine</td><td>03/23/2021</td><td></td><td> </td> 03/23/2021 12:00:00 AM T Health system HEMOGLOBIN GLYCOSYLATED A1C <td>HEMOGLOBIN A1C</td><td>Routine</td><td>03/09/2021</td><td></td><td> </td> 03/09/2021 12:00:00 AM EDT Health system BASIC METABOLIC PANEL CALCIUM TOTAL <td>BASIC METABOLI C PANEL</td><td>Routine</td><td>02/09/2021</td><td></td><td> </td> 02/09/2021 12:00:00 AM [facility] BLOOD COUNT COMPLETE AUTO&AUTO DIFRNTL WBC COUNT <td>C BC AND DIFFERENTIAL</td><td>Routine</td><td>01/18/2021</td><td></td><td> </td> 01/18/2021 12:00:00 AM [facility] BASIC METABOLIC PANEL CALCIUM TOTAL <td>BASIC METABOLI C PANEL</td><td>Routine</td><td>01/18/2021</td><td></td><td> </td> [facility]O&AUTO DIFRNTL WBC COUNT <td>C BC AND DIFFERENTIAL</td><td>Routine</td><td>12/18/2020</td><td></td><td> </td> 12/18/2020 12:00:00 AM [facility] ARTHROCENTESIS ASPIR&/INJECTION MAJOR JT/BURSA 021 12:00:00 AM EST MEDENT ([facility]) Results ID Date Data Source [id number] 06/05/2021 04:21:00 AM EDT [facility] Name Value Range Interpretation Code Description Data Kavita rce(s) Supporting Document(s) SARS coronavirus 2 RNA [Presence] in Res piratory specimen by RUPAL with probe detection POSITIVE [facility] This lab was ordered by [facility] a nd reported by [facility]. ID Date Data Source [id number] 05/31/2021 12:00:00 AM EDT [facility] Name Value Range Interpretation Code Description Data Kavita rce(s) Supporting Document(s) SARS coronavirus 2 Ag NEGATIVE [facility] This lab was ordered by [facility] and reported by [facility]. ID Date Data Source [id number] 05/24/2021 12:00:00 AM EDT [facility] Name Value Range Interpretation Code Description Data Kavita rce(s) Supporting Document(s) SARS coronavirus 2 Ag NEGATIVE [facility] This lab was ordered by [facility] and reported by [facility]. ID Date Data Source [id number] 05/19/2021 12:00:00 AM EDT [facility] Name Value Range Interpretation Code Description Data Kavita rce(s) Supporting Document(s) SARS coronavirus 2 Ag NEGATIVE [facility] This lab was ordered by [facility] and reported by [facility]. ID Date Data Source [id number] 05/05/2021 03:00:00 PM EDT [facility] Name Value Range Interpretation Code Description Data Kavita rce(s) Supporting Document(s) SARS coronavirus 2 Ag [facility] This lab was ordered by [facility] and reported by [facility]. ID Date Data Source [id number] 04/28/2021 12:00:00 AM EDT [facility] Name Value Range Interpretation Code Description Data Kavita rce(s) Supporting Document(s) SARS coronavirus 2 Ag NEGATIVE [facility] This lab was ordered by [facility] and reported by [facility]. ID Date Data Source [id number] 01/21/2021 12:00:00 AM EDT [facility] Name Value Range Interpretation Code Description Data Kavita rce(s) Supporting Document(s) SARS coronavirus 2 Ag NEGATIVE [facility] This lab was ordered by [facility] and reported by [facility]. ID Date Data Source [id number] 01/07/2021 12:00:00 AM EDT [facility] Name Value Range Interpretation Code Description Data Kavita rce(s) Supporting Document(s) SARS coronavirus 2 Ag NEGATIVE [facility] This lab was ordered by [facility] and reported by [facility]. ID Date Data Source [id number] 01/04/2021 12:00:00 AM EDT [facility] Name Value Range Interpretation Code Description Data Kavita rce(s) Supporting Document(s) SARS coronavirus 2 Ag NEGATIVE [facility] This lab was ordered by [facility] and reported by [facility]. ID Date Data Source [id number] 12/28/2020 12:00:00 AM EDT [facility] Name Value Range Interpretation Code Description Data Kavita rce(s) Supporting Document(s) SARS coronavirus 2 Ag NEGATIVE [facility] This lab was ordered by [facility] and reported by [facility]. ID Date Data Source [id number] 12/15/2020 12:00:00 AM EDT [facility] Name Value Range Interpretation Code Description Data Kavita rce(s) Supporting Document(s) SARS coronavirus 2 Ag NEGATIVE [facility] This lab was ordered by [facility] and reported by [facility]. ID Date Data Source [id number] 11/20/2020 07:12:00 AM EDT [facility] Name Value Range Interpretation Code Description Data Kavita rce(s) Supporting Document(s) SARS-CoV-2 (COVID-19) RNA [Presence] in Respiratory specimen by RUPAL with probe detection Not Detected [facility] This lab was ordered by [facility] and reported by [facility]. ID Date Data Source [id number] 11/04/2020 10:00:00 AM EDT [facility] Name Value Range Interpretation Code Description Data Kavita rce(s) Supporting Document(s) SARS coronavirus 2 RNA Not Detected [facility] This lab was ordered by [facility] and reported by [facility]. ID Date Data Source [id number] 10/28/2020 07:00:00 AM EST [facility] Name Value Range Interpretation Code Description Data Kavita rce(s) Supporting Document(s) SARS coronavirus 2 RNA Not Detected [facility] This lab was ordered by [facility] and reported by [facility]. ID Date Data Source [id number] 10/14/2020 10:00:00 AM EST [facility] Name Value Range Interpretation Code Description Data Kavita rce(s) Supporting Document(s) SARS coronavirus 2 RNA Not Detected [facility] This lab was ordered by [facility] and reported by [facility]. ID Date Data Source [id number] 10/07/2020 09:30:00 AM EST [facility] Name Value Range Interpretation Code Description Data Kavita rce(s) Supporting Document(s) SARS coronavirus 2 RNA Not Detected [facility] This lab was ordered by [facility] and reported by [facility]. ID Date Data Source [id number] 09/30/2020 10:00:00 AM EST [facility] Name Value Range Interpretation Code Description Data Kavita rce(s) Supporting Document(s) SARS coronavirus 2 RNA Not Detected [facility] This lab was ordered by [facility] and reported by [facility]. ID Date Data Source [id number] 09/23/2020 10:00:00 AM EST [facility] Name Value Range Interpretation Code Description Data Kavita rce(s) Supporting Document(s) SARS coronavirus 2 RNA Not Detected [facility] This lab was ordered by [facility] and reported by [facility]. ID Date Data Source [id number] 09/16/2020 06:30:00 AM EST [facility] Name Value Range Interpretation Code Description Data Kavita rce(s) Supporting Document(s) SARS coronavirus 2 RNA Not Detected [facility] This lab was ordered by [facility] and reported by [facility]. ID Date Data Source [id number] 09/09/2020 09:00:00 AM EST [facility] Name Value Range Interpretation Code Description Data Kavita rce(s) Supporting Document(s) SARS coronavirus 2 RNA Not Detected [facility] This lab was ordered by [facility] and reported by [facility]. ID Date Data Source [id number] 09/02/2020 07:15:00 AM EST [facility] Name Value Range Interpretation Code Description Data Kavita rce(s) Supporting Document(s) SARS coronavirus 2 RNA Not Detected [facility] This lab was ordered by [facility] and reported by [facility]. ID Date Data Source [id number] 08/26/2020 10:00:00 AM EST [facility] Name Value Range Interpretation Code Description Data Kavita rce(s) Supporting Document(s) SARS coronavirus 2 RNA Not Detected [facility] This lab was ordered by [facility] and reported by [facility]. ID Date Data Source [id number] 08/19/2020 09:00:00 AM EST [facility] Name Value Range Interpretation Code Description Data Kavita rce(s) Supporting Document(s) SARS coronavirus 2 RNA [facility] This lab was ordered by [facility] and reported by [facility]. ID Date Data Source [id number] 08/12/2020 06:00:00 AM EST [facility] Name Value Range Interpretation Code Description Data Kavita rce(s) Supporting Document(s) SARS coronavirus 2 RNA [facility] This lab was ordered by [facility] and reported by [facility]. ID Date Data Source [id number] 08/05/2020 10:35:00 AM EST [facility] Name Value Range Interpretation Code Description Data Kaviat rce(s) Supporting Document(s) SARS coronavirus 2 RNA [facility] This lab was ordered by [facility] and reported by [facility]. ID Date Data Source [id number] 07/29/2020 12:00:00 PM EST [facility] Name Value Range Interpretation Code Description Data Kavita rce(s) Supporting Document(s) SARS coronavirus 2 RNA [facility] This lab was ordered by [facility] and reported by [facility]. ID Date Data Source [id number] 07/22/2020 12:00:00 PM EST [facility] Name Value Range Interpretation Code Description Data Kavita rce(s) Supporting Document(s) SARS coronavirus 2 RNA [facility] This lab was ordered by [facility] and reported by [facility]. ID Date Data Source [id number] 07/15/2020 11:00:00 AM EST [facility] Name Value Range Interpretation Code Description Data Kavita rce(s) Supporting Document(s) SARS coronavirus 2 RNA [facility] This lab was ordered by [facility] and reported by [facility]. ID Date Data Source [id number] 07/08/2020 10:45:00 AM EST [facility] Name Value Range Interpretation Code Description Data Kavita rce(s) Supporting Document(s) SARS coronavirus 2 RNA [facility] This lab was ordered by [facility] and reported by [facility]. ID Date Data Source [id number] 07/02/2020 12:30:00 PM EST [facility] Name Value Range Interpretation Code Description Data Kavita rce(s) Supporting Document(s) SARS coronavirus 2 RNA [facility] This lab was ordered by [facility] and reported by [facility]. ID Date Data Source [id number] 06/29/2020 04:26:05 PM EST [facility] Name Value Range Interpretation Code Description Data Kavita rce(s) Supporting Document(s) Progress Note [facility] [id number] m [file] INDEX [id number] [file] [id number]= Procedure Social History Code Duration Value Status Description Data Source(s ) Smoking 01/06/2021 12:00:00 AM EDT Never Smoker completed Never S moker [facility] Smoking 01/06/2021 12:00:00 AM EDT Never Smoker completed Never S moker [facility]CW[facility] ([facility]) Alcohol intake 06/29/2020 12:00:00 AM EST Ex-drinker (finding) comp leted Ex- drinker (finding) [facility] Tobacco use and exposure 06/29/2020 12:00:00 AM EST Never used co mpleted Never used [facility] Smoking 06/29/2020 12:00:00 AM EST Never smoker completed Never s [facility] Smoking 05/25/2020 12:00:00 AM EDT Never Smoker completed Never S moker [facility]CW[facility]) Smoking 05/25/2020 12:00:00 AM EDT Never Smoker completed Never S moker eCW1 ([facility]) Vital Signs ID Date Data Source UNK Name Value Range Interpretation Code Description Data Source(s) Diastolic blood pressure 80 mm[Hg] 80 mm[Hg] [facility] ([facility]) Systolic blood pressure 124 mm[Hg] 124 mm[Hg] M EDENT ([facility]) Respiratory rate 20 /min 20 /min [facility] ( [facility] Heart rate 64 /min 64 /min [facility] ([facility] ) Body weight 280.00 [lb_av] 280.00 [lb_av] MEDEN T ([facility], ) Body mass index (BMI) [Ratio] 54.7 kg/m2 54.7 k g/m2 [facility] ([facility] ) Bantam body weight 100 [lb_av] 100 [lb_av] MEDEN T ([facility] ) Body height 60 [in_i] 60 [in_i] MEDENT ([facility], ) 5'0" Body height 152.4 cm 152.4 cm Health system Body weight 128.822 kg 128.822 kg Health system Body mass index (BMI) [Ratio] 55.46 kg/m2 55.46 kg/m2 Health system Oxygen saturation in Arterial blood by Pulse oximetry 92 % 92 % Health system Systolic blood pressure 132 mm[Hg] 132 mm[Hg] [facility] Diastolic blood pressure 78 mm[Hg] 78 mm[Hg] Health system Heart rate 78 /min 78 /min [facility] Body weight 290 [lb_av] 290 [lb_av] W1 ([facility]) Body height 61 [in_i] 61 [in_i] eCW1 ([facility]) Body mass index (BMI) [Ratio] 54.79 kg/m2 54.79 kg/m2 [facility] Systolic blood pressure 134 mm[Hg] 134 mm[Hg] e CW1 [facility] Diastolic blood pressure 70 mm[Hg] 70 mm[Hg] eCW1 [facility] Heart rate 80 /min 80 /min [facility] ([facility] ) Respiratory rate 20 /min 20 /min [facility] ( [facility] ) Systolic blood pressure 140 mm[Hg] 140 mm[Hg] M EDENT ([facility] ) Diastolic blood pressure 80 mm[Hg] 80 mm[Hg] [facility] ([facility] ) Body temperature 97.1 [degF] 97.1 [degF] MEDENT ([facility]) Diastolic blood pressure 82 mm[Hg] 82 mm[Hg] [facility] ([facility]) Body height 71 [in_i] 71 [in_i] [facility] ([facility]) 5'11" Body weight 205.38 [lb_av] 205.38 [lb_av] MEDEN T ([facility] ) Body mass index (BMI) [Ratio] 28.6 kg/m2 28.6 k g/m2 MED[facility] ([facility]) Systolic blood pressure 122 mm[Hg] 122 mm[Hg] M EDENT ([facility] ) ID Date Data Source [id number] 06/29/2020 04:26:05 PM [facility] Name Value Range Interpretation Code Description Data Source(s) Body height Measured [address] [facility] Patient Treatment Plan of Care Planned Activity Planned Date Details Description Data Source (s) ezetimibe 10 MG Oral Tablet 04/01/2021 12:00:00 AM EDT Health system Potassium Chloride 10 MEQ Extended Release Oral Capsul e 03/29/2021 12:00:00 AM EDT [facility] Lisinopril 5 MG Oral Tablet 03/29/2021 12:00:00 AM EDT Health system 3 ML Insulin Glargine 100 UNT/ML Pen Injector [Lantus] 03/22/2021 12:00:00 AM EDT [facility] apixaban 5 MG Oral Tablet 09/30/2020 12:00:00 AM [facility] 0.5 ML dulaglutide 3 MG/ML Auto-Injector [Trulicity] 021 12:00:00 AM [facility] 0.5 ML dulaglutide 1.5 MG/ML Auto-Injector [Trulicity] 06/26/2020 12:00:00 AM [facility] ospital Oxybutynin chloride 5 MG Oral Tablet 06/22/2020 12:00:00 AM [facility] Megestrol Acetate 40 MG Oral Tablet 06/22/2020 12:00:00 AM [facility] apixaban 2.5 MG Oral Tablet [Eliquis] 06/17/2020 12:00:[address] [facility] Megestrol Acetate 40 MG Oral Tablet 05/25/2020 12:00:00 AM EDT [facility]CW[facility] Megestrol Acetate 40 MG Oral Tablet 05/25/2020 12:00:00 AM EDT eCW1 ([facility]) glimepiride 2 MG Oral Tablet Health system
[2021-07-16 15:35] LABS: BASO # 0.1 10^3/uL (0.0-0.2); BASO % 0.2 % (0.0-1.0); HEMATOCRIT 37.9 % (36.0-47.0); LYMPH % 2.4 % (24.0-44.0); MEAN CORPUSCULAR HEMOGLOBIN 31.6 pg (27.0-33.0); MEAN CORPUSCULAR HGB CONC 31.7 g/dl (32.0-36.5); MEAN CORPUSCULAR VOLUME 99.7 fl (80.0-96.0); MONO # 2.4 10^3/uL (0.0-0.8); MONO % 5.8 % (2.0-8.0); NEUTROPHILS # 37.1 10^3/uL (1.5-8.5); NEUTROPHILS % 88.3 % (36.0-66.0); PLATELET COUNT, AUTOMATED 262 10^3/uL (150-450)
[2021-07-16] MEDS ORDERED: NS 1,000 ML IV ONE (15:45)
[2021-07-16 15:59] LABS: ALBUMIN 2.3 GM/DL (3.2-5.2); BILIRUBIN,DIRECT 0.5 MG/DL (0.0-0.2); BILIRUBIN,TOTAL 0.8 MG/DL (0.2-1.0); TOTAL PROTEIN 6.7 GM/DL (6.4-8.2)
[2021-07-16] MEDS: GASTROGRAFIN SOLUTION 30ML PO SCH ×2 (16:15→17:25)
[2021-07-16 16:47] LABS: RSV AMPLIFICATION NEGATIVE (NEGATIVE)
[2021-07-16] MEDS ORDERED: EZET10TA21 PO (16:52)
[2021-07-16] MEDS ORDERED: POTA10TA17 PO (16:52)
[2021-07-16] MEDS ORDERED: LANTINJ4 SC (16:52)
[2021-07-16] MEDS ORDERED: ATOR40TA75 PO (16:52)
[2021-07-16] MEDS ORDERED: MILKSUS3 PO (16:52)
[2021-07-16] MEDS ORDERED: TRUL0.5I SC (16:52)
[2021-07-16] MEDS ORDERED: PRESCAP PO (16:52)
[2021-07-16] MEDS ORDERED: TRAM50TA2 PO (16:52)
[2021-07-16] MEDS ORDERED: CEFT1INJ5 IM (16:52)
[2021-07-16] MEDS ORDERED: BISA10SU27 PR (16:52)
[2021-07-16] MEDS ORDERED: LISI-898 PO (16:52)
[2021-07-16] MEDS ORDERED: HOME MED LIST COMPLETE! XX SCH (16:55)
[2021-07-16] MEDS ORDERED: cefTRIAXone SOD 1 GM in D5W MINI-BAG PLUS 50 ML IV ONE (18:15)
--- NOTE | 2021-07-16 19:22 | REPVR ---
PROCEDURE INFORMATION: Exam: CT Abdomen And Pelvis Without Contrast Exam date and time: 07/16/2021 5:31 PM Age: 76 years old Clinical indication: Abnormal findings; Abnormal radiologic finding of the abdomen; Radiologic exam and body structure: Kub; Additional info: Potential sbo seen on earlier kub TECHNIQUE: Imaging protocol: Computed tomography of the abdomen and pelvis without contrast. Radiation optimization: All CT scans at this facility use at least one of these dose optimization techniques: automated exposure control; mA and/or kV adjustment per patient size (includes targeted exams where dose is matched to clinical indication); or iterative reconstruction. COMPARISON: CR Abdomen,Flat Plate KUB 07/16/2021 12:28 PM FINDINGS: Lungs: Mild bibasilar fibro-atelectatic change and question of minimal infiltrates. Pleural spaces: Trace right pleural effusion. Liver: Normal. No mass. Gallbladder and bile ducts: Distended gallbladder measuring 7.0 cm with internal faint stones and sludge. There is wall thickening and edema with pericholecystic infiltration consistent with cholecystitis. Pancreas: Pancreatic atrophy with fatty infiltration. Spleen: Normal. No splenomegaly. Adrenal glands: Fullness of the adrenals bilaterally, left greater than right suggesting hyperplasia. Kidneys and ureters: Mild left renal atrophy with probable left renal cyst measuring 3.2 cm with a Hounsfield measurement of 23. No follow-up imaging is recommended. Stomach and bowel: Borderline small bowel containing contrast and gas with a few air-fluid levels which may reflect minimal ileus. Minimal sigmoid diverticulosis without diverticulitis. Appendix: A normal appendix is seen. Intraperitoneal space: Trace perihepatic fluid is noted. Vasculature: There is mild calcification of the abdominal aorta with extension into the iliac arteries. Lymph nodes: Unremarkable. No enlarged lymph nodes. Urinary bladder: Unremarkable as visualized. Reproductive: There is an IUD in the uterus. Bones/joints: Marked degenerative changes of the hips bilaterally with [id number] articulation. Soft tissues: Unremarkable. IMPRESSION: 1. Distended gallbladder with faint stones and sludge with evidence of cholecystitis with trace perihepatic fluid which is likely reactive. 2. Borderline small bowel distention with a few air-fluid levels which may reflect minimal ileus. 3. IUD in the uterus. 4. Mild bibasilar fibro-atelectatic change and question of minimal infiltrates. 5. Marked degenerative changes of the hips bilaterally. 6. Minimal sigmoid diverticulosis without radiographic evidence of diverticulitis. 7. Pancreatic atrophy with fatty infiltration. COMMENTS: Consistent with the [employer]'s Incidental Findings Committee white paper (J Am Yojana Radiol 2018): Any incidental renal lesion less than 1 cm or classified as too small to characterize, or any incidental cystic renal lesion characterized as simple-appearing, is likely benign. No follow-up imaging is recommended for these lesions per consensus recommendations based on imaging criteria. Electronically signed by: Peter Nieves On 07/16/2021 19:21:54 PM
[2021-07-16] MEDS ORDERED: metroNIDAZOLE 500 MG in IV 1 EA IV ONE (20:00)
[2021-07-16] MEDS ORDERED: LR 1,000 ML IV ONE ×3 (20:00→23:00)
--- OUTSIDE RECORDS SUMMARY | 2021-07-16 20:12 | CCD ---
Author Author [facility] Organization [facility] Address Unknown Phone Unavailable Care Team Providers Care Brazer Crawler Torch Name Role Phone Trickey, J Thea PA [...] Olya PA Unavailable Unavailable Fons, M Jacqueline JOB FORWARDER Unavailable Unavailable Fons, M Jacqueline JOB FORWARDER Unavailable Unavailable Fons, M Jacqueline JOB FORWARDER Unavailable Unavailable Fons, M Jacqueline JOB FORWARDER Unavailable Unavailable Fons, M Jacqueline JOB FORWARDER Unavailable Unavailable Fons, M Jacqueline JOB FORWARDER Unavailable Unavailable Fons, M Jacqueline JOB FORWARDER Unavailable Unavailable Fons, M Jacqueline JOB FORWARDER Unavailable Unavailable Fons, M Jacqueline JOB FORWARDER Unavailable Unavailable Fons, M Jacqueline JOB FORWARDER Unavailable Unavailable Fons, M Jacqueline JOB FORWARDER Unavailable Unavailable Fons, M Jacqueline JOB FORWARDER Unavailable Unavailable Fons, M Jacqueline JOB FORWARDER Unavailable Unavailable Fons, M Jacqueline JOB FORWARDER Unavailable Unavailable Fons, M Jacqueline JOB FORWARDER Unavailable Unavailable Fons, M Jacqueline JOB FORWARDER Unavailable Unavailable Fons, M Jacqueline JOB FORWARDER Unavailable Unavailable Fons, M Jacqueline JOB FORWARDER Unavailable Unavailable Fons, M Jacqueline JOB FORWARDER Unavailable Unavailable Fons, M Jacqueline JOB FORWARDER Unavailable Unavailable Fons, M Jacqueline JOB FORWARDER Unavailable Unavailable Fons, M Jacqueline JOB FORWARDER Unavailable Unavailable Fons, M Jacqueline JOB FORWARDER Unavailable Unavailable Fons, M Jacqueline JOB FORWARDER Unavailable Unavailable Fons, M Jacqueline JOB FORWARDER Unavailable Unavailable Fons, M Jacqueline JOB FORWARDER Unavailable Unavailable Fons, M Jacqueline JOB FORWARDER Unavailable Unavailable Fons, M Jacqueline JOB FORWARDER Unavailable Unavailable Fons, M Jacqueline JOB FORWARDER Unavailable Unavailable Fons, M Jacqueline JOB FORWARDER Unavailable Unavailable Fons, M Jacqueline JOB FORWARDER Unavailable Unavailable Fons, M Jacqueline JOB FORWARDER Unavailable Unavailable Fons, M Jacqueline JOB FORWARDER Unavailable Unavailable Fons, M Jacqueline JOB FORWARDER Unavailable Unavailable Fons, M Jacqueline JOB FORWARDER Unavailable Unavailable Fons, M Jacqueline JOB FORWARDER Unavailable Unavailable Fons, M Jacqueline JOB FORWARDER Unavailable Unavailable Fons, M Jacqueline JOB FORWARDER Unavailable Unavailable Fons, M Jacqueline JOB FORWARDER Unavailable Unavailable Fons, M Jacqueline JOB FORWARDER Unavailable Unavailable Fons, M Jacqueline JOB FORWARDER Unavailable Unavailable Fons, M Jacqueline JOB FORWARDER Unavailable Unavailable Fons, M Jacqueline JOB FORWARDER Unavailable Unavailable Fons, M Jacqueline JOB FORWARDER Unavailable Unavailable Fons, M Jacqueline JOB FORWARDER Unavailable Unavailable Fons, M Jacqueline JOB FORWARDER Unavailable Unavailable Fons, M Jacqueline JOB FORWARDER Unavailable Unavailable Fons, M Jacqueline JOB FORWARDER Unavailable Unavailable Fons, M Jacqueline JOB FORWARDER Unavailable Unavailable Fons, M Jacqueline JOB FORWARDER Unavailable Unavailable Fons, M Jacqueline JOB FORWARDER Unavailable Unavailable Fons, M Jacqueline JOB FORWARDER Unavailable Unavailable Fons, M Jacqueline JOB FORWARDER Unavailable Unavailable Roderick Resendiz Jr, MD Unavailable [...] Unavailable Roderick Resendiz Jr, MD Unavailable Unavailable [place] JrRoderick MD Unavailable Unavailable Astrid JrRoderick MD Unavailable Unavailable Astrid JrRoderick MD Unavailable Unavailable Astrid JrRoderick MD Unavailable Unavailable [place] JrRoderick MD Unavailable Unavailable Astrid JrRoderick MD Unavailable Unavailable [place] JrRoderick MD Unavailable Unavailable [place] JrRoderick MD Unavailable Unavailable Astrid JrRoderick MD Unavailable Unavailable [place] JrRoderick MD Unavailable Unavailable Astrid JrRoderick MD Unavailable Unavailable Astrid JrRoderick MD Unavailable Unavailable [place] JrRoderick MD Unavailable Unavailable Astrid JrRoderick MD Unavailable Unavailable [place] JrRoderick MD Unavailable Unavailable [place] JrRoderick MD Unavailable Unavailable [place] JrRoderick MD Unavailable Unavailable [place] JrRoderick MD Unavailable Unavailable Astrid JrRoderick MD Unavailable Unavailable Astrid JrRoderick MD Unavailable Unavailable Astrid JrRoderick MD Unavailable Unavailable [place] JrRoderick MD Unavailable Unavailable [place] JrRoderick MD Unavailable Unavailable [place] JrRoderick MD Unavailable Unavailable Astrid JrRoderick MD Unavailable Unavailable Astrid JrRoderick MD Unavailable Unavailable [place] JrRoderick MD Unavailable Unavailable [place] JrRoderick MD Unavailable Unavailable [place] JrRoderick MD Unavailable Unavailable [place] JrRoderick MD Unavailable Unavailable [place] JrRoderick MD Unavailable Unavailable Astrid JrRoderick MD Unavailable Unavailable [place] JrRoderick MD Unavailable Unavailable [place] JrRoderick MD Unavailable Unavailable Astrid JrRoderick MD Unavailable Unavailable [place] JrRoderick MD Unavailable Unavailable Astrid JrRoderick MD Unavailable Unavailable Astrid JrRoderick MD Unavailable Unavailable [place] JrRoderick MD Unavailable Unavailable Astrid JrRoderick MD Unavailable Unavailable [place] JrRoderick MD Unavailable Unavailable [place] JrRoderick MD Unavailable Unavailable Astrid JrRoderick MD Unavailable Unavailable Astrid JrRoderick MD Unavailable Unavailable Astrid JrRoderick MD Unavailable Unavailable Astrid JrRoderick MD Unavailable Unavailable [place] JrRoderick MD Unavailable Unavailable Astrid JrRoderick MD Unavailable Unavailable Astrid JrRoderick MD Unavailable Unavailable [place] Jr, Roderick Mahan MD Unavailable Unavailable Astrid Jr, Roderick Mahan MD Unavailable Unavailable Astrid Jr, Roderick Mahan MD Unavailable Unavailable [place] Jr, Roderick Mahan MD Unavailable Unavailable [place] Jr, Roderick Mahan MD Unavailable Unavailable [place] Jr, Roderick Mahan MD Unavailable Unavailable [place] Jr, Roderick Mahan MD Unavailable Unavailable Astrid Jr, Roderick Mahan MD Unavailable Unavailable [place] Jr, Roderick Mahan MD Unavailable Unavailable Astrid Jr, Roderick Mahan MD Unavailable Unavailable [place] Jr, Roderick Mahan MD Unavailable Unavailable [place] Jr, Roderick Mahan MD Unavailable Unavailable Astrid Jr, Roderick Mahan MD Unavailable Unavailable [place] Jr, Roderick Mahan MD Unavailable Unavailable Astrid Jr, Roderick Mahan MD Unavailable Unavailable [place] Jr, Roderick Mahan MD Unavailable Unavailable Re-disclosure [...] is protected by Article 27-F of the [facility] Public Health law. If you continue you may have access to information: Regarding HIV / AIDS; Provided by facilities licensed or operated by the [facility] Office of Mental Health; or Provided by the [facility] Office for People With Developmental Disabilities. If such information is present, then the following [facility] mandated warning applies: This information has been [...] law may result in a fine or residential sentence or both. A general authorization for the release of medical or other information is NOT sufficient authorization for further disc losure. Family History Family Member Name Family Member Gender Family Member Status Date o f Status Description Data Source(s) Unknown Female Problem [facility] ([facility]) Unknown Female Problem [facility] ([facility]) Encounters Encounter Providers Location Date Indications Data Source(s ) Outpatient Attender: Thea YOUNGBLOOD [facility] 06/03/2021 10:30:00 AM EDT [facility] ([facility]) Outpatient Attender: Lucio YOUNGBLOOD [facility] 01:15:00 PM EDT [facility] ([facility]) Outpatient Attender: lOya [email or web address] 07/2021 12:00:00 AM EDT - 04/01/2021 11:21:23 AM EDT [facility] [place] [address] [place] [address] 01/15/2021 12:00:00 AM EDT eCW1 ([facility]) [place] [address] [place] [address] 01/14/2021 12:00:00 AM EDT eCW1 ([facility]) Outpatient Attender: Thea YOUNGBLOOD [facility] 12/02/2020 10:30:00 AM EDT [facility] ([facility]) Outpatient Attender: Jacqueline MEZA.[email or web address].DARIUSZ 12:00:00 AM EST - 09/30/2020 11:44:42 AM EST [facility] Outpatient Attender: Negrito Resendiz Jr [id number] 06/29/20 12:00:00 AM EST - 06/29/2020 02:52:51 PM EST Endometrial intraepithelial neoplasia (EIN) [facility] Endometrial intraepithelial neoplasia (E IN) Outpatient Attender: Negrito Resendiz Jr 06/24/2020 12:00:[address] [facility] [place] [address] [place] [address] 06/18/2020 12:00:00 AM EDT eCW1 ([facility]) [place] [address] [place] [address] 06/11/2020 12:00:00 AM EDT eCW1 ([facility]) Immunizations Vaccine Date Status Description Data Source(s) COVID-19 VACCINE Nicole 11/10/2020 12:00:00 AM EDT completed [place] Vaccine Series Complete: YESThis Data wa s Submitted to [facility] Via [employer]. Medications Medication Brand Name Start Date Product [...] tablet (10 mg total) by mouth daily [facility] Hypercholesteremia Lisinopril 5 MG Oral Tablet lisinopril (PRINIVIL,ZESTR IL) 5 MG tablet lisinopril (PRINIVIL,ZESTRIL) 5 MG tablet 03/29/2021 12:00:00 AM EDT 5 mg Or al active Take 5 mg by mouth daily [facility] Potassium Chloride 10 MEQ Extended Relea se Oral Capsule potassium chloride (MICRO-K) 10 MEQ CR capsule potassium chloride (MICRO-K) 10 MEQ CR capsule 03/29/2021 12:00:00 AM EDT 20 meq Oral active Take 20 mEq by mouth daily [facility] 3 ML Insulin Glargine 100 UNT/ML Pen Inj caleb [Lantus] Lantus SoloStar 100 UNIT/ML SOPN Lantus SoloStar 100 UNIT/ML SOPN 03/22/2021 12:00:00 AM EDT active [facility] 6.5 % 01/01/2021 12:00:00 AM EDT drops [...] by mouth 2 (two) times a day [facility] 0.5 ML dulaglutide 3 MG/ML Auto-Injector [Trulicity] TRULICITY 1.5 MG/0.5ML SOPN TRULICITY 1.5 MG/0.5ML SOPN 09/29/2020 12:00:00 AM EST active once a week [facility] 0.5 ML dulaglutide 1.5 MG/ML Auto-Inject or [Trulicity] Trulicity 0.75 MG/0.5ML Subcutaneous Solution Pen-injector Trulicity 0.75 MG/0.5ML Subcutaneous Lesia ution Pen-injector 06/26/2020 12:00:00 AM EST 0.75 mg Subcutaneous active Inject 0.75 mg into the skin once a week [facility] Oxybutynin chloride 5 MG Oral Tablet Oxy butynin Chloride 5 MG Oral Tablet (DITROPAN) Oxybutynin Chloride 5 MG Oral Tablet (DITROPAN) 2019 12:00:00 AM EST 5 mg Oral active Take 5 mg by mout h Two Times Daily [facility] Megestrol Acetate 40 MG Oral Tablet Mege strol Acetate 40 MG Oral Tablet (MEGACE) Megestrol Acetate 40 MG Oral Tablet (MEGACE) 06/22/2020 12:00:00 AM EST 40 mg Oral active Take 40 mg by mouth [facility] apixaban 2.5 MG Oral Tablet [Eliquis] Eliquis 2.5 MG O ral Tablet Eliquis 2.5 MG Oral Tablet 06/17/2020 12:00:00 AM EDT 2.5 mg Oral active Take 2.5 mg by mouth Two Times Daily [facility] Megestrol Acetate 40 MG Oral Tablet Megestrol Acetate 40 MG 05/25/2020 12:00:00 AM EDT 1.0 {tablet} active Megestrol A cetate 40 MG eCW1 ([facility]) Megestrol Acetate 40 MG Oral Tablet Megestrol Acetate 40 MG 05/25/2020 12:00:00 AM EDT 1.0 {tablet} suspended Megestro l Acetate 40 MG eCW1 ([facility]) Megestrol Acetate 40 MG Oral Tablet Megestrol Acetate 40 MG 05/25/2020 12:00:00 AM EDT 1.0 {tablet} active Megestrol A cetate 40 MG eCW1 ([facility]) Megestrol Acetate 40 MG Oral Tablet Megestrol Acetate 40 MG 05/25/2020 12:00:00 AM EDT 1.0 {tablet} suspended Megestro l Acetate 40 MG eCW1 ([facility]) glimepiride 2 MG Oral Tablet glimepiride (AMARYL) 2 MG tablet glimepiride (AMARYL) 2 MG tablet 2 mg Oral aborted Take 2 mg by mouth daily 1.5 tabs daily [facility] Insurance Providers Payer name Policy type / Coverage type Policy ID Covered republican ID Covered republican's relationship to garibay Policy [place] Plan Information BCBS OF [place] 306/806 [id number] SP [id number] MEDICARE [id number] Sonia [id number] MEDICARE [id number] Sonia [id number] MEDICARE COMPLETE [id number] SP [id number] MEDICARE COMPLETE [id number] SP [id number] UNITED [facility] MGD MEDICARE [id number] SP [id number] [facility] MGD MEDICARE [id number] SP [id number] MEDICARE BLUE PPO EXCELLUS [id number] SP [id number] [place] [facility] Commercial [id number] Self [id number] [place] [facility] Commercial [id number] Self [id number] [place] ([facility]) Commercial [id number] Self [id number] MEDICARE BLUE PPO [id number] SP [id number] [facility]) Commercial [id number] Self [id number] [facility]) Appature [id number] [id number] Self [id number] [place] Mun[place] [facility]) Appature [id number] 2.16.840.1.77[id number] Self [id number] [place] [facility]) Appature [id number] [id number] Self [id number] [place] [facility]) Appature [id number] 2.16.840.1.92[id number] Self [id number] [place] [facility]) Appature [id number] 2.16.840.1.96[id number] Self [id number] [place] [facility] Appature [id number] 2.16.840.1.082174.3.227.99.991.11072.0 Self [id number] MEDICARE COMPLETE [id number] SP [id number] MEDICARE COMPLETE [id number] SP [id number] MEDICARE COMPLETE [id number] SP [id number] [facility]) Appature [id number] 2.16.840.1.669710.3.227.99.991.63081.0 Self [id number] [facility]) Appature [id number] 2.16.840.1.059004.3.227.99.991.89402.0 Self [id number] [facility]) Appature [id number] 2.16.840.1.651708.3.227.99.991.25717.0 Self [id number] [facility]) Appature [id number] 2.16.840.1.054392.3.227.99.991.64717.0 Self [id number] [facility]) Commercial [id number] 2.16.840.1.042225.3.227.99.991.77352.0 Self [id number] [facility]) Appature [id number] 2.16.840.1.358150.3.227.99.991.45694.0 Self [id number] [facility]) Appature [id number] 2.16.840.1.941926.3.227.99.991.45121.0 Self [id number] [facility]) Appature [id number] 2.16.840.1.860588.3.227.99.991.71896.0 Self [id number] [facility] [id number] 2.16.840.1.631095.3.227.99.991.11912.0 Self [id number] [facility]) Appature [id number] 2.16.840.1.790632.3.227.99.991.28540.0 Self [id number] [facility]) Appature [id number] 2.16.840.1.269648.3.227.99.991.20420.0 Self [id number] [facility]) Appature [id number] 2.16.840.1.092080.3.227.99.991.22533.0 Self [id number] [place] Med[place] [id number] 2.16.840.1.574984.3.227.99.991. 49235.0 Self [id number] [place] [id number] 2.16.840.1.641001.3.227.99.991. 24462.0 Self [id number] [place] [id number] 2.16.840.1.176658.3.227.99.991. 74731.0 Self [id number] [place] [id number] 2.16.840.1.768021.3.227.99.991. 50643.0 Self [id number] [place] [id number] 2.16.840.1.305566.3.227.99.991. 39774.0 Self [id number] [place] [id number] 2.16.840.1.689955.3.227.99.991. 98505.0 Self [id number] [place] [id number] 2.16.840.1.906455.3.227.99.991. 44408.0 Self [id number] [place] [id number] 2.16.840.1.068460.3.227.99.991. 84205.0 Self [id number] [place] [id number] 2.16.840.1.782864.3.227.99.991. 93324.0 Self [id number] MEDICARE COMPLETE [id number] SP [id number] [facility] MEDICARE [id number] Sonia [id number] [facility] MEDICARE [id number] MEDICAID [id number] MEDICAID [id number] Sonia [id number] [facility] MEDICARE COMPLETE G [id number] Self [id number] MEDICAID M [id number] Self [id number] MEDICARE COMPLETE-[facility] O [id number] S [id number] Medicare Blue Commercial [id number]. [id number] Self [id number] Medicaid Medigap Part B [id number] 68.0 Self [id number] Medicare Blue Commercial .[id number] 68.0 Self Blue Shield [facility] Advantage Commercial [id number] Self Medicaid Medigap Part B [id number] 68.0 Self [id number] BC/BS Of [facility] Commercial [id number] Self [facility] MCRO [id number] MEDICARE BLUE PPO 306 [id number] SP [id number] MEDICARE COMPLETE [id number] SP [id number] MEDICAID M [id number] S [id number] MEDICARE COMPLETE-UHC O [id number] S [id number] MEDICARE COMPLETE [id number] SP [id number] MEDICARE [id number] SP [id number] MEDICARE COMPLETE-UHC O [id number] S [id number] [place] [id number] SP [id number] MEDICARE COMPLETE [id number] SP [id number] [facility] COMMUNITY PLAN [id number] SP [id number] [facility] MCRO [id number] SP [id number] MEDICARE COMPLETE UNAVAILABLE SP UNAVAILABLE [facility] [id number] SP [id number] [facility] [id number] SP [id number] Blue [facility] Advantage Medigap Part B [id number] Self [id number] [facility] ([facility]) [facility] [id number] Self [id number] ANSI-Medicare Part B [id number] ANSI-Medicare Part B [id number] Medicaid Medigap Part B [id number] 68.0 Self [id number] ANSI-Medicare Part B [id number] ANSI-Medicare Part B [id number] [facility] [id number] MEDICARE COMPLETE [id number] SP [id number] ANSI-Medicare Part B [id number] [facility] B [id number] S [id number] ANSI-Medicare Part B [id number] Medicare Solutions Commercial [id number] Self [id number] [place] [id number] SP [id number] Medicare Part B Medicare Primary [id number] Self [id number] Medicare Solutions Commercial [id number] Self [id number] Medicaid Medigap Part B [id number] Self [id number] MEDICARE [id number] SP [id number] A MEDICARE COMPLETE [id number] SP [id number] MEDICAID [id number] SP [id number] MEDICARE COMPLETE [id number] SP [id number] [employer] [id number] SP [id number] SELF PAY UNAVAILABLE SP [facility]NAVAILA [facility] PL[facility] [id number] SP [id number] SECURE HORIZONS [id number] SP [id number] [facility] [id number] S [id number] [facility] [id number] [place] [id number] Problems, Conditions, and Diagnoses Code Display Name Description Problem Type Effective Dates Data Source(s) E11.9 Type 2 diabetes mellitus without complic ations Type 2 diabetes mellitus without complic Diagnosis 04/01/2021 10:22:17 AM EDT [facility] 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 Dependence on other enabling machines an Diagnosis 04/01/2021 10:22:17 AM EDT [facility] G47.33 Obstructive sleep apnea (adult) (pediatr ic) Obstructive sleep apnea (adult) (pediatr Diagnosis 04/01/2021 10:22:17 AM EDT [facility] I48.91 Unspecified atrial fibrillation Unspecified atri al fibrillation Diagnosis 04/01/2021 10:22:17 AM EDT [facility] E78.00 Pure hypercholesterolemia, unspecified P ure hypercholesterolemia, unspecified Diagnosis 04/01/2021 10:22:17 AM EDT [facility] I10 Essential (primary) hypertension Essential (primary) h ypertension Diagnosis 09/30/2020 10:22:51 AM EST [facility] 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) Diagnosis 06/26/2020 07:34:05 PM [facility] N18.30 CKD (chronic kidney disease) stage 3, GF R 30-59 ml/min CKD (chronic kidney disease) stage 3, GFR 30-59 ml/min [id number] 04/01/2021 12:00:0 0 AM EDT [facility] N30.20 Chronic cystitis Chronic cystitis Problem 02/05/2021 12 :00:00 AM EDT eCW1 ([facility]) G47.33 NATACHA on CPAP NATACHA on CPAP [id number] 09/30/2020 12:00:00 AM EST [facility] N85.02 Atypical endometrial hyperplasia Endometrial hyp erplasia with atypia Problem 06/17/2020 12:00:00 AM EDT eCW1 ([facility]) N85.01 Benign endometrial hyperplasia Endometri al hyperplasia without atypia, complex Problem 05/25/2020 12:00:00 AM EDT eCW1 ([facility]) Surgeries/Procedures Procedure Description Date Indications Data Source(s) OFFICE OUTPATIENT VISIT 25 MINUTES 06/03/2021 12:00:00 AM EDT [facility] ([facility]) ARTHROCENTESIS ASPIR&/INJECTION MAJOR JT/BURSA 021 12:00:00 AM EDT [facility] ([facility]) OFFICE OUTPATIENT VISIT 25 MINUTES 04/02/2021 12:00:00 AM EDT [facility] ([facility]) ECG ROUTINE ECG W/LEAST 12 LDS W/I&R <td>POCT AMB EKG</td><td>Routine</td><td>04/01/2021 11:00 AM EDT</td><td> Atrial fibrillation</td><td> </td> 04/01/2021 11:00:00 AM EDT Atrial fibrillation [facility] Atrial fibrillation THYROID STIMULATING HORMONE TSH <td>TSH</td><td>Routine</td><td>03/23/2021</td><td></td><td> </td> 03/23/2021 12:00:00 AM EDT [facility] LIPID PANEL <td>LIPID PANEL</td><td>Rout ine</td><td>03/23/2021</td><td></td><td> </td> 03/23/2021 12:00:00 AM EDT [facility] BASIC METABOLIC PANEL CALCIUM TOTAL <td>BASIC METABOLI C PANEL</td><td>Routine</td><td>03/23/2021</td><td></td><td> </td> 03/23/2021 12:00:00 AM T [facility] HEMOGLOBIN GLYCOSYLATED A1C <td>HEMOGLOBIN A1C</td><td>Routine</td><td>03/09/2021</td><td></td><td> </td> 03/09/2021 12:00:00 AM EDT [facility] BASIC METABOLIC PANEL CALCIUM TOTAL <td>BASIC METABOLI C PANEL</td><td>Routine</td><td>02/09/2021</td><td></td><td> </td> 02/09/2021 12:00:00 AM [facility] BLOOD COUNT COMPLETE AUTO&AUTO DIFRNTL WBC COUNT <td>C BC AND DIFFERENTIAL</td><td>Routine</td><td>01/18/2021</td><td></td><td> </td> 01/18/2021 12:00:00 AM [facility] BASIC METABOLIC PANEL CALCIUM TOTAL <td>BASIC METABOLI C PANEL</td><td>Routine</td><td>01/18/2021</td><td></td><td> </td> [facility]18[facility] [facility] AUTO&AUTO DIFRNTL WBC COUNT <td>C BC AND DIFFERENTIAL</td><td>Routine</td><td>12/18/2020</td><td></td><td> </td> 12/18/2020 12:00:00 AM [facility] ARTHROCENTESIS ASPIR&/INJECTION MAJOR JT/BURSA 021 12:00:00 AM EST MEDENT ([facility]) Results ID Date Data Source [id number] 06/05/2021 04:21:00 AM EDT [facility] Name Value Range Interpretation Code Description Data Kavita rce(s) Supporting Document(s) SARS coronavirus 2 RNA [Presence] in Res piratory specimen by RUPAL with probe detection POSITIVE [facility] This lab was ordered by [facility] a nd reported by [facility]. ID Date Data Source [id number] 05/31/2021 12:00:00 AM EDT [facility] Name Value Range Interpretation Code Description Data Kavita rce(s) Supporting Document(s) SARS coronavirus 2 Ag NEGATIVE [facility] This lab was ordered by [facility] and reported by [facility]. ID Date Data Source [id number] 05/24/2021 12:00:00 AM EDT [facility] Name Value Range Interpretation Code Description Data Kavita rce(s) Supporting Document(s) SARS coronavirus 2 Ag NEGATIVE [facility] This lab was ordered by [facility] and reported by [facility]. ID Date Data Source [id number] 05/19/2021 12:00:00 AM EDT [facility] Name Value Range Interpretation Code Description Data Kavita rce(s) Supporting Document(s) SARS coronavirus 2 Ag NEGATIVE [facility] This lab was ordered by [facility] and reported by [facility]. ID Date Data Source [id number] 05/05/2021 03:00:00 PM EDT [facility] Name Value Range Interpretation Code Description Data Kavita rce(s) Supporting Document(s) SARS coronavirus 2 Ag [facility] This lab was ordered by [facility] and reported by [facility]. ID Date Data Source [id number] 04/28/2021 12:00:00 AM EDT [facility] Name Value Range Interpretation Code Description Data Kavita rce(s) Supporting Document(s) SARS coronavirus 2 Ag NEGATIVE [facility] This lab was ordered by [facility] and reported by [facility]. ID Date Data Source [id number] 01/21/2021 12:00:00 AM EDT [facility] Name Value Range Interpretation Code Description Data Kavita rce(s) Supporting Document(s) SARS coronavirus 2 Ag NEGATIVE [facility] This lab was ordered by [facility] [place] [facility] and reported by [facility]. ID Date Data Source [id number] 01/07/2021 12:00:00 AM EDT [facility] Name Value Range Interpretation Code Description Data Kavita rce(s) Supporting Document(s) SARS coronavirus 2 Ag NEGATIVE [facility] This lab was ordered by [facility] and reported by [facility]. ID Date Data Source [id number] 01/04/2021 12:00:00 AM EDT [facility] Name Value Range Interpretation Code Description Data Kavita rce(s) Supporting Document(s) SARS coronavirus 2 Ag NEGATIVE [facility] This lab was ordered by [facility] and reported by [facility]. ID Date Data Source [id number] 12/28/2020 12:00:00 AM EDT [facility] Name Value Range Interpretation Code Description Data Kavita rce(s) Supporting Document(s) SARS coronavirus 2 Ag NEGATIVE [facility] This lab was ordered by [facility] and reported by [facility]. ID Date Data Source [id number] 12/15/2020 12:00:00 AM EDT [facility] Name Value Range Interpretation Code Description Data Kavita rce(s) Supporting Document(s) SARS coronavirus 2 Ag NEGATIVE [facility] This lab was ordered by [facility] and reported by [facility]. ID Date Data Source [id number] 11/20/2020 07:12:00 AM EDT [facility] Name Value Range Interpretation Code Description Data Kavita rce(s) Supporting Document(s) SARS-CoV-2 (COVID-19) RNA [Presence] in Respiratory specimen by RUPAL with probe detection Not Detected [facility] This lab was ordered by [facility] and reported by [email or web address]. ID Date Data Source [id number] 11/04/2020 10:00:00 AM EDT [facility] Name Value Range Interpretation Code Description Data Kavita rce(s) Supporting Document(s) SARS coronavirus 2 RNA Not Detected [facility] This lab was ordered by [facility] and reported by [facility]. ID Date Data Source [id number] 10/28/2020 07:00:00 AM EST [facility] Name Value Range Interpretation Code Description Data Kavita rce(s) Supporting Document(s) SARS coronavirus 2 RNA Not Detected [facility] [place] This lab was ordered by [facility] and reported by [facility]. ID Date Data Source [id number] 10/14/2020 10:00:00 AM EST [facility] Name Value Range Interpretation Code Description Data Kavita rce(s) Supporting Document(s) SARS coronavirus 2 RNA Not Detected [facility] [place] This lab was ordered by [facility] and reported by [facility]. ID Date Data Source [id number] 10/07/2020 09:30:00 AM EST [facility] Name Value Range Interpretation Code Description Data Kavita rce(s) Supporting Document(s) SARS coronavirus 2 RNA Not Detected [facility] [place] This lab was ordered by [facility] and reported by [facility]. ID Date Data Source [id number] 09/30/2020 10:00:00 AM EST [facility] Name Value Range Interpretation Code Description Data Kavita rce(s) Supporting Document(s) SARS coronavirus 2 RNA Not Detected [facility] [place] This lab was ordered by [facility] and reported by [facility]. ID Date Data Source [id number] 09/23/2020 10:00:00 AM EST [facility] Name Value Range Interpretation Code Description Data Kavita rce(s) Supporting Document(s) SARS coronavirus 2 RNA Not Detected [facility] [place] This lab was ordered by [facility] and reported by [facility]. ID Date Data Source [id number] 09/16/2020 06:30:00 AM EST [facility] Name Value Range Interpretation Code Description Data Kavita rce(s) Supporting Document(s) SARS coronavirus 2 RNA Not Detected [facility] [place] This lab was ordered by [facility] and reported by [facility]. ID Date Data Source [id number] 09/09/2020 09:00:00 AM EST [facility] Name Value Range Interpretation Code Description Data Kavita rce(s) Supporting Document(s) SARS coronavirus 2 RNA Not Detected [facility] [place] This lab was ordered by [facility] and reported by [facility]. ID Date Data Source [id number] 09/02/2020 07:15:00 AM EST [facility] Name Value Range Interpretation Code Description Data Kavita rce(s) Supporting Document(s) SARS coronavirus 2 RNA Not Detected [facility] [place] This lab was ordered by [facility] and reported by [facility]. ID Date Data Source [id number] 08/26/2020 10:00:00 AM EST [facility] Name Value Range Interpretation Code Description Data Kavita rce(s) Supporting Document(s) SARS coronavirus 2 RNA Not Detected [facility] [place] This lab was ordered by [facility] and reported by [facility]. ID Date Data Source [id number] 08/19/2020 09:00:00 AM EST [facility] Name Value Range Interpretation Code Description Data Kavita rce(s) Supporting Document(s) SARS coronavirus 2 RNA [facility] This lab was ordered by [facility] and reported by [facility]. ID Date Data Source [id number] 08/12/2020 06:00:00 AM EST [facility] Name Value Range Interpretation Code Description Data Kavita rce(s) Supporting Document(s) SARS coronavirus 2 RNA [facility] This lab was ordered by [facility] and reported by [facility]. ID Date Data Source [id number] 08/05/2020 10:35:00 AM EST [facility] Name Value Range Interpretation Code Description Data Kavita rce(s) Supporting Document(s) SARS coronavirus 2 RNA [facility] This lab was ordered by [facility] and reported by [facility]. ID Date Data Source [id number] 07/29/2020 12:00:00 PM EST [facility] Name Value Range Interpretation Code Description Data Kavita rce(s) Supporting Document(s) SARS coronavirus 2 RNA [facility] This lab was ordered by [facility] and reported by [facility]. ID Date Data Source [id number] 07/22/2020 12:00:00 PM EST [facility] Name Value Range Interpretation Code Description Data Kavita rce(s) Supporting Document(s) SARS coronavirus 2 RNA [facility] This lab was ordered by [facility] and reported by [facility]. ID Date Data Source [id number] 07/15/2020 11:00:00 AM EST [facility] Name Value Range Interpretation Code Description Data Kavita rce(s) Supporting Document(s) SARS coronavirus 2 RNA [facility] This lab was ordered by [facility] and reported by [facility]. ID Date Data Source [id number] 07/08/2020 10:45:00 AM EST [facility] Name Value Range Interpretation Code Description Data Kavita rce(s) Supporting Document(s) SARS coronavirus 2 RNA [facility] This lab was ordered by [facility] and reported by [facility]. ID Date Data Source [id number] 07/02/2020 12:30:00 PM EST [facility] Name Value Range Interpretation Code Description Data Kavita rce(s) Supporting Document(s) SARS coronavirus 2 RNA [facility] This lab was ordered by [facility] and reported by [facility]. ID Date Data Source [id number] 06/29/2020 04:26:05 PM EST [facility] Name Value Range Interpretation Code Description Data Kavita rce(s) Supporting Document(s) Progress Note [facility] [id number] [file] SUPPLY CHAIN [id number] [file] [id number]= Procedure Social History Code Duration Value Status Description Data Source(s ) Smoking 01/06/2021 12:00:00 AM EDT Never Smoker completed Never S moker eCW1 ([facility]) Smoking 01/06/2021 12:00:00 AM EDT Never Smoker completed Never S moker eCW1 ([facility]) Alcohol intake 06/29/2020 12:00:00 AM EST Ex-drinker (finding) comp leted Ex- drinker (finding) [facility] Tobacco use and exposure 06/29/2020 12:00:00 AM EST Never used co mpleted Never used [facility] Smoking 06/29/2020 12:00:00 AM EST Never smoker completed Never s [facility] Smoking 05/25/2020 12:00:00 AM EDT Never Smoker completed Never S moker eCW1 ([facility]) Smoking 05/25/2020 12:00:00 AM EDT Never Smoker completed Never S moker eCW1 ([facility]) Vital Signs ID Date Data Source UNK Name Value Range Interpretation Code Description Data Source(s) Systolic blood pressure 124 mm[Hg] 124 mm[Hg] M EDENT ([facility], ) Heart rate 64 /min 64 /min MED[facility] ([facility], ) Diastolic blood pressure 80 mm[Hg] 80 mm[Hg] [facility] ([facility], ) Body weight 280.00 [lb_av] 280.00 [lb_av] MEDEN T ([facility], ) Respiratory rate 20 /min 20 /min MEDENT ( [facility], ) Body mass index (BMI) [Ratio] 54.7 kg/m2 54.7 k g/m2 MED[facility] ([facility], ) [place] body weight 100 [lb_av] 100 [lb_av] MEDEN T ([facility], ) Body height 60 [in_i] 60 [in_i] MEDENT ([facility], ) 5'0" Systolic blood pressure 132 mm[Hg] 132 mm[Hg] [facility] Body height 152.4 cm 152.4 cm [facility] Body weight 128.822 kg 128.822 kg [facility] Body mass index (BMI) [Ratio] 55.46 kg/m2 55.46 kg/m2 [facility] Oxygen saturation in Arterial blood by Pulse oximetry 92 % 92 % [facility] Diastolic blood pressure 78 mm[Hg] 78 mm[Hg] [facility] Heart rate 78 /min 78 /min [facility] Body weight 290 [lb_av] 290 [lb_av] W1 ([facility]) Body height 61 [in_i] 61 [in_i] eCW1 ([facility]) Body mass index (BMI) [Ratio] 54.79 kg/m2 54.79 kg/m2 eCW1 ([facility]) Systolic blood pressure 134 mm[Hg] 134 mm[Hg] e CW1 ([facility]) Diastolic blood pressure 70 mm[Hg] 70 mm[Hg] eCW1 ([facility]) Respiratory rate 20 /min 20 /min MEDENT ( [facility], ) Heart rate 80 /min 80 /min MED[facility] ([facility], ) Systolic blood pressure 140 mm[Hg] 140 mm[Hg] M EDENT ([facility], ) Diastolic blood pressure 80 mm[Hg] 80 mm[Hg] MEDENT ([facility], ) Body temperature 97.1 [degF] 97.1 [degF] MEDENT ([facility] ) Body weight 205.38 [lb_av] 205.38 [lb_av] MEDEN T ([facility]) Diastolic blood pressure 82 mm[Hg] 82 mm[Hg] MEDENT ([facility]) Body height 71 [in_i] 71 [in_i] [facility] 5'11" Body mass index (BMI) [Ratio] 28.6 kg/m2 28.6 k g/m2 [facility] ([facility]) Systolic blood pressure 122 mm[Hg] 122 mm[Hg] M EDENT ([facility]) ID Date Data Source [id number] 06/29/2020 04:26:05 PM [facility] Name Value Range Interpretation Code Description Data Source(s) Body height Measured 60 in 60 in [facility] Patient Treatment Plan of Care Planned Activity Planned Date Details Description Data Source (s) ezetimibe 10 MG Oral Tablet 04/01/2021 12:00:00 AM EDT [facility] Potassium Chloride 10 MEQ Extended Release Oral Capsul e 03/29/2021 12:00:00 AM EDT [facility] Lisinopril 5 MG Oral Tablet 03/29/2021 12:00:00 AM EDT [facility] 3 ML Insulin Glargine 100 UNT/ML Pen Injector [Lantus] 03/22/2021 12:00:00 AM EDT [facility] apixaban 5 MG Oral Tablet 09/30/2020 12:00:00 AM [facility] 0.5 ML dulaglutide 3 MG/ML Auto-Injector [Trulicity] 021 12:00:00 AM [facility] 0.5 ML dulaglutide 1.5 MG/ML Auto-Injector [Trulicity] 06/26/2020 12:00:00 AM [facility] Oxybutynin chloride 5 MG Oral Tablet 06/22/2020 12:00:00 AM [facility] Megestrol Acetate 40 MG Oral Tablet 06/22/2020 12:00:00 AM [facility] apixaban 2.5 MG Oral Tablet [Eliquis] 06/17/2020 12:00:[address] [facility] Megestrol Acetate 40 MG Oral Tablet 05/25/2020 12:00:00 AM EDT eCW1 ([facility]) Megestrol Acetate 40 MG Oral Tablet 05/25/2020 12:00:00 AM EDT eCW1 ([facility]) glimepiride 2 MG Oral Tablet [facility]
[2021-07-16] MEDS ORDERED: GABAPENTIN 300 MG CAP PO SCH (21:00)
[2021-07-16] MEDS ORDERED: HumaLOG INSULIN (NovoLOG) PER UNIT SC SCH ×2 (21:00→22:20)
[2021-07-16] MEDS ORDERED: oxyBUTYnin 5 MG TAB PO SCH (21:00)
[2021-07-16] MEDS ORDERED: BISACODYL 10 MG SUPP PR PRN (21:30)
[2021-07-16] MEDS ORDERED: MOM 30ML SUSPENSION UDC PO PRN (21:30)
[2021-07-16] MEDS ORDERED: ONDANSETRON 4MG/2ML VIAL IV PRN (21:30)
[2021-07-16] MEDS ORDERED: traMADol 50 MG TAB PO PRN (21:30)
[2021-07-16 21:40] LABS: HEMOGLOBIN 11.7 g/dl (12.0-15.5); MEAN CORPUSCULAR HGB CONC 31.6 g/dl (32.0-36.5); MEAN CORPUSCULAR VOLUME 101.1 fl (80.0-96.0); PLATELET COUNT, AUTOMATED 268 10^3/uL (150-450); RED BLOOD COUNT 3.66 10^6/uL (4.00-5.40)
[2021-07-16] MEDS ORDERED: GLUCAGON INJ 1MG VIAL SC PRN (21:45)
[2021-07-16] MEDS ORDERED: DEXTROSE 50% 50 ML SYRINGE IV PRN (21:45)
[2021-07-16] MEDS ORDERED: GLUCOSE 4GM CHEW TABLET PO PRN (21:45)
[2021-07-16 21:51] LABS: INR 1.38; PROTHROMBIN TIME 17.4 SECONDS (12.7-14.5)
[2021-07-16 21:52] LABS: PARTIAL THROMBOPLASTIN TIME 39.9 SECONDS (25.9-37.0)
[2021-07-16] MEDS ORDERED: PIPERACILLIN/TAZOBACTAM SOD 3.375 GM in D5W MINI-BAG PLUS 50 ML IV ONE (22:00)
[2021-07-16 22:04] LABS: ALBUMIN 2.3 GM/DL (3.2-5.2); BILIRUBIN,TOTAL 0.7 MG/DL (0.2-1.0); CREATININE FOR GFR 3.31 MG/DL (0.55-1.30); GLOMERULAR FILTRATION RATE 14.3 (>39); POTASSIUM SERUM 5.3 MEQ/L (3.5-5.1); TOTAL PROTEIN 6.7 GM/DL (6.4-8.2)
[2021-07-16] MEDS ORDERED: PILL CUTTER 1 EACH XX PRN (22:05)
[2021-07-16 22:16] LABS: C REACTIVE PROTEIN QUANTITATIV 39.2 MG/DL (0.00-0.30)
[2021-07-16] MEDS: METOPROLOL 5 MG/5 ML VIAL IV SCH ×3 (22:40→23:24)
[2021-07-16] MEDS: LEVEMIR (INSULIN DETEMIR) 1 UNITS/0.01ML SC SCH (22:54)
[2021-07-16] MEDS: ACETAMINOPHEN 500 MG TAB PO SCH (22:56)
[2021-07-16 23:22] LABS: VENOUS BASE EXCESS -1.3 (-2.0-2.0); VENOUS HCO3 25.5 MEQ/L (23.0-27.0); VENOUS O2 SATURATION 86.5 % (60.0-80.0); VENOUS PARTIAL PRESSURE CO2 51.6 mmHg (38.0-50.0); VENOUS PARTIAL PRESSURE O2 50.4 mmHg (30.0-50.0); VENOUS PH 7.311 UNITS (7.330-7.430); VENOUS STANDARD HCO3 23.1 MEQ/L
[2021-07-16] MEDS: PRIMIDONE 250 MG TAB PO SCH (23:25)
--- NOTE | 2021-07-16 23:31 | HPEPDOC ---
[facility] Medical History & Physical Date of Admission Jul 16, 2021 Date of Service: Jul 16, 2021 Primary Care Physician: ZITA DRISCOLL DO Attending Physician: MARILYN PHILLIPS MD History and Physical CHIEF COMPLAINT: Flank pain HISTORY OF PRESENT ILLNESS: Patient is a 76-year-old female with a history of atrial fibrillation, insulin-dependent diabetes mellitus, hypertension, obesity [facility] with decreased appetite for the past 7 days. She was found to have abdominal pain and was sent to the [facility] ED with a suspicion of ileus and SBO. Patient reports that she is feeling well at this time. When asked about her abdominal pain she reports that she does not have any at this time, however does have some with movement. She denies any chest pain and heart palpitations at this time even though she is in atrial fibrillation with rapid ventricular rate of 130. Patient denies any dysuria at this time even though urinalysis in the emergency department was positive. Patient denies fevers, chills, night sweats. Patient denies any nausea, v omiting, diarrhea, constipation, melena, hematochezia at this time. Patient denies any hematuria. Patient reports that she has decreased mobility due to her obesity at baseline. Patient reports that she is always on fluid restriction of 1500 mL/day. Patient does report decreased appetite for the past 7 days that she does not attribute to any pain. Pt denies requiring oxygen during the day at baseline. She is on 2 L oxygen in the ED. Dr. Shelton was consulted in the emergency room for patient's acute cholecystitis found on abdominal CT. Dr. Shelton reported that the patient needs to be medically optimized first as the patient is septic at this time. [facility] REVIEW OF SYSTEMS: General: Patient denies fevers, chills, night sweats. HEENT: Patient denies headaches, rhinorrhea, cough. Cardiovascular: Patient denies chest pain, heart palpitations. Respiratory: Patient denies shortness of breath, cough GI: Patient denies abdominal pain, nausea, vomiting, diarrhea, constipation. : Patient denies increased frequency or pain with urination Extremities: Patient denies swelling or pain in extremities Neurological: Patient denies numbness or tingling in legs Skin: Patient denies any new rashes or lesions. Hematologic: Patient denies any easy bruising. Lymphatic: Patient denies any lumps lumps or bumps in neck, axilla, or groin PAST MEDICAL/ SURGICAL HISTORY: Hypertension Hyperlipidemia Insulin-dependent diabetes Spinal stenosis History of osteopenia Atrial fibrillation Obesity Chronic Transaminitis of unclear etiology D&C EGD Colonoscopy SOCIAL HISTORY: [facility] Patient denies smoking history, alcohol use, marijuana use, illicit drug use. FAMILY HISTORY: Patient denies any family history of diseases. ALLERGIES: Please see below. HOME MEDICATIONS: Please see below. PHYSICAL EXAMINATION: Vital Signs Date Time Temp Pulse Resp B/P (MAP) Pulse Ox O2 Delivery O2 Flow Rate FiO2 07/16/21 14:54 120/93 (102) 07/16/21 14:56 98.3 126 18 98 Nasal Cannula 2.0 GENERAL APPEARANCE: Patient is lying back in her gurney in no acute distress, with her head up to approximately 30 degrees. HEENT: Normocephalic atraumatic, EOMI, mucous membranes moist, no rhinorrhea. CARDIOVASCULAR: Tachycardia, no murmurs rubs or gallops, heart sounds distant. LUNGS: Pickwickian syndrome, distant respirations without adventitious sounds. ABDOMEN: Soft, increased abdominal girth, tenderness in right upper and lower quadrants. MUSCULOSKELETAL: Decreased tone likely secondary to deconditioning, essential tremors present of bilateral upper extremities. Upper and lower extremity strength plus 3 out of 5 EXTREMITIES: No clubbing, no edema, radial and pedal pulses +2. NEUROLOGICAL: No focal motor deficits, cranial nerves II to XII intact. PSYCHIATRIC: Flat affect, alert and oriented x4. LABORATORY DATA: 07/16/21 21:25 IMAGING: CT abdomen/pelvis without contrast, 07/16/2021 Distended gallbladder with faint stones and sludge with evidence of cholecystitis with trace perihepatic fluid which is likely reactive. Borderline small bowel distention with a few air-fluid levels which may reflect minimal ileus. IUD in the uterus. Mild bibasilar fibro- atelectatic change and question of minimal infiltrates. Marked degenerative changes of the hips bilaterally. Minimal sigmoid diverticulosis without radiographic evidence of diverticulitis. Pancreatic atrophy with fatty infiltration. MICROBIOLOGY: Respiratory panel is + for COVID ASSESSMENT/PLAN: #Sepsis 2/2 Acute cholecystitis Started patient on Zosyn and metronidazole f/u w has been consulted Keep patient n.p.o. except for medications, complete npo 8 hours prior to surgery Patient has elevated leukocyte count, tachycardia, and tachypnea CRP elevated - Perioperative assessment: her RCRI score is 3, which puts her in the class IV risk category; her 30 day risk of mortality is 15%. The only other test that she will need before proceeding with surgery is a pro-BNP, if it is >300 she will need daily troponins and to be put on telemetry. Her Child Mujica score class B, abdominal surgery perioperative mortality of 30%. Surgery can proceed 24 to 36 hours after the last dose of her apixaban; alternatively she can be given Kcentra or given Factor 4 prothrombin complex concentrate to reduce the effects of the apixaban f wishes to proceed with surgery in the morning. #Atrial fibrillation with rapid ventricular rate -likely triggered by sepsis / infection -telemetry Metoprolol IV ordered EKG ordered Heart failure history has unspecified etiology, echo ordered Hold apixaban in the setting surgery -because her CHADSVASc score is 5 the usual course of action would be to bridge her with a to heparin drip prior to proceeding with surgery and stop the heparin 6 hours prior to surgery, but because surgery may be scheduled in the morning we will hold off starting the drip for now #Uncontrolled IDDM Patient has elevated urine ketones, serum glucose of greater than 300, VBG has been ordered if patient's pH is less than 7.3, patient will meet the criteria to diagnose DKA Hold home insulin glargine and Trulicity Start half of patient's normal home dose (home Lantus is 20 units) in hospital starting at 10 units as patient is n.p.o. at this time. FSBS before meals and at bedtime Sliding scale insulin in place every 6 hours [address] protocol in place. -f/u A1C #NATACHA Patient requires CPAP at night NATACHA protocol in place. #Shock Liver -the patient appears to have underlying liver disease possibly 2/2 fatty liver, her baseline ALT (40s), admitting AST was 79, liver ultrasound from 2016 did not show hepatic cirrhosis -today her LFTs are acutely elevated 2/2 sepsis Ordered complete abdominal ultrasound to include liver & hepatitis panel Child Mujica score is class B. Patient's MELD score is 24 at this time #KODY versus KODY on CKD Patient's baseline is 1.54 GFR is 14.3 on admission, baseline is 30; pt needs outpatient referral to nephrology upon discharge, vs. nephrologyconsult during hospitalization if she develops oliguria IVF Continue to monitor BUN/creatinine daily -f/u renal US Hold renally toxic agents. Please be careful with volume resuscitation as patient has atrial fibrillation and may have underlying undiagnosed heart failure. #Asymptomatic UTI Urinalysis positive Amorphous sediments found Patient is already on antibiotics for cholecystitis Continue to monitor CBC with differential. #Elevated troponin 2/2 Type 2 NSTEMI High-sensitivity troponin level is 95 Trend troponin levels EKG ordered. #Gout Hold home allopurinol, in setting of KODY #Essential Hypertension Hold home lisinopril due to KODY Consider hydralazine if patient's blood pressure increases. #Asymptomatic COVID infection ? - This may be reinnfection with another variant or a false positive because she had COVID 1 month ago Chest x-ray ordered Patient has no symptoms at this time however continue to monitor Contact and droplet precautions #Class 3 Obesity Complicates care. #Essential tremors Continue home primidone VTE prophylaxis: teds and sequentials/ the day time team may start heparin drip if surgery will be delayed until tomorrow Disposition: Please admit to ICU, expect at least 2 midnight stay. Home Medications Scheduled Acetaminophen (Acetaminophen) 500 Mg Tablet, 500 MG PO BID Allopurinol (Allopurinol) 100 Mg Tablet, 100 MG PO DAILY Apixaban (Eliquis) 5 Mg Tablet, 5 MG PO BID Atorvastatin Calcium (Atorvastatin Calcium) 40 Mg Tablet, 40 MG PO DAILY Calcitriol (Rocaltrol) 0.25 Mcg Capsule, 0.5 MCG PO DAILY Ceftriaxone Sodium (Ceftriaxone) 1 Gm Vial, 1 GRAM IM DAILY Dulaglutide (Trulicity) 1.5 Mg/0.5 Ml Pen.injctr, 1.5 MG SC 1XWK EVERY MONDAY Ezetimibe (Ezetimibe) 10 Mg Tablet, 10 MG PO DAILY Gabapentin (Neurontin) 300 Mg Capsule, 300 MG PO BID Insulin Glargine,Hum.rec.anlog (Lantus Solostar) 100 Unit/1 Ml Insuln.pen, 20 UNITS SC DAILY Lisinopril (Lisinopril) 5 Mg Tablet, 5 MG PO DAILY Oxybutynin Chloride (Oxybutynin Chloride) 5 Mg Tablet, 5 MG PO QHS Potassium Chloride (Potassium Chloride) 10 Meq Tab.er.prt, 20 MEQ PO DAILY Primidone (Primidone) 250 Mg Tablet, 250 MG PO DAILY Primidone (Primidone) 250 Mg Tablet, 125 MG PO QHS Sennosides/Docusate Sodium (Senokot-S Tablet) 1 Each Tablet, 1 TAB PO DAILY Vit A/Vit C/Vit E/Zinc/Copper (Preservision Areds Softgel) 1 Each Capsule, 1 CAP PO DAILY Scheduled PRN Bisacodyl (Bisacodyl) 10 Mg Supp.rect, 10 MG IA DAILY PRN for CONSTIPATION Magnesium Hydroxide (Milk of Magnesia) 400 Mg/5 Ml Oral.susp, 30 ML PO DAILY PRN for CONSTIPATION Tramadol HCl (Tramadol HCl) 50 Mg Tablet, 50 MG PO DAILY PRN for SEVERE PAIN (PS 8-10) Allergies Coded Allergies: Sulfa (Sulfonamide Antibiotics) (Verified Allergy, Mild, hives, 07/16/21) trimethoprim (Verified Allergy, Unknown, 07/16/21) A-FIB/CHADSVASC A-FIB History Current/History of A-Fib/PAF?: Yes Current PO Anticoag Therapy: No GME ATTESTATION GME ATTESTATION My faculty preceptor for this patient encounter was physically present during the encounter and was fully available. All aspects of the patient interview, examination, medical decision making process, and medical care plan development were reviewed and approved by the faculty preceptor. The faculty preceptor is aware and concurs with the plan as stated in the body of this note and will attest to such by his/her cosignature. ATTENDING NOTE Time of service 830pm. I examined the patient, discussed the case with and agree with the findings as documented. Tom Restrepo DO Jul 16, 2021 23:30 MARILYN PHILLIPS MD Jul 17, 2021 06:47
--- NOTE | 2021-07-16 23:47 | REPVR ---
PROCEDURE INFORMATION: Exam: XR Chest Exam date and time: 07/16/2021 11:43 PM Age: 76 years old Clinical indication: Cough; Additional info: Positive covid exam TECHNIQUE: Imaging protocol: XR of the chest. Views: 1 view. COMPARISON: CR Chest, 1 view 06/08/2021 3:35 PM FINDINGS: Lungs: There is decreased inflation of the lungs. Left infrahilar infiltrate or atelectasis since the prior study. There is question of minimal right base infiltrate or atelectasis with decreased delineation of the right hemidiaphragm. Pleural spaces: Unremarkable. No pleural effusion. No pneumothorax. Heart/Mediastinum: The heart and mediastinum are unchanged. Diaphragm: Elevation of the right hemidiaphragm. Bones/joints: The osseous structures are unchanged. Soft tissues: There are generous overlying soft tissues. IMPRESSION: Mild left infrahilar infiltrate or atelectasis and question of minimal right base infiltrate or atelectasis since 06/08/2021. Electronically signed by: Peter Nieves On 07/16/2021 23:47:17 PM
[2021-07-17] VITALS (46 sets, daily range): BP systolic 79–135; BP diastolic 39–109
[2021-07-17] MEDS: HumaLOG INSULIN (NovoLOG) PER UNIT SC SCH ×5 (00:49→23:57)
--- NOTE | 2021-07-17 02:51 | REPVR ---
PROCEDURE INFORMATION: Exam: US Abdomen Complete Exam date and time: 07/17/2021 2:31 AM Age: 76 years old Clinical indication: Condition or disease and abnormal findings; Abnormal lab test; Elevated liver enzymes; Kidney or ureter condition; Acute renal insufficiency; Additional info: Renal failure, transaminitis TECHNIQUE: Imaging protocol: Real-time ultrasound of the abdomen with image documentation. COMPARISON: CT ABD/PEL W/PO CONTRAST ONLY 07/16/2021 5:26 PM FINDINGS: Liver: The liver demonstrates no focal defects. There is hepatopetal portal flow. Gallbladder: The gallbladder demonstrates sludge and shadowing stones. There is edematous wall thickening measuring 11 mm with pericholecystic fluid. Common bile duct: The CBD measures 7 mm. Pancreas: The pancreas is not seen due to gas shadowing. Right kidney: The right kidney measures 9.0 cm with no hydronephrosis. Left kidney: The left kidney is normal measuring 9.7 cm with no hydronephrosis. There is a left renal cyst measuring 2.4 x 2.6 x 2.3 cm. Spleen: The spleen is normal measuring 10.6 cm. Aorta: The aorta is not seen due to gas shadowing. Intraperitoneal space: Minimal free fluid is noted adjacent to the liver. IMPRESSION: 1. Cholelithiasis with stones and sludge. There is pericholecystic fluid and edematous wall thickening measuring 11 mm consistent with cholecystitis. 2. Borderline CBD for age measuring 7 mm. 3. Otherwise negative abdominal sonogram. Electronically signed by: Peter Nieves On 07/17/2021 02:50:54 AM
[2021-07-17] MEDS ORDERED: metroNIDAZOLE 500 MG in IV 1 EA IV SCH (04:00)
[2021-07-17] MEDS ORDERED: HEPARIN SOD (PORCINE) 5000UNITS/ML 1ML VIAL/SYRINGE SQ SCH (06:00)
[2021-07-17 06:22] LABS: BASO # 0.1 10^3/uL (0.0-0.2); BASO % 0.3 % (0.0-1.0); HEMATOCRIT 36.1 % (36.0-47.0); HEMOGLOBIN 11.2 g/dl (12.0-15.5); LYMPH # 0.8 10^3/uL (1.5-5.0); LYMPH % 2.1 % (24.0-44.0); MEAN CORPUSCULAR HEMOGLOBIN 31.5 pg (27.0-33.0); MEAN CORPUSCULAR VOLUME 101.7 fl (80.0-96.0); MONO # 1.8 10^3/uL (0.0-0.8); NEUTROPHILS # 31.3 10^3/uL (1.5-8.5); PLATELET COUNT, AUTOMATED 228 10^3/uL (150-450); RED BLOOD COUNT 3.55 10^6/uL (4.00-5.40)
[2021-07-17 06:36] LABS: INR 1.4; PROTHROMBIN TIME 17.6 SECONDS (12.7-14.5)
[2021-07-17 06:37] LABS: PARTIAL THROMBOPLASTIN TIME 43.5 SECONDS (25.9-37.0)
[2021-07-17 06:40] LABS: PHOSPHORUS LEVEL 2.4 MG/DL (2.5-4.9)
[2021-07-17 06:41] LABS: URIC ACID 6.8 MG/DL (2.6-6.0)
[2021-07-17 06:48] LABS: WHITE BLOOD COUNT 35.5 10^3/uL (4.0-10.0)
[2021-07-17] MEDS ORDERED: HumaLOG INSULIN (NovoLOG) PER UNIT SC SCH (07:30)
[2021-07-17] MEDS ORDERED: AMIODARONE HCL 150 MG in IV 1 EA IV STA (07:41)
[2021-07-17] MEDS ORDERED: DIGOXIN INJ 0.5 MG/2 ML AMP (J1160) IV STA (07:52)
[2021-07-17] MEDS ORDERED: NS 1,000 ML IV SCH (08:00)
--- NOTE | 2021-07-17 08:16 | IPNPDOC ---
Date Seen The patient was seen on 07/17/21. Progress Note SUBJECTIVE: Patient was afebrile overnight, telemetry shows A. fib with RVR ventricular rate of 115 to 120 bpm. Patient denies any chest pain Chest tightness pleuritic chest pain shortness of breath. She complains of epigastric right upper quadrant abdominal discomfort rated a 5 out of 10 without nausea vomiting. She denies any diaphoresis. OBJECTIVE PHYSICAL EXAMINATION: VITAL SIGNS: Please see below. GENERAL: Awake alert oriented to herself answers questions through her CPAP mask No icterus jaundice no pallor HEENT: Dry mucous membranes no JVD thyromegaly cervical lymphadenopathy No stridor no carotid bruit CARDIOVASCULAR: Tachycardic S1-S2 irregularly irregular no S3 nondisplaced point of maximal impulse RESPIRATORY: Diminished air entry is equal inspiratory expiratory ratio 1:2 crackles at the right base ABDOMINAL: Positive bowel sounds soft tender in right upper quadrant epigastric no rebound guarding Obese EXTREMITIES: No cyanosis or clubbing LABORATORY DATA, IMAGING STUDIES, MICROBIOLOGY: Please see below. DVT prophylaxis ordered?: Received subcutaneous heparin at 5:30 AM this morning by mistake ASSESSMENT AND PLAN: 76-year-old female [facility] resident, DO NOT RESUSCITATE/DO NOT INTUBATE, with chronic kidney disease stage III baseline creatinine 1.5-1.7, chronic atrial fibrillation insulin-dependent type 2 diabetes, hypertension, obesity BMI 48, spinal stenosis, chronic transaminitis, hypertension, dyslipidemia, admitted in July 16 with complaints of flank pain, without dysuria fever chills or night sweats at home. Patient was found to have acute cholecystitis on CT abdomen pelvis. Medical optimization -Once patient is A. fib is less than 100 bpm, patient may proceed to the operating room. -Hold antiplatelets and anticoagulants. -On IV fluids. N.p.o. status. Acute cholecystitis -Due to A. fib with RVR patient was not emergently taken to the operating room, and will need further rate control. -Patient did receive intravenous Flagyl and Zosyn in the ER. -She will be started on IV meropenem renally dosed to complete a 7-day course, with pharmacy adjusting her dose renally -IV vancomycin for sepsis, but will discontinue if MRSA negative -General surgeon Dr. Shelton has been consulted. IV fluids. N.p.o. status. Stop all of anticoagulants and antiplatelets. Sepsis -Secondary to acute cholecystitis. On IV antibiotics meropenem and vancomycin day #1 status post IV Flagyl Zosyn and doxycycline. -On IV fluids n.p.o. status due to acute cholecystitis. -We will need central line triple-lumen for IV antibiotics, IV fluids, and IV amiodarone drip if needed Coronavirus 19 with acute hypoxic respiratory failure requiring 2 L of oxygen -Chest x-ray shows right lower lobe infiltrate. Currently on IV meropenem and IV Vanco -We will check inflammatory markers. If elevated, may need IV remdesivir, but will hold off on Decadron due to acute infection. -No antiplatelet or anticoagulant due to plans for cholecystectomy Acute on chronic renal failure/hyperkalemia -Due to sepsis. On IV fluids. -Strict I's and O's, daily weights, nephrology consulted for help in management. Alberto catheter placement Chronic A. fib with RVR -Due to concerns for low blood pressure, IV amiodarone IV digoxin. Check digoxin level in the morning. -IV fluids to increase blood pressure to allow for use of IV beta-blockers and possible Cardizem drip -If blood pressure remains low, patient will need IV amiodarone for rate control. Check thyroid function test at baseline Hypertension -Currently with soft blood pressure. Hold off on blood pressure medications. Patient will need rate control medications such as beta-blockers or calcium channel blockers if blood pressure permits -IV fluids. Dyslipidemia -Chronic Obesity BMI 48.1 -Complicating care History of spinal stenosis/ History of osteopenia Chronic transaminitis -Monitor DVT prophylaxis: Mechanical Diet: N.p.o. IV fluids. Hypoglycemic protocol. CODE STATUS: DNR/DNI VS, I&O, 24H, [facility] Vital Signs/I&O Vital Signs Date Time Temp Pulse Resp B/P (MAP) Pulse Ox O2 Delivery O2 Flow Rate FiO2 07/17/21 06:00 114 94 07/17/21 05:46 117/82 (94) 07/17/21 04:03 2.0 07/17/21 04:00 97.6 20 Nasal Cannula I&O- Last 24 Hours up to 6 AM 07/17/21 06:00 Intake Total 3275 ml Output Total 50 ml Balance 3225 ml Laboratory Data 24H LABS Laboratory Tests 2 07/16/21 15:16: Immature Granulocyte % (Auto) 3.3H, Neutrophils (%) (Auto) 88.3H, Lymphocytes (%) (Auto) 2.4L, Monocytes (%) (Auto) 5.8, Eosinophils (%) (Auto) 0.0, Basophils (%) (Auto) 0.2, Neutrophils # (Auto) 37.1H, Lymphocytes # (Auto) 1.0L, Monocytes # (Auto) 2.4H, Eosinophils # (Auto) 0.0, Basophils # (Auto) 0.1, Nucleated Red Blood Cells % (auto) 0.0, Urine Color LUCY, Urine Appearance TURBIDH, Urine pH 5.0, Urine Specific Campbell 1.026, Urine Protein 1+H, Urine Glucose (UA) NEGATIVE, Urine Ketones TRACEH, Urine Blood 3+H, Urine Nitrite NEGATIVE, Urine Bilirubin 1+H, Urine Urobilinogen 2.0H, Urine Leukocyte Esterase 3+H, Urine WBC (Auto) TNTCH, Urine RBC (Auto) 36H, Urine Hyaline Casts (Auto) 0, Urine Bacteria (Auto) 2+H, Urine Squamous Epithelial Cells 2, Urine Amorphous Sediment SMALLH, Urine Mucus (Auto) SMALL, Urine Sperm (Auto) , Lactic Acid Level 1.9, Total Bilirubin 0.8, Direct Bilirubin 0.5H, Aspartate Amino Transf (AST/SGOT) 65H, Alanine Aminotransferase (ALT/SGPT) 45, Alkaline Phosphatase 142H, Total Protein 6.7, Albumin 2.3L, Albumin/Globulin Ratio 0.5L, Lipase 46L 07/16/21 15:29: POC Glucose (Misc Panel) 327H, POC Sodium (Misc Panel) 133L, POC Potassium (Misc Panel) 5.4H, POC Chloride (Misc Panel) 99, POC Total CO2 (Misc Panel) 28.0H, POC Blood Urea Nitrogen (Misc Panel 76H, POC Ionized Calcium (Misc Panel) 5.0, POC Creatinine (Misc Panel) 3.0H, POC Hematocrit (Misc Panel) 41.0 07/16/21 15:57: Coronavirus (COVID-19)(PCR) POSITIVEA, Influenza Type A (RT-PCR) NEGATIVE, Influenza Type B (RT-PCR) NEGATIVE, Respiratory Syncytial Virus (PCR) NEGATIVE 07/16/21 21:25: Nucleated Red Blood Cells % (auto) 0.0, Total Bilirubin 0.7, Aspartate Amino Transf (AST/SGOT) 79H, Alanine Aminotransferase (ALT/SGPT) 51, Alkaline P hosphatase 142H, Total Protein 6.7, Albumin 2.3L, Albumin/Globulin Ratio 0.5L, Anion Gap 8, Glomerular Filtration Rate 14.3L, Calcium Level 9.0, Ferritin 461H, Lactate Dehydrogenase 463H, Total Creatine Kinase 77, Troponin I High Sensitivity 95.0H, C-Reactive Protein, Quantitative 39.20H 07/16/21 21:26: Prothrombin Time 17.4H, Prothromb Time International Ratio 1.38, Activated Partial Thromboplast Time 39.9H, Fibrinogen 873H 07/16/21 22:00: Bedside Glucose (Misc Panel) 307H 07/16/21 22:14: 07/16/21 23:14: Blood Gas Bicarbonate Standard 23.1, Venous Blood pH 7.311L, Venous Blood Partial Pressure CO2 51.6H, Venous Blood Partial Pressure O2 50.4H, Venous Blood Total Carbon Dioxide 27.0, Venous Blood HCO3 25.5, Venous Blood Oxygen Saturation 86.5H, Venous Blood Base Excess -1.3, Troponin I High Sensitivity 90.0H, EB-Hrz-G-Type Natriuretic Peptide 6899H 07/17/21 00:40: Bedside Glucose (Misc Panel) 269H 07/17/21 05:25: Bedside Glucose (Misc Panel) 208H 07/17/21 06:05: Immature Granulocyte % (Auto) 4.6H, Neutrophils (%) (Auto) 88.0H, Lymphocytes (%) (Auto) 2.1L, Monocytes (%) (Auto) 5.0, Eosinophils (%) (Auto) 0.0, Basophils (%) (Auto) 0.3, Neutrophils # (Auto) 31.3H, Lymphocytes # (Auto) 0.8L, Monocytes # (Auto) 1.8H, Eosinophils # (Auto) 0.0, Basophils # (Auto) 0.1, Nucleated Red Blood Cells % (auto) 0.1H, Prothrombin Time 17.6H, Prothromb Time International Ratio 1.40, Activated Partial Thromboplast Time 43.5H, Uric Acid 6.8H, Phosphorus Level 2.4L, Magnesium Level 1.6L, Troponin I High Sensitivity 96.0H, Complement C3 140, Complement C4 30 CBC/BMP Laboratory Tests 07/16/21 15:16 07/16/21 21:25 07/17/21 06:05 Microbiology Microbiology 07/16/21 Blood Culture, Received Pending 07/16/21 Blood Culture, Received Pending 07/16/21 Urine Culture, Received Pending CHRISS KELLY MD Jul 17, 2021 08:15
[2021-07-17 08:33] LABS: BASO # 0.1 10^3/uL (0.0-0.2); BASO % 0.2 % (0.0-1.0); HEMATOCRIT 38.6 % (36.0-47.0); HEMOGLOBIN 11.9 g/dl (12.0-15.5); LYMPH # 0.7 10^3/uL (1.5-5.0); LYMPH % 2.2 % (24.0-44.0); MEAN CORPUSCULAR HEMOGLOBIN 31.4 pg (27.0-33.0); MEAN CORPUSCULAR HGB CONC 30.8 g/dl (32.0-36.5); MEAN CORPUSCULAR VOLUME 101.8 fl (80.0-96.0); NEUTROPHILS # 29.1 10^3/uL (1.5-8.5); NEUTROPHILS % 88.1 % (36.0-66.0); PLATELET COUNT, AUTOMATED 243 10^3/uL (150-450); RED BLOOD COUNT 3.79 10^6/uL (4.00-5.40)
[2021-07-17 08:35] LABS: MONO # 1.7 10^3/uL (0.0-0.8)
[2021-07-17] MEDS: SENOKOT S TAB PO SCH (08:41)
[2021-07-17] MEDS: CALCITRIOL 0.25 MCG CAP (S0169) PO SCH (08:41)
[2021-07-17] MEDS: PRIMIDONE 250 MG TAB PO SCH ×2 (08:42→20:49)
[2021-07-17] MEDS: ACETAMINOPHEN 500 MG TAB PO SCH (08:42)
[2021-07-17] MEDS: MEROPENEM INJ 500 MG in IV 1 EA IV SCH ×2 (08:42→20:49)
[2021-07-17 08:47] LABS: ALBUMIN 1.9 GM/DL (3.2-5.2); BILIRUBIN,TOTAL 0.8 MG/DL (0.2-1.0); CREATININE FOR GFR 3.41 MG/DL (0.55-1.30); GLOMERULAR FILTRATION RATE 13.9 (>39); POTASSIUM SERUM 5.3 MEQ/L (3.5-5.1); TOTAL PROTEIN 6.1 GM/DL (6.4-8.2)
[2021-07-17] MEDS ORDERED: EZETIMIBE 10MG TABLET (ZETIA) PO SCH (09:00)
[2021-07-17] MEDS ORDERED: ATORVASTATIN 20 MG TAB PO SCH (09:00)
[2021-07-17] MEDS ORDERED: lisinopriL 5 MG TAB PO SCH (09:00)
[2021-07-17] MEDS ORDERED: APIXABAN 5 MG TAB (ELIQUIS) PO SCH (09:00)
[2021-07-17] MEDS ORDERED: OCUVITE 1 TAB PO SCH (09:00)
[2021-07-17] MEDS ORDERED: POTASSIUM CHLORIDE 10MEQ SR TABLET PO SCH (09:00)
[2021-07-17] MEDS ORDERED: ASPIRIN 81MG ENTERIC TABLET PO SCH (09:00)
[2021-07-17 09:22] LABS: INR 1.36; PROTHROMBIN TIME 17.2 SECONDS (12.7-14.5)
[2021-07-17 09:23] LABS: PARTIAL THROMBOPLASTIN TIME 39.6 SECONDS (25.9-37.0)
[2021-07-17 09:29] LABS: FIBRINOGEN 1017 MG/DL (268-480)
[2021-07-17 09:33] LABS: SODIUM,RANDOM URINE < 10 MEQ/L
[2021-07-17 09:43] LABS: D-DIMER QUANT > 4000 ng/ml (<500)
[2021-07-17 10:00] LABS: BILIRUBIN,DIRECT 0.6 MG/DL (0.0-0.2); BILIRUBIN,TOTAL 0.8 MG/DL (0.2-1.0); C REACTIVE PROTEIN QUANTITATIV 42.2 MG/DL (0.00-0.30); TOTAL PROTEIN 6.2 GM/DL (6.4-8.2)
[2021-07-17] MEDS: VANCOMYCIN HCL 1,000 MG, VIAL MATE ADAPTER 1 EACH in NS 250 ML IV SCH (11:27)
[2021-07-17] MEDS: MIDODRINE 5 MG TAB PO SCH ×2 (11:28→15:28)
--- NOTE | 2021-07-17 11:38 | CR ---
CONSULTATION DATE: 07/17/2021 HISTORY OF PRESENT ILLNESS: The patient is a 76-year-old female who presents with decreased appetite for the last week. She was found to have abdominal pain and was sent to the emergency room with suspicion of ileus or small bowel obstruction. Essentially she was found to have acute cholecystitis, urinary tract infection and probably and ileus on her CT scan and is not having any nausea, no vomiting. Although it is hard to know because historically I do feel that she does probably have some short term memory loss issues. In any case, her white count was elevated at 42,000. She has not had any acholic stools or bilirubinuria. MEDICAL HISTORY: Significant for hypertension, hyperlipidemia, diabetes mellitus, spinal stenosis, osteopenia, atrial fibrillation, obesity, chronic transaminitis, history of D&C. MEDICATIONS: 1. Tylenol. 2. Allopurinol. 3. Eliquis. 4. Atorvastatin. 5. Rocaltrol. 6. Ceftriaxone. 7. Trulicity. 8. Ezetimibe. 9. Neurontin. 10. Insulin. 11. Lisinopril. 12. Oxybutynin. 13. Primidone. 14. Senokot. 15. Eyedrops. PHYSICAL EXAMINATION: GENERAL: Morbidly obese female who looks stated age. ABDOMEN: She has a moderately distended abdomen but it is hard to tell if this is distention or if this is morbid obesity. She does have some mild tenderness on her abdominal exam but really no guarding, no rebound, no peritoneal signs. IMPRESSION/PLAN: The patient has evidence of inflamed gallbladder, thickened gallbladder but actually it is hard to tell if this has been something that is going on for this last seven days that she has had a decreased PO intake or whether this is new in onset. I do feel with the inflammatory process associated with this if she does not have improvement relatively soon over the next 12 to 24 hours, my recommendation is that she have percutaneous drainage of the gallbladder. However, right now she does not appear septic, she does not overall appear ill and she is very conversant and feels well. The other possibility is that she has an ileus associated with either the cholecystitis or an ileus associated with the urinary tract infection. Right now I would recommend IV fluids, IV antibiotics, NPO and continue with supportive care at this time.
[2021-07-17] MEDS ORDERED: atenoloL 25 MG TAB PO ONE (12:00)
[2021-07-17 12:41] LABS: HEMOGLOBIN A1c 7.5 %
[2021-07-17] MEDS ORDERED: REMDESIVIR 200 MG in NS 250 ML IV ONE (13:00)
--- NOTE | 2021-07-17 13:09 | CR ---
NEPHROLOGY CONSULTATION DATE: 07/17/2021 CONSULTATION REQUESTED BY: Barbara Loza M.D. REASON FOR CONSULTATION: Acute kidney injury superimposed on chronic kidney disease (CKD) stage IIIB with hyperkalemia. HISTORY OF PRESENT ILLNESS: History is obtained mostly from chart review, as patient is a poor historian. Ms. Nely Duvall is a 76-year-old female. She is a resident of [facility]. She has a past medical history of atrial fibrillation, insulin dependent diabetes mellitus, hypertension, chronic kidney disease (CKD) stage IIIB with baseline creatinine around 1.5 to 1.7 and other comorbid conditions mentioned below. Patient was admitted to [facility] yesterday. She came in with abdominal pain and decreased appetite. She was found to be in atrial fibrillation with rapid ventricular rate (heart rate was in the 130s). She had a CT of the abdomen and pelvis that showed findings compatible with cholecystitis. There was no obstructive uropathy noted. There was possible ileus. Patient is febrile today with temperature of 101.2, but is otherwise hemodynamically stable with blood pressure systolic 90s to 110s. She has received multiple lactated Ringer's fluid boluses (about 3 liters since admission), and is currently on normal saline at 100 mL/hour. Laboratory studies reveal severe Leukocytosis with white count on admission 42 and hyperkalemia with potassium of 5.3 and creatine 3.3 on admission. Patient has had poor urine output overnight. She was seen and examined in the intensive care unit (ICU). She had tested positive for COVID-19 on admission screen. She denies any shortness of breath at rest and denies any current abdominal pain. PAST MEDICAL HISTORY: 1. Chronic kidney disease (CKD) stage IIIB based on creatinine 1.5 to 1.7. 2. Hypertension. 3. Dyslipidemia. 4. Insulin dependent diabetes. 5. Spinal stenosis. 6. Osteopenia. 7. Atrial fibrillation. 8. Obesity. 9. Chronic transaminitis. 10. Dementia. PAST SURGICAL HISTORY: 1. Dilation and curettage (D and C). 2, Esophagogastroduodenoscopy (EGD). 3. Colonoscopy. SOCIAL HISTORY: She resides at [facility]. Denies alcohol, drugs or tobacco. FAMILY HISTORY: Patient does not recall family history. ALLERGIES: SULFA, TRIMETHOPRIM. HOME MEDICATIONS: - Tylenol 500 mg twice a day - allopurinol 100 mg daily - Eliquis 5 mg by mouth twice a day - atorvastatin 40 mg daily - calcitriol 0.5 mcg by mouth daily - ceftriaxone 1 gram intramuscular daily - Trulicity 1.5 mg once weekly - Zetia 10 mg daily - gabapentin 300 mg by mouth twice a day - insulin - lisinopril 5 mg daily - oxybutynin 5 mg by mouth at bedtime - potassium chloride 20 mEq daily - primidone 125 mg in the evening, 250 mg in the morning REVIEW OF SYSTEMS: CONSTITUTIONAL: Limited secondary to patient's clinical condition. She is a poor historian. She is unsure if she has been having any fevers or chills. There is fever spike recorded today. EYES: She denies visual changes. EARS, NOSE AND THROAT (ENT): She denies rhinorrhea, epistaxis. CARDIOVASCULAR: She has atrial fibrillation. Her troponin is noted to be elevated. She denies active chest pain. GASTROINTESTINAL: She has evidence of cholecystitis on CT scan imaging, but she denies active abdominal pain at present. GENITOURIARY: Patient is uncertain if she was recently being treated for any sort of urinary tract infection. She has a Alberto catheter with minimal urine at this time. EXTREMITIES: She denies any acute myalgias or arthralgias or leg swelling. NEUROLGOC: Patient denies any seizures or syncope. HEMATOLOCI: She is noted to be on chronic anticoagulation (Eliquis). PHYSICAL EXAMINATION: VITAL SIGNS: Temperature 101.2, pulse 112espiratory rate 22, blood pressure 92/50, saturating 93% on 2 liters nasal cannula. INTAKE AND OUTPUT: Intake yesterday was 3.2 liters, urine output was only recorded as 150 mL. GENERAL: Patient is seen lying in bed, morbidly obese female, awake, alert, oriented to herself, but she thinks she is in [facility]. HEENT: Extraocular muscles are intact. Tongue is moist. NECK: Supple. Jugular veins are difficult to assess, but do not look elevated. HEART SOUNDS: Irregularly irregular and mildly tachycardic. There is no significant peripheral edema. LUNGS: Show diminished breath sounds secondary to obesity and body habitus. There is prolonged expiration. There are no crackles or rales. ABDOMEN: Soft, obese and nontender. GENITOURINARY: Shows Alberto catheter. EXTREMITIES: No cyanosis or clubbing. NEUROLOGIC: She is oriented to person. She knows the year is 2020. She cannot tell me where she is and she cannot identify the president. She can follow simple commands and is cooperative with physical examination. LABORATORY STUDIES: White count 33, hemoglobin 11.9, platelets 243. Sodium 134, potassium 5.3, bicarbonate 27, BUN 41, creatinine 3.4, magnesium 1.6. Troponin is noted to be elevated. C-reactive protein (CRP) is 42. Albumin is 2.0. Urine sodium is less than 10. INR 1.3. D-dimer greater than 4000. MICROBIOLOGY: Blood cultures and urine culture is pending. IMAGING: CT of the abdomen and pelvis did not show any obstructive uropathy. There was distended gallbladder with wall thickening and edema consistent with cholecystitis. Chest x-ray did not show any pleural effusion. INPATIENT MEDICATIONS: She has received 3 liters of lactated Ringer's. She is currently on normal saline at 100 mL/hour. I decreased the rate to 60 mL/hour. She received: - amiodarone 150 mg intravenous (IV) times one - ceftriaxone 1 gram IV times one - meropenem 500 mg IV twice a day - Flagyl 500 mg IV times one - Zosyn 3.375 grams IV every 6 hours - Remdesivir 100 mg IV daily - vancomycin 1 gram IV times one - Tylenol 500 mg by mouth twice a day - Eliquis has been stopped - atenolol 25 mg by mouth times one - calcitriol 0.5 mcg by mouth daily - digoxin 0.125 mg IV times one - She is off gabapentin \ - She is off heparin subcutaneous - metoprolol 25 mg by mouth every 6 hours - midodrine 10 mg by mouth three times a day - morphine as needed - potassium was discontinued - primidone 250 mg in the morning, 125 mg in the evening PROBLEMS: 1. Acute kidney injury superimposed on chronic kidney disease (CKD) stage IIIB. Patient's baseline creatinine is 1.5 to 1.7. She is in acute renal failure with poor urine output. Creatinine was 3.3 on admission. She is septic. She has fever spikes and marked elevation in her WBC. She received 3 liters of lactated Ringer's. She is currently on normal saline at 100 mL/hour. I would continue IV fluids at this time, but I did cut the rate of the normal saline down to 60 mL/hour. She is being treated for septic shock, as mentioned below and her renal imaging was negative for obstruction. She is DNI hence close watch on fluid administration so that she does not develop respiratory distress. May require pressor initiation rather than ongoing IVF 2. Sepsis in the setting of cholecystitis. Patient has fever spike and marked elevated of WBC. She is on broad spectrum antibiotics (at this time meropenem and vancomycin). She has also received doses of Flagyl and Zosyn. Continue IV fluids at this time but w/ caution given oliguria and DNI status. Her sepsis is complicated by atrial fibrillation with rapid ventricular response and need for rate controlling medications. Overall, her systolic blood pressure has come down over the course of this admission and she may require pressor support if her hypotension progresses, especially if she is receiving beta corry. 3. Atrial fibrillation with rapid ventricular response. Patient is receiving beta corry at this time. I see she is on metoprolol. I am concerned because she is also septic with marked elevation in white count and fever spike. Most recent blood pressure is 92/50, mean arterial pressure (MAP) is 64. Patient is in oliguric acute kidney injury and renal hypoperfusion is suspected. Primary team is also treating with digoxin and amiodarone. She is also on midodrine to try and keep her MAP above 65. 4. Hyperkalemia. She is off lisinopril. She is off potassium chloride. Continue IV fluid at this time. She is presently nothing by mouth. We will repeat a chemistry in the evening. 5. Acute cholecystitis. As per surgical team. Patient is septic. She is receiving IV fluids. She is receiving empiric antibiotics. Her cultures are pending. She is on midodrine. She is also on Eliquis and there is possible plan for percutaneous drainage of the gallbladder when acute events have stabilized. DISPOSITION: Prognosis is guarded. Patient is septic and her sepsis is complicated by atrial fibrillation with rapid ventricular response and acute on chronic renal failure. She may develop dialysis needs. Thank you for involving me in the care of Ms. Duvall. I will follow her along with you. THALIA
[2021-07-17] MEDS: ACETAMINOPHEN TAB 650MG DOSE (2X325MG) PO PRN (13:40)
[2021-07-17] MEDS ORDERED: PATIROMER SORBITEX CALCIUM 8.4 GM POWDER PACKET (VELTASSA) PO ONE (14:00)
[2021-07-17] MEDS: MAG SULF 1GM/100ML (MAG RUN) 1 GM in IV 1 EA IV SCH ×2 (14:02→15:28)
[2021-07-17] MEDS ORDERED: NOREPINEPHRINE 4 MG/4 ML AMP As Ordered ONE (14:27)
[2021-07-17] MEDS ORDERED: SODIUM CHLORIDE 0.9% 1000ML IV ONE (14:30)
[2021-07-17] MEDS ORDERED: VASOPRESSIN INJ 20 UNITS/ML VIAL As Ordered ONE (14:59)
[2021-07-17] MEDS ORDERED: SODIUM CHLORIDE 0.9% INJ 10 ML SYR IV ONE (15:00)
[2021-07-17] MEDS: VASOPRESSIN INJ 20 UNITS in NS 499 ML IV SCH ×2 (15:24→23:29)
--- NOTE | 2021-07-17 15:32 | REP ---
INDICATION: central line placement COMPARISON: 07/16/2021 at 11:29 p.m. TECHNIQUE: Portable AP view of the chest FINDINGS: Right IJ line with tip in the right atrium. Evaluation is somewhat limited due to technique, underpenetration, and poor inspiratory effort. Perihilar and lower lobe opacities including suspected layering effusion. No pneumothorax. IMPRESSION: Differential diagnosis includes CHF and lower lobe infiltrates. <Electronically signed by Alen Glover > 07/17/21 0700
[2021-07-17 15:51] LABS: CALCIUM LEVEL 8.5 MG/DL (8.8-10.2); CREATININE FOR GFR 3.41 MG/DL (0.55-1.30); GLOMERULAR FILTRATION RATE 13.9 (>39); POTASSIUM SERUM 5.1 MEQ/L (3.5-5.1)
[2021-07-17] MEDS: NOREPINEPHRINE BITARTRATE 8 MG in D5W 492 ML IV SCH ×2 (16:36→20:49)
[2021-07-17] MEDS ORDERED: METOPROLOL TART 25 MG TABLET PO SCH (18:00)
--- NOTE | 2021-07-17 19:13 | ECHO ---
ECHOCARDIOGRAM DATE OF PROCEDURE: 07/17/2021 Age: Gender: Female Height: 165 cm Weight: 131 kg REFERRING PHYSICIAN: Barbara Loza M.D. INDICATION: COVID-19, dyspnea. MEASUREMENTS: 2D Measurements: Aortic root 2.9 cm Left atrium 3.2 cm Intraventricular septum 1.37 cm Posterior wall 1.54 cm Left ventricle diastole 3.3 cm Inferior vena cava 1.6 cm with normal respiratory variation. Doppler Measurements: No aortic regurgitation No aortic stenosis Aortic valve velocity 133 cm/sec LVOT velocity 72.5 cm/sec No mitral regurgitation Moderate tricuspid regurgitation Estimated right ventricle systolic pressure 71-76 mmHg Estimated right atrial pressure 5-10 mmHg Trace pulmonic regurgitation Pulmonary artery acceleration time 71-74 msec DESCRIPTION: Rhythm appeared to be atrial fibrillation with rapid rate. This was a moderately technically difficult echocardiogram. The study was performed with the patient supine. No suprasternal acoustic window. CONCLUSIONS: 1. Hyperdynamic left ventricular (LV) systolic function. Left ventricular ejection fraction (LVEF) 75-80 % by visual assessment. No regional LV wall motion abnormalities. Mild concentric left ventricular hypertrophy. 2. Suggestive of severe elevation of estimated right ventricle systolic pressure (71-76 mmHg). Normal right ventricle size and systolic function. Moderate tricuspid regurgitation with structurally normal mitral leaflets. Appearance of mild ventricle hypertrophy. 3. Small pericardial effusion measuring 0.6 cm of the posterior wall of the left ventricle. No diastolic chamber collapse. 4. Mild aortic valve sclerosis of a 3-cusp valve. No aortic regurgitation. 5. Mild mitral annular calcification. No mitral regurgitation.
--- NOTE | 2021-07-17 20:00 | ECGEPIP ---
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 No significant change compared with 07/14/2020. Electronically Signed on 07-17-2021 20:00:17 EST by Matt Gray
--- NOTE | 2021-07-17 20:17 | CR ---
CONSULTATION DATE: 07/17/2021 CHIEF COMPLAINT: Sepsis with septic shock. HISTORY OF PRESENT ILLNESS: History is obtained from the chart as well as some history from the patient. She does have history of dementia and is a poor historian at baseline. Miss Duvall is a 76-year-old female with a history of dementia, CKD, insulin dependent diabetes, hypertension, atrial fibrillation, on anticoagulation, who is a resident at [facility] and has a prior history of COVID-19 who presented with complaint of decreased appetite and abdominal pain. Patient was febrile on admission and was also noted to be tachycardic in atrial fibrillation with a rapid ventricular response with heart rate in the 130s. She initially was normotensive and imaging had shown findings consistent with cholecystitis. She was given IV fluids with multiple boluses of lactated Ringer's and continued with normal saline for maintenance fluid. She continued to have fever and was noted overnight to have decreased urine output and more hypotension. Earlier in the morning, patient continued to have tachycardia and continued to be febrile. She was given a dose of amiodarone as well as Digoxin and beta corry. She did have hypotension afterwards although was also on midodrine. She was an additional fluid bolus. Patient also was requiring supplemental oxygen particularly when sleeping. She does have intermittent episodes where she was dosing off during the day. She has home CPAP. Patient otherwise denies any chest pain currently. She denies any worsening shortness of breath or dyspnea on exertion. She denies any coughing or wheezing, no nausea or vomiting. 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 PAST MEDICAL AND SURGICAL HISTORY: 1. Hypertension. 2. Hyperlipidemia. 3. Insulin dependent diabetes. 4. Mild cirrhosis. 5. Atrial fibrillation, on anticoagulation. 6. Obesity. 7. OBA on CPAP. 8. History of D&C. 9. Dementia. SOCIAL HISTORY: Patient is a resident at [facility]. Denies any prior history of alcohol or tobacco use. FAMILY HISTORY: Patient does not recall family history. ALLERGIES: BACTRIM. HOME MEDICATIONS: 1. Tylenol. 2. Allopurinol. 3. Eliquis. 4. Atorvastatin. 5. Calcitriol. 6. Trulicity. 7. Zetia. 8. Gabapentin. 9. Insulin. 10. Lisinopril. 11. Oxybutynin. 12. Potassium chloride. 13. Primidone. PHYSICAL EXAMINATION: Vitals: Temperature 101.2, pulse 112, respirations 24, blood pressure 92/50, O2 sat 92% on two liters nasal cannula, in 3.2 liters, out 50 mL. General: The patient is a morbidly obese female. She is awake and oriented x1 to person although is somewhat confused as to place and time. She appears somewhat tremulous at baseline. She tachypneic but denies any respiratory distress. HEENT: Normocephalic, atraumatic. Tongue and oral mucosa appear dry. Neck: Supple. Trachea is midline. Unable to assess JVD with neck habitus. Cardiac: Irregularly irregular and tachycardic with unable to appreciate any clear murmurs. Pulmonary: Decreased breath sounds bilaterally particularly at the bases with no wheezing or rhonchi. Abdomen: Obese, soft and tender to palpation in the right upper quadrant. There is some guarding but no rebound. Extremities: There is no significant lower extremity edema bilaterally. LABORATORY DATA: WBC 33.0, hemoglobin 11.9, platelets are 243. Chemistries: Sodium is 136, potassium 5.1, chloride is 102, bicarb is 20, BUN 76, creatinine 2.41, glucose is 188, lactic acid 1.2, T bili 0.6, AST, ALT 108 and 57, alk phos 142, BNP 6899, troponins are 104, INR is 1.36. VBG: pH is 7.311, pCO2 of 51.6. IMAGING: Chest x-ray today after central line placement shows the hemodialysis catheter in the right IJ with the tip in the right atrium. There is poor inspiratory effort. There appears to be some increased pulmonary vascular congestion and atelectasis at the bases with suspected small pleural effusion. No pneumothorax. Abdominal ultrasound: Gallbladder shows sludge and stones. There is edematous wall thickening with pericholecystic fluid consistent with cholecystitis. CBD measures 7 mm. There is no hydronephrosis noted bilaterally. There is a left renal cyst. Minimal free fluid is noted adjacent to the liver. CT of abdomen and pelvis, 07/16: Lungs: Mild bibasilar fibroatelectatic change and question of minimal infiltrates. There is a distended gallbladder with faint stones and sludge with evidence of acute cholecystitis with trace perihepatic fluid. Borderline small bowel distention and with a few air fluid levels which may represent ileus. An IUD in the uterus, sigmoid diverticulosis without diverticulitis. ASSESSMENT AND PLAN: Miss Duvall is a 76-year-old female with a past medical history of atrial fibrillation, on anticoagulation, history of chronic transaminitis, hypertension, insulin dependent diabetes, NATACHA on CPAP and CKD who presented initially with complaints of decreased appetite and abdominal cavity. The patient was found to be febrile and tachycardic on admission. She was found to have acute cholecystitis on imaging. She had also tested positive for COVID-19 on PCR but she has a previous positive test in May. 1. Acute cholecystitis with sepsis and possible septic shock. The patient's blood pressure had been decreasing. She is on midodrine and she did receive a beta corry for rate control with her atrial fibrillation which likely contributed to her hypotension. She has received multiple boluses of IV fluid and continues to have episodes of hypotension. She appears to have some evidence of increased pulmonary vascular congestion on imaging. Would DC further IV fluids. Would start patient on pressors for septic shock if MAP less than 65. We will start her on vasopressin initially but if she is persistently hypotensive, I would start her on Levophed with her on vasopressin for her borderline blood pressure now to help with the renal protective effect. We will otherwise start her on Levophed as well to maintain a MAP above 65 to 79. Patient received Flagyl and Zosyn in the ER. She is now on IV Meropenem renally dosed as well as vancomycin for her acute cholecystitis. General surgery has been consulted. She is NPO currently. They are holding anticoagulation for possible surgery although surgery has recommended further stabilization for the patient and possible ERCP prior to surgery if clinically unstable. 2. Acute hypoxemic respiratory failure. Patient is currently requiring nasal cannula oxygen supplementation. She does appear to desaturate more with sleeping and does have a history of NATACHA and with her morbid obesity, may have a degree of OHS. Suspect her hypoxia is in the setting of some fluid overload currently and she has received multiple boluses of IV fluids and her x-ray doses appear to show increasing pulmonary vascular congestion. She was tested positive for COVID-19 with PCR. However, she has a previous positive test in May. Her current symptoms with leukocytosis and fever can be explained by her acute cholecystitis and there is less suspicion for acute COVID-19 pneumonia. We will DC her remdesivir given worsening renal failure and would not start her on steroids particularly given her current cholecystitis and sepsis at this time. Continue with nasal cannula oxygen supplementation to maintain an O2 sat above 88%. We will DC IV fluids. She did have an increased BNP on admission as well. Continue with home CPAP at night and with naps. 3. [id number] renal failure with hyperkalemia and metabolic acidosis. Patient has had a decrease in urine output. She has been given multiple boluses of IV fluids with minimal response in her urine output. Appreciate nephrology consult recommendations. If she has continued hyperkalemia or acidosis, then she would require likely hemodialysis at that time given her oliguric renal failure. We will follow up with her Is and Os and electrolytes. She may have improved urine output with vasopressors. We will check an ABG in the a.m. for acid-base status. 4. Atrial fibrillation with RVR Patient did have A fib, RVR likely in the setting of her fever and sepsis. She had been given IV amiodarone as well as IV Digoxin and was on a beta corry. Given her likely septic shock, we will DC beta blockers and other antihypertensive medications. Suspect the patient's atrial fibrillation will improve with improved fever control. Has received tylenol for fever. However with concern of transaminitis, would be cautious about additional Tylenol. If she does have persistent A fib with RVR, then would need amiodarone as with her renal failure, would hold off on digoxin. Patient was on Eliquis for anticoagulation. Her anticoagulation is currently on hold and her aspirin is in as well for possible surgical procedure. I would continue, however, with DVT prophylaxis with heparin. Code Status: DNR/DNI WITH MOLST IN THE CHART. Total critical care time spent not including procedures approximately one hour and 40 minutes. MTDD
[2021-07-17] MEDS: LEVEMIR (INSULIN DETEMIR) 1 UNITS/0.01ML SC SCH (20:49)
[2021-07-17] MEDS: HEPARIN SOD (PORCINE) 5000UNITS/ML 1ML VIAL/SYRINGE SQ SCH (20:51)
[2021-07-17] MEDS ORDERED: LEVEMIR (INSULIN DETEMIR) 1 UNITS/0.01ML SC SCH (21:00)
[2021-07-17 21:33] LABS: ABG BASE EXCESS -1.8 (-2.0-2.0); ABG HCO3 24.2 MEQ/L (22.0-26.0); ABG O2 SATURATION 94.7 % (95.0-99.0); ABG PARTIAL PRESSURE CO2 46.6 mmHg (35.0-45.0); ABG PARTIAL PRESSURE O2 67.8 mmHg (75.0-100.0); ABG STANDARD HCO3 22.9 MEQ/L (22.0-26.0); ABG TOTAL CO2 25.6 MEQ/L (23.0-31.0); ABG pH (ARTERIAL) 7.333 UNITS (7.350-7.450)
[2021-07-18] VITALS (58 sets, daily range): BP systolic 80–142; BP diastolic 44–82
[2021-07-18 05:13] LABS: BASO # 0.1 10^3/uL (0.0-0.2); BASO % 0.2 % (0.0-1.0); HEMATOCRIT 32.1 % (36.0-47.0); HEMOGLOBIN 10.1 g/dl (12.0-15.5); LYMPH # 0.8 10^3/uL (1.5-5.0); LYMPH % 2.4 % (24.0-44.0); MEAN CORPUSCULAR HEMOGLOBIN 31.6 pg (27.0-33.0); MEAN CORPUSCULAR HGB CONC 31.5 g/dl (32.0-36.5); MEAN CORPUSCULAR VOLUME 100.3 fl (80.0-96.0); MONO # 1.7 10^3/uL (0.0-0.8); MONO % 5.2 % (2.0-8.0); NEUTROPHILS # 28.3 10^3/uL (1.5-8.5); NEUTROPHILS % 87.4 % (36.0-66.0); PLATELET COUNT, AUTOMATED 226 10^3/uL (150-450)
[2021-07-18] MEDS: HEPARIN SOD (PORCINE) 5000UNITS/ML 1ML VIAL/SYRINGE SQ SCH ×2 (05:35→14:02)
[2021-07-18] MEDS: HumaLOG INSULIN (NovoLOG) PER UNIT SC SCH ×3 (05:36→17:52)
[2021-07-18 05:46] LABS: WHITE BLOOD COUNT 32.4 10^3/uL (4.0-10.0)
[2021-07-18 05:58] LABS: ALBUMIN 1.6 GM/DL (3.2-5.2); BILIRUBIN,DIRECT 0.6 MG/DL (0.0-0.2); BILIRUBIN,TOTAL 0.7 MG/DL (0.2-1.0); CALCIUM LEVEL 8.3 MG/DL (8.8-10.2); CREATININE FOR GFR 3.52 MG/DL (0.55-1.30); DIGOXIN LEVEL 0.7 NG/ML (0.5-2.0); GLOMERULAR FILTRATION RATE 13.4 (>39); MAGNESIUM LEVEL 2.1 MG/DL (1.8-2.4); POTASSIUM SERUM 5.1 MEQ/L (3.5-5.1); TOTAL PROTEIN 5.4 GM/DL (6.4-8.2)
[2021-07-18 06:36] LABS: ABG BASE EXCESS -4.5 (-2.0-2.0); ABG HCO3 21.5 MEQ/L (22.0-26.0); ABG O2 SATURATION 94.1 % (95.0-99.0); ABG PARTIAL PRESSURE CO2 43.3 mmHg (35.0-45.0); ABG PARTIAL PRESSURE O2 66.9 mmHg (75.0-100.0); ABG STANDARD HCO3 20.7 MEQ/L (22.0-26.0); ABG TOTAL CO2 22.8 MEQ/L (23.0-31.0); ABG pH (ARTERIAL) 7.314 UNITS (7.350-7.450)
[2021-07-18] MEDS ORDERED: FUROSEMIDE 100MG/10ML VIAL (J1940) IV ONE ×3 (08:20→17:30)
[2021-07-18] MEDS: CALCITRIOL 0.25 MCG CAP (S0169) PO SCH (08:54)
[2021-07-18] MEDS: MEROPENEM INJ 500 MG in IV 1 EA IV SCH ×2 (08:54→21:04)
[2021-07-18] MEDS: VASOPRESSIN INJ 20 UNITS in NS 499 ML IV SCH ×2 (08:54→17:06)
[2021-07-18] MEDS: PRIMIDONE 250 MG TAB PO SCH ×2 (08:54→20:46)
[2021-07-18] MEDS: SENOKOT S TAB PO SCH (08:54)
[2021-07-18] MEDS: VANCOMYCIN HCL 1,000 MG, VIAL MATE ADAPTER 1 EACH in NS 250 ML IV SCH (09:22)
--- NOTE | 2021-07-18 09:57 | IPNPDOC ---
Date Seen The patient was seen on 07/18/21. Progress Note SUBJECTIVE: c/o ruq abd pain when takes a deep breath or moves slightly. febrile yesterday none since midnight no chills. no n/v. sob s/p right triple lumen IJ , on vasopressin and levophed MAP 70-75 OBJECTIVE PHYSICAL EXAMINATION: VITAL SIGNS: Please see below. GENERAL: right IJ triple lumen no distress speaks softly HEENT: Dry mucous membranes no JVD thyromegaly cervical lymphadenopathy No stridor no carotid bruit face is symmetric CARDIOVASCULAR: Tachycardic S1-S2 irregularly irregular no S3 nondisplaced point of maximal impulse RESPIRATORY: Diminished air entry is equal inspiratory expiratory ratio 1:2 crackles at the right base ABDOMINAL: Positive bowel sounds soft tender in right upper quadrant epigastric no rebound guarding Obese EXTREMITIES: No cyanosis or clubbing LABORATORY DATA, IMAGING STUDIES, MICROBIOLOGY: Please see below. DVT prophylaxis ordered?: Received subcutaneous heparin at 5:30 AM this morning by mistake ASSESSMENT AND PLAN: 76-year-old female [facility] resident, DO NOT RESUSCITATE/DO NOT INTUBATE, with chronic kidney disease stage III baseline creatinine 1.5-1.7, chronic atrial fibrillation insulin-dependent type 2 diabetes, hypertension, obesity BMI 48, spinal stenosis, chronic transaminitis, hypertension, dyslipidemia, admitted in July 16 with complaints of flank pain, without dysuria fever chills or night sweats at home. Patient was found to have acute cholecystitis on CT abdomen pelvis. Acute cholecystitis -Due to A. fib with RVR patient was not emergently taken to the operating room, and was rate controlled overnight. -Patient did receive intravenous Flagyl and Zosyn in the ER. - on IV meropenem renally dosed to complete a 7-day course, with pharmacy adjusting her dose renally -IV vancomycin for septic shock empirically until cholecystostomy tube placed on Monday -General surgeon Dr. Shelton has been consulted. s/p IV fluids. N.p.o. status. Stopped all of anticoagulants and antiplatelets. Septic shock -Secondary to acute cholecystitis. On IV antibiotics meropenem and vancomycin day #2 status post IV Flagyl Zosyn and doxycycline. -s/p IV fluids n.p.o. status due to acute cholecystitis. -Dr. francisco placed a right IJ triple-lumen for IV antibiotics, IV fluids, and IV levophed, iv vasopressin Coronavirus 19 with acute hypoxic respiratory failure requiring 2 L of oxygen -Chest x-ray shows right lower lobe infiltrate. Currently on IV meropenem and IV Vanco -no antivirals due to renal failure Acute on chronic renal failure/hyperkalemia -Due to sepsis. s/p IV fluids.held fluids due to sob. -Strict I's and O's, daily weights, nephrology consulted for help in management. Alberto catheter placement Chronic A. fib with RVR -Due to concerns for low blood pressure, IV amiodarone IV digoxin given -rate controlled -held anticoagulation due to cholecystostomy tube on Monday Dyslipidemia -Chronic Obesity BMI 48.1 -Complicating care History of spinal stenosis/ History of osteopenia Chronic transaminitis -Monitor DVT prophylaxis: Mechanical Diet: N.p.o. CODE STATUS: DNR/DNI VS, I&O, 24H, [facility] Vital Signs/I&O Vital Signs Date Time Temp Pulse Resp B/P (MAP) Pulse Ox O2 Delivery O2 Flow Rate FiO2 07/18/21 08:51 94/56 07/18/21 08:00 2.0 07/18/21 06:15 89 94 07/18/21 04:00 97.8 24 NIPPV (BIPAP/CPAP) 07/17/21 19:59 28 I&O- Last 24 Hours up to 6 AM 07/18/21 06:00 Intake Total 1992 ml Output Total 361 ml Balance 1631 ml Laboratory Data 24H LABS Laboratory Tests 2 07/17/21 11:24: Bedside Glucose (Misc Panel) 180H 07/17/21 15:12: Anion Gap 8, Glomerular Filtration Rate 13.9L, Lactic Acid Level 1.2, Calcium Level 8.5L, Troponin I High Sensitivity 148.0*H 07/17/21 18:13: Bedside Glucose (Misc Panel) 231H 07/17/21 21:01: Bedside Glucose (Misc Panel) 250H 07/17/21 21:23: Blood Gas Bicarbonate Standard 22.9, Arterial Blood pH 7.333L, Arterial Blood Partial Pressure CO2 46.6H, Arterial Blood Partial Pressure O2 67.8L, Arterial Blood Total CO2 25.6, Arterial Blood HCO3 24.2, Arterial Blood Base Excess -1.8, Arterial Blood Oxygen Saturation 94.7L 07/17/21 23:26: Bedside Glucose (Misc Panel) 240H 07/18/21 04:36: Anion Gap 9, Glomerular Filtration Rate 13.4L, Calcium Level 8.3L, Magnesium Level 2.1, Total Bilirubin 0.7, Direct Bilirubin 0.6H, Aspartate Amino Transf (AST/SGOT) 238H, Alanine Aminotransferase (ALT/SGPT) 96H, Alkaline Phosphatase 137H, Total Protein 5.4L, Albumin 1.6L, Albumin/Globulin Ratio 0.4L, Digoxin Level 0.7 07/18/21 04:38: Immature Granulocyte % (Auto) 4.8H, Neutrophils (%) (Auto) 87.4H, Lymphocytes (%) (Auto) 2.4L, Monocytes (%) (Auto) 5.2, Eosinophils (%) (Auto) 0.0, Basophils (%) (Auto) 0.2, Neutrophils # (Auto) 28.3H, Lymphocytes # (Auto) 0.8L, Monocytes # (Auto) 1.7H, Eosinophils # (Auto) 0.0, Basophils # (Auto) 0.1, Nucleated Red Blood Cells % (auto) 0.2H 07/18/21 04:57: Bedside Glucose (Misc Panel) 236H 07/18/21 06:00: Blood Gas Bicarbonate Standard 20.7L, Arterial Blood pH 7.314L, Arterial Blood Partial Pressure CO2 43.3, Arterial Blood Partial Pressure O2 66.9L, Arterial Blood Total CO2 22.8L, Arterial Blood HCO3 21.5L, Arterial Blood Base Excess - 4.5L, Arterial Blood Oxygen Saturation 94.1L CBC/BMP Laboratory Tests 07/17/21 15:12 07/18/21 04:36 07/18/21 04:38 Microbiology Microbiology 07/16/21 Blood Culture - Preliminary, Resulted No growth after 24 hours . All specim... 07/16/21 Blood Culture - Preliminary, Resulted No growth after 24 hours . All specim... 07/16/21 Urine Culture - Final, Complete Klebsiella Pneumoniae CHRISS KELLY MD Jul 18, 2021 09:57
--- NOTE | 2021-07-18 11:25 | RO ---
OPERATIVE NOTE DATE OF OPERATION: 07/17/2021 PROCEDURE: Central line insertion. PRE-PROCEDURE DIAGNOSIS: Septic shock and acute renal failure. POST-PROCEDURE DIAGNOSIS: Septic shock and acute renal failure. INDICATIONS: Vasopressor administration and hemodialysis access. ATTENDING PHYSICIAN: Nereida Freeman MD CONSENT: Consent was obtained from the patient and her secondary healthcare proxy, her sister. The risks and benefits of the procedure were explained at length. PROCEDURE SUMMARY: A central line insertion practice form was completed by an independent observer starting with the first hand wash prior to starting sterile technique. A time-out was performed prior to the procedure. Full sterile technique was maintained throughout the procedure, including surgical cap, mask, protective eyewear, full gown, and sterile gloves. The patient was placed in Trendelenburg position. The right neck region was prepped using chlorhexidine scrub and draped in sterile fashion using a full drape and a sterile probe cover and sterile gel employed. The internal jugular vein was identified using ultrasound. Anesthesia was achieved over the vein using 1% lidocaine. Using real real-time [id number] guidance, the introducer needle was inserted into the internal jugular vein under direct ultrasound visualization. Venous blood was withdrawn. The syringe was removed and a guidewire was advanced into the introducer needle. The introducer needle was removed over the guidewire. A small incision was made at the skin surface with a scalpel and a dilator was exchanged over the guidewire. After appropriate double dilation was obtained, the dilator was exchanged over the wire for a Trialysis hemodialysis catheter. The wire was removed and the catheter was sutured in place at 18 cm. A sterile chlorhexidine-impregnated dressing was placed over the catheter at the insertion site. The patient tolerated the procedure without any hemodynamic compromise. At the time of procedure completion, all ports were aspirated and flushed properly. Heparin was instilled in the dialysis ports. A post-procedure chest x-ray is pending. ESTIMATED BLOOD LOSS: Less than 5 mL. MTDD
[2021-07-18] MEDS: NOREPINEPHRINE BITARTRATE 8 MG in D5W 492 ML IV SCH (12:00)
--- NOTE | 2021-07-18 12:22 | CCN ---
CRITICAL CARE NOTE DATE: 07/18/2021 SUBJECTIVE: The patient was seen this morning during bedside rounds. This morning the patient appears somewhat more awake and alert. She states she is feeling better with less abdominal pain currently. She denies any chest pains and she denies noticing any worsening shortness of breath or dyspnea with exertion. She denies any significant coughing currently. She has not had any nausea or vomiting. Her fever curve has improved and she has been afebrile now overnight. Her heart rate has also improved. The patient is on vasopressors, but very low dose of Levophed currently anywhere from 1 to 3 mcg and vasopressin. She continues to have minimal urine output overnight. OBJECTIVE: Vital signs: Temperature 97.8, pulse 89, respirations 24, blood pressure 90/55, O2 saturation 94% on 2 liters nasal cannula or her home CPAP. General: The patient is a morbidly obese female. The patient is awake and alert. She is tremulous at baseline. She appears mildly tachypneic, but denies any respiratory distress. HEENT: Normocephalic, atraumatic. Moist mucous membranes noted. Neck is supple. Trachea is midline. Unable to assess jugular venous distention (JVD) with neck habitus. Cardiac: Irregularly irregular, normal S1, S2. Unable to clearly appreciate murmurs. Pulmonary: Diffuse breath sounds bilaterally with increased crackles at the bases. No wheezing or rhonchi noted. Abdomen: Obese and soft. There is mild tenderness to palpation in the right upper quadrant, which is improved from yesterday. Extremities: There is +1 pitting edema now in the bilateral lower extremities, which is increased. LABORATORY DATA: WBC 32.4, hemoglobin 10.1, platelets 226. Chemistry: Sodium is 134, potassium 5.1, chloride 101, bicarbonate is 24, BUN 82, creatinine is 3.52, glucose 195, lactic acid 1.2, calcium is 8.3. Troponin 148, albumin is 1.6. AST 238, ALT 96, direct bilirubin is 0.6, alkaline phosphatase is 137. Arterial blood gas: pH 7.314, pCO2 of 42.3, pO2 of 66.9. ASSESSMENT: Ms. Duvall is a 76-year-old female with a past medical history of atrial fibrillation on anticoagulation, history of chronic transaminitis, hypertension, insulin dependent, obstructive sleep apnea (NATACHA) on CPAP and chronic kidney disease (CKD), who presented initially with complaints increased abdominal pain. The patient was febrile on admission and tachycardiac. She was found to have acute cholecystitis on imaging. She had also tested positive for COVID 19 on PCR, but she has previous positive PCR test in May. 1. Acute cholecystitis with sepsis and septic shock. The patient has remained on low dose pressors with Levophed at 1 to 3 mcg a minute, as well as vasopressin. We are titrating pressors to maintain a MAP above 65. The patient is on broad-spectrum antibiotics still with IV meropenem and vancomycin. She had been having persistent fevers yesterday, but her fever curve has improved and overnight she has been afebrile. General surgery has been consulted. She is still n.p.o. They are planning a procedure by IR for her acute cholecystitis with stent placement. The patient's other antihypertensive medications including beta blockers are on hold given her sepsis. 2. Acute hypoxic respiratory failure. The patient is on nasal cannula oxygen supplementation and she does appear to have some episodes of desaturation. She has a history of obstructive sleep apnea (NATACHA) and with her morbid obesity may have a degree of obstructive sleep apnea (NATACHA) as well. The patient appears to have evidence of increasing fluid overload. She did receive multiple IV fluid boluses with her initial sepsis and her chest x-ray did show increasing pulmonary vascular congestion. She does have increased pitting edema on examination today and suspect she is having worsening fluid retention with her renal failure and in particular with her decreased urine output. Continue with nasal cannula oxygen supplementation to maintain an O2 saturation above 88 to 90%. She will continue with home CPAP at night and with nebs. The patient will be given Lasix by nephrology to see if this does help with her diuresis and perhaps with her oxygenation. She is a DO NOT RESUSCITATE (DNR)/DO NOT INTUBATE (DNR). The patient did test positive for COVID 19 on a PCR swab. She had a previous COVID positive test in May and suspects her current acute illness and sepsis is related to her cholecystitis and not from COVID 19 pneumonia. She was initially started on remdesivir; however given her renal failure, this was discontinued yesterday. 3. Acute on chronic renal failure with metabolic acidosis and hyperkalemia. The patient has continued to have oliguric overnight. She continues to have worsening renal function on her labs today. She does have some mild hyperkalemia currently. The patient does appear to have some worsening metabolic acidosis. At baseline, she appears to be mildly hypercapnic as her initial bicarbonate was 27; however with her worsening renal failure, her bicarbonate has trended down to 24. Appreciate nephrology consult recommendations. She was given Lasix to see if she will have improvement in her urine output and her renal function. She does have a trialysis catheter that was placed yesterday for not only vascular access for pressors, but also for potential hemodialysis. The patient states she would consent for hemodialysis if needed and her health care proxy did also consent for dialysis if needed. 4. For atrial fibrillation with rapid ventricular response (RVR). The patient had a rapid ventricular response on admission likely in the setting of her fever and sepsis. She had been given beta blockers, as well as IV amiodarone and IV digoxin. Given her sepsis and septic shock, her beta blockers were discontinued. Her heart rate improved with improvement in her fever and improved controlled with her sepsis. Will continue to monitor. If she does have recurrent episode with atrial fibrillation with rapid ventricular response (RVR), will given her amiodarone instead of digoxin given her renal failure. The patient was on anticoagulation with Eliquis as outpatient. This is currently on hold pending her procedure with IR. She was also on aspirin previously which is also on hold. Code status is DO NOT RESUSCITATE (DNR)/DO NOT INTUBATE (DNR). Deep venous thrombosis (DVT) prophylaxis with heparin. Total critical care time spent, not including any procedures, approximately 45 minutes.
[2021-07-18] MEDS ORDERED: REMDESIVIR 100 MG in NS 250 ML IV SCH (13:00)
--- NOTE | 2021-07-18 13:33 | IPN ---
NEPHROLOGY PROGRESS NOTE DATE: 07/18/2021 SUBJECTIVE: Ms. Duvall is seen and examined this morning at the bedside. She looks a little bit better compared to yesterday. She is more conversational. She had a Trialysis catheter placed in the right internal jugular (IJ) and she is on both Levophed and vasopressin. She remains oliguric and she was given a dose of intravenous (IV) Lasix this morning. Her oxygen requirements have not worsened. She remains on 2 liters nasal cannula. She denies shortness of breath at rest. She reports abdominal pain when she is being moved in bed. She remains nothing by mouth. PHYSICAL EXAMINATION: VITAL SIGNS: Temperature 98.9, pulse 96respiratory rate 30, blood pressure 119/58, saturating 94% on 2 liters nasal cannula. INTAKE AND OUTPUT: Intake yesterday was 1.4 liters. Urine output was 230 mL. Weight in the bed scale today is 130 kg. GENERAL: Patient is seen sitting in bed with the head of the bed elevated, awake, alert, oriented to person and place, elderly female, cooperative with physical exam, answers simple questions appropriately. HEENT: Extraocular muscles are intact. Tongue is moist. There is a Trialysis catheter in the right internal jugular (IJ). HEART SOUNDS: Irregularly irregular. There is trace peripheral edema. LUNGS: Diminished breath sounds bilaterally. There is prolonged expiration. She is comfortable on nasal cannula. There is no accessory muscle use. No tachypnea at the time of my visit. ABDOMEN: Soft, obese and nontender. GENITOURINARY: Shows Alberto catheter with minimal urine. EXTREMITIES: No cyanosis or clubbing. NEUROLOGIC: She is oriented to person and place. She answers simple questions appropriately. She can correctly identify the year and is cooperative with physical exam. LABORATORY STUDIES: White count 32.4, hemoglobin 10.1, platelets 226. Sodium 134, potassium 5.1, bicarbonate 24, BUN 82, creatinine 3.5, magnesium 2.1, albumin 1.6. MICROBIOLOGY: Blood cultures: No growth for 24 hours times two sets. Urine culture grew Klebsiella. IMAGING: Chest x-ray done yesterday shows congestive heart failure (CHF) pattern. INPATIENT MEDICATIONS: I gave a dose of Lasix 60 mg intravenous (IV) times one today. She is on Levophed at 2 mcg/min. She is on vasopressin at 4 units. She is on meropenem 500 mg IV twice a day, vancomycin 1 gram IV daily, Remdesivir. She is off of metoprolol, off of midodrine. Insulin was adjusted by the primary team. Remainder of medications are unchanged as compared to yesterday. PROBLEMS: 1. Oliguric renal failure in the setting of septic shock with current pressor requirement of Levophed at 2 mcg/min and vasopressin at 4 units. Patient has oliguria. There is no need for IV fluid, as she is receiving a significant hourly intake with the two pressors that she is on. She is nothing by mouth. She is DO NOT INTUBATE (DNI) and she has a congestive heart failure (CHF) pattern on her x-ray. I gave a dose of Lasix this morning and we will see how she responds. I urine output remains poor, I will give another dose of Lasix this afternoon and she may progress to dialysis needs in the ing . That has been discussed with patient, who is agreeable for dialysis initiation, if she requires it. 2. Sepsis. Patient's urine culture was positive. She also had imaging with evidence of cholecystitis. She has marked elevation in WBCs. She is on meropenem and vancomycin. She is on low dose Levophed and vasopressin. IV fluids have been stopped, given oliguria and DO NOT INTUBATE (DNI) status and CHF pattern on chest x-ray. She received a dose of Lasix this morning. We will see how her urine output responds and further diuretic administration will depend on her response and hemodynamics this afternoon. If she requires dialysis, she will likely be able to tolerate intermittent hemodialysis instead of continuous renal replacement therapy (CRRT) modality. 3. Atrial fibrillation. Beta corry was stopped because of hypotension and heart rate is controlled at this time. 4. Acute cholecystitis. Patient is now afebrile and continues to have significant leukocytosis, but is only on low dose pressor requirement at present. There is a plan for cholecystostomy tube, possibly on Monday. 5. Hypoxic respiratory failure. Patient is requiring 2 liters of oxygen via nasal cannula. Chest x-ray showed some CHF pattern. IV fluids were stopped yesterday. She is now on low dose pressor to maintain her mean arterial pressure (MAP) above 65. She was given a dose of Lasix today to see if we can convert her from oliguric renal failure to nonoliguric. We will keep a close eye on her volume status given that she is DO NOT INTUBATE (DNI) and also tested positive for COVID-19. 6. Hyperkalemia. It is mild and we will see if there is any improvement with Lasix administration.
[2021-07-18] MEDS: SODIUM CHLORIDE 0.9% INJ 10 ML SYR IV SCH (13:57)
--- NOTE | 2021-07-18 14:29 | IPN ---
PROGRESS NOTE DATE: 07/18/2021 SUBJECTIVE: From a surgical standpoint, patient has some elevated liver function tests, either associated with her sepsis or her cholecystitis. It is hard to know at this point, given her overall presentation. The concern is that she is going to need dialysis or ultrafiltration. She really is not complaining of any abdominal pain and, unfortunately, because of her morbid obesity, it is hard to tell if she is distended, but in general, has some mild discomfort throughout her abdomen, but no peritoneal signs. IMPRESSION/PLAN: Patient, from a historical standpoint, probably had cholecystitis that has probably been going on for several days, if not a week or longer at this point, or she is having some additional urosepsis. It is hard to tell, but from a general surgery standpoint, I do feel that to assist with this resolution of the infectious presentation, I would recommend ultrasound-guided aspiration/drainage of the gallbladder. Obviously, without significant tenderness at this time, it sounds as though her priorities at this moment are cardiovascular, renal, et cetera. Thus, I would recommend continues intravenous (IV) antibiotics, continued supportive care and drainage when she is stable enough to proceed with this.
[2021-07-18] MEDS: LEVEMIR (INSULIN DETEMIR) 1 UNITS/0.01ML SC SCH (21:00)
[2021-07-18] MEDS: FUROSEMIDE 100MG/10ML VIAL (J1940) IV SCH (21:03)
[2021-07-19] VITALS (68 sets, daily range): BP systolic 73–144; BP diastolic 46–84
[2021-07-19] MEDS: HEPARIN SOD (PORCINE) 5000UNITS/ML 1ML VIAL/SYRINGE SQ SCH ×4 (00:09→21:36)
[2021-07-19] MEDS: VASOPRESSIN INJ 20 UNITS in NS 499 ML IV SCH ×3 (02:18→17:30)
[2021-07-19] MEDS: FUROSEMIDE 100MG/10ML VIAL (J1940) IV SCH ×3 (05:35→21:36)
[2021-07-19 05:48] LABS: BASO # 0.1 10^3/uL (0.0-0.2); BASO % 0.4 % (0.0-1.0); HEMATOCRIT 31.1 % (36.0-47.0); HEMOGLOBIN 9.8 g/dl (12.0-15.5); LYMPH # 0.8 10^3/uL (1.5-5.0); LYMPH % 2.4 % (24.0-44.0); MEAN CORPUSCULAR HEMOGLOBIN 31.5 pg (27.0-33.0); MEAN CORPUSCULAR HGB CONC 31.5 g/dl (32.0-36.5); MONO # 1.9 10^3/uL (0.0-0.8); MONO % 5.6 % (2.0-8.0); NEUTROPHILS % 88.2 % (36.0-66.0); PLATELET COUNT, AUTOMATED 199 10^3/uL (150-450); RED BLOOD COUNT 3.11 10^6/uL (4.00-5.40)
[2021-07-19 05:53] LABS: WHITE BLOOD COUNT 32.9 10^3/uL (4.0-10.0)
[2021-07-19 05:58] LABS: INR 1.21; PROTHROMBIN TIME 15.8 SECONDS (12.7-14.5)
[2021-07-19 05:59] LABS: PARTIAL THROMBOPLASTIN TIME 59.5 SECONDS (25.9-37.0)
[2021-07-19 07:35] LABS: ALBUMIN 1.4 GM/DL (3.2-5.2); BILIRUBIN,DIRECT 0.5 MG/DL (0.0-0.2); BILIRUBIN,TOTAL 0.7 MG/DL (0.2-1.0); CALCIUM LEVEL 7.7 MG/DL (8.8-10.2); CREATININE FOR GFR 3.92 MG/DL (0.55-1.30); GLOMERULAR FILTRATION RATE 11.8 (>39); MAGNESIUM LEVEL 2.4 MG/DL (1.8-2.4); POTASSIUM SERUM 4.8 MEQ/L (3.5-5.1); TOTAL PROTEIN 5.2 GM/DL (6.4-8.2)
[2021-07-19] MEDS: HumaLOG INSULIN (NovoLOG) PER UNIT SC SCH ×4 (07:39→18:22)
[2021-07-19] MEDS: PRIMIDONE 250 MG TAB PO SCH ×2 (08:52→21:36)
[2021-07-19] MEDS: CALCITRIOL 0.25 MCG CAP (S0169) PO SCH (08:52)
[2021-07-19] MEDS: SENOKOT S TAB PO SCH (08:53)
[2021-07-19] MEDS: MEROPENEM INJ 500 MG in IV 1 EA IV SCH ×2 (08:53→21:36)
[2021-07-19] MEDS: NOREPINEPHRINE BITARTRATE 8 MG in D5W 492 ML IV SCH (09:30)
[2021-07-19] MEDS: MORPHINE 2 MG/ML 1ML VIAL (J2270) IV PRN (11:10)
[2021-07-19 11:25] LABS: TOTAL 25(OH) VITAMIN D 29.7 NG/ML (30.0-100.0)
[2021-07-19] MEDS ORDERED: SODIUM CHLORIDE 0.9% 1000ML IV PRN (11:30)
[2021-07-19 11:40] LABS: PTH INTACT 243.2 PG/ML (18.5-88.0)
[2021-07-19] MEDS ORDERED: VANCOMYCIN HCL 1,000 MG, VIAL MATE ADAPTER 1 EACH in NS 250 ML IV SCH (11:55)
[2021-07-19] MEDS ORDERED: VANCOMYCIN HCL 500 MG in D5W MINI-BAG PLUS 100 ML IV SCH (12:00)
[2021-07-19 12:02] LABS: HEPATITIS B CORE ANTIBODY IGM NEGATIVE (NEGATIVE); HEPATITIS B SURFACE ANTIGEN NEGATIVE (NEGATIVE); HEPATITIS C VIRUS ABY INDEX 0.1 INDEX (<0.8)
--- NOTE | 2021-07-19 13:35 | IPN ---
PROGRESS NOTE DATE: 07/19/2021 SUBJECTIVE: Ms. Mckay is seen and examined this morning at the bedside in the Intensive Care Unit. She reports no complaints. She states she has some abdominal discomfort and shortness of breath when she is being repositioned in bed, otherwise denies any shortness of breath nor abdominal discomfort while she is at rest. She continues to require pressor support (Levophed currently running at 3 mcg/minute). Patient was given trial of Lasix yesterday and did have improvement in urine output but no improvement in renal function. BUN is up to 92 on labs today and BNP has markedly increased. I discussed with the patient regarding dialysis and she consents. The plan is for the first dialysis treatment this evening at the bedside in the Intensive Care Unit. OBJECTIVE: VITAL SIGNS: Temperature 97.2, pulse 100, respiratory rate 28, blood pressure 111/76, saturating 92% on 2 liters nasal cannula. INTAKE AND OUTPUT: Intake yesterday was 2.2 liters, urine output was 700 ml. Weight on the bed scale today is not recorded. GENERAL: Patient is seen in the ICU, awake, alert and oriented x3, interactive, conversational, in no acute distress. HEENT: Extraocular muscles are intact. Tongue is moist. There is a Trialysis catheter in the right IJ. HEART: Heart sounds are irregular and mildly tachycardic. There is no peripheral edema. LUNGS: Diminished breath sounds at the bases with bibasilar crackle. There is prolonged expiration. She is comfortable on nasal cannula. There is no accessory muscle use. ABDOMEN: Soft, obese and nontender. There is a Alberto catheter in place. NEUROLOGIC: She is oriented to person, place and situation. She is interactive, conversational and cooperative with physical exam. PSYCHIATRIC: Calm and cooperative. LABORATORY DATA: White count is 32.9, hemoglobin is 9.8, platelets are 199,000, sodium is 137, potassium is 4.8, bicarbonate is 21, BUN 92, creatinine is 3.9. Ferritin 2100. Troponin is elevated. BNP is 34,000. Blood cultures showed no growth 48 hours x2 sets. Urine culture grew Klebsiella. INPATIENT MEDICATIONS: She is receiving Lasix 60 mg q. 8 hourly. She also received 100 mg dose of Lasix yesterday evening. She is on Levophed infusion at 3 mcg per minute. She continues on Meropenem and Vancomycin. She is on Heparin 5000 units sub q. q. 8 hourly, insulin, Morphine p.r.n., Primidone. PROBLEMS: 1. Acute nonoliguric renal failure superimposed on CKD Stage IIIB with a baseline creatinine of 1.5 to 1.7. Renal failure is in the setting of septic shock. Patient continues to have pressor requirement but it is relatively at a low dose (Levophed at 3 mcg/minute at the time of my visit this morning). She did have some improvement in urine output with IV Lasix but laboratory studies shows ongoing derangements and renal parameters and blood urea nitrogen is 92. She also has rising BNP. Discussed with patient regarding dialysis and she is agreeable for initiation. Hopefully, it will be a temporary dialysis and we will monitor for signs of renal recovery. She already has a Trialysis catheter in place and plan is for a first gentle dialysis treatment this evening at the bedside in the ICU with pressor support. 2. Sepsis. Patient has a positive urine culture. She also had imaging with evidence of cholecystitis. She still has ongoing elevation in WBCs. She is on Meropenem and Vancomycin. She is still requiring pressor support. Patient is in nonoliguric renal failure and we will plan for a gentle dialysis treatment this evening. We will keep an eye on for renal recovery. Cholecystitis is being managed by the surgical team and there is a plan for possible drainage of the gallbladder. 3. Hypoxic respiratory failure. Patient has minimal oxygen requirements at present, has been on about 2 liters nasal cannula. Her most recent chest x-ray did show a CHF pattern. She was given IV Lasix yesterday and made about 1 liter of urine since Lasix was started but did have ongoing rise in creatinine and blood urea nitrogen and upward trending BNP. Will plan for a gentle first dialysis treatment this evening and I will only remove 1 to 1.5 liters as tolerated by her hemodynamics given that she is still requiring Levophed. We will keep a close eye on her volume status given that she is DNI and also screened positive for COVID-19. 4. Hyperkalemia, it improved with Lasix administration.
--- NOTE | 2021-07-19 14:08 | IPNPDOC ---
Date Seen The patient was seen on 07/19/21. Progress Note SUBJECTIVE: remains oliguric . on lasix q8hrs. no c/o sob, chest pain. c/o ruq and epigastric abd pain 2/10 when she lays still-tolerable no fever or chills. OBJECTIVE PHYSICAL EXAMINATION: VITAL SIGNS: Please see below. GENERAL: right IJ triple lumen no distress speaks softly no jaundice, cyanosis, or icterus HEENT: Dry mucous membranes no JVD thyromegaly cervical lymphadenopathy No stridor no carotid bruit face is symmetric face symmetric speech is fluent CARDIOVASCULAR: Tachycardic S1-S2 irregularly irregular no S3 nondisplaced point of maximal impulse RESPIRATORY: Diminished air entry is equal inspiratory expiratory ratio 1:2 crackles at the right base ABDOMINAL: Positive bowel sounds soft tender in right upper quadrant epigastric no rebound guarding Obese EXTREMITIES: No cyanosis or clubbing LABORATORY DATA, IMAGING STUDIES, MICROBIOLOGY: Please see below. DVT prophylaxis ordered?: Received subcutaneous heparin at 5:30 AM this morning by mistake ASSESSMENT AND PLAN: 76-year-old female [facility] resident, DO NOT RESUSCITATE/DO NOT INTUBATE, with chronic kidney disease stage III baseline creatinine 1.5-1.7, chronic atrial fibrillation insulin-dependent type 2 diabetes, hypertension, obesity BMI 48, spinal stenosis, chronic transaminitis, hypertension, dyslipidemia, admitted in July 16 with complaints of flank pain, without dysuria fever chills or night sweats at home. Patient was found to have acute cholecystitis on CT abdomen pelvis. Acute cholecystitis -Due to A. fib with RVR patient was not emergently taken to the operating room, and was rate controlled . -Patient did receive intravenous Flagyl and Zosyn in the ER. - on IV meropenem renally dosed to complete a 7-day course, with pharmacy adjusting her dose renally -IV vancomycin for septic shock empirically until cholecystostomy tube placed on Monday if HIDA scan confirms cholecystitis. -General surgeon Dr. Shelton has been consulted. s/p IV fluids. N.p.o. status. Stopped all of anticoagulants and antiplatelets. -IR Dr. Pace will review HIDA scan today, and will place for cholecystostomy tube Monday if still clinically indicated. Septic shock -Secondary to acute cholecystitis. On IV antibiotics meropenem and vancomycin day #3 status post IV Flagyl Zosyn and doxycycline. -s/p IV fluids n.p.o. status due to acute cholecystitis. -Dr. francisco placed a right IJ triple-lumen for IV antibiotics, and prn IV levophed to keep map>70, iv vasopressin Coronavirus 19 with acute hypoxic respiratory failure requiring 2 L of oxygen -Chest x-ray shows right lower lobe infiltrate. Currently on IV meropenem and IV Vanco -no antivirals due to renal failure Acute on chronic renal failure/hyperkalemia -Due to sepsis. s/p IV fluids.held fluids due to sob. on iv lasix q8hrs with plans for HD if remains oliguric. -Strict I's and O's, daily weights, nephrology consulted for help in management. Alberto catheter placement Chronic A. fib with RVR -Due to concerns for low blood pressure, IV amiodarone IV digoxin given -rate controlled -held anticoagulation due to cholecystostomy tube on Monday Dyslipidemia -Chronic Obesity BMI 48.1 -Complicating care History of spinal stenosis/ History of osteopenia Chronic transaminitis -Monitor DVT prophylaxis: Mechanical Diet: N.p.o. System Software Programmer consulted for TPN needs until oral intake resumed. CODE STATUS: DNR/DNI VS, I&O, 24H, [facility] Vital Signs/I&O Vital Signs Date Time Temp Pulse Resp B/P (MAP) Pulse Ox O2 Delivery O2 Flow Rate FiO2 07/19/21 13:30 94 18 104/56 (72) 99 Nasal Cannula 2.0 07/19/21 13:00 98.0 07/19/21 11:20 28 I&O- Last 24 Hours up to 6 AM 07/19/21 06:00 Intake Total 2025.8 ml Output Total 815 ml Balance 1210.8 ml Laboratory Data 24H LABS Laboratory Tests 2 07/18/21 16:18: Bedside Glucose (Misc Panel) 143H 07/18/21 21:46: Bedside Glucose (Misc Panel) 128H 07/19/21 00:08: Bedside Glucose (Misc Panel) 129H 07/19/21 05:31: Immature Granulocyte % (Auto) 3.4H, Neutrophils (%) (Auto) 88.2H, Lymphocytes (%) (Auto) 2.4L, Monocytes (%) (Auto) 5.6, Eosinophils (%) (Auto) 0.0, Basophils (%) (Auto) 0.4, Neutrophils # (Auto) 29.0H, Lymphocytes # (Auto) 0.8L, Monocytes # (Auto) 1.9H, Eosinophils # (Auto) 0.0, Basophils # (Auto) 0.1, Nucleated Red Blood Cells % (auto) 0.3H, Prothrombin Time 15.8H, Prothromb Time International Ratio 1.21, Activated Partial Thromboplast Time 59.5H, Fibrinogen 848H, Anion Gap 12, Glomerular Filtration Rate 11.8L, Calcium Level 7.7L, Magnesium Level 2.4, Ferritin 2147H, Total Bilirubin 0.7, Direct Bilirubin 0.5H, Aspartate Amino Transf (AST/SGOT) 318H, Alanine Aminotransferase (ALT/SGPT) 110H, Alkaline Phosphatase 209H, Lactate Dehydrogenase 848H, Total Creatine Kinase 641H, Troponin I High Sensitivity > 200.0*H, UF-Dmp-A-Type Natriuretic Peptide 69952X, Total Protein 5.2L, Albumin 1.4L, Albumin/Globulin Ratio 0.4L, Procalcitonin 16.71 07/19/21 08:47: Vancomycin Level Trough 15.6 07/19/21 12:13: Bedside Glucose (Misc Panel) 121H CBC/BMP Laboratory Tests 07/19/21 05:31 Microbiology Microbiology 07/16/21 Blood Culture - Preliminary, Resulted No Growth after 48 hours. All Specime... 07/16/21 Blood Culture - Preliminary, Resulted No Growth after 48 hours. All Specime... 07/16/21 Urine Culture - Final, Complete Klebsiella Pneumoniae CHRISS KELLY MD Jul 19, 2021 14:08
[2021-07-19] MEDS: SODIUM CHLORIDE 0.9% INJ 10 ML SYR IV SCH (14:27)
[2021-07-19] MEDS: **VANCO AFTER HD** MISC XX SCH (21:00)
[2021-07-19] MEDS: LEVEMIR (INSULIN DETEMIR) 1 UNITS/0.01ML SC SCH (21:36)
[2021-07-20] VITALS (31 sets, daily range): BP systolic 89–144; BP diastolic 52–94
[2021-07-20] MEDS: NOREPINEPHRINE BITARTRATE 8 MG in D5W 492 ML IV SCH (00:36)
[2021-07-20] MEDS: VASOPRESSIN INJ 20 UNITS in NS 499 ML IV SCH (01:50)
[2021-07-20] MEDS: HEPARIN SOD (PORCINE) 5000UNITS/ML 1ML VIAL/SYRINGE SQ SCH ×2 (05:22→14:00)
[2021-07-20] MEDS: FUROSEMIDE 100MG/10ML VIAL (J1940) IV SCH (05:22)
[2021-07-20 05:52] LABS: ALBUMIN 1.5 GM/DL (3.2-5.2); BILIRUBIN,DIRECT 0.5 MG/DL (0.0-0.2); BILIRUBIN,TOTAL 0.7 MG/DL (0.2-1.0); CALCIUM LEVEL 7.6 MG/DL (8.8-10.2); CREATININE FOR GFR 3.19 MG/DL (0.55-1.30); MAGNESIUM LEVEL 2.2 MG/DL (1.8-2.4); POTASSIUM SERUM 4.8 MEQ/L (3.5-5.1); TOTAL PROTEIN 5.8 GM/DL (6.4-8.2)
[2021-07-20] MEDS: HumaLOG INSULIN (NovoLOG) PER UNIT SC SCH ×3 (06:17→11:50)
[2021-07-20 08:33] LABS: HEMATOCRIT 37.9 % (36.0-47.0); HEMOGLOBIN 12.1 g/dl (12.0-15.5); MEAN CORPUSCULAR HEMOGLOBIN 30.8 pg (27.0-33.0); MEAN CORPUSCULAR HGB CONC 31.9 g/dl (32.0-36.5); MEAN CORPUSCULAR VOLUME 96.4 fl (80.0-96.0); PLATELET COUNT, AUTOMATED 281 10^3/uL (150-450); RED BLOOD COUNT 3.93 10^6/uL (4.00-5.40)
[2021-07-20 08:39] LABS: WHITE BLOOD COUNT 40.8 10^3/uL (4.0-10.0)
[2021-07-20] MEDS: SENOKOT S TAB PO SCH ×2 (09:00→09:03)
[2021-07-20] MEDS: CALCITRIOL 0.25 MCG CAP (S0169) PO SCH (09:02)
[2021-07-20] MEDS: PRIMIDONE 250 MG TAB PO SCH ×2 (09:03→21:54)
[2021-07-20 09:47] LABS: MONOCYTES 10 % (0-5); NEUTROPHILS 90 % (28-66); TOXIC VACUOLATION 3+
[2021-07-20 09:51] LABS: PLATELET ESTIMATE NORMAL (NORMAL)
--- NOTE | 2021-07-20 10:10 | CCN ---
CRITICAL CARE PROGRESS NOTE DATE: 07/19/2021 SUBJECTIVE: The patient was seen and examined this morning during bedside rounds. Overnight the patient has continued to require Vasopressin alternating with low dose of Levophed for blood pressure support. She received IV Lasix yesterday initially 60 mg IV times one and then a separate 100 mg IV dose. She was then on 60 mg IV q. 8 hours. She did have increased urine output with Lasix, however continues to be net positive. The patient has remained afebrile overnight. She does have intermittent episodes of tachycardia but has not required any additional medications for rate control. She is on nasal cannula oxygen supplementation still at 2 liters per minute. She denies any worsening shortness of breath or dyspnea at this time. She denies any chest pain. No coughing or wheezing. She denies any significant abdominal pain although she does have some pain with movement, she states and with palpation. OBJECTIVE: PHYSICAL EXAMINATION: VITAL SIGNS: Temperature 98.3, pulse 82-135, blood pressure 113/51, O2 sat 94-96% on 2 liters nasal cannula. The patient was also on her home CPAP overnight. INTAKE AND OUTPUT: In's 2.2 liters, output 705 mL. GENERAL APPEARANCE: The patient is a morbidly obese female. She is awake and alert. She denies any respiratory distress although has some mild tachypnea. She has some tremors at baseline. HEENT: Normocephalic and atraumatic. Moist mucous membranes noted. NECK: Supple. Trachea is midline. Unable to clearly assess. JVD. CARDIAC: Irregularly irregular with normal S1 and S2, mildly tachycardic. Unable to clearly appreciate any murmurs. PULMONARY: Diminished breath sounds bilaterally with crackles at the bases. No wheezing or rhonchi noted. ABDOMEN: Obese and soft, nontender. She has tenderness to palpation in the right upper quadrant. EXTREMITIES: There is trace to +1 pitting edema in the bilateral lower extremities. LABORATORY STUDIES: WBC count 32.9, hemoglobin is 9.8, platelet count 199. Chemistries - sodium is 137, potassium is 4.8, chloride is 104, bicarbonate is 21, BUN 92, creatinine 3.92, glucose 102. Ferratin 2147, AST 318, ALT is 110, albumin is 1.4, INR is 1.21. Troponin increasing to over 200. BNP is 34,392. Microbiology urine culture is positive for Klebsiella. ASSESSMENT AND PLAN: Mrs. Duvall is a 76-year-old female with a past medical history of atrial fibrillation, on anticoagulation, history of chronic transaminitis, hypertension, insulin dependent diabetes, obstructive sleep apnea on CPAP and chronic kidney disease, who presented initially with right upper quadrant pain. The patient was febrile and tachycardic on admission and found to have acute cholecystitis. She did also test positive for COVID-19 on admission but had a previous positive PCR test in May as well. Acute cholecystitis with septic shock. The patient had a positive urine culture for Klebsiella. - continue with Levophed and titrate to maintain a MAP above 65. The patient is on broad spectrum antibiotics still with Meropenem. The patient has continued on broad spectrum antibiotics with IV Meropenem and Vancomycin with a positive urine culture and with acute cholecystitis, likely can discontinue the Vancomycin. She has continued leukocytosis but has not had any further fevers. The patient continues to have evidence of right upper quadrant pain and increased transaminitis. Suspect she does need drainage procedure and I.R. has been consulted for a possible drain placement. She is ordered for a HIDA scan as per I.R. prior to the procedure. General Surgery has also been consulted and is following up with the patient. Acute hypoxic respiratory failure likely in the setting of pulmonary edema. The patient has a history of obstructive sleep apnea and with her morbid obesity, suspect she has a dgress of OHS as well. She did receive aggressive fluid hydration initially with her septic shock and chest x-ray was consistent with increasing pulmonary vascular congestion. She was also noted to have increased pitting edema and her BNP today has significantly elevated from her admission which was around 6,000 to now 34,000. The patient did also test positive for COVID on admission, however she had a previous post test in May and suspect that she does not have a new infection, but that this is from her previous infection. Continue with nasal cannula oxygen supplementation to maintain an 02 sat above 90%. Continue with the patient's home CPAP at night. The patient was given Lasix by Nephrology with some improvement in her urine output but continues to be net positive. She continues to have worsening renal function and with her continued increase in BNP, suspect she will need dialysis for fluid removal. Demand ischemia - The patient has been noted to have increasing troponins, likely type 2 M.I. demand ischemia, likely in the setting of her pulmonary edema and some heart failure. She has not had any chest pain and has not had any suspicious EKG changes. I suspect her troponins and her BNP will improved with dialysis and fluid removal. [id number] renal failure with hyperkalemia and metabolic acidosis. The patient had a nephrology consult and recommendations. She was given diuresis to see if she would have improvement in urine output and renal function but continues to have worsening renal function. She is planned for gentle dialysis with vasopressor support if needed. Atrial fibrillation with a history of rapid ventricular response. The patient has not had any recurrent episodes of rapid ventricular response since her fever has improved. Given her hypotension and renal failure, if she does have an episode of rapid ventricular response, would off on beta-blockers but give Amiodarone instead. As the patient was initially on Eliquis as an outpatient, this has been on hold pending and possible surgical or interventional procedures. CODE STATUS: DNR/DNI. DVT PROPHYLAXIS: Heparin. Total critical care time spent not including any procedures is approximately 45 minutes. MTDD
[2021-07-20 10:23] LABS: CK-MB VALUE MASS 2.4 NG/ML (<3.6); MB/CK RELATIVE INDEX 0.41 (< OR =4)
[2021-07-20] MEDS: ACETAMINOPHEN TAB 650MG DOSE (2X325MG) PO PRN (10:46)
[2021-07-20] MEDS: MIDODRINE 5 MG TAB PO SCH ×3 (11:07→15:10)
[2021-07-20] MEDS ORDERED: LIDOCAINE 1% MDV 20ML VIAL As Ordered ONE (11:18)
--- NOTE | 2021-07-20 11:23 | IPNPDOC ---
Text Note Date of Service The patient was seen on 07/20/21. NOTE SUBJECTIVE: Patient is a 76-year-old female with an extensive medical history of CKD3, Afib, IDDM Type II, HTN, Spinal stenosis, Chronic transaminitis, DLP presenting with flank pain. On CT ab/pelvis was found to have acute cholecystitis. Patient was seen at bedside today with no acute complaints. She is not actively having abdominal pain. REVIEW OF SYSTEMS: CONSTITUTIONAL: denies fever HEENT: denies headaches RESPIRATORY: denies shortness of breath CARDIOVASCULAR: denies chest pain GASTROINTESTINAL: denies n/v/d, abdominal pain, constipation SKIN: denies increased bruising OBJECTIVE PHYSICAL EXAMINATION: VITAL SIGNS: Please see below. GENERAL: in no acute distress, right IJ triple lumen HEENT: PERRLA, EOMI, dry mucus membranes CARDIOVASCULAR: Tachycardic irregularly irregular RESPIRATORY: diminished lung sounds b/l; some crackles bibasilar ABDOMINAL: normal active bowel sounds; soft, nondistended; mild tenderness to deep palpation on the RUQ (exam complicated by body habitus) EXTREMITIES: no pitting edema bilaterally NEUROLOGICAL: Cranial nerves II through XII grossly intact; no focal neurologic deficits noted LABORATORY DATA, IMAGING STUDIES, MICROBIOLOGY: Please see below. ASSESSMENT AND PLAN: This is a 76-year-old female with an extensive medical history of CKD3, Afib, IDDM Type II, HTN, Spinal stenosis, Chronic transaminitis, DLP presenting with flank pain. On CT ab/pelvis was found to have acute cholecystitis. - spoke with the medicine/ICU team and patient will be getting CT guided percutaneous drainage later today - continue abx and supportive care and medical optimization GME ATTESTATION My faculty preceptor for this patient encounter was physically present during the encounter and was fully available. All aspects of the patient interview, examination, medical decision making process, and medical care plan development were reviewed and approved by the faculty preceptor. The faculty preceptor is aware and concurs with the plan as stated in the body of this note and will attest to such by his/her cosignature. VS,Fishbone, I+O VS, Fishbone, I+O Laboratory Tests 07/20/21 04:45 07/20/21 08:18 Vital Signs Date Time Temp Pulse Resp B/P (MAP) Pulse Ox O2 Delivery O2 Flow Rate FiO2 07/20/21 10:00 107 21 113/83 (93) 96 Nasal Cannula 2.0 07/20/21 08:00 97.3 07/19/21 11:20 28 I&O- Last 24 Hours up to 6 AM 07/20/21 06:00 Intake Total 560 ml Output Total 1960 ml Balance -1400 ml Edyta Martin DO Jul 20, 2021 11:23
[2021-07-20 11:56] LABS: HEPATITIS B CORE ANTIBODY IGM NEGATIVE (NEGATIVE); HEPATITIS B SURFACE ANTIBODY NEGATIVE (POSITIVE); HEPATITIS B SURFACE ANTIGEN NEGATIVE (NEGATIVE); HEPATITIS C VIRUS ABY INDEX 0.1 INDEX (<0.8)
[2021-07-20] MEDS ORDERED: INSULIN REGULAR IN 0.9 % NACL 100 UNIT in IV 1 EA IV SCH ×2 (12:40)
[2021-07-20] MEDS: SODIUM CHLORIDE 0.9% INJ 10 ML SYR IV SCH (13:52)
[2021-07-20 14:00] LABS: VENOUS BASE EXCESS -4.9 (-2.0-2.0); VENOUS HCO3 22.5 MEQ/L (23.0-27.0); VENOUS O2 SATURATION 96.9 % (60.0-80.0); VENOUS PARTIAL PRESSURE O2 88.5 mmHg (30.0-50.0); VENOUS PH 7.262 UNITS (7.330-7.430); VENOUS STANDARD HCO3 20.5 MEQ/L
[2021-07-20] MEDS: SODIUM BICARBONATE 150 MEQ in D5W 1,000 ML IV SCH ×3 (14:00→18:44)
--- NOTE | 2021-07-20 14:11 | CCN ---
CRITICAL CARE NOTE DATE: 07/20/2021 SUBJECTIVE: Patient was seen and examined this morning during bedside rounds. Yesterday evening patient did receive a session of hemodialysis with removal of 1.5 liters of fluid. She did have an additional 500 mL urine output overnight and has been net negative 1.1 liters. Yesterday evening she did requiring increasing in her Levophed for her blood pressure support and has been on 10 mcg/min since yesterday evening. This morning she does report improvement in her breathing and states she does feel less short of breath. She has remained afebrile. She continues to have some mild tachycardia noted but denies any palpitations and no chest pain. She denies any coughing or wheezing. She is still on nasal cannula oxygen but has been able to be weaned down to 1 liter per minute. She denies any abdominal pain currently but does have some tenderness to palpation. OBJECTIVE: VITALS: Temperature 97.3, pulse 109, respirations 20, blood pressure 115/57, O2 sat 98% on 2 liters. Ins 830, out 2 liters, net negative 1.1 liters. GENERAL: Patient is a morbidly obese female. She is awake and alert. She has some tremulousness at baseline. She denies any respiratory distress and appears to be less tachypneic today. HEENT: Normocephalic/atraumatic. Moist mucous membranes noted. NECK: Supple. Trachea is midline. Unable to clearly assess JVD. CARDIAC: Irregularly irregular. Normal S1 and S2. Mildly tachycardic. No significant murmurs appreciated. PULMONARY: Diminished breath sounds bilaterally with a few crackles at the bases and coarse upper airway wheezing with forceful exhalation. ABDOMEN: Obese and soft. There is mild tenderness to palpation in the right upper quadrant. EXTREMITIES: There is improvement in her previous lower extremity edema bilaterally with minimal to no edema. LABORATORY DATA: WBC 40.8, hemoglobin 12.1, platelets 281. Chemistry is 137, potassium 4.8, chloride 101, bicarb 19, BUN 64, creatinine 3.19, glucose 194. Anion gap was 16. T-bili 0.5. AST and ALT are 334 and 104. Alkaline phosphatase is 258. Procalcitonin was 16.71. Albumin is 1.5. ASSESSMENT AND PLAN: Mrs. Duvall is a 76-year-old female with a past medical history of atrial fibrillation on anticoagulation, history of hypertension, insulin-dependent diabetes, NATACHA on CPAP, and CKD who presented initially with right upper quadrant pain. The patient was found to have acute cholecystitis on admission, and she did also test positive for COVID-19 on admission, however, has a previous positive test in May as well. 1. Acute cholecystitis with septic shock and possible UTI. a. Patient had complaints of abdominal pain in the right upper quadrant and evidence of cholecystitis on imaging. She also had a urine culture which was positive for Klebsiella. b. Patient has continued on broad spectrum antibiotics with meropenem and vancomycin. She continues to have significant leukocytosis but has not had any further fevers. There appears to have been potential increase in her white count this morning, although on review this is likely in the setting of some hemoconcentration as she also had increase in her hemoglobin which initially was around 12 and had trended down to 9.8 and again today had gone back up to 12 with dialysis. c. Patient does need drainage for infection source control with her cholecystitis. She is being planned for IR procedure today for drain placement. She was unable to get the HIDA scan done. d. General Surgery has also been following up with the patient. Appreciate their consult and recommendations. 2. Acute hypoxemic respiratory failure likely in the setting of pulmonary edema. She also has a history of NATACHA and with her morbid obesity suspect she has a degree of OHS as well. a. Patient has had some improvement with her breathing with fluid removal. She is still on nasal cannula oxygen but has been weaned down to 1 liter a minute. b. Patient can continue with nasal cannula oxygen as needed to maintain an O2 sat above 90%. She is to continue with her home CPAP at night which she has been compliant with. c. Patient does have a previous COVID-19 PCR which was positive in May. Her repeat PCR was positive on admission but suspect this is reflective of a prior infection and not a new COVID infection. 3. Acute on chronic renal failure with metabolic acidosis and hyperkalemia. a. Appreciate Nephrology consult and recommendations. Patient was initially noted to have a nonanion gap metabolic acidosis in the setting of her KODY on CKD. She received a session of dialysis yesterday evening with removal of 1.5 liters of fluid. This morning her renal function has improved. She was noted, however, to have evidence of a new worsened anion gap metabolic acidosis. b. Will check a lactic acid as she has also had increased Levophed requirements and suspect increasing lactic acid has been contributing. c. She also has a history of insulin-dependent diabetes and has had some elevated finger stick glucoses despite being on sliding scale and long acting insulin coverage. Will check a beta-hydroxybutyrate as well to evaluate for DKA particularly in the setting of her sepsis. d. Will discuss with Nephrology about holding off on dialysis for today given her vasopressor requirements. Will also discuss with them about need for bicarb potentially depending on her pH. 4. Atrial fibrillation with a history of rapid ventricular response. Now noted to have evidence of demand ischemia with increasing troponins, likely a type 2 [place]. a. Will continue to trend troponins. She did have echocardiogram done which had shown evidence of severe pulmonary hypertension with normal EF. There was no significant valvular disease with only a small pericardial effusion noted as well. Suspect patient has a degree of chronic pulmonary hypertension and some right-sided heart failure which was exacerbated by fluid overload with decompensated heart failure contributing to significantly elevated BNP and increased troponins. Will need to closely monitor and would restart anticoagulation as soon as possible after she has had her interventional procedure. b. With her pulmonary hypertension, would to be cautious about tachycardia in particular as well as cautious with hypoxia and hypotension as this can precipitate acute worsening decompensation of her right ventricular failure and potential cardiovascular collapse. c. If patient does have continued episodes of tachycardia, would start her on amiodarone for rate control and would not give beta-blockers or calcium channel blockers given her shock. CODE STATUS: DNR/DNI. DVT PROPHYLAXIS: Heparin. Total critical care time spent not including procedures approximately 55 minutes.
--- NOTE | 2021-07-20 15:01 | IRPON ---
IR Postoperative Note Date Of Procedure: Jul 20, 2021 Time Of Procedure: 14:54 IR Postoperative Note IR Cholecystostomy using CT guidance Clinical Information:Acute cholecystitis. Deemed nonsurgical candidate by surgery. Physician: Dr. Pace. Procedure: The patient was advised of the benefits, risks, and alternatives of the procedure and informed consent was obtained. A time out was performed with verification of the patient's name, MRN, site of procedure, and type of procedure to be performed. Moderate sedation was not required. The physician spent 45 minutes of continuous [id number] time with the patient. The patient was placed in the supine position on the CT gantry and a scan was performed through the region of interest. This demonstrates complete perforation of the gallbladder with a large collection in the gallbladder fossa and free perihepatic fluid. The bean of the gallbladder are no longer intact or decipherable from the collection. After marking the overlying skin, the patient was prepped and draped in the usual sterile fashion. The soft tissues overlying the anticipated puncture site were anesthetized with lidocaine. Through this anesthetized region, an 18 G Chiba needle was passed into the gallbladder fossa with intermittent CT guidance. Bile was aspirated. An Amplatz wire was advanced into the fluid collection, over which a 10 Swedish all-purpose drain was passed. Subsequent localized CT-scanning was performed to confirm the catheter location. The catheter was then locked, sutured in position with suture and placed to gravity drainage. The patient tolerated the procedure well and was returned to the PRU in stable condition. EBL: < 5 mL. Complications: None. Conclusion: 1. CT demonstrates complete perforation of the gallbladder with large collection in the gallbladder fossa and free perihepatic fluid. 2. Successful placement of 10 Swedish cholecystostomy. 3. The catheter should be flushed with 10 ml of normal saline every day. 4. The catheter should remain in place for minimum 6 weeks for conservative management or maybe removed at time of cholecystectomy surgery. 5. Patient to follow up in IR in 6 weeks for ongoing drain management. Thank you for this referral. CC AVIVA Tolliver MD Jul 20, 2021 15:01
[2021-07-20] MEDS: **VANCO AFTER HD** MISC XX SCH (15:04)
[2021-07-20] MEDS: INSULIN IV RATE CHANGE DOCUMENTATION ML/HR XX SCH ×5 (15:14→22:06)
[2021-07-20 15:30] LABS: CALCIUM LEVEL 7.6 MG/DL (8.8-10.2); CREATININE FOR GFR 3.71 MG/DL (0.55-1.30); GLOMERULAR FILTRATION RATE 12.6 (>39); PHOSPHORUS LEVEL 5.7 MG/DL (2.5-4.9); POTASSIUM SERUM 4.4 MEQ/L (3.5-5.1)
[2021-07-20] MEDS ORDERED: ASPIRIN 81 MG CHEW TABLET PO ONE (16:30)
--- NOTE | 2021-07-20 16:36 | IPNPDOC ---
Text Note Date of Service The patient was seen on 07/20/21. NOTE Subjective: Patient stated that she feels little bit better in the morning. She denied any abdominal pain nausea or vomiting. Objective: GENERAL APPEARANCE: Morbidly obese female HEENT: no scleral icterus, no JVD, EOMI CARDIOVASCULAR: S1S2 LUNGS: Diminished lung sounds bilaterally ABDOMEN: soft & not tender w palpation, obese MUSCULOSKELETAL: no cyanosis, no swelling INTEGUMENT: no generalized pallor NEUROLOGICAL: cranial nerve function from 2-12 intact, follows commands, speech not dysarthric Assessment and plan: Patient is 76 years old female with past medical history of atrial fibrillation, hypertension, type 2 diabetes, obstructive sleep apnea, chronic kidney disease presented to hospital with right upper quadrant pain. Patient was found to have acute cholecystitis. Also patient was found to have Covid positive test. Acute cholecystitis/septic shock CT and right upper ultrasound showed picture of acute cholecystitis IR proceeded with cholecystostomy tube placement. Patient was found to have complete perforation of the gallbladder with a large collection in the gallbladder fossa and free perihepatic fluid. The bean of the gallbladder are no longer intact or decipherable from the collection Continue drainage, patient is not a surgical candidate according to Dr. Shelton continue meropenem and vancomycin Septic shock Levophed titrated down, blood pressure control improved Acute hypoxemic respiratory failure Multifactorial secondary to pulmonary edema superimposed with obstructive sleep apnea with obstructive hypoventilation syndrome Continue blood gas monitor, continue CPAP overnight Unlikely patient has active COVID-19 infection, she had previous COVID-19 PCR positive in May Acute on chronic renal failure with metabolic acidosis and hyperkalemia Patient received dialysis yesterday, 1.5 L was removed Continue to monitor renal function Nephrology team follow her Type 2 diabetes/DKA Patient has elevated beta hydroxybutyrate of 10 Continue insulin drip Atrial fibrillation Anticoagulation was on hold due to today procedure. We will restart after procedure Elevated troponin Most likely secondary to demand ischemia versus NSTEMI Echo did not show hypomobility of the cardiac wall, it shows some evidence of severe pulmonary hypertension Continue to monitor troponin Will start aspirin 81 mg, metoprolol 12.[address] Mendoza recommended to add Plavix 75 mg daily Appreciate/agree with insurance application investigator consult KODY Most likely secondary to septic shock Continue to monitor Hyperkalemia Resolved Hyperlipidemia I will start atorvastatin 40 mg Obesity BMI 48.1 -Complicating care History of spinal stenosis/ History of osteopenia Chronic transaminitis -Monitor DVT prophylaxis: With apixaban VS,Fishbone, I+O VS, Fishbone, I+O Laboratory Tests 07/20/21 04:45 07/20/21 08:18 07/20/21 13:50 Vital Signs Date Time Temp Pulse Resp B/P (MAP) Pulse Ox O2 Delivery O2 Flow Rate FiO2 07/20/21 15:45 102 21 101/72 (82) 99 Nasal Cannula 2.0 07/20/21 12:10 97.0 07/19/21 11:20 28 I&O- Last 24 Hours up to 6 AM 07/20/21 06:00 Intake Total 560 ml Output Total 1960 ml Balance -1400 ml KIARA ONEIL DO Jul 20, 2021 16:36
[2021-07-20] MEDS ORDERED: CLOPIDOGREL 75 MG TAB PO ONE (16:45)
[2021-07-20 18:06] LABS: CALCIUM LEVEL 7.6 MG/DL (8.8-10.2); CREATININE FOR GFR 3.81 MG/DL (0.55-1.30); GLOMERULAR FILTRATION RATE 12.2 (>39); POTASSIUM SERUM 4.9 MEQ/L (3.5-5.1)
[2021-07-20 19:31] LABS: HEPATITIS B CORE ANTIBODY IGM NEGATIVE (NEGATIVE); HEPATITIS B SURFACE ANTIGEN NEGATIVE (NEGATIVE); HEPATITIS C VIRUS ABY INDEX 0.1 INDEX (<0.8)
[2021-07-20] MEDS ORDERED: HumaLOG INSULIN (NovoLOG) PER UNIT SC SCH (21:00)
[2021-07-20] MEDS ORDERED: METOPROLOL TART 25 MG TABLET PO SCH (21:00)
[2021-07-20] MEDS ORDERED: METOPROLOL TART 12.5 MG PER 1/2 TAB PO SCH (21:00)
[2021-07-20 21:05] LABS: VENOUS BASE EXCESS -5.1 (-2.0-2.0); VENOUS HCO3 22.5 MEQ/L (23.0-27.0); VENOUS O2 SATURATION 93.9 % (60.0-80.0); VENOUS PARTIAL PRESSURE CO2 52.5 mmHg (38.0-50.0); VENOUS PARTIAL PRESSURE O2 68.4 mmHg (30.0-50.0); VENOUS STANDARD HCO3 20.2 MEQ/L; VENOUS TOTAL CO2 24.1 MEQ/L (24.0-28.0)
[2021-07-20] MEDS: APIXABAN 5 MG TAB (ELIQUIS) PO SCH (21:53)
[2021-07-20] MEDS: MEROPENEM INJ 500 MG in IV 1 EA IV SCH (21:54)
[2021-07-20] MEDS: MORPHINE 2 MG/ML 1ML VIAL (J2270) IV PRN (22:52)
--- NOTE | 2021-07-20 23:30 | ECGEPIP ---
[facility] Test Date: 2021-07-20 Pat Name: RONNY CORMIER Department: Room: [place] [address] Gender: Female Supervisor Force Adjustment: dylon : 1945 Requested By: KIARA ONEIL Order Number: [id number] Reading MD: Matt Rasmussen Measurements Intervals [place] Rate: 94 P: CT: QRS: -52 QRSD: 112 T: 96 QT: 388 QTc: 485 Interpretive Statements Atrial fibrillation Left axis deviation Low voltage QRS Cannot rule out Anterior infarct , age undetermined Rate increased from tracing done 07-16-21 Electronically Signed on 07-20-2021 23:30:31 EST by Matt Rasmussen
[2021-07-20 23:35] LABS: VENOUS BASE EXCESS -5.5 (-2.0-2.0); VENOUS HCO3 22.9 MEQ/L (23.0-27.0); VENOUS O2 SATURATION 91.8 % (60.0-80.0); VENOUS PARTIAL PRESSURE CO2 58.2 mmHg (38.0-50.0); VENOUS PARTIAL PRESSURE O2 68.2 mmHg (30.0-50.0); VENOUS PH 7.212 UNITS (7.330-7.430); VENOUS STANDARD HCO3 19.8 MEQ/L; VENOUS TOTAL CO2 24.6 MEQ/L (24.0-28.0)
[2021-07-20 23:54] LABS: CALCIUM LEVEL 8.2 MG/DL (8.8-10.2); CREATININE FOR GFR 4.03 MG/DL (0.55-1.30); GLOMERULAR FILTRATION RATE 11.4 (>39); PHOSPHORUS LEVEL 5.4 MG/DL (2.5-4.9); POTASSIUM SERUM 4.2 MEQ/L (3.5-5.1)
[2021-07-21] VITALS (23 sets, daily range): BP systolic 72–158; BP diastolic 32–83
[2021-07-21] MEDS ORDERED: DEXTROSE 50% 50 ML SYRINGE IV PRN (00:20)
[2021-07-21] MEDS ORDERED: GLUCAGON INJ 1MG VIAL SC PRN (00:20)
[2021-07-21] MEDS ORDERED: GLUCOSE 4GM CHEW TABLET PO PRN (00:20)
[2021-07-21] MEDS ORDERED: LEVEMIR (INSULIN DETEMIR) 1 UNITS/0.01ML SC ONE (00:20)
[2021-07-21] MEDS: INSULIN IV RATE CHANGE DOCUMENTATION ML/HR XX SCH (01:19)
[2021-07-21] MEDS: NOREPINEPHRINE BITARTRATE 8 MG in D5W 492 ML IV SCH ×2 (03:00→15:14)
[2021-07-21 05:21] LABS: HEMATOCRIT 34.2 % (36.0-47.0); HEMOGLOBIN 10.8 g/dl (12.0-15.5); MEAN CORPUSCULAR HEMOGLOBIN 30.9 pg (27.0-33.0); MEAN CORPUSCULAR HGB CONC 31.6 g/dl (32.0-36.5); MEAN CORPUSCULAR VOLUME 97.7 fl (80.0-96.0); PLATELET COUNT, AUTOMATED 265 10^3/uL (150-450)
[2021-07-21 05:34] LABS: INR 1.24; WHITE BLOOD COUNT 33.5 10^3/uL (4.0-10.0)
[2021-07-21 05:35] LABS: PARTIAL THROMBOPLASTIN TIME 62.2 SECONDS (25.9-37.0)
[2021-07-21 05:49] LABS: ANISOCYTOSIS 1+; LYMPHOCYTES 2 % (16-44); MONOCYTES 8 % (0-5); NEUTROPHILS 90 % (28-66); PLATELET ESTIMATE NORMAL (NORMAL)
[2021-07-21 05:50] LABS: HYPOCHROMASIA 1+; TOXIC GRANULATION 1+; TOXIC VACUOLATION 2+
[2021-07-21 05:51] LABS: OVALOCYTES 1+; PLATELET CLUMPS SMALL AMT
[2021-07-21] MEDS: HumaLOG INSULIN (NovoLOG) PER UNIT SC SCH ×2 (07:18→11:43)
[2021-07-21 07:59] LABS: ALBUMIN 1.3 GM/DL (3.2-5.2); BILIRUBIN,DIRECT 0.4 MG/DL (0.0-0.2); BILIRUBIN,TOTAL 0.6 MG/DL (0.2-1.0); CREATININE FOR GFR 4.19 MG/DL (0.55-1.30); GLOMERULAR FILTRATION RATE 10.9 (>39); MAGNESIUM LEVEL 2.2 MG/DL (1.8-2.4); POTASSIUM SERUM 4.3 MEQ/L (3.5-5.1); TOTAL PROTEIN 5.1 GM/DL (6.4-8.2)
[2021-07-21 08:26] LABS: ABG BASE EXCESS -5.5 (-2.0-2.0); ABG HCO3 21.8 MEQ/L (22.0-26.0); ABG O2 SATURATION 99.2 % (95.0-99.0); ABG PARTIAL PRESSURE O2 147.8 mmHg (75.0-100.0); ABG TOTAL CO2 23.3 MEQ/L (23.0-31.0); ABG pH (ARTERIAL) 7.257 UNITS (7.350-7.450)
[2021-07-21 08:26] LABS: VANCOMYCIN RANDOM 16.5 UG/ML
[2021-07-21] MEDS ORDERED: ATORVASTATIN 20 MG TAB PO SCH (09:00)
[2021-07-21] MEDS ORDERED: ASPIRIN 81 MG CHEW TABLET PO SCH (09:00)
[2021-07-21] MEDS ORDERED: CLOPIDOGREL 75 MG TAB PO SCH (09:00)
[2021-07-21] MEDS: APIXABAN 5 MG TAB (ELIQUIS) PO SCH (09:00)
[2021-07-21] MEDS: SENOKOT S TAB PO SCH (09:00)
[2021-07-21] MEDS: PRIMIDONE 250 MG TAB PO SCH (09:00)
[2021-07-21] MEDS: CALCITRIOL 0.25 MCG CAP (S0169) PO SCH (09:00)
--- NOTE | 2021-07-21 09:40 | IPNPDOC ---
Text Note Date of Service The patient was seen on 07/21/21. NOTE SUBJECTIVE: Patient is a 76-year-old female with an extensive medical history of CKD3, Afib, IDDM Type II, HTN, Spinal stenosis, Chronic transaminitis, DLP presenting with flank pain. On CT ab/pelvis was found to have acute cholecystitis. Patient was seen at bedside today appearing to be a little more obtunded than yesterday. She had a CT guided percutaneous drainage performed yesterday; output of 35 cc overnight of murky maroon colored fluid (does not appear to have bile). She is not actively having abdominal pain. REVIEW OF SYSTEMS: CONSTITUTIONAL: denies fever HEENT: denies headaches RESPIRATORY: denies shortness of breath CARDIOVASCULAR: denies chest pain GASTROINTESTINAL: denies n/v/d, abdominal pain, constipation SKIN: denies increased bruising OBJECTIVE PHYSICAL EXAMINATION: VITAL SIGNS: Please see below. GENERAL: in no acute distress, right IJ triple lumen HEENT: PERRLA, EOMI, dry mucus membranes CARDIOVASCULAR: Tachycardic irregularly irregular RESPIRATORY: diminished lung sounds b/l; some crackles bibasilar ABDOMINAL: normal active bowel sounds; soft, nondistended; mild tenderness to deep palpation on the RUQ (exam complicated by body habitus); drain placed in RUQ draining maroon colored fluid EXTREMITIES: no pitting edema bilaterally NEUROLOGICAL: Cranial nerves II through XII grossly intact; no focal neurologic deficits noted LABORATORY DATA, IMAGING STUDIES, MICROBIOLOGY: Please see below. ASSESSMENT AND PLAN: This is a 76-year-old female with an extensive medical history of CKD3, Afib, IDDM Type II, HTN, Spinal stenosis, Chronic transaminitis, DLP presenting with flank pain. On CT ab/pelvis was found to have acute cholecystitis. Questionable perforation - patient was seen by IR for CT guided percutaneous drainage yesterday; drain is draining murky maroon colored fluid; questionable gallbladder perforation as fluid does not appear to contain bile - on review of the CT guidance images it appears that the tube is in the pericholecystic fluid collection; would consider recommending additional placement of a cholecystotomy tube if patient does not have improvement over the few days - likely that patient has had hemorrhagic cholecystitis in the past week hence the appearance of maroon/dark fluid - continue abx and supportive care and medical optimization GME ATTESTATION My faculty preceptor for this patient encounter was physically present during the encounter and was fully available. All aspects of the patient interview, examination, medical decision making process, and medical care plan development were reviewed and approved by the faculty preceptor. The faculty preceptor is aware and concurs with the plan as stated in the body of this note and will attest to such by his/her cosignature. VS,Fishbone, I+O VS, Fishbone, I+O Laboratory Tests 07/20/21 13:50 07/20/21 17:33 07/20/21 23:21 07/21/21 05:00 Vital Signs Date Time Temp Pulse Resp B/P (MAP) Pulse Ox O2 Delivery O2 Flow Rate FiO2 07/21/21 08:37 126/58 07/21/21 06:50 97.0 91 Nasal Cannula 2.0 07/21/21 06:30 20 99 07/19/21 11:20 28 I&O- Last 24 Hours up to 6 AM 07/21/21 06:00 Intake Total 669 ml Output Total 80 ml Balance 589 ml Edyta Martin DO Jul 21, 2021 09:40
--- NOTE | 2021-07-21 10:10 | IPNPDOC ---
Text Note Date of Service The patient was seen on 07/21/21. NOTE Subjective: Patient was able to answer my questions in the morning, but she is not oriented in place and time. She denies any pain, fever or chills. Patient currently on Levophed 10 milliliters per hour Objective: GENERAL APPEARANCE: Morbidly obese female HEENT: no scleral icterus, plus JVD, EOMI CARDIOVASCULAR: Irregularly irregular LUNGS: Diminished lung sounds bilaterally ABDOMEN: soft & not tender w palpation, obese, biliary drainage in place MUSCULOSKELETAL: no cyanosis, no swelling INTEGUMENT: no generalized pallor NEUROLOGICAL: cranial nerve function from 2-12 intact, follows commands, speech not dysarthric Assessment and plan: Patient is 76 years old female with past medical history of atrial fibrillation, hypertension, type 2 diabetes, obstructive sleep apnea, chronic kidney disease presented to hospital with right upper quadrant pain. Patient was found to have acute cholecystitis. Also patient was found to have Covid positive test. Acute cholecystitis/septic shock CT and right upper ultrasound showed picture of acute cholecystitis IR proceeded with cholecystostomy tube placement on 07/20/21. Patient was found to have complete perforation of the gallbladder with a large collection in the gallbladder fossa and free perihepatic fluid. The bean of the gallbladder are no longer intact or decipherable from the collection Continue drainage, patient is not a surgical candidate according to Dr. Shelton continue meropenem and vancomycin Patient continues to have leukocytosis of 33.5 and elevated procalcitonin of 21 Septic shock Continue Levophed IV Acute hypoxemic respiratory failure Multifactorial secondary to pulmonary edema superimposed with obstructive sleep apnea with obstructive hypoventilation syndrome Continue blood gas monitor, continue CPAP overnight Unlikely patient has active COVID-19 infection, she had previous COVID-19 PCR positive in May Metabolic acidosis ABG showed pH 7.2 Most likely secondary to uremia We will check lactic acid Continue bicarb IV Acute on chronic renal failure with metabolic acidosis and hyperkalemia Patient received dialysis on 07/19/2021, 1.5 L was removed Continue to monitor renal function Nephrology team follow her Type 2 diabetes/DKA Detemir twice daily Insulin sliding scale Atrial fibrillation Heart rate under control Continue Eliquis twice daily Elevated troponin Most likely secondary to type II IN secondary to severe sepsis versus NSTEMI Echo did not show hypomobility of the cardiac wall, it shows some evidence of severe pulmonary hypertension troponin trended down Continue aspirin 81 mg, Plavix 75 mg daily Appreciate/agree with button station worker consult Metoprolol on hold due to hypotension KODY Most likely secondary to septic shock Nephrology team planning CRRT today Hyperkalemia Resolved Hyperlipidemia Continue atorvastatin 40 mg Morbid obesity BMI 48.1 -Complicating care History of spinal stenosis/ History of osteopenia Chronic transaminitis -Monitor DVT prophylaxis: With apixaban VS,Fishbone, I+O VS, Fishbone, I+O Laboratory Tests 07/20/21 13:50 07/20/21 17:33 07/20/21 23:21 07/21/21 05:00 Vital Signs Date Time Temp Pulse Resp B/P (MAP) Pulse Ox O2 Delivery O2 Flow Rate FiO2 07/21/21 09:39 78/51 07/21/21 09:30 97 19 98 NIPPV (BIPAP/CPAP) 2.0 07/21/21 08:00 97.4 07/19/21 11:20 28 I&O- Last 24 Hours up to 6 AM 07/21/21 06:00 Intake Total 669 ml Output Total 80 ml Balance 589 ml KIARA ONEIL DO Jul 21, 2021 10:10
[2021-07-21] MEDS: VASOPRESSIN INJ 20 UNITS in NS 499 ML IV SCH (11:43)
[2021-07-21] MEDS ORDERED: SODIUM CHLORIDE 0.9% INJ 10 ML SYR IV PRN (11:50)
[2021-07-21] MEDS ORDERED: MEROPENEM INJ 1 GM in IV 1 EA IV SCH (14:00)
--- NOTE | 2021-07-21 15:04 | REP ---
INDICATION: assess cholecystostomy tube placement i/s/o cholecystitis. COMPARISON: 03/09/2021. TECHNIQUE: Real-time sonographic evaluation of right upper quadrant. FINDINGS: The gallbladder wall is significantly thickened. There is a large amount of fluid adjacent to the gallbladder. Gallbladder wall thickness is approximately 11 mm maximally. There is internal sludge as well as stones in the gallbladder lumen. A drainage catheter is seen. The distal end is located adjacent to the gallbladder, within the fluid lateral to the gallbladder. Common bile duct is 7 mm, at upper limits of normal. No liver mass is seen. Visualized pancreas is grossly unremarkable, not well seen due to overlying bowel gas. Right kidney demonstrates a length of 9.0 cm with no hydronephrosis. IMPRESSION: Thickened gallbladder with internal sludge and calculi in the large amount of adjacent fluid. A drainage catheter is seen, the distal end is within that fluid lateral to the gallbladder, not in the gallbladder lumen. <Electronically signed by Kenan Lu > 07/21/21 1500
[2021-07-21] MEDS ORDERED: LORazepam 2 MG/ML VIAL IV PRN (15:30)
--- NOTE | 2021-07-21 16:14 | IPN ---
PROGRESS NOTE DATE: 07/21/2021 SUBJECTIVE: Ms. Mckay seen and examined this morning at the bedside in the Intensive care unit. She is not doing well. Yesterday she underwent CT guided cholecystostomy and CT guided cholecystostomy through interventional radiology. An all purpose drain was placed and there was concerned that the gallbladder was completely perforated with a large collection in the gallbladder fossa and free perihepatic fluid. The patient has had increasing pressor requirements. Levophed is presently at 12 mcg per minute at the time of my visit in the ICU and she is going to be started on vasopressin as well. She remains in oliguric renal failure. I discussed with the patient's health care proxy and niece (Renee) regarding the patient's increasing hemodynamic instability and the fact that she is now unsuitable for intermittent hemodialysis. REVIEW OF SYSTEMS: Unable to obtain secondary to clinical condition. OBJECTIVE: Temperature 97.5, pulse 87, respiratory rate 16, blood pressure is 78/51, saturating 98% on CPAP. Intake yesterday was 500 mL. Urine output yesterday was 240 mL. Weight in the bed scale today is 132.4 kg. General: The patient is seen lying in the bed in the ICU with the BIPAP mask in place. She follows some simple commands, but is overall more lethargic appearing today. Extraocular muscles are intact. Heart sounds are irregularly irregular. Lungs show diminished breath sounds bilaterally, but no accessory muscle use. No respiratory distress. She is comfortable on CPAP. Abdomen is soft and obese. There is a drain in the right upper quadrant, draining sludge looking brown fluid. Genitourinary: Shows Alberto catheter without any significant urine. Extremities show no edema. Extremities are cool to touch. LABORATORY DATA: White count 33, hemoglobin 10.8, platelets 265, sodium 136, potassium 4.3, bicarbonate 23, BUN 76, creatinine 4.1, lactic acid 1.9. Troponin 770, BNP 51,000. Body fluid culture is pending from the gallbladder fluid. INPATIENT MEDICATIONS: She is on Levophed at 12 mcg per minute, vasopressin is going to be started now. She is on meropenem 1 gm IV q 8 hours. She received insulin drip yesterday and was briefly on sodium bicarbonate drip as well for less than 1 liter. Vancomycin 1 gm IV daily, Eliquis 5 mg by mouth twice a day, aspirin 81 mg by mouth daily, Plavix 75 mg by mouth times one. Insulin, morphine as needed, Zofran as needed. The remainder of medications are unchanged as compared to yesterday. PROBLEMS: 1. Acute oligoanuric renal failure in the setting of septic shock. The patient underwent first hemodialysis treatment on July 19. At that time, she had minimal pressors requirements. The patient has not well the past two days. Her pressor requirements have increased. She is currently on Levophed at 12 mcg per minute She remains in oliguric renal failure. I discussed with the patient's healthcare proxy (radha Duarn), regarding the fact that the patient is no longer suitable for intermittent hemodialysis given her demand ischemia, elevated troponin, increasing pressor requirements, etc. We discussed options including withdrawal of care including versus continuous renal replacement therapy (CRRT) and the patient's healthcare proxy would like a trial of continuous renal replacement therapy (CRRT) for one day to see if there is any improvement in the patient's clinical condition given that she had biliary drain placed just yesterday. Orders are in for continuous renal replacement therapy (CRRT) without any fluid removal. 2. Septic shock secondary to acute cholecystitis. The patient is status post CT guided drain placement yesterday and operative report indicates that imaging was compatible with complete perforation of the gallbladder with free perihepatic fluid and large collection of fluid in the gallbladder fossa as well. The patient is on meropenem and vancomycin. Her white count has been in the 30s to 40s on this admission. There is an elevated procalcitonin. Antibiotics are managed by the primary team. She is requiring a significant amount of pressors. She is not suitable for intermittent hemodialysis. Orders are written for continuous renal replacement therapy (CRRT) without any fluid removal as the patient has had minimal intake. 3. Metabolic acidosis. The patient had a serum bicarbonate down to 17 yesterday with a corrected anion gap of around 18. It was in the setting of diabetic ketoacidosis. She had an elevated beta hydroxybutyrate. She was treated with an insulin drip and bicarbonate drip and bicarbonate drip is being stopped now the patient will be on continuous renal replacement therapy (CRRT). 4. Acute hypoxemic respiratory failure. The patient continues to have minimal oxygen requirements, has been on 2 liters via nasal cannula. Her intake has been minimal the last couple of days and I am not going to remove any fluid with continuous renal replacement therapy (CRRT) today. Her most recent blood gas showed a respiratory acidosis. She uses a CPAP. 5. Elevated troponin in the setting of severe sepsis. Echocardiogram noted. There was evidence of pulmonary hypertension with a preserved left ventricular ejection fraction. Troponin peaked yesterday at 1,250 and is presently 768 on the latest labs. Continuous renal replacement therapy (CRRT) orders are written to be gentle with no fluid removal today in view of her significant pressors requirements and probable demand ischemia versus Non-ST segment elevation myocardial infarction (NSTEMI).
[2021-07-21] MEDS: MORPHINE 2 MG/ML 1ML VIAL (J2270) IV PRN (16:18)
--- NOTE | 2021-07-21 17:39 | CCN ---
CRITICAL CARE NOTE DATE: 07/21/2021 SUBJECTIVE: Overnight the patient was noted to have improvement in her glucose with the insulin drip and DKA protocol. Her repeat labs had shown her anion gap did close and she was able to tolerate p.o. intake. She was bridged with Levemir overnight and continued with sliding scale coverage. She did receive initiation of bicarbonate infusion at 30 mL an hour given a nonanion acidosis related to her renal failure. Overnight the patient also was not placed on her home CPAP. This morning she has had a change in her mental status. She is lethargic and obtunded. She was placed on her home CPAP. The patient also has continued to require higher amounts of Levophed this morning. Overnight she had been weaned down slightly to 7 mcg/minute and has now been up to anywhere from 8 to 10 mcg per minute. The patient did have her drain placed by IR and it has been draining fluid although does not appear consistent with bile. OBJECTIVE: VITAL SIGNS: Temperature 97, pulse 73, respirations 20, bp 84/40, O2 saturation 99% on 2 liters. Input 469, output 265. GENERAL: The patient is a morbidly obese female. She is lethargic and obtunded. She is briefly responsive to painful stimuli. HEENT: Normocephalic, atraumatic. Moist mucous membranes noted. NECK: Supple. Trachea is midline. Unable to clearly assess JVD. CARDIAC: Irregularly irregular, normal S1, S2 with no significant murmurs appreciated. PULMONARY: Diminished breath sounds bilaterally with a few crackles at the bases and more diminished breath sounds at the bases. ABDOMEN: Obese, soft. The patient does not appear to be in any significant pain with palpitation. EXTREMITIES: There is no significant lower extremity edema bilaterally. LABS: WBC 33.5, hemoglobin 10.8, platelets are 65. Chemistry: Sodium is 136, potassium 4.3, chloride 99, bicarb is 23, BUN 76, creatinine 4.19, glucose 287. AST 347 and ALT is 94. Calcium is 7.0. Phosphorus is 5.4, magnesium is 2.2, troponin trending down to 768, albumin is 1.3. BNP increased to 51,295. ABG this morning: A pH of 7.257, pCO2 of 50, pO2 of 147.8. ASSESSMENT AND PLAN: Mrs. Duvall is a 76-year-old female with a past medical history of atrial fibrillation on anticoagulation, history of hypertension, insulin dependent diabetes, obstructive sleep apnea on CPAP and chronic kidney disease who initially presented with acute cholecystitis. She did have a positive test for COVID-19 PCR on admission. However, she has a previous positive test in May and had been treated in May as a [facility] resident and was asymptomatic on admission and does not have evidence of acute COVID infection. The patient had acute cholecystitis with septic shock and a possible UTI. She was treated with broad spectrum antibiotics. She was not a surgical candidate initially and there was a plan for a drain by IR which was placed yesterday. On IR imaging, there was a possibility that the gallbladder wall had ruptured. She is on broad spectrum antibiotics still and continues to have significant leukocytosis. Her pressor requirements have also been increasing and this morning she is more lethargic and obtunded. She appears to have some increasing hypercapnia. She has a history of sleep apnea at baseline and was wearing her home CPAP at night but did not receive it last night. This morning we did place her on her home CPAP again but continued to have issues with her mentation and with her oxygenation now with her home CPAP. She was placed on BiPAP with AVAPS with some improvement, however, minimal improvement in her mental status. The patient also had [id number] renal failure with a metabolic acidosis. She initially was able to do hemodialysis. However, with her worsening hypotension and shock, she was started on SENIOR STATISTICAL PROGRAMMER. She also had evidence of diabetic ketoacidosis which did improve with an insulin drip and the DKA protocol likely in the setting of her sepsis. The patient was also noted to have atrial fibrillation with RVR on admission. She also had evidence of demand ischemia. She was given a dose of Plavix and restarted on her Aspirin anticoagulation yesterday. She was initially ordered for beta corry which was discontinued given her septic shock. Her repeat EKG does not show any new ischemic changes. Her initial echo had shown normal EF with evidence of pulmonary hypertension and more decompensated right-sided heart failure. Her initial imaging was also more consistent with fluid overload. I suspect her troponins are in the setting of demand ischemia and not an acute ischemic event. Plavix was discontinued but she was continued on her home Eliquis. The patient's family was updated as to her worsening condition and lack of improvement. In particular with her mental status change, she has been having some periods of apnea as well and has been desaturating despite being on the BiPAP. After update with the family, they had initially wanted a trial of SENIOR STATISTICAL PROGRAMMER and if no improvement were considering comfort measures only. With her worsening respiratory status now and mental status, the decision was made to discontinue SENIOR STATISTICAL PROGRAMMER and pressors and to make the patient comfort measures only. CODE STATUS: DNR/DNI. CROSS ROLLER. The patient was initially on isolation on admission given her fever and sepsis. Her fever and sepsis was in the setting of acute cholecystitis and not from acute COVID infection. She had previously tested positive in May in [facility] and was treated in May. Her repeat positive test is not indicative of active infection. She was initially asymptomatic on admission. After a discussion with infection control we will take her off isolation for COVID. CROSS ROLLER orders were placed in the chart including medications for agitation, anxiety, and pain as needed. Total critical care time spent not including any procedures is approximately 55 minutes.
[2021-07-21] MEDS ORDERED: VANCOMYCIN HCL 1,000 MG, VIAL MATE ADAPTER 1 EACH in NS 250 ML IV SCH (20:00)
[2021-07-21] MEDS ORDERED: LEVEMIR (INSULIN DETEMIR) 1 UNITS/0.01ML SC SCH (21:00)
[2021-07-22] MEDS: SENOKOT S TAB PO SCH (09:00)
--- NOTE | 2021-07-22 09:10 | IPNPDOC ---
Text Note Date of Service The patient was seen on 07/22/21. NOTE SUBJECTIVE: Patient is a 76-year-old female with an extensive medical history of CKD3, Afib, IDDM Type II, HTN, Spinal stenosis, Chronic transaminitis, DLP presenting with flank pain. On CT ab/pelvis was found to have acute cholecystitis. 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 Patient was seen at bedside today appearing lethargic and not able to answer some questions. OBJECTIVE PHYSICAL EXAMINATION: VITAL SIGNS: Please see below. GENERAL: AAOx2; lethargic and unable to fully answer questions HEENT: PERRLA, EOMI, dry mucus membranes CARDIOVASCULAR: Tachycardic irregularly irregular RESPIRATORY: diminished lung sounds b/l; some crackles bibasilar ABDOMINAL: normal active bowel sounds; soft, nondistended; mild tenderness to deep palpation on the RUQ (exam complicated by body habitus); drain placed in RUQ draining maroon colored fluid (drained 40cc overnight) EXTREMITIES: no pitting edema bilaterally NEUROLOGICAL: Cranial nerves II through XII grossly intact; no focal neurologic deficits noted LABORATORY DATA, IMAGING STUDIES, MICROBIOLOGY: Please see below. ASSESSMENT AND PLAN: This is a 76-year-old female with an extensive medical history of CKD3, Afib, IDDM Type II, HTN, Spinal stenosis, Chronic transaminitis, DLP presenting with flank pain. On CT ab/pelvis was found to have acute cholecystitis. Questionable perforation - patient is comfort measures only; no surgical interventions - continue supportive care - please recall surgery as needed thank you GME ATTESTATION My faculty preceptor for this patient encounter was physically present during the encounter and was fully available. All aspects of the patient interview, examination, medical decision making process, and medical care plan development were reviewed and approved by the faculty preceptor. The faculty preceptor is aware and concurs with the plan as stated in the body of this note and will attest to such by his/her cosignature. VS,Fishbone, I+O VS, Fishbone, I+O Vital Signs Date Time Temp Pulse Resp B/P (MAP) Pulse Ox O2 Delivery O2 Flow Rate FiO2 07/22/21 00:45 2.0 07/21/21 15:14 158/65 07/21/21 15:00 73 14 72 NIPPV (BIPAP/CPAP) 100 07/21/21 12:00 97.5 I&O- Last 24 Hours up to 6 AM0 07/22/21 06:00 Intake Total 999.5 ml Output Total 37 ml Balance 962.5 ml Edyta Martin DO Jul 22, 2021 09:10
[2021-07-22] MEDS: MORPHINE 2 MG/ML 1ML VIAL (J2270) IV PRN ×2 (15:34→20:17)
[2021-07-23] MEDS: SENOKOT S TAB PO SCH (09:00)
--- NOTE | 2021-07-23 15:29 | DS.PDOC ---
Discharge Summary General Date of Admission Jul 16, 2021 at 19:59 Date of Discharge 07/23/21 Discharge Summary PROCEDURES PERFORMED DURING STAY: Biliary drain tube placement ADMITTING DIAGNOSES: Acute cholecystitis/septic shock Septic shock Acute hypoxemic respiratory failure Metabolic acidosis Acute on chronic renal failure with metabolic acidosis and hyperkalemia Type 2 diabetes/DKA Atrial fibrillation Elevated troponin KODY Hyperkalemia Hyperlipidemia Morbid obesity BMI 48.1 History of spinal stenosis/ History of osteopenia Chronic transaminitis Deconditioning DISCHARGE DIAGNOSES: Acute cholecystitis/septic shock Septic shock Acute hypoxemic respiratory failure Metabolic acidosis Acute on chronic renal failure with metabolic acidosis and hyperkalemia Type 2 diabetes/DKA Atrial fibrillation Elevated troponin KODY Hyperkalemia Hyperlipidemia Morbid obesity BMI 48.1 History of spinal stenosis/ History of osteopenia Chronic transaminitis Deconditioning Type II [place] COMPLICATIONS/CHIEF COMPLAINT: Cholecystitis; Sepsis. HISTORY OF PRESENT ILLNESS: Mrs. Duvall is a 76-year-old female with a past medical history of atrial fibrillation on anticoagulation, history of hypertension, insulin dependent diabetes, obstructive sleep apnea on CPAP and chronic kidney disease who initially presented with acute cholecystitis. She did have a positive test for COVID-19 PCR on admission. However, she has a previous positive test in May and had been treated in May as a [facility] resident and was asymptomatic on admission and does not have evidence of acute COVID infection. The patient had acute cholecystitis with septic shock and a possible UTI. She was treated with broad spectrum antibiotics. She was not a surgical candidate initially and there was a plan for a drain by IR which was placed. On IR imaging, there was a possibility that the gallbladder wall had ruptured. She is on broad spectrum antibiotics still and continues to have significant leukocytosis. Her pressor requirements have also been increasing and this morning she is more lethargic and obtunded. She appears to have some increasing hypercapnia. She has a history of sleep apnea at baseline and was wearing her home CPAP at night but did not receive it last night. This morning we did place her on her home CPAP again but continued to have issues with her mentation and with her oxygenation now with her home CPAP. She was placed on BiPAP with AVAPS with some improvement, however, minimal improvement in her mental status. The patient also had [id number] renal failure with a metabolic acidosis. She initially was able to do hemodialysis. However, with her worsening hypotension and shock, she was started on COSMETOLOGY INSTRUCTOR. She also had evidence of diabetic ketoacidosis which did improve with an insulin drip and the DKA protocol likely in the setting of her sepsis. The patient was also noted to have atrial fibrillation with RVR on admission. She also had evidence of demand ischemia. She was given a dose of Plavix and restarted on her Aspirin anticoagulation yesterday. She was initially ordered for beta corry which was discontinued given her septic shock. Her repeat EKG does not show any new ischemic changes. Her initial echo had shown normal EF with evidence of pulmonary hypertension and more decompensated right-sided heart failure. Her initial imaging was also more consistent with fluid overload. The patient's family was updated as to her worsening condition and lack of improvement. In particular with her mental status change, she has been having some periods of apnea as well and has been desaturating despite being on the BiPAP. After update with the family, they had initially wanted a trial of COSMETOLOGY INSTRUCTOR and if no improvement were considering comfort measures only. With her worsening respiratory status now and mental status, the decision was made to discontinue COSMETOLOGY INSTRUCTOR and pressors and to make the patient comfort measures only. HOSPITAL COURSE: After patient was transferred to [facility] she received treatment according to [facility] protocol DISCHARGE MEDICATIONS: Please see below. ALLERGIES: Please see below. PHYSICAL EXAMINATION ON DISCHARGE: VITAL SIGNS: Please see below. GENERAL: The patient is a morbidly obese female. She is lethargic and obtunded. She is briefly responsive to painful stimuli. HEENT: Normocephalic, atraumatic. Moist mucous membranes noted. NECK: Supple. Trachea is midline. CARDIAC: Irregularly irregular, normal S1, S2 with no significant murmurs appreciated. PULMONARY: Diminished breath sounds bilaterally with a few crackles at the bases and more diminished breath sounds at the bases. ABDOMEN: Obese, soft. The patient does not appear to be in any significant pain with palpitation. EXTREMITIES: There is no significant lower extremity edema bilaterally. LABORATORY DATA: Please see below. PROGNOSIS: Grim DISPOSITION: [facility]. DISCHARGE INSTRUCTIONS: Follow-up with hospice care DISCHARGE CONDITION: [Stable]. TIME SPENT ON DISCHARGE: 40 minutes. Vital Signs/I&Os Vital Signs Date Time Temp Pulse Resp B/P (MAP) Pulse Ox O2 Delivery O2 Flow Rate FiO2 07/23/21 09:00 2.0 07/22/21 20:27 12 07/21/21 15:14 158/65 07/21/21 15:00 73 72 NIPPV (BIPAP/CPAP) 100 07/21/21 12:00 97.5 I&O- Last 24 Hours up to 6 AM 07/23/21 06:00 Intake Total 0 ml Output Total 115 ml Balance -115 ml Microbiology Microbiology 07/20/21 Gram Stain - Final, Complete 07/20/21 Body Fluid Culture - Final, Complete 07/16/21 Blood Culture - Final, Complete NO GROWTH AFTER 5 DAYS 07/16/21 Blood Culture - Final, Complete NO GROWTH AFTER 5 DAYS 07/16/21 Urine Culture - Final, Complete Klebsiella Pneumoniae Discharge Medications No Active Prescriptions or Reported Meds Allergies Coded Allergies: Sulfa (Sulfonamide Antibiotics) (Verified Allergy, Mild, hives, 07/16/21) trimethoprim (Verified Allergy, Unknown, 07/16/21) KIARA ONEIL DO Jul 23, 2021 15:29
== END 2021-07-23 12:20 | DRG 871 ==
LOC: M ED 14:46 → EDBD 14:46 → M ED INP 19:59 → M ICU 21:29 → M 4MAIN 07-22 00:45 → M MSPAV 07-22 18:49
PROVIDERS: ADMIT Internal Medicine; ATTEND Internal Medicine
PROC: 02HV33Z Insertion of Infusion Device into Superior Vena Cava, Percutaneous Approach (ICD-10-PCS; principal; 2021-07-17)
PROC: XW033E5 Introduction of Remdesivir Anti-infective into Peripheral Vein, Percutaneous Approach, New Technology Group 5 (ICD-10-PCS; 2021-07-17)
PROC: 0F9430Z Drainage of Gallbladder with Drainage Device, Percutaneous Approach (ICD-10-PCS; 2021-07-20)
DX: A41.9 Sepsis, unspecified organism (principal); K72.00 Acute and subacute hepatic failure without coma; I21.A1 Myocardial infarction type 2; R65.21 Severe sepsis with septic shock; J96.01 Acute respiratory failure with hypoxia; E11.10 Type 2 diabetes mellitus with ketoacidosis without coma; K82.2 Perforation of gallbladder; K80.00 Calculus of gallbladder with acute cholecystitis without obstruction; N39.0 Urinary tract infection, site not specified; I48.20 Chronic atrial fibrillation, unspecified; Z68.42 Body mass index [BMI] 45.0-49.9, adult; N17.9 Acute kidney failure, unspecified; K56.7 Ileus, unspecified; J81.1 Chronic pulmonary edema; Z66 Do not resuscitate; G47.33 Obstructive sleep apnea (adult) (pediatric); M10.9 Gout, unspecified; I12.9 Hypertensive chronic kidney disease with stage 1 through stage 4 chronic kidney disease, or unspecified chronic kidney disease; Z86.16 Personal history of COVID-19; E66.01 Morbid (severe) obesity due to excess calories; G25.0 Essential tremor; E78.5 Hyperlipidemia, unspecified; R74.01 Elevation of levels of liver transaminase levels; M48.00 Spinal stenosis, site unspecified; Z79.01 Long term (current) use of anticoagulants; Z79.4 Long term (current) use of insulin; Z79.84 Long term (current) use of oral hypoglycemic drugs; Z79.899 Other long term (current) drug therapy; Z88.2 Allergy status to sulfonamides; Z88.8 Allergy status to other drugs, medicaments and biological substances; N18.32 Chronic kidney disease, stage 3b; E11.22 Type 2 diabetes mellitus with diabetic chronic kidney disease; E87.5 Hyperkalemia; Z72.3 Lack of physical exercise; B96.1 Klebsiella pneumoniae [K. pneumoniae] as the cause of diseases classified elsewhere; F03.90 Unspecified dementia, unspecified severity, without behavioral disturbance, psychotic disturbance, mood disturbance, and anxiety; Z51.5 Encounter for palliative care

== ENCOUNTER → 2021-07-16 | Outpatient (REF) ==
[~2021-07-16] MED LIST changes: +ATOR40TA75 PO; +BISA10SU27 PR; +CEFT1INJ5 IM; +EZET10TA21 PO; +LANTINJ4 SC; +LISI-898 PO; +MILKSUS3 PO; +POTA10TA17 PO; +PRESCAP PO; +TRAM50TA2 PO; +TRUL0.5I SC
[2021-07-16 12:01] LABS: HEMATOCRIT 38.6 % (36.0-47.0); HEMOGLOBIN 12.2 g/dl (12.0-15.5); MEAN CORPUSCULAR HEMOGLOBIN 31.6 pg (27.0-33.0); MEAN CORPUSCULAR HGB CONC 31.6 g/dl (32.0-36.5); PLATELET COUNT, AUTOMATED 266 10^3/uL (150-450); RED BLOOD COUNT 3.86 10^6/uL (4.00-5.40)
[2021-07-16 12:04] LABS: APPEARANCE, URINE TURBID (CLEAR); BACTERIA, URINE AUTO 3+ (NEGATIVE); BILIRUBIN, URINE AUTO 1+ (NEGATIVE); BLOOD, URINE BLOOD 1+ (NEGATIVE); COLOR, URINE YELLOW (YELLOW); GLUCOSE, URINE (UA) AUTO 1+ mg/dL (NEGATIVE); KETONE, URINE AUTO TRACE mg/dL (NEGATIVE); LEUKOCYTE ESTERASE, URINE AUTO 2+ (NEGATIVE); MUCUS, URINE LARGE (NEGATIVE); NITRITE, URINE AUTO NEGATIVE (NEGATIVE); PROTEIN, URINE AUTO 2+ mg/dL (NEGATIVE); RBC, URINE AUTO 15 /HPF (0-3); SPECIFIC GRAVITY URINE AUTO 1.024 (1.002-1.035); SQUAMOUS EPITHELIAL CELL UR AU 37 /HPF (0-6); WBC, URINE AUTO TNTC /HPF (0-3)
[2021-07-16 12:23] LABS: ALBUMIN 2.4 GM/DL (3.2-5.2); BILIRUBIN,TOTAL 0.8 MG/DL (0.2-1.0); CALCIUM LEVEL 9.8 MG/DL (8.8-10.2); CREATININE FOR GFR 2.83 MG/DL (0.55-1.30); GLOMERULAR FILTRATION RATE 17.2 (>39); POTASSIUM SERUM 5.2 MEQ/L (3.5-5.1); TOTAL PROTEIN 6.7 GM/DL (6.4-8.2)
[2021-07-16 12:25] LABS: LYMPHOCYTES 1 % (16-44); MONOCYTES 6 % (0-5); NEUTROPHILS 86 % (28-66)
[2021-07-16 12:26] LABS: PLATELET ESTIMATE NORMAL (NORMAL); TOXIC VACUOLATION 1+
--- NOTE | 2021-07-16 12:46 | REP ---
INDICATION: PAIN COMPARISON: None. TECHNIQUE: Portable supine views of the abdomen and pelvis. FINDINGS: Examination is limited by portable technique. Moderately distended air-filled loops of small bowel are identified along with normal appearance to the colon. Differential diagnosis includes ileus and early/partial small bowel obstruction. No obvious free air. IMPRESSION: Findings raise the possibility of ileus versus early/partial small bowel obstruction. <Electronically signed by Alen Glover > 07/16/21 0415
== END ==
LOC: SKLAB4 10:43
PROVIDERS: ATTEND Neuromusculoskeletal Medicine & OMM
DX: R10.9 Unspecified abdominal pain (principal)